=== PATIENT | female | born 1940 | race Caucasian/White ===

== ENCOUNTER 2021-05-06 20:08 | Inpatient (IN) ==
[2021-05-06] MEDS ORDERED: SODIUM CHLORIDE 0.9% 1000ML 2,000 ML IV ONE (20:29)
[2021-05-06 20:46] LABS: Basophils # (auto) 0.03 K/uL (0-0.2); Basophils % (auto) 0.3 %; Eosinophils # (auto) 0.24 K/uL (0-0.5); Eosinophils % (auto) 2.1 %; Hematocrit (blood only) 47.4 % (37-47); Hemoglobin 15.8 g/dL (12.0-16.0); Immature Granulocytes # (auto) 0.02 K/uL (0.00-0.02); Immature Granulocytes % (auto) 0.2 %; Lymphocytes # (auto) 2.29 K/uL (1.2-3.4); Lymphocytes % (auto) 19.6 %; Mean Corpuscular Hemoglobin 29.8 pg (25-34); Mean Corpuscular Hgb Conc 33.3 g/dL (32-36); Mean Corpuscular Volume 89.4 fL (80-100); Mean Platelet Volume 9.9 fL (7.4-10.4); Monocytes # (auto) 0.96 K/uL (0.11-0.59); Monocytes % (auto) 8.2 %; Neutrophils # (auto) 8.12 K/uL (1.4-6.5); Neutrophils % (auto) 69.6 %; Platelet Count 406 K/uL (130-400); RDW Coefficient of Variation 14.6 % (11.5-14.5); RDW Standard Deviation 47.4 fL (36.4-46.3); White Blood Count 11.66 K/uL (4.8-10.8)
--- NOTE | 2021-05-06 20:59 | XRay Report ---
XR chest 1V portable HISTORY: SEPSIS COMPARISON: None. FINDINGS: Slightly rotated study. The right lung is clear. A few linear scarlike density noted within the left lower lobe. The cardiac silhouette is borderline enlarged. No focal lung consolidations to suggest pneumonia. No evidence for pulmonary edema. No pleural fusions. No pneumothorax. Lobular dens ity overlying the left hilum may represent a tortuous thoracic aorta given the rotated study. IMPRESSION: Lobular density overlying the left hilum may represent a tortuous thoracic aorta given the rotated st udy. This will be better appreciated on the same day chest CT. ACT 112: Negative or not required by law. Electronically signed by: Arsenio Sheehan M.D. 05/06/2021 8:58 PM
[2021-05-06 21:04] LABS: Partial Thromboplastin Ratio 0.9; Partial Thromboplastin Time 24.3 Seconds (21.0-31.0); Prothrombin Time 9.8 Seconds (9.0-12.0)
[2021-05-06 21:38] LABS: Influenza A virus by PCR Negative (Negative); Influenza B virus by PCR Negative (Negative)
[2021-05-06] MEDS ORDERED: ONDANSETRON INJ 2 MG/ML 2 ML VIAL IV STA (21:47)
--- NOTE | 2021-05-06 21:47 | Emergency Department Note ---
History of Present Illness General Chief complaint: Hypotension Stated complaint: WEAKNESS, LOW BLOOD PRESSURE, HIGH BLOOD SUGAR Time Seen by Provider: 05/06/21 20:29 History of Present Illness Provider complaint: Dizziness weakness Onset (ago): day(s) 3 Maximum Pain Intensity: 6 80-year-old female presents emergency department with dizziness and weakness. She reports diarrhea, vomiting, nausea, and flank pain bilaterally since Thursday. She states she took her blood pressure today and noticed was low so she came to the emergency department. Patient does have a history of renal cell carcinoma and has had her right kidney removed. No fever headache cough or chest pain. Home Medications Medication Instructions Recorded Confirmed Type ascorbate calcium (vitamin C) 500 500 mg PO DAILY 11/15/20 05/06/21 History mg tablet atorvastatin 20 mg tablet 20 mg PO DAILY 11/15/20 05/06/21 History cholecalciferol (vitamin D3) 50 50 mcg PO DAILY 11/15/20 05/06/21 History mcg (2,000 unit) capsule cyanocobalamin (vitamin B-12) 3,000 mcg PO DAILY 11/15/20 05/06/21 History 3,000 mcg capsule gabapentin 300 mg capsule 300 mg PO HS 11/15/20 05/06/21 History omeprazole 20 mg capsule,delayed 20 mg PO DAILY 11/15/20 05/06/21 History release insulin glargine U-300 conc 300 60 unit SUBCUT DAILY #6 ml 12/05/20 05/06/21 Rx unit/mL (3 mL) subcutaneous pen (Toujeo Max U-300 SoloStar) allopurinol 100 mg tablet 100 mg PO BID #180 tab 02/15/21 05/06/21 Rx furosemide 20 mg tablet 40 mg PO DAILY tab 02/15/21 05/06/21 History ketoconazole 2 % topical cream 1 applic TOPICAL BID #60 g 02/15/21 05/06/21 Rx venlafaxine 75 mg tablet 75 mg PO DAILY #90 tab 02/15/21 05/06/21 Rx valsartan 160 mg tablet 160 mg PO DAILY #90 tab 02/28/21 05/06/21 Rx potassium chloride 20 mEq 20 meq PO DAILY #30 tab 04/10/21 05/06/21 Rx tablet,extended release aspirin 81 mg tablet 81 mg PO DAILY 05/06/21 05/06/21 History tramadol 50 mg tablet 50 mg PO BID PRN 05/06/21 05/06/21 History Allergies Allergy/AdvReac Type Severity Reaction Status Date / Time NSAIDS (Non-Steroidal AdvReac Mild Unknown Verified 05/06/21 22:05 Anti-Inflamma Past Med/Surg History Medical History Acid reflux Chronic kidney disease, stage IV (severe) Degenerative cervical disc Depression Diabetes 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 Fatty liver History of renal cell cancer Hyperlipemia Hypertension Iron deficiency anemia Mild cognitive impairment Obstructive sleep apnea on CPAP Osteoarthritis Peripheral vascular disease Restless leg syndrome Secondary hyperparathyroidism of renal origin Urinary incontinence Vitamin D deficiency Surgical History H/O tubal ligation 1976 History of right nephrectomy (09/30/10) Family History Brother AA (alcohol abuse) Diabetes Hypertension Mother Diabetes Hypertension Stroke Dementia Father Heart disease Hypertension Kidney disease Myocardial infarction Sister Alzheimer disease Son Diabetes Sister Hypertension Stroke Sister Dementia Denies family history of Ovarian cancer Prostate cancer Breast cancer Colorectal cancer Social History Smoking Status: Never smoker Second Hand Exposure: No; Hx Alcohol Use: No Hx Substance Use: No Preferred Language: Afghan Visual Impairment: Limited Hearing Ability: Hard of Hearing Disability Counselor Required: No Beliefs That Will Affect Care: None marital status: / Current Living Situation: Family Current Living Situation Comment: Son lives w/ her, grandson and grandson's current occupational status: employed 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 How many Children do You have: 3 How many Children do You have Comment: 3 sons; 1 lives [place], 1 lives [place], [place], 1 [facility] Feels Safe at Home: Yes Childhood Exposure to Second-Hand Smoke: No caffeine: Yes during the past year weight has: remained stable Dental Care, Regularly: Yes Physical Activity Frequency: Does not Exercise Seatbelt Use: always Sunscreen Use: No (does not really go in sun) Assistive Devices: CPAP Review of Systems A total of 10 systems reviewed and were otherwise negative Physical Exam Vital Signs Vital Signs - 24 hr 05/06/21 20:17 05/06/21 20:36 05/06/21 20:47 Temperature 36.1 C L Temperature Source Temporal Artery Scan Pulse Rate 111 H 95 H Pulse Rate from SpO2 Sensor 95 H Respiratory Rate 20 14 18 Respiratory Effort / Characteristics Non-Labored Spontaneous Blood Pressure 65/46 L 101/60 Blood Pressure Mean 52 73 Pulse Oximetry 96 94 98 Oxygen Delivery Method Room Air Room Air Sepsis New/Unexplained Change in Mental Status N/A Sepsis Action Taken by Nursing No Action Required 05/06/21 20:57 05/06/21 21:30 Temperature Temperature Source Pulse Rate 90 82 Pulse Rate from SpO2 Sensor 90 82 Respiratory Rate 22 19 Respiratory Effort / Characteristics Blood Pressure 110/54 L 104/55 L Blood Pressure Mean 72 71 Pulse Oximetry 97 97 Oxygen Delivery Method Sepsis New/Unexplained Change in Mental Status Sepsis Action Taken by Nursing Physical Exam HENT: Exam performed. -Head: Normocephalic and atraumatic. -Right Ear: External ear normal. No mastoid tenderness. -Left Ear: External ear normal. No mastoid tenderness. -Mouth/Throat: The oropharynx is clear and moist. No trismus in the jaw. No dental abscesses or uvula swelling. No oropharyngeal exudate or tonsillar abscesses. EYES: Conjunctivae and EOM are normal. Pupils are equal, round, and reactive to light. Right eye exhibits no discharge. Left eye exhibits no discharge. No scleral icterus. NECK: Normal range of motion. Neck supple. No JVD present. No spinous process tenderness present. No carotid bruit present. No rigidity. No tracheal deviation and normal range of motion present. No Brudzinski's sign and no Kernig's sign noted. CV: Normal rate, regular rhythm, normal heart sounds and intact distal pulses. There is no peripheral edema. Palpable radial pulses bue. PULM/CHEST: Effort normal and breath sounds normal. No respiratory distress. No stridor. She has no wheezes. She has no rales. -Chest Wall: She exhibits no tenderness. ABD: The abdomen is soft and obese.. MUSC/SKEL: Normal range of motion. There is no peripheral edema, tenderness or deformity. LYMPH: No cervical adenopathy. NEURO: She is alert and oriented to person, place, and time. She has normal strength. No cranial nerve deficit or sensory deficit. Procedures FAST Exam FAST Exam 1: Fluid in Morison's pouch: No Fluid in Splenorenal Junction: No Fluid around bladder, Transverse view: No Fluid around bladder, Sagittal view: No Fluid in Pericardial Sac: No Gross Wall Motion Abnormality: No Images saved for further review: Yes Additional Comments: [place] protocol rhuoj-ia-feic ultrasound was initiated. No free fluid in the abdomen, no right kidney. No pericardial effusion. IVC does appear collapse. No AAA. Course Course 2028: The patient was evaluated in room B7. A complete history and physical exam was performed Cardiac monitoring: An order was placed for continuous cardiac monitoring. The monitor shows a rate of 110 with sinus tachycardia rhythm Patient was found to be tachycardic and hypotensive. Sepsis protocols initiated. [place] protocol [id number] ultrasound was initiated. No free fluid in the abdomen, no right kidney. No pericardial effusion. IVC does appear co llapse. No AAA. 2 L IV fluids ordered for the patient wide open. 2039: Blood pressure improved. Patient taken to CAT scan. 2257: Blood pressure 91/55. 500 cc bolus of fluid repeat ordered for the patient. Labs show a lactic acid of 2.9. Creatinine of 5.72. Up from 1.86 3 weeks ago. Imaging shows a possible cystitis. No kidney stone. UA pending, zosyn ordered empiroically for sepsis coverae for possible urinary infection. Patient admitted to [facility] [place]. Evans Administered Medications Sodium Chloride (Nss 1000ml) 1,000 mls @ 125 mls/hr IV .Q8H ARTUR Stop: 06/05/21 22:14 Last Admin: 05/06/21 22:33 Dose: 125 mls/hr Documented by: [id number] Discontinued Medications Sodium Chloride (Nss 1000ml) 2,000 mls @ 999 mls/hr IV .Q2H1M ONE Stop: 05/06/21 22:29 Last Infusion: 05/06/21 22:17 Dose: 0 mls/hr Documented by: [id number] Admin: 05/06/21 20:30 Dose: 999 mls/hr Documented by: [id number] Piperacillin Sod/Tazobactam Sod (Zosyn) 4.5 gm in 120 mls @ 240 mls/hr IV NOW ONE Stop: 05/06/21 22:44 Last Admin: 05/06/21 22:32 Dose: 240 mls/hr Documented by: [id number] Ondansetron HCl (Ondansetron Inj 2 Mg/Ml 2 Ml Vial) 4 mg IV NOW STA Stop: 05/06/21 21:48 Last Admin: 05/06/21 22:04 Dose: 4 mg Documented by: [id number] Critical Care Time Critical Care Time: Yes Total Critical Care Time: 79 I have personally spent greater than 79 minutes of critical care time in the direct management of this patient. This includes bedside care, interpretation of diagnostic studies, and testing, discussion with consultants, patient, and family members, and other required patient management activities. This 79 minutes is in excess of all separately billable procedures. Medical Decision Making Laboratory Data Result diagrams: 05/06/21 20:35 05/06/21 20:35 Lab Results 05/06/21 05/06/21 05/06/21 Range/Units 20:35 20:35 20:35 WBC 11.66 H (4.8-10.8) K/uL RBC 5.30 (4.2-5.4) M/uL Hgb 15.8 (12.0-16.0) g/dL Hct 47.4 H (37-47) % MCV 89.4 (80-100) fL MCH 29.8 (25-34) pg MCHC 33.3 (32-36) g/dL RDW Std Deviation 47.4 H (36.4-46.3) fL RDW Coeff of Chyna 14.6 H (11.5-14.5) % Plt Count 406 H (130-400) K/uL MPV 9.9 (7.4-10.4) fL Immature Gran % (Auto) 0.2 % Neut % (Auto) 69.6 % Lymph % (Auto) 19.6 % Ada % (Auto) 8.2 % Eos % (Auto) 2.1 % Baso % (Auto) 0.3 % Neut # (Auto) 8.12 H (1.4-6.5) K/uL Lymph # (Auto) 2.29 (1.2-3.4) K/uL Ada # (Auto) 0.96 H (0.11-0.59) K/uL Eos # (Auto) 0.24 (0-0.5) K/uL Baso # (Auto) 0.03 (0-0.2) K/uL Immature Gran # (Auto) 0.02 (0.00-0.02) K/uL PT 9.8 (9.0-12.0) Seconds INR 1.0 (0.9-1.1) APTT 24.3 (21.0-31.0) Seconds PTT Ratio 0.9 Sodium 131 L (136-145) mmol/L Potassium 3.4 L (3.5-5.1) mmol/L Chloride 94 L (98-107) mmol/L Carbon Dioxide 23 (21-32) mmol/L Anion Gap 15.0 H (3-11) BUN 88 H (7-18) mg/dl Creatinine 5.72 H* (0.6-1.2) mg/dl Est Cr Clr Drug Dosing 8.7 ml/min Est GFR ( Amer) 7.6 ml/min Est GFR (Non-Af Amer) 6.5 ml/min BUN/Creatinine Ratio 15.3 (10-20) Glucose 155 H (70-99) mg/dl Lactate (0.4-2.0) mmol/L Calcium 10.7 H (8.5-10.1) mg/dl Magnesium 2.1 (1.8-2.4) mg/dl Total Bilirubin 0.6 (0.2-1) mg/dl AST 11 L (15-37) U/L ALT 20 (12-78) U/L Alkaline Phosphatase 142 H (45-117) U/L Troponin I < 0.015 (0-0.045) ng/ml Total Protein 8.7 H (6.4-8.2) gm/dl Albumin 3.8 (3.4-5.0) gm/dl Globulin 4.9 H (2.5-4.0) gm/dl Albumin/Globulin Ratio 0.8 L (0.9-2) Procalcitonin (0-0.5) ng/ml COVID-19 Eval Order SARS-CoV-2 (PCR) (Negative) Influ A Molecular Assay (Negative) Influ B Molecular Assay (Negative) 05/06/21 05/06/21 05/06/21 Range/Units 20:35 20:42 20:42 WBC (4.8-10.8) K/uL RBC (4.2-5.4) M/uL Hgb (12.0-16.0) g/dL Hct (37-47) % MCV (80-100) fL MCH (25-34) pg MCHC (32-36) g/dL RDW Std Deviation (36.4-46.3) fL RDW Coeff of Chyna (11.5-14.5) % Plt Count (130-400) K/uL MPV (7.4-10.4) fL Immature Gran % (Auto) % Neut % (Auto) % Lymph % (Auto) % Ada % (Auto) % Eos % (Auto) % Baso % (Auto) % Neut # (Auto) (1.4-6.5) K/uL Lymph # (Auto) (1.2-3.4) K/uL Ada # (Auto) (0.11-0.59) K/uL Eos # (Auto) (0-0.5) K/uL Baso # (Auto) (0-0.2) K/uL Immature Gran # (Auto) (0.00-0.02) K/uL PT (9.0-12.0) Seconds INR (0.9-1.1) APTT (21.0-31.0) Seconds PTT Ratio Sodium (136-145) mmol/L Potassium (3.5-5.1) mmol/L Chloride (98-107) mmol/L Carbon Dioxide (21-32) mmol/L Anion Gap (3-11) BUN (7-18) mg/dl Creatinine (0.6-1.2) mg/dl Est Cr Clr Drug Dosing ml/min Est GFR ( Amer) ml/min Est GFR (Non-Af Amer) ml/min BUN/Creatinine Ratio (10-20) Glucose (70-99) mg/dl Lactate (0.4-2.0) mmol/L Calcium (8.5-10.1) mg/dl Magnesium (1.8-2.4) mg/dl Total Bilirubin (0.2-1) mg/dl AST (15-37) U/L ALT (12-78) U/L Alkaline Phosphatase (45-117) U/L Troponin I (0-0.045) ng/ml Total Protein (6.4-8.2) gm/dl Albumin (3.4-5.0) gm/dl Globulin (2.5-4.0) gm/dl Albumin/Globulin Ratio (0.9-2) Procalcitonin 0.20 (0-0.5) ng/ml COVID-19 Eval Order Covid19 at [facility] SARS-CoV-2 (PCR) (Negative) Influ A Molecular Assay Negative (Negative) Influ B Molecular Assay Negative (Negative) 05/06/21 05/06/21 Range/Units 20:42 21:35 WBC (4.8-10.8) K/uL RBC (4.2-5.4) M/uL Hgb (12.0-16.0) g/dL Hct (37-47) % MCV (80-100) fL MCH (25-34) pg MCHC (32-36) g/dL RDW Std Deviation (36.4-46.3) fL RDW Coeff of Chyna (11.5-14.5) % Plt Count (130-400) K/uL MPV (7.4-10.4) fL Immature Gran % (Auto) % Neut % (Auto) % Lymph % (Auto) % Ada % (Auto) % Eos % (Auto) % Baso % (Auto) % Neut # (Auto) (1.4-6.5) K/uL Lymph # (Auto) (1.2-3.4) K/uL Ada # (Auto) (0.11-0.59) K/uL Eos # (Auto) (0-0.5) K/uL Baso # (Auto) (0-0.2) K/uL Immature Gran # (Auto) (0.00-0.02) K/uL PT (9.0-12.0) Seconds INR (0.9-1.1) APTT (21.0-31.0) Seconds PTT Ratio Sodium (136-145) mmol/L Potassium (3.5-5.1) mmol/L Chloride (98-107) mmol/L Carbon Dioxide (21-32) mmol/L Anion Gap (3-11) BUN (7-18) mg/dl Creatinine (0.6-1.2) mg/dl Est Cr Clr Drug Dosing ml/min Est GFR ( Amer) ml/min Est GFR (Non-Af Amer) ml/min BUN/Creatinine Ratio (10-20) Glucose (70-99) mg/dl Lactate 2.9 H* (0.4-2.0) mmol/L Calcium (8.5-10.1) mg/dl Magnesium (1.8-2.4) mg/dl Total Bilirubin (0.2-1) mg/dl AST (15-37) U/L ALT (12-78) U/L Alkaline Phosphatase (45-117) U/L Troponin I (0-0.045) ng/ml Total Protein (6.4-8.2) gm/dl Albumin (3.4-5.0) gm/dl Globulin (2.5-4.0) gm/dl Albumin/Globulin Ratio (0.9-2) Procalcitonin (0-0.5) ng/ml COVID-19 Eval Order SARS-CoV-2 (PCR) NEGATIVE (Negative) Influ A Molecular Assay (Negative) Influ B Molecular Assay (Negative) Imaging Data Radiologist's Impression: Chest X-Ray 05/06/21 20:29 XR chest 1V portable HISTORY: SEPSIS COMPARISON: None. FINDINGS: Slightly rotated study. The right lung is clear. A few linear scarlike density noted within the left lower lobe. The cardiac silhouette is borderline enlarged. No focal lung consolidations to suggest pneumonia. No evidence for pulmonary edema. No pleural fusions. No pneumothorax. Lobular density overlying the left hilum may represent a tortuous thoracic aorta given the rotated study. IMPRESSION: Lobular density overlying the left hilum may represent a tortuous thoracic aorta given the rotated study. This will be better appreciated on the same day chest CT. ACT 112: Negative or not required by law. Electronically signed by: Arsenio Sheehan M.D. 05/06/2021 8:58 PM Preliminary Findings Only See Final Report For Complete Findings CT ABDOMEN & PELVIS Without Contrast: Collapsed urinary bladder, cystitis can be missed, correlate clinically. Normal solitary left kidney, no stones or obstruction. Status post right nephrectomy, no suspicious mass or adenopathy. Subtle hepatic hypodensity measures 8 mm, too small to accurately characterize, statistically would reflect cyst or hemangioma. Metastatic focus not excluded. Diverticulosis without diverticulitis. No SBO, free air or free fluid. Radiologist: Paloma Stevenson M.D. Study ready at 21:16 and initial results transmitted at 21:24 Preliminary Findings Only See Final Report For Complete Findings CT CHEST Without Contrast: Mild linear atelectasis or scarring. No consolidation or infiltrate. Mild esophageal prominence, may be physiologic, cannot rule out mild esophagi tis. Small hiatal hernia. Severe thyromegaly with substernal extension and/or exophytic nodules extending from the inferior pole. Severe aortic ectasia. Radiologist: Paloma Stevenson M.D. Study ready at 21:14 and initial results transmitted at 21:20 ECG Data Indication: + abdominal pain Rate (beats per minute): 104 Rhythm: + sinus tachycardia ECG Intervals/blocks: + Normal QRS, + Normal RI and + Normal QT-c ECG ST segments: + Normal ST segments MDM Narrative 2028: The patient was evaluated in room B7. A complete history and physical exam was performed Cardiac monitoring: An order was placed for continuous cardiac monitoring. The monitor shows a rate of 110 with sinus tachycardia rhythm Patient was found to be tachycardic and hypotensive. Sepsis protocols initiated. [place] protocol ojvpv-[id number]-puja ultrasound was initiated. No free fluid in the abdomen, no right kidney. No pericardial effusion. IVC does appear collapse. No AAA. 2 L IV fluids ordered for the patient wide open. 2039: Blood pressure improved. Patient taken to CAT scan. 2257: Blood pressure 91/55. 500 cc bolus of fluid repeat ordered for the patient. Labs show a lactic acid of 2.9. Creatinine of 5.72. Up from 1.86 3 weeks ago. Imaging shows a possible cystitis. No kidney stone. UA pending, zosyn ordered empiroically for sepsis coverae for possible urinary infection. Patient admitted to [facility] [place]. Evans Impression & Plan KALA (acute kidney injury), Sepsis Discharge Plan Visit Data Chief Complaint: Hypotension Stated Complaint: WEAKNESS, LOW BLOOD PRESSURE, HIGH BLOOD SUGAR Discharge Problem: KALA (acute kidney injury), Sepsis Patient Disposition: Admitted As Inpatient Forms Stand Alone Forms: [facility] Lindsey Shell Prescriptions Prescriptions: No Action Toujeo Max U-300 SoloStar 300 unit/mL (3 mL) insulin pen 60 unit subcut DAILY Qty: 6 RF: 6 potassium chloride 20 mEq tablet extended release 20 meq PO DAILY Qty: 30 RF: 5 venlafaxine 75 mg tablet 75 mg PO DAILY Qty: 90 RF: 0 furosemide 20 mg tablet 40 mg PO DAILY RF: 0 allopurinol 100 mg tablet 100 mg PO BID Qty: 180 RF: 1 ketoconazole 2 % cream 1 applic topical BID Qty: 60 RF: 0 valsartan 160 mg tablet 160 mg PO DAILY Qty: 90 RF: 3 atorvastatin 20 mg tablet 20 mg PO DAILY RF: 0 omeprazole 20 mg capsule,delayed release(DR/EC) 20 mg PO DAILY RF: 0 gabapentin 300 mg capsule 300 mg PO HS RF: 0 cyanocobalamin (vitamin B-12) 3,000 mcg capsule 3,000 mcg PO DAILY RF: 0 cholecalciferol (vitamin D3) 50 mcg (2,000 unit) capsule 50 mcg PO DAILY RF: 0 ascorbate calcium (vitamin C) 500 mg tablet 500 mg PO DAILY RF: 0 tramadol 50 mg Tablet 50 mg PO BID PRN (Reason: Pain) RF: 0 Low-Dose Aspirin 81 mg Tablet 81 mg PO DAILY RF: 0 Referrals Referrals: Michelle Magana DO [Primary Care Provider] -
[2021-05-06 22:07] LABS: Alanine Aminotransferase 20 U/L (12-78); Albumin Globulin Ratio 0.8 (0.9-2); Albumin Level 3.8 gm/dl (3.4-5.0); Alkaline Phosphatase 142 U/L (45-117); Aspartate Aminotransferase 11 U/L (15-37); BUN Creatinine Ratio 15.3 (10-20); Bilirubin,Total 0.6 mg/dl (0.2-1); Blood Urea Nitrogen 88 mg/dl (7-18); Calcium 10.7 mg/dl (8.5-10.1); Carbon Dioxide 23 mmol/L (21-32); Chloride 94 mmol/L (98-107); Creatinine Clr Calc Pharmacy 8.7 ml/min; Est GFR (African American) 7.6 ml/min; Est GFR (Non-African American) 6.5 ml/min; Globulin 4.9 gm/dl (2.5-4.0); Glucose 155 mg/dl (70-99); Magnesium 2.1 mg/dl (1.8-2.4); Potassium 3.4 mmol/L (3.5-5.1); Sodium 131 mmol/L (136-145); Total Protein 8.7 gm/dl (6.4-8.2); Troponin I < 0.015 ng/ml (0-0.045)
[2021-05-06] MEDS ORDERED: PIPERACILLIN/TAZOBACTAM 4.5 GM/120 ML BAG IV ONE (22:15)
[2021-05-06] MEDS: SODIUM CHLORIDE 0.9% 1000ML 1,000 ML IV SCH (22:33)
[2021-05-06 23:02] LABS: Appearance Urine Cloudy (Clear); Bilirubin Urine Negative (Negative); Blood Urine Negative (Negative); Color Urine Yellow; Epithelial Cell Urine Auto >30 /lpf (0-5); Glucose Urine UA Negative (Negative); Ketones Urine Trace (Negative); Leukocyte Esterase Urine 2+ (Negative); Nitrite Urine Negative (Negative); Protein Urine 1+ (Negative); Specific Gravity Urine 1.013 (1.000-1.030); Urobilinogen Urine Negative (Negative); WBC Urine Automated >30 /hpf (0-5)
[2021-05-06 23:19] LABS: Cast Urine Automated >30 /lpf (0-5)
[2021-05-06] MEDS ORDERED: SODIUM CHLORIDE 0.9% 1000ML 500 ML IV ONE (23:19)
[2021-05-06 23:20] LABS: Bacteria Urine Automated 1+ (Negative); Calcium Oxalate Crystals Urine Present (None Prsent); RBC Urine Automated 0-4 /hpf (0-4)
--- NOTE | 2021-05-06 23:43 | History & Physical Report ---
Date of Service May 06, 2021 Assessment & Plan (1) Acute renal failure: Plan: Bertha Cano is a 80-year-old female with past medical history renal cell cancer status post stent right knee, chronic kidney disease, hypertension, type 2 diabetes, and obstructive sleep apnea; who presented for concerns of low blood pressure earlier today. Acute renal failure superimposed on CKD stage IV -Complicated by her history of renal cell cancer status post right nephrectomy -Creatinine on admission of 5.72 (baseline creatinine approximately 1.9) -Hold nephrotoxic agents at this time -Likely secondary to dehydration given significant collapse of IVC on ED fast scan -Nephrology consulted -Continue to monitor renal function daily -Patient would consider dialysis if deemed a candidate Hypotension: -Peripheral-attention on presentation to ED -ED FAST scan demonstrating significant collapse of IVC consistent with dehydration -BP improved with fluid boluses -Initial lactate of 2.9 with subsequent downtrend to 1.8; likely secondary to poor forward flow -Continue IV rehydration -Received total of 2L NS in ED followed by 1L following admission, with additional NS @ 125mL/hr overnight Type 2 diabetes with polyneuropathy: -Previously well controlled with last A1c in November 2020 of 7.1 -BSG's ACHS -Sliding scale insulin -A1c in a.m. Hypertension: -Hold home hypertensive regimen in the setting of hypotension and acute renal failure Gout: -Home regimen of allopurinol 100 mg twice daily Diet: Carb consistent CODE STATUS: Full code DVT prophylaxis: Heparin (2) History of renal cell cancer: (3) Chronic kidney disease, stage IV (severe): (4) Diabetes mellitus with polyneuropathy: (5) Hypertension: (6) Hyperlipemia: (7) Acid reflux: (8) History of right nephrectomy: (9) Gout: History of Present Illness Primary Care Provider: Michelle Magana DO Bertha Cano is a 80-year-old female with past medical history renal cell cancer status post stent right knee, chronic kidney disease, hypertension, type 2 diabetes, and obstructive sleep apnea; who presented for concerns of low blood pressure earlier today. Over the last week patient has had continued difficulty with keeping down liquids and foods, with associated diarrhea. As a result of this has had minimal food consumption over the last 3 days, additionally had vents holding off on using her Lasix out of concern about amount of fluid she was having diarrhea. This had somewhat slowed down earlier today, but she was still tentative towards eating or drinking anything. Ultimately took her blood pressure earlier today given feeling very tired, and after seeing the low blood pressure number decided she needs to be seen in the ER. Following receiving multiple IV infusions she did feel like her energy had come up somewhat, but was still profoundly fatigued. Sensitive discussions regarding changes to kidney function demonstrated on lab work demonstrated that she would be agreeable to dialysis if she was deemed a candidate, as she desires to continue to try everything. Does have family that have previously been through dialysis as well as needed to receive kidney transplants. Recognizes that with her history this is very complicated given that she only has 1 kidney at this moment in time and that one has suffered some damage at this point. Allergies Allergy/AdvReac Type Severity Reaction Status Date / Time NSAIDS (Non-Steroidal AdvReac Mild Unknown Verified 05/06/21 22:05 Anti-Inflamma Home Medications Medication Instructions Recorded Confirmed Type ascorbate calcium (vitamin C) 500 500 mg PO DAILY 11/15/20 05/06/21 History mg tablet atorvastatin 20 mg tablet 20 mg PO DAILY 11/15/20 05/06/21 History cholecalciferol (vitamin D3) 50 50 mcg PO DAILY 11/15/20 05/06/21 History mcg (2,000 unit) capsule cyanocobalamin (vitamin B-12) 3,000 mcg PO DAILY 11/15/20 05/06/21 History 3,000 mcg capsule gabapentin 300 mg capsule 300 mg PO HS 11/15/20 05/06/21 History omeprazole 20 mg capsule,delayed 20 mg PO DAILY 11/15/20 05/06/21 History release insulin glargine U-300 conc 300 60 unit SUBCUT DAILY #6 ml 12/05/20 05/06/21 Rx unit/mL (3 mL) subcutaneous pen (Toujeo Max U-300 SoloStar) allopurinol 100 mg tablet 100 mg PO BID #180 tab 02/15/21 05/06/21 Rx furosemide 20 mg tablet 40 mg PO DAILY tab 02/15/21 05/06/21 History ketoconazole 2 % topical cream 1 applic TOPICAL BID #60 g 02/15/21 05/06/21 Rx venlafaxine 75 mg tablet 75 mg PO DAILY #90 tab 02/15/21 05/06/21 Rx valsartan 160 mg tablet 160 mg PO DAILY #90 tab 02/28/21 05/06/21 Rx potassium chloride 20 mEq 20 meq PO DAILY #30 tab 04/10/21 05/06/21 Rx tablet,extended release aspirin 81 mg tablet 81 mg PO DAILY 05/06/21 05/06/21 History tramadol 50 mg tablet 50 mg PO BID PRN 05/06/21 05/06/21 History Past Med/Surg History Medical History Acid reflux Chronic kidney disease, stage IV (severe) Degenerative cervical disc Depression Diabetes 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 Fatty liver History of renal cell cancer Hyperlipemia Hypertension Iron deficiency anemia Mild cognitive impairment Obstructive sleep apnea on CPAP Osteoarthritis Peripheral vascular disease Restless leg syndrome Secondary hyperparathyroidism of renal origin Urinary incontinence Vitamin D deficiency Surgical History H/O tubal ligation 1976 History of right nephrectomy (09/30/10) Family History Brother AA (alcohol abuse) Diabetes Hypertension Mother Diabetes Hypertension Stroke Dementia Father Heart disease Hypertension Kidney disease Myocardial infarction Sister Alzheimer disease Son Diabetes Sister Hypertension Stroke Sister Dementia Denies family history of Ovarian cancer Prostate cancer Breast cancer Colorectal cancer Social History Smoking Status: Never smoker Second Hand Exposure: No; Hx Alcohol Use: No Hx Substance Use: No Preferred Language: Northern Irish Communication Ability: Effective Visual Impairment: Limited Hearing Ability: Hard of Hearing Winterizer Required: No Beliefs That Will Affect Care: None marital status: / Current Living Situation: Family Current Living Situation Comment: Son lives w/ her, grandson and grandson's current occupational status: employed 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 How many Children do You have: 3 How many Children do You have Comment: 3 sons; 1 lives [place], 1 [place], [facility] Feels Safe at Home: Yes Safety Concerns: Feels Safe At This Time Childhood Exposure to Second-Hand Smoke: No caffeine: Yes during the past year weight has: remained stable Dental Care, Regularly: Yes Physical Activity Frequency: Does not Exercise Seatbelt Use: always Sunscreen Use: No (does not really go in sun) Assistive Devices: CPAP Review of Systems Review of Systems: All systems reviewed & are unremarkable except as noted in HPI & below Physical Exam Constitutional: WD/WN, vitals as above Eyes: PERRL, conjunctivae normal, anicteric sclerae Respiratory: normal respiratory effort, lungs clear to auscultation Auscultation: no crackles, no rales, no rhonchi and no wheezes Cardiovascular: Rate/Rhythm: regular rate and regular rhythm Heart Sounds: + murmur (systolic ejection over FRANK border); no gallop and no cardiac rub Vessels: normal peripheral pulses; no JVD Extremities: no edema Gastrointestinal (Abdomen): Inspection/Auscultation: normal bowel sounds; abdomen not distended Percussion/Palpation: abdomen soft; abdomen nontender and no guarding Musculoskeletal: no cyanosis or clubbing, extremities motor strength 5/5 Skin: no rashes, warm and dry Neurologic: PERRL, EOMI, accommodation nl, no face palsy, no dysarthria CN's II-XI intact bilaterally and moves all extremities Psychiatric: Orientation: alert and oriented x 3 Results & Data Results & Data ([facility]) Vital Signs (Past 12 Hours) Vital Signs Temp Pulse Resp BP Pulse Ox 05/06/21 23:15 71 21 96/48 L 95 05/06/21 23:00 75 19 91/55 L 95 05/06/21 22:45 69 14 85/49 L 93 05/06/21 22:30 80 21 90/61 L 95 05/06/21 22:15 81 103/57 L 98 05/06/21 22:00 82 20 97/55 L 96 05/06/21 21:30 82 19 104/55 L 97 05/06/21 20:57 90 22 110/54 L 97 05/06/21 20:47 18 98 05/06/21 20:36 95 H 14 101/60 94 05/06/21 20:17 36.1 C L 111 H 20 65/46 L 96 Laboratory Results 05/07/21 05/06/21 05/06/21 Range/Units 00:05 22:10 22:00 WBC (4.8-10.8) K/uL RBC (4.2-5.4) M/uL Hgb (12.0-16.0) g/dL Hct (37-47) % MCV (80-100) fL MCH (25-34) pg MCHC (32-36) g/dL RDW Std Deviation (36.4-46.3) fL RDW Coeff of Chyna (11.5-14.5) % Plt Count (130-400) K/uL MPV (7.4-10.4) fL Immature Gran % (Auto) % Neut % (Auto) % Lymph % (Auto) % [place] % (Auto) % Eos % (Auto) % Baso % (Auto) % Neut # (Auto) (1.4-6.5) K/uL Lymph # (Auto) (1.2-3.4) K/uL [place] # (Auto) (0.11-0.59) K/uL Eos # (Auto) (0-0.5) K/uL Baso # (Auto) (0-0.2) K/uL Immature Gran # (Auto) (0.00-0.02) K/uL PT (9.0-12.0) Seconds INR (0.9-1.1) APTT (21.0-31.0) Seconds PTT Ratio Sodium (136-145) mmol/L Potassium (3.5-5.1) mmol/L Chloride (98-107) mmol/L Carbon Dioxide (21-32) mmol/L Anion Gap (3-11) BUN (7-18) mg/dl Creatinine (0.6-1.2) mg/dl Est Cr Clr Drug Dosing ml/min Est GFR ( Amer) ml/min Est GFR (Non-Af Amer) ml/min BUN/Creatinine Ratio (10-20) Glucose (70-99) mg/dl Lactate 1.8 (0.4-2.0) mmol/L Calcium (8.5-10.1) mg/dl Magnesium (1.8-2.4) mg/dl Total Bilirubin (0.2-1) mg/dl AST (15-37) U/L ALT (12-78) U/L Alkaline Phosphatase (45-117) U/L Troponin I (0-0.045) ng/ml Total Protein (6.4-8.2) gm/dl Albumin (3.4-5.0) gm/dl Globulin (2.5-4.0) gm/dl Albumin/Globulin Ratio (0.9-2) Procalcitonin (0-0.5) ng/ml Urine Color Yellow Cancelled Urine Appearance Cloudy A Cancelled Urine pH 5.0 Cancelled Ur Specific [place] 1.013 Cancelled Urine Protein 1+ H Cancelled Urine Glucose (UA) Negative Cancelled Urine Ketones Trace H Cancelled Urine Blood Negative Cancelled Urine Nitrite Negative Cancelled Urine Bilirubin Negative Cancelled Urine Urobilinogen Negative Cancelled Ur Leukocyte Esterase 2+ H Cancelled Urine WBC (Auto) >30 H Cancelled Urine RBC (Auto) 0-4 Cancelled U Hyaline Cast (Auto) >30 H Cancelled U Epithel Cells (Auto) >30 H Cancelled Urine Bacteria (Auto) 1+ H Cancelled Ur Renal Epithelial Cell Not Reportable Cancelled Urine Crystals Cancelled Calcium Oxalate Crystal Present A Cancelled Uric Acid Crystals Cancelled Triple Phos Crystals Cancelled Other Crystals Cancelled Amorphous Sediment Cancelled Granular Casts 1-5 H Cancelled Waxy Casts Cancelled RBC Casts Cancelled WBC Casts Cancelled Other Casts Cancelled Urine Mucus Cancelled Urine Other Cancelled Urine Trichomonas Cancelled Urine Yeast Cancelled Urine Sperm Cancelled Ur Oval Fat Bodies Cancelled COVID-19 Eval Order SARS-CoV-2 (PCR) (Negative) Influ A Molecular Assay (Negative) Influ B Molecular Assay (Negative) 05/06/21 05/06/21 05/06/21 Range/Units 21:35 20:42 20:42 WBC (4.8-10.8) K/uL RBC (4.2-5.4) M/uL Hgb (12.0-16.0) g/dL Hct (37-47) % MCV (80-100) fL MCH (25-34) pg MCHC (32-36) g/dL RDW Std Deviation (36.4-46.3) fL RDW Coeff of Chyna (11.5-14.5) % Plt Count (130-400) K/uL MPV (7.4-10.4) fL Immature Gran % (Auto) % Neut % (Auto) % Lymph % (Auto) % [place] % (Auto) % Eos % (Auto) % Baso % (Auto) % Neut # (Auto) (1.4-6.5) K/uL Lymph # (Auto) (1.2-3.4) K/uL [place] # (Auto) (0.11-0.59) K/uL Eos # (Auto) (0-0.5) K/uL Baso # (Auto) (0-0.2) K/uL Immature Gran # (Auto) (0.00-0.02) K/uL PT (9.0-12.0) Seconds INR (0.9-1.1) APTT (21.0-31.0) Seconds PTT Ratio Sodium (136-145) mmol/L Potassium (3.5-5.1) mmol/L Chloride (98-107) mmol/L Carbon Dioxide (21-32) mmol/L Anion Gap (3-11) BUN (7-18) mg/dl Creatinine (0.6-1.2) mg/dl Est Cr Clr Drug Dosing ml/min Est GFR ( Amer) ml/min Est GFR (Non-Af Amer) ml/min BUN/Creatinine Ratio (10-20) Glucose (70-99) mg/dl Lactate 2.9 H* (0.4-2.0) mmol/L Calcium (8.5-10.1) mg/dl Magnesium (1.8-2.4) mg/dl Total Bilirubin (0.2-1) mg/dl AST (15-37) U/L ALT (12-78) U/L Alkaline Phosphatase (45-117) U/L Troponin I (0-0.045) ng/ml Total Protein (6.4-8.2) gm/dl Albumin (3.4-5.0) gm/dl Globulin (2.5-4.0) gm/dl Albumin/Globulin Ratio (0.9-2) Procalcitonin (0-0.5) ng/ml Urine Color Urine Appearance Urine pH Ur Specific [place] Urine Protein Urine Glucose (UA) Urine Ketones Urine Blood Urine Nitrite Urine Bilirubin Urine Urobilinogen Ur Leukocyte Esterase Urine WBC (Auto) Urine RBC (Auto) U Hyaline Cast (Auto) U Epithel Cells (Auto) Urine Bacteria (Auto) Ur Renal Epithelial Cell Urine Crystals Calcium Oxalate Crystal Uric Acid Crystals Triple Phos Crystals Other Crystals Amorphous Sediment Granular Casts Waxy Casts RBC Casts WBC Casts Other Casts Urine Mucus Urine Other Urine Trichomonas Urine Yeast Urine Sperm Ur Oval Fat Bodies COVID-19 Eval Order Covid19 at [facility] SARS-CoV-2 (PCR) NEGATIVE (Negative) Influ A Molecular Assay (Negative) Influ B Molecular Assay (Negative) 05/06/21 05/06/21 05/06/21 Range/Units 20:42 20:35 20:35 WBC (4.8-10.8) K/uL RBC (4.2-5.4) M/uL Hgb (12.0-16.0) g/dL Hct (37-47) % MCV (80-100) fL MCH (25-34) pg MCHC (32-36) g/dL RDW Std Deviation (36.4-46.3) fL RDW Coeff of Chyna (11.5-14.5) % Plt Count (130-400) K/uL MPV (7.4-10.4) fL Immature Gran % (Auto) % Neut % (Auto) % Lymph % (Auto) % [place] % (Auto) % Eos % (Auto) % Baso % (Auto) % Neut # (Auto) (1.4-6.5) K/uL Lymph # (Auto) (1.2-3.4) K/uL [place] # (Auto) (0.11-0.59) K/uL Eos # (Auto) (0-0.5) K/uL Baso # (Auto) (0-0.2) K/uL Immature Gran # (Auto) (0.00-0.02) K/uL PT (9.0-12.0) Seconds INR (0.9-1.1) APTT (21.0-31.0) Seconds PTT Ratio Sodium 131 L (136-145) mmol/L Potassium 3.4 L (3.5-5.1) mmol/L Chloride 94 L (98-107) mmol/L Carbon Dioxide 23 (21-32) mmol/L Anion Gap 15.0 H (3-11) BUN 88 H (7-18) mg/dl Creatinine 5.72 H* (0.6-1.2) mg/dl Est Cr Clr Drug Dosing 8.7 ml/min Est GFR ( Amer) 7.6 ml/min Est GFR (Non-Af Amer) 6.5 ml/min BUN/Creatinine Ratio 15.3 (10-20) Glucose 155 H (70-99) mg/dl Lactate (0.4-2.0) mmol/L Calcium 10.7 H (8.5-10.1) mg/dl Magnesium 2.1 (1.8-2.4) mg/dl Total Bilirubin 0.6 (0.2-1) mg/dl AST 11 L (15-37) U/L ALT 20 (12-78) U/L Alkaline Phosphatase 142 H (45-117) U/L Troponin I < 0.015 (0-0.045) ng/ml Total Protein 8.7 H (6.4-8.2) gm/dl Albumin 3.8 (3.4-5.0) gm/dl Globulin 4.9 H (2.5-4.0) gm/dl Albumin/Globulin Ratio 0.8 L (0.9-2) Procalcitonin 0.20 (0-0.5) ng/ml Urine Color Urine Appearance Urine pH Ur Specific [place] Urine Protein Urine Glucose (UA) Urine Ketones Urine Blood Urine Nitrite Urine Bilirubin Urine Urobilinogen Ur Leukocyte Esterase Urine WBC (Auto) Urine RBC (Auto) U Hyaline Cast (Auto) U Epithel Cells (Auto) Urine Bacteria (Auto) Ur Renal Epithelial Cell Urine Crystals Calcium Oxalate Crystal Uric Acid Crystals Triple Phos Crystals Other Crystals Amorphous Sediment Granular Casts Waxy Casts RBC Casts WBC Casts Other Casts Urine Mucus Urine Other Urine Trichomonas Urine Yeast Urine Sperm Ur Oval Fat Bodies COVID-19 Eval Order SARS-CoV-2 (PCR) (Negative) Influ A Molecular Assay Negative (Negative) Influ B Molecular Assay Negative (Negative) 05/06/21 05/06/21 Range/Units 20:35 20:35 WBC 11.66 H (4.8-10.8) K/uL RBC 5.30 (4.2-5.4) M/uL Hgb 15.8 (12.0-16.0) g/dL Hct 47.4 H (37-47) % MCV 89.4 (80-100) fL MCH 29.8 (25-34) pg MCHC 33.3 (32-36) g/dL RDW Std Deviation 47.4 H (36.4-46.3) fL RDW Coeff of Chyna 14.6 H (11.5-14.5) % Plt Count 406 H (130-400) K/uL MPV 9.9 (7.4-10.4) fL Immature Gran % (Auto) 0.2 % Neut % (Auto) 69.6 % Lymph % (Auto) 19.6 % [place] % (Auto) 8.2 % Eos % (Auto) 2.1 % Baso % (Auto) 0.3 % Neut # (Auto) 8.12 H (1.4-6.5) K/uL Lymph # (Auto) 2.29 (1.2-3.4) K/uL [place] # (Auto) 0.96 H (0.11-0.59) K/uL Eos # (Auto) 0.24 (0-0.5) K/uL Baso # (Auto) 0.03 (0-0.2) K/uL Immature Gran # (Auto) 0.02 (0.00-0.02) K/uL PT 9.8 (9.0-12.0) Seconds INR 1.0 (0.9-1.1) APTT 24.3 (21.0-31.0) Seconds PTT Ratio 0.9 Sodium (136-145) mmol/L Potassium (3.5-5.1) mmol/L Chloride (98-107) mmol/L Carbon Dioxide (21-32) mmol/L Anion Gap (3-11) BUN (7-18) mg/dl Creatinine (0.6-1.2) mg/dl Est Cr Clr Drug Dosing ml/min Est GFR ( Amer) ml/min Est GFR (Non-Af Amer) ml/min BUN/Creatinine Ratio (10-20) Glucose (70-99) mg/dl Lactate (0.4-2.0) mmol/L Calcium (8.5-10.1) mg/dl Magnesium (1.8-2.4) mg/dl Total Bilirubin (0.2-1) mg/dl AST (15-37) U/L ALT (12-78) U/L Alkaline Phosphatase (45-117) U/L Troponin I (0-0.045) ng/ml Total Protein (6.4-8.2) gm/dl Albumin (3.4-5.0) gm/dl Globulin (2.5-4.0) gm/dl Albumin/Globulin Ratio (0.9-2) Procalcitonin (0-0.5) ng/ml Urine Color Urine Appearance Urine pH Ur Specific [place] Urine Protein Urine Glucose (UA) Urine Ketones Urine Blood Urine Nitrite Urine Bilirubin Urine Urobilinogen Ur Leukocyte Esterase Urine WBC (Auto) Urine RBC (Auto) U Hyaline Cast (Auto) U Epithel Cells (Auto) Urine Bacteria (Auto) Ur Renal Epithelial Cell Urine Crystals Calcium Oxalate Crystal Uric Acid Crystals Triple Phos Crystals Other Crystals Amorphous Sediment Granular Casts Waxy Casts RBC Casts WBC Casts Other Casts Urine Mucus Urine Other Urine Trichomonas Urine Yeast Urine Sperm Ur Oval Fat Bodies COVID-19 Eval Order SARS-CoV-2 (PCR) (Negative) Influ A Molecular Assay (Negative) Influ B Molecular Assay (Negative) Diagnostic Findings CT ABDOMEN & PELVIS Without Contrast: Collapsed urinary bladder, cystitis can be missed, correlate clinically. Normal solitary left kidney, no stones or obstruction. Status post right nephrectomy, no suspicious mass or adenopathy. Subtle hepatic hypodensity measures 8 mm, too small to accurately characterize, statistically would reflect cyst or hemangioma. Metastatic focus not excluded. Diverticulosis without diverticulitis. No SBO, free air or free fluid. Radiologist: Paloma Stevenson M.D. ------ CT CHEST Without Contrast: Mild linear atelectasis or scarring. No consolidation or infiltrate. Mild esophageal prominence, may be physiologic, cannot rule out mild esophagitis. Small hiatal hernia. Severe thyromegaly with substernal extension and/or exophytic nodules extending from the inferior pole. Severe aortic ectasia. Radiologist: Paloma Stevenson M.D. Medications Administered Home Medication List Medication Instructions Recorded ascorbate calcium (vitamin C) 500 500 mg PO DAILY 11/15/20 mg tablet atorvastatin 20 mg tablet 20 mg PO DAILY 11/15/20 cholecalciferol (vitamin D3) 50 50 mcg PO DAILY 11/15/20 mcg (2,000 unit) capsule cyanocobalamin (vitamin B-12) 3,000 mcg PO DAILY 11/15/20 3,000 mcg capsule gabapentin 300 mg capsule 300 mg PO HS 11/15/20 omeprazole 20 mg capsule,delayed 20 mg PO DAILY 11/15/20 release insulin glargine U-300 conc 300 60 unit SUBCUT DAILY #6 ml 12/05/20 unit/mL (3 mL) subcutaneous pen (Toujeo Max U-300 SoloStar) allopurinol 100 mg tablet 100 mg PO BID #180 tab 02/15/21 furosemide 20 mg tablet 40 mg PO DAILY tab 02/15/21 ketoconazole 2 % topical cream 1 applic TOPICAL BID #60 g 02/15/21 venlafaxine 75 mg tablet 75 mg PO DAILY #90 tab 02/15/21 valsartan 160 mg tablet 160 mg PO DAILY #90 tab 02/28/21 potassium chloride 20 mEq 20 meq PO DAILY #30 tab 04/10/21 tablet,extended release aspirin 81 mg tablet 81 mg PO DAILY 05/06/21 tramadol 50 mg tablet 50 mg PO BID PRN 05/06/21 Supervising Physician Co-Signing Physician Notes Attending addendum: I have physically seen this patient, have supervised the medical residents activities, and agree with the H&P unless as otherwise noted. Assessment and Plan: Acute kidney failure on chronic kidney disease stage IV/history right nephrectomy- Follow urine culture and sensitivity IV fluid rehydration Daily CBC with differential, chemistry profile and magnesium levels Consult nephrology Diabetes mellitus/polyneuropathy- Placed on Accu-Cheks before meals and at bedtime with NovoLog coverage per scale Check hemoglobin A1c Hypotension/history of hypertension- Blood pressure responded well to IV fluid rehydration Continue NSS at 125 mils per hour Hold furosemide, Klor-Con, and valsartan Remaining orders and notations as noted Resident Activity Tracking Resident Involvement: Resident Care Provided Care Provided: Adult Hospital Medicine
[2021-05-07] MEDS ORDERED: ONDANSETRON INJ 2 MG/ML 2 ML VIAL IV PRN (02:39)
[2021-05-07] MEDS ORDERED: traMADol HCL 50 MG TABLET PO PRN (02:39)
[2021-05-07] MEDS ORDERED: DEXTROSE 50% 50 ML SYRINGE IV PRN (02:39)
[2021-05-07] MEDS ORDERED: CARBOHYDRATES FOR HYPOGLYCEMIA PO PRN (02:39)
[2021-05-07] MEDS ORDERED: GLUCAGON FOR INJ 1 MG VIAL SQ PRN (02:39)
[2021-05-07] MEDS ORDERED: ACETAMINOPHEN 325 MG TAB PO PRN (02:39)
[2021-05-07] MEDS ORDERED: ALUMINUM/MAGNESIUM SUSP 30 ML UDC PO PRN (02:39)
[2021-05-07] MEDS ORDERED: GLUCOSE 40% GEL 15 GM TUBE PO PRN (02:39)
[2021-05-07] MEDS ORDERED: MAGNESIUM HYDROXIDE SUSP 30 ML UDC PO PRN (02:39)
[2021-05-07] MEDS ORDERED: GLUCOSE 10 TABS/TUBE PO PRN (02:39)
[2021-05-07] MEDS ORDERED: POLYETHYLENE (MIRALAX) 17 GM PACK PO PRN (02:39)
[2021-05-07] MEDS ORDERED: SODIUM CHLORIDE 0.9% 1000ML 1,000 ML IV ONE (03:30)
[2021-05-07] MEDS ORDERED: Influenza Vaccine-High Dose (Fluzone-HD) PF 65+ 0.7 ML SYR IM ONE (03:45)
[2021-05-07 05:46] LABS: Basophils # (auto) 0.02 K/uL (0-0.2); Basophils % (auto) 0.2 %; Eosinophils # (auto) 0.44 K/uL (0-0.5); Eosinophils % (auto) 4.4 %; Hematocrit (blood only) 37.4 % (37-47); Hemoglobin 12.3 g/dL (12.0-16.0); Immature Granulocytes # (auto) 0.01 K/uL (0.00-0.02); Immature Granulocytes % (auto) 0.1 %; Lymphocytes # (auto) 1.98 K/uL (1.2-3.4); Lymphocytes % (auto) 19.7 %; Mean Corpuscular Hemoglobin 29.1 pg (25-34); Mean Corpuscular Hgb Conc 32.9 g/dL (32-36); Mean Corpuscular Volume 88.6 fL (80-100); Mean Platelet Volume 9.6 fL (7.4-10.4); Monocytes # (auto) 0.98 K/uL (0.11-0.59); Monocytes % (auto) 9.8 %; Neutrophils # (auto) 6.62 K/uL (1.4-6.5); Neutrophils % (auto) 65.8 %; Platelet Count 263 K/uL (130-400); RDW Coefficient of Variation 14.6 % (11.5-14.5); RDW Standard Deviation 47.1 fL (36.4-46.3); Red Blood Count 4.22 M/uL (4.2-5.4); White Blood Count 10.05 K/uL (4.8-10.8)
[2021-05-07 06:20] LABS: BUN Creatinine Ratio 16.5 (10-20); Calcium 8.6 mg/dl (8.5-10.1); Creatinine Clr Calc Pharmacy 10.1 ml/min; Est GFR (African American) 9.1 ml/min; Est GFR (Non-African American) 7.8 ml/min; Magnesium 1.8 mg/dl (1.8-2.4); Phosphorus 4.6 mg/dl (2.5-4.9); Potassium 3.6 mmol/L (3.5-5.1)
--- NOTE | 2021-05-07 07:12 | CT Scan Report ---
CT chest diagnostic wo con INDICATION: [place] ^B7 CTR ^hypotensive sepsis possible infiltrate on cxr. TECHNIQUE: Multidetector row helical CT of the chest was performed. Coronal and sagittal reformations were obtained. Automated dose lowering techniques and/or adjustment according to patient size were u tilized for this exam. Comparison: Comparison is made to chest one view 05/06/2021 FINDINGS: Lungs and pleura: Atelectasis versus scarring is seen in the dependent portions of the lungs. Heart and pericardium: Heart size is normal. No pericardial effusion. Vessels: The pulmonary trunk is enlarged measuring 40 mm. The aorta is tortuous. Mediastinum and franchesca: Unremarkable. Chest wall and lower neck: There is marked thyromegaly with extension of the inferior lobes into the upper mediastinum. Abdomen: For findings below the diaphragm, please refer to CT of the abdomen dated the same. Bones: Degenerative changes in the thoracic spine. IMPRESSION: 1. No evidence of acute pulmonary disease. Scattered atelectasis is seen. 2. Pulmonary hypertension. 3. Thyromegaly with heterogeneous appearing lobes extending into the upper mediastinum. If not previ ously evaluated, nonemergent thyroid ultrasound can be performed to assess for suspicious nodules. ACT 112: Negative or not required by law. Electronically signed by: Kev Bailey M.D. 05/07/2021 7:11 AM
[2021-05-07 07:31] LABS: Estimated Average Glucose 163 mg/dl; Hemoglobin A1C 7.3 % (4.5-5.6)
[2021-05-07] MEDS: SODIUM CHLORIDE 0.9% 1000ML 1,000 ML IV SCH ×2 (07:43→12:53)
[2021-05-07] MEDS: INSULIN ASPART 100 UNITS/ML 3 ML PEN SC SCH ×4 (07:45→20:21)
[2021-05-07] MEDS: ATORVASTATIN 20 MG TAB PO SCH (07:46)
[2021-05-07] MEDS: VENLAFAXINE HCL 37.5 MG TAB PO SCH (07:46)
[2021-05-07] MEDS: INSULIN GLARGINE SOLOSTAR 100 UNITS/ML 3 ML PEN SC SCH (07:46)
--- NOTE | 2021-05-07 08:23 | CT Scan Report ---
CT SCAN OF THE ABDOMEN AND PELVIS WITHOUT IV CONTRAST CLINICAL HISTORY: Dysuria. Hypotension. COMPARISON STUDY: No priors. TECHNIQUE: CT scan of the abdomen and pelvis is performed from the lung bases to the proximal femora. Images are reviewed in the axial, sagittal, and coronal planes. IV contrast was not administered for this examination. Note that the examination is suboptimal without oral and IV contrast. A dose lower ing technique was utilized adhering to the principles of ALARA. FINDINGS: Lung bases: The heart is top normal in size and without pericardial effusion. The lung bases are melissa r noting bibasilar scarring/atelectasis. There is a tiny hiatal hernia. Liver: The unenhanced liver is normal in size, contour, and attenuation. There is no intrahepatic tete iary ductal dilatation. A subcentimeter hypodensity in the right lobe likely represents a cyst but is too small for definitive characterization. Gallbladder: Unremarkable. Spleen: Normal in size and attenuation. Pancreas: The unenhanced pancreas is atrophic and grossly unremarkable. Adrenal glands: Unremarkable. Kidneys: The right kidney is surgically absent. The unenhanced left kidney demonstrates mild cortical atrophy and is without hydronephrosis. There is a punctate nonobstructing calculus in the lower pole of the left kidney. There is no evidence of contour deforming renal mass lesion. Abdominal vasculature: The abdominal aorta is normal in course and caliber noting mild atheroscleroti c calcification. Bowel: There is no bowel obstruction. There are scattered colonic diverticula without CT evidence of acute diverticulitis. The The appendix is not visualized. Peritoneum: There is no intraperitoneal free air or abdominal ascites. Lymphadenopathy: None. Pelvic viscera: The bladder is decompressed and not well assessed. The uterus and adnexa are normal a s visualized. Skeletal structures: The skeletal structures are osteopenic. There is moderate lumbosacral spondylosi s. Sclerotic change is seen in the sacroiliac joints. No lytic or blastic lesions are seen. IMPRESSION: 1. There are no acute infectious or inflammatory findings in the abdomen or pelvis. 2. Status post right nephrectomy. 3. There is a punctate nonobstructing left renal calculus. ACT 112: Negative or not required by law. Electronically signed by: John Newton M.D. 05/07/2021 8:22 AM
[2021-05-07] MEDS ORDERED: allopurinoL 100 MG TAB PO SCH (09:00)
--- NOTE | 2021-05-07 12:29 | Nephrology Consultation ---
Date of Consultation May 07, 2021 Assessment & Plan (1) KALA (acute kidney injury): (2) Sepsis: (3) Chronic kidney disease, stage IV (severe): (4) History of right nephrectomy: 80-year-old female with stage IV CKD with history of right nephrectomy for renal cell carcinoma in 2010, baseline creatinine around 2, admitted with sepsis secondary to UTI, diarrhea and acute kidney injury. On admission creatinine was 5.7, renal imaging was negative for postrenal obstruction, creatinine improved to 4.9 this morning. Getting treated with ceftriaxone for UTI. Diarrhea is improving. acute kidney injury most likely secondary to prerenal etiology with diarrhea and sepsis. -- Agree with holding all antihypertensive medications for now. Since blood pressure improved and overall she is feeling better, if p.o. intake okay, suggest stopping IV fluid. -- monitor intake and output, electrolyte. Dose medications for GFR less than 30 -- expect renal function to continue to improve as hemodynamically improved will follow Thank you for allowing me to participate in your patient's care. It was a pleasure to see Bertha. History of Present Illness Reason for Consultation: Acute kidney injury. Attending Physician: Toby Parada MD History of Present Illness Bertha Linares is a 80-year-old female with past medical history significant for stage IV CKD, hypertension, diabetes, dyslipidemia, admitted to the hospital with sepsis secondary to UTI, diarrhea and acute kidney injury. Nephrology consult requested to manage KALA with history of advanced CKD. EMR records are reviewed in detail during patient visit. Bertha has been having diarrhea for last 3-4 days. She also has been experiencing dysuria and overall feeling poorly. On arrival to ER she was found to be hypotensive with systolic blood pressure as low as 64. she was also found to have UTI and volume depletion. She received 4 L of IV fluid bolus with improvement in blood pressure. Initial creatinine was 5.7 which improved to 4.9 this morning. She receives ceftriaxone IV. Urine culture and blood culture pending. Renal imaging showed nonobstructing calculi in left kidney but no hydronephrosis. no recent NSAID use. Has been on valsartan at home which is currently on hold. Stage 4 CKD, with solitary left kidney after right nephrectomy in 2010 for renal cell carcinoma, b/l cr 2 0 some variability in creatinine. Has low grade proteinuria With history of diabetes, has been on Valsartan 120 mg daily. Never smoker. Son has history of end-stage renal disease secondary to DM nephropathy, previously was on hemodialysis, had renal transplant 4 years ago with excellent allograft function. no history of autoimmune disease. Family history significant for dad with history of coronary artery disease, mom had history of stroke, 2 brothers had cancer and son has ESRD. Hypertension, well controlled on Valsartan 80 mg daily. Has diabetes for 14 years with no retinopathy, low grade proteinuria, seems very well controlled, A1c around 7. has chronic urinary incontinence follows with Urology. No history of coronary artery disease, CHF. Has history of gout, last uric acid was 6.7, no recent gout attack. Currently she is feeling slightly better, diarrhea seemed to have improved somewhat, did not have any bowel movement overnight. No fever or chills, dysuria, hematuria. No flank pain. No shortness of breath, chest pain, significant lower extremity edema. Allergies Allergy/AdvReac Type Severity Reaction Status Date / Time NSAIDS (Non-Steroidal AdvReac Mild Unknown Verified 05/06/21 22:05 Anti-Inflamma Home Medications Medication Instructions Recorded Confirmed Type ascorbate calcium (vitamin C) 500 500 mg PO DAILY 11/15/20 05/06/21 History mg tablet atorvastatin 20 mg tablet 20 mg PO DAILY 11/15/20 05/06/21 History cholecalciferol (vitamin D3) 50 50 mcg PO DAILY 11/15/20 05/06/21 History mcg (2,000 unit) capsule cyanocobalamin (vitamin B-12) 3,000 mcg PO DAILY 11/15/20 05/06/21 History 3,000 mcg capsule gabapentin 300 mg capsule 300 mg PO HS 11/15/20 05/06/21 History omeprazole 20 mg capsule,delayed 20 mg PO DAILY 11/15/20 05/06/21 History release insulin glargine U-300 conc 300 60 unit SUBCUT DAILY #6 ml 12/05/20 05/06/21 Rx unit/mL (3 mL) subcutaneous pen (Toujeo Max U-300 SoloStar) allopurinol 100 mg tablet 100 mg PO BID #180 tab 02/15/21 05/06/21 Rx furosemide 20 mg tablet 40 mg PO DAILY tab 02/15/21 05/06/21 History ketoconazole 2 % topical cream 1 applic TOPICAL BID #60 g 02/15/21 05/06/21 Rx venlafaxine 75 mg tablet 75 mg PO DAILY #90 tab 02/15/21 05/06/21 Rx valsartan 160 mg tablet 160 mg PO DAILY #90 tab 02/28/21 05/06/21 Rx potassium chloride 20 mEq 20 meq PO DAILY #30 tab 04/10/21 05/06/21 Rx tablet,extended release aspirin 81 mg tablet 81 mg PO DAILY 05/06/21 05/06/21 History tramadol 50 mg tablet 50 mg PO BID PRN 05/06/21 05/06/21 History Patient History Medical History Acid reflux Chronic kidney disease, stage IV (severe) Degenerative cervical disc Depression Diabetes 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 Fatty liver History of renal cell cancer Hyperlipemia Hypertension Iron deficiency anemia Mild cognitive impairment Obstructive sleep apnea on CPAP Osteoarthritis Peripheral vascular disease Restless leg syndrome Secondary hyperparathyroidism of renal origin Urinary incontinence Vitamin D deficiency Surgical History H/O tubal ligation 1976 History of right nephrectomy (09/30/10) Family History Brother AA (alcohol abuse) Diabetes Hypertension Mother Diabetes Hypertension Stroke Dementia Father Heart disease Hypertension Kidney disease Myocardial infarction Sister Alzheimer disease Son Diabetes Sister Hypertension Stroke Sister Dementia Denies family history of Ovarian cancer Prostate cancer Breast cancer Colorectal cancer Social History Smoking Status: Never smoker Second Hand Exposure: No; Hx Alcohol Use: No Hx Substance Use: No Preferred Language: Amharic Communication Ability: Effective Visual Impairment: Limited Hearing Ability: Hard of Hearing Access Clerk Required: No Beliefs That Will Affect Care: None marital status: / Current Living Situation: Family Current Living Situation Comment: Son lives w/ her, grandson and grandson's current occupational status: employed 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 Physical Exam Constitutional: WD/WN, vitals as above + ill appearing; no acute distress Eyes: PERRL, conjunctivae normal, anicteric sclerae ENMT: external ear and nose normal, oropharynx normal Ears: no hearing impairment Neck: trachea midline Respiratory: normal respiratory effort, lungs clear to auscultation no cough Auscultation: no crackles, no rales and no wheezes Cardiovascular: RRR, no murmur, no edema Gastrointestinal (Abdomen): Inspection/Auscultation: abdomen normal to inspection and normal bowel sounds; abdomen not distended Percussion/Palpation: abdomen nontender, no guarding and abdomen not rigid Musculoskeletal: Extremities: extremities normal to inspection Skin: no rashes, warm and dry Neurologic: moves all extremities and awake Psychiatric: A+Ox3, euthymic affect Results & Data ([facility]) Vital Signs (Past 12 Hours) Vital Signs Temp Pulse Pulse Resp BP BP Pulse Ox 05/07/21 11:42 36.5 C 97 H 20 137/63 97 05/07/21 08:00 36.3 C L 52 L 51 L 16 90/42 L 99 05/07/21 06:26 54 L 101/50 L 05/07/21 05:01 36.5 C 50 L 18 91/30 L 05/07/21 05:00 83/46 L 05/07/21 04:00 36.8 C 70 18 94/48 L 94 05/07/21 02:39 18 91/30 L 05/07/21 02:24 36.3 C L 18 90/46 L 92 05/07/21 01:45 50 L 17 91/30 L 95 05/07/21 01:30 55 L 18 92/50 L 95 05/07/21 01:15 53 L 17 102/46 L 95 05/07/21 01:00 54 L 16 92/48 L 97 05/07/21 00:45 56 L 17 101/50 L 95 05/07/21 00:30 55 L 16 99/47 L 96 PG Care Time/CCT Total # of Minutes Spent Total Time Spent with Patient: Total time spent is greater than 50% in coordination of care (as documented) at patient's floor/unit and/or counseling patient: Coding Level of Care Code 55340 Initial Inpt Care Lvl 3 Diagnoses KALA (acute kidney injury) N17.9 Sepsis A41.9; R65.20; N17.9 Acute renal failure type: unspecified Sepsis acute organ dysfunction status: with acute organ dysfunction Sepsis type: sepsis due to unspecified organism Severe sepsis acute organ dysfunction type: acute renal failure Severe sepsis shock status: unspecified Chronic kidney disease, stage IV (severe) N18.4 History of right nephrectomy Z90.5 (1) Sepsis Acute renal failure type: unspecified Sepsis acute organ dysfunction status: with acute organ dysfunction Sepsis type: sepsis due to unspecified organism Severe sepsis acute organ dysfunction type: acute renal failure Severe sepsis shock status: unspecified Qualified Code(s): A41.9 - Sepsis, unspecified organism; R65.20 - Severe sepsis without septic shock; N17.9 - Acute kidney failure, unspecified
--- NOTE | 2021-05-07 13:23 | Hospitalist Progress Note ---
Date of Service May 07, 2021 Assessment & Plan (1) KALA (acute kidney injury): Plan: Follows with Dr. Freed, likely baseline Cr ~2.0, CKD Stage IV. - Cr up to 5.7 on admission; now down to 4.9. - Likely pre-renal from diarrhea, dehydration. Possible mild ATN from hypotension (BP was as low as 65/45 on admission, but improved quickly with fluids.) - Nephrology following (2) Diabetes mellitus with polyneuropathy: Plan: A1c was 7.3% this admission. - Continue long-acting glargine 30 units daily (half normal long-acting dose) - Continue sliding scale insulin -> Blood sugar has been 115 - 170. (3) Hypertension: Plan: BP is 140/60. - Holding home furosemide & valsartan to due initial low BP & KALA (4) Hyperlipemia: Plan: - Continue statin (5) Depression: Plan: - Continue venlafaxine (6) Gout: Plan: - Hold allopurinol with KALA (7) Thyroid nodule: Plan: Noted on chest CT on 05/06. - Thyroid u/s ordered (8) DVT prophylaxis: Plan: Heparin 5,000 units SQ Q12h Admission and Anticipated Discharge Date Admission Date: May 06, 2021 Subjective Doing well today. More energy. Reports no fevers/chills, chest pain, shortness of breath, abdominal pain, nausea, or vomiting. Physical Exam Constitutional: WD/WN, vitals as above Eyes: EOM intact bilaterally; no conjunctival abnormality ENMT: external ear and nose normal, oropharynx normal Neck: trachea midline, no thyromegaly normal visual inspection Respiratory: normal respiratory effort, lungs clear to auscultation no respiratory distress Cardiovascular: RRR, no murmur, no edema Gastrointestinal (Abdomen): Inspection/Auscultation: abdomen normal to inspection; abdomen not distended Musculoskeletal: no cyanosis or clubbing, extremities motor strength 5/5 Skin: no rashes, warm and dry Neurologic: moves all extremities and awake Psychiatric: Orientation: alert, oriented to person and cooperative Results & Data Results & Data ([facility]) Vital Signs (Past 12 Hours) Vital Signs Temp Pulse Pulse Resp BP BP Pulse Ox 05/07/21 11:42 36.5 C 97 H 20 137/63 97 05/07/21 08:00 36.3 C L 52 L 51 L 16 90/42 L 99 05/07/21 06:26 54 L 101/50 L 05/07/21 05:01 36.5 C 50 L 18 91/30 L 05/07/21 05:00 83/46 L 05/07/21 04:00 36.8 C 70 18 94/48 L 94 05/07/21 02:39 18 91/30 L 05/07/21 02:24 36.3 C L 18 90/46 L 92 05/07/21 01:45 50 L 17 91/30 L 95 05/07/21 01:30 55 L 18 92/50 L 95 05/07/21 01:15 53 L 17 102/46 L 95 PG Care Time/CCT Total # of Minutes Spent Total Time Spent with Patient: Total time spent is greater than 50% in coordination of care (as documented) at patient's floor/unit and/or counseling patient: Coding Level of Care Code 90083 Subseq Hosp Care Lvl 3 Diagnoses KALA (acute kidney injury) N17.9 Diabetes mellitus with polyneuropathy E11.42 Hypertension I10 Hyperlipemia E78.5 Depression F32.9 DVT prophylaxis Z29.9 Gout M10.9 Thyroid nodule E04.1
--- NOTE | 2021-05-07 15:07 | Ultrasound Report ---
US thyroid CLINICAL HISTORY: 80 years-old Female presenting with Nodules. TECHNIQUE: Real-time grayscale ultrasound imaging of the thyroid gland was performed for a focused ev aluation at the site of clinical concern. COMPARISON: None. FINDINGS: Right lobe of thyroid gland is enlarged, measuring 8.3 x 3.5 x 3.2 cm and shows heterogeneous echotex ture. There is 3.2 x 3.5 x 3.3 cm heterogeneous isoechoic circumscribed round nodule within lower niya e of the right thyroid lobe. Left thyroid lobe is enlarged measuring 8.0 x 2.8 x 2.4 cm in size and shows heterogeneous echogenici ty. -4.2 x 4.1 x 3.5 isoechoic round circumscribed nodule is seen within left thyroid lobe. -3.8 x 2.3 x 2.3 cm heterogeneous hyperechoic-isoechoic oval nodule is seen within left thyroid lobe and shows peripheral blood flow. Thyroid isthmus is measuring 1.2 cm in size. No internal echogenic foci are seen within the right nodules. Evaluation is suboptimal due to extensi on of thyroid lobe to the thoracic inlet. IMPRESSION: 1. Thyromegaly. 2. Large isoechoic nodules within the right and left thyroid lobes likely representing TI-RADS 3 les ions, will require FNA due to size above the 2.5 cm. ACT 112: Negative or not required by law. Electronically signed by: Renata Joiner DO 05/07/2021 3:05 PM
[2021-05-07] MEDS: HEPARIN SOD 5,000 UNIT/0.5 ML VIAL SQ SCH (20:21)
[2021-05-08 05:33] LABS: Basophils # (auto) 0.04 K/uL (0-0.2); Basophils % (auto) 0.6 %; Eosinophils # (auto) 0.41 K/uL (0-0.5); Eosinophils % (auto) 5.7 %; Hematocrit (blood only) 35.3 % (37-47); Hemoglobin 11.2 g/dL (12.0-16.0); Immature Granulocytes # (auto) 0.01 K/uL (0.00-0.02); Immature Granulocytes % (auto) 0.1 %; Lymphocytes # (auto) 2.19 K/uL (1.2-3.4); Lymphocytes % (auto) 30.2 %; Mean Corpuscular Hemoglobin 28.7 pg (25-34); Mean Corpuscular Hgb Conc 31.7 g/dL (32-36); Mean Corpuscular Volume 90.5 fL (80-100); Mean Platelet Volume 9.4 fL (7.4-10.4); Monocytes # (auto) 0.65 K/uL (0.11-0.59); Neutrophils # (auto) 3.94 K/uL (1.4-6.5); Neutrophils % (auto) 54.4 %; Platelet Count 241 K/uL (130-400); RDW Coefficient of Variation 14.3 % (11.5-14.5); RDW Standard Deviation 46.8 fL (36.4-46.3); White Blood Count 7.24 K/uL (4.8-10.8)
[2021-05-08 05:50] LABS: BUN Creatinine Ratio 17.5 (10-20); Calcium 8.5 mg/dl (8.5-10.1); Est GFR (African American) 11.3 ml/min; Est GFR (Non-African American) 9.8 ml/min; Magnesium 1.6 mg/dl (1.8-2.4); Potassium 3.7 mmol/L (3.5-5.1)
[2021-05-08 05:51] LABS: Phosphorus 4.3 mg/dl (2.5-4.9)
--- NOTE | 2021-05-08 05:51 | Billing Data ---
Date of Service May 08, 2021 Coding Level of Care Code 40014 Initial Inpt Care Lvl 3
--- NOTE | 2021-05-08 06:22 | Electrocardiogram Report ---
Test Reason : Blood Pressure : / mmHG Vent. Rate : 104 BPM Atrial Rate : 104 BPM P-R Int : 166 ms QRS Dur : 098 ms QT Int : 336 ms P-R-T Axes : 006 -64 079 degrees QTc Int : 441 ms Sinus tachycardia Possible Left atrial enlargement Incomplete right bundle branch block Left anterior fascicular block Left ventricular hypertrophy with repolarization abnormality Abnormal ECG When compared with ECG of 31-MAY-2012 21:14, No significant change was found Confirmed by Marvin Jacobs ([id number]) on 05/08/2021 6:22:12 AM Referred By: REFERRED SELF Confirmed By:Marvin Jacobs
[2021-05-08] MEDS: MAGNESIUM SULFATE / D5W 1 GM/100 ML BAG IV SCH ×2 (06:29→08:43)
[2021-05-08] MEDS: ATORVASTATIN 20 MG TAB PO SCH (08:41)
[2021-05-08] MEDS: VENLAFAXINE HCL 37.5 MG TAB PO SCH (08:41)
[2021-05-08] MEDS: INSULIN ASPART 100 UNITS/ML 3 ML PEN SC SCH ×4 (08:41→20:43)
[2021-05-08] MEDS: INSULIN GLARGINE SOLOSTAR 100 UNITS/ML 3 ML PEN SC SCH (08:42)
[2021-05-08] MEDS: HEPARIN SOD 5,000 UNIT/0.5 ML VIAL SQ SCH ×2 (08:43→20:41)
--- NOTE | 2021-05-08 10:19 | Nephrology Progress Note ---
Date of Service May 08, 2021 Assessment & Plan (1) KALA (acute kidney injury): (2) Sepsis: (3) Chronic kidney disease, stage IV (severe): (4) History of right nephrectomy: Plan: 80-year-old female with stage IV CKD with history of right nephrectomy for renal cell carcinoma in 2010, baseline creatinine around 2, admitted with sepsis secondary to UTI, diarrhea and acute kidney injury. On admission creatinine was 5.7, renal imaging was negative for postrenal obstruction, creatinine improved to 4.9 this morning. Getting treated with ceftriaxone for UTI. Diarrhea is improving. Acute kidney injury most likely secondary to prerenal etiology with diarrhea and sepsis. Renal function continues to improve, electrolyte acceptable. Blood pressure stable with no further hypotensive episode. Decent urine output. -- monitor intake and output, electrolyte. Dose medications for GFR less than 30 -- expect renal function to continue to improve -- hold discharge until further improvement in renal function will follow. Admission and Anticipated Discharge Date Admission Date: May 06, 2021 Subjective Bertha has been doing much better she feels she is close to her baseline. No overnight events. Afebrile, no shortness of breath or chest pain. Blood pressure has been well controlled. normal urine output. Renal function continues to improve, creatinine down to 4.1, electrolyte acceptable. Review of Systems Review of Systems: Detailed review of system was negative except mentioned in HPI. Physical Exam Constitutional: well developed and well nourished; no acute distress Respiratory: normal respiratory effort, lungs clear to auscultation Cardiovascular: RRR, no murmur, no edema Neurologic: moves all extremities; no focal motor deficits and not confused Psychiatric: A+Ox3, euthymic affect Results & Data ([facility] [place]) Vital Signs (Past 12 Hours) Vital Signs Temp Pulse Pulse Pulse Resp BP Pulse Ox 05/08/21 08:34 36.9 C 61 16 139/66 94 05/08/21 05:04 36.5 C 56 L 18 127/65 96 05/08/21 00:15 36.8 C 76 16 147/65 H 94 05/07/21 23:20 75 PG Care Time/CCT Total # of Minutes Spent Total Time Spent with Patient: Total time spent is greater than 50% in coordination of care (as documented) at patient's floor/unit and/or counseling patient: Coding Level of Care Code 81004 Subseq Hosp Care [facility] 2 Diagnoses KALA (acute kidney injury) N17.9 Sepsis A41.9; R65.20; N17.9 Acute renal failure type: unspecified Sepsis acute organ dysfunction status: with acute organ dysfunction Sepsis type: sepsis due to unspecified organism Severe sepsis acute organ dysfunction type: acute renal failure Severe sepsis shock status: unspecified Chronic kidney disease, stage IV (severe) N18.4 History of right nephrectomy Z90.5 (1) Sepsis Acute renal failure type: unspecified Sepsis acute organ dysfunction status: with acute organ dysfunction Sepsis type: sepsis due to unspecified organism Severe sepsis acute organ dysfunction type: acute renal failure Severe sepsis shock status: unspecified Qualified Code(s): A41.9 - Sepsis, unspecified organism; R65.20 - Severe sepsis without septic shock; N17.9 - Acute kidney christy lure, unspecified
--- NOTE | 2021-05-08 14:45 | Hospitalist Progress Note ---
Date of Service May 08, 2021 Assessment & Plan (1) KALA (acute kidney injury): Plan: Follows with Dr. Freed, likely baseline Cr ~2.0, CKD Stage IV. - Cr up to 5.7 on admission; now down to 4.1. - Likely pre-renal from diarrhea, dehydration. Possible mild ATN from hypotension (BP was as low as 65/45 on admission, but improved quickly with fluids.) - Nephrology following -> Hopeful discharge tomorrow if Cr continues to improve. (2) Diabetes mellitus with polyneuropathy: Plan: A1c was 7.3% this admission. - Continue long-acting glargine 30 units daily (half normal long-acting dose) - Continue sliding scale insulin -> Blood sugar has been 80 - 130. (3) Hypertension: Plan: BP is 140/65. - Holding home furosemide & valsartan to due initial low BP & KAAL (4) Hyperlipemia: Plan: - Continue statin (5) Depression: Plan: - Continue venlafaxine (6) Gout: Plan: - Hold allopurinol with KALA (7) Thyroid nodule: Plan: Noted on chest CT on 05/06. - Thyroid u/s ordered -> Will need FNA arranged as outpatient for several large nodules. (8) DVT prophylaxis: Plan: Heparin 5,000 units SQ Q12h Admission and Anticipated Discharge Date Admission Date: May 06, 2021 Subjective Doing well today. More energy. Feels well. Reports no fevers/chills, chest pain, shortness of breath, abdominal pain, nausea, or vomiting. Physical Exam Constitutional: WD/WN, vitals as above Eyes: EOM intact bilaterally; no conjunctival abnormality ENMT: external ear and nose normal, oropharynx normal Neck: trachea midline, no thyromegaly normal visual inspection Respiratory: normal respiratory effort, lungs clear to auscultation no respiratory distress Cardiovascular: RRR, no murmur, no edema Gastrointestinal (Abdomen): Inspection/Auscultation: abdomen normal to inspection; abdomen not distended Musculoskeletal: no cyanosis or clubbing, extremities motor strength 5/5 Skin: no rashes, warm and dry Neurologic: moves all extremities and awake Psychiatric: Orientation: alert, oriented to person and cooperative Results & Data Results & Data ([facility]) Vital Signs (Past 12 Hours) Vital Signs Temp Pulse Pulse Resp BP Pulse Ox 05/08/21 08:34 36.9 C 61 16 139/66 94 05/08/21 05:04 36.5 C 56 L 18 127/65 96 PG Care Time/CCT Total # of Minutes Spent Total Time Spent with Patient: Total time spent is greater than 50% in coordination of care (as documented) at patient's floor/unit and/or counseling patient: Coding Level of Care Code 30982 Subseq Hosp Care Lvl 2 Diagnoses KALA (acute kidney injury) N17.9 Diabetes mellitus with polyneuropathy E11.42 Hypertension I10 Hyperlipemia E78.5 Depression F32.9 Gout M10.9 Thyroid nodule E04.1 DVT prophylaxis Z29.9
[2021-05-09 07:58] LABS: Basophils # (auto) 0.03 K/uL (0-0.2); Basophils % (auto) 0.5 %; Eosinophils # (auto) 0.31 K/uL (0-0.5); Eosinophils % (auto) 4.9 %; Hematocrit (blood only) 33.6 % (37-47); Hemoglobin 11.2 g/dL (12.0-16.0); Immature Granulocytes # (auto) 0.01 K/uL (0.00-0.02); Immature Granulocytes % (auto) 0.2 %; Lymphocytes # (auto) 1.36 K/uL (1.2-3.4); Lymphocytes % (auto) 21.6 %; Mean Corpuscular Hemoglobin 28.9 pg (25-34); Mean Corpuscular Hgb Conc 33.3 g/dL (32-36); Mean Corpuscular Volume 86.6 fL (80-100); Mean Platelet Volume 9.4 fL (7.4-10.4); Monocytes # (auto) 0.54 K/uL (0.11-0.59); Monocytes % (auto) 8.6 %; Neutrophils # (auto) 4.05 K/uL (1.4-6.5); Neutrophils % (auto) 64.2 %; Platelet Count 246 K/uL (130-400); RDW Coefficient of Variation 14.4 % (11.5-14.5); RDW Standard Deviation 44.9 fL (36.4-46.3); Red Blood Count 3.88 M/uL (4.2-5.4)
[2021-05-09 08:33] LABS: BUN Creatinine Ratio 17.5 (10-20); Calcium 9.1 mg/dl (8.5-10.1); Creatinine Clr Calc Pharmacy 13.1 ml/min; Est GFR (African American) 12.5 ml/min; Est GFR (Non-African American) 10.8 ml/min; Magnesium 2.3 mg/dl (1.8-2.4); Potassium 4.2 mmol/L (3.5-5.1)
[2021-05-09 08:36] LABS: Phosphorus 3.6 mg/dl (2.5-4.9)
[2021-05-09] MEDS: INSULIN ASPART 100 UNITS/ML 3 ML PEN SC SCH ×4 (09:26→20:12)
[2021-05-09] MEDS: ASPIRIN 81 MG ECTAB PO SCH (09:29)
[2021-05-09] MEDS: ASCORBIC ACID 500 MG TAB PO SCH (09:29)
[2021-05-09] MEDS: INSULIN GLARGINE SOLOSTAR 100 UNITS/ML 3 ML PEN SC SCH (09:29)
[2021-05-09] MEDS: HEPARIN SOD 5,000 UNIT/0.5 ML VIAL SQ SCH ×2 (09:29→20:12)
[2021-05-09] MEDS: VENLAFAXINE HCL 37.5 MG TAB PO SCH (09:30)
[2021-05-09] MEDS: ATORVASTATIN 20 MG TAB PO SCH (09:30)
--- NOTE | 2021-05-09 10:20 | Nephrology Progress Note ---
Date of Service May 09, 2021 Assessment & Plan (1) KALA (acute kidney injury): (2) Sepsis: (3) Chronic kidney disease, stage IV (severe): (4) History of right nephrectomy: Plan: 80-year-old female with stage IV CKD with history of right nephrectomy for renal cell carcinoma in 2010, baseline creatinine around 2, admitted with sepsis secondary to UTI, diarrhea and acute kidney injury. On admission creatinine was 5.7, renal imaging was negative for postrenal obstruction, creatinine improved to 4.9 this morning. Getting treated with ceftriaxone for UTI. Diarrhea is improving. Acute kidney injury most likely secondary to prerenal etiology with diarrhea and sepsis. Renal function continues to improve but slowed down over last 24 hour with net negative more than 2 L, creatinine down to 3.8, has metabolic acidosis and hyponatremia. Potassium has been normal. Blood pressure stable with no further hypotensive episode. Decent urine output. -- Advised to increase fluid intake to try to keep net even with post ATN diuresis, monitor intake and output, electrolyte. Dose medications for GFR less than 30 -- will hold discharge until further improvement in kidney function, if renal function improve further and electrolyte improve, will tentatively plan for discharge tomorrow. She will need outpatient labs on next Thursday. will follow. Admission and Anticipated Discharge Date Admission Date: May 06, 2021 Reginaldo Stone was seen this morning, overall she has been feeling well, eating drinking well, otherwise asymptomatic. Diarrhea improved but not totally resolved. Kidney function continues to improve however improvement in creatinine somewhat slower over last 24 hour, could be because of post ATN diuresis with net negative more than 2 L. has metabolic acidosis and hyponatremia as well. Blood pressure stable. Review of Systems Review of Systems: Detailed review of system was negative except mentioned in HPI. Physical Exam Constitutional: well developed and well nourished; no acute distress Respiratory: normal respiratory effort, lungs clear to auscultation Cardiovascular: RRR, no murmur, no edema Neurologic: moves all extremities; no focal motor deficits and not confused Psychiatric: A+Ox3, euthymic affect Results & Data ([facility]) Vital Signs (Past 12 Hours) Vital Signs Temp Pulse Resp BP BP Pulse Ox 05/09/21 07:09 36.6 C 64 18 135/74 96 05/08/21 22:41 36.6 C 61 16 146/77 H 99 PG Care Time/CCT Total # of Minutes Spent Total Time Spent with Patient: Total time spent is greater than 50% in coordination of care (as documented) at patient's floor/unit and/or counseling patient: Coding Level of Care Code 80003 Subseq Hosp Care Lvl 3 Diagnoses KALA (acute kidney injury) N17.9 Sepsis A41.9; R65.20; N17.9 Acute renal failure type: unspecified Sepsis acute organ dysfunction status: with acute organ dysfunction Sepsis type: sepsis due to unspecified organism Severe sepsis acute organ dysfunction type: acute renal failure Severe sepsis shock status: unspecified Chronic kidney disease, stage IV (severe) N18.4 History of right nephrectomy Z90.5 (1) Sepsis Acute renal failure type: unspecified Sepsis acute organ dysfunction status: with acute organ dysfunction Sepsis type: sepsis due to unspecified organism Severe sepsis acute organ dysfunction type: acute renal failure Severe sepsis shock status: unspecified Qualified Code(s): A41.9 - Sepsis, unspecified organism; R65.20 - Severe sepsis without septic shock; N17.9 - Acute kidney failure, unspecified
--- NOTE | 2021-05-09 14:57 | Hospitalist Progress Note ---
Date of Service May 09, 2021 Assessment & Plan (1) KALA (acute kidney injury): Plan: Follows with Dr. Freed, likely baseline Cr ~2.0, CKD Stage IV. - Cr up to 5.7 on admission; now down to 3.8. - Likely pre-renal from diarrhea, dehydration. Possible mild ATN from hypotension (BP was as low as 65/45 on admission, but improved quickly with fluids.) - Nephrology following -> Hopeful discharge tomorrow if Cr continues to improve. (2) Diarrhea: Plan: Long-standing issue for her. Reports it waxes and wanes, and often improves with fiber. Also takes Imodium PRN. - Presently she reports her diarrhea is at baseline -> Will add Imodium PRN (3) Diabetes mellitus with polyneuropathy: Plan: A1c was 7.3% this admission. - Continue long-acting glargine 30 units daily (half normal long-acting dose) - Continue sliding scale insulin -> Blood sugar has been 90 - 140. (4) Hypertension: Plan: BP is 135/75. - Holding home furosemide & valsartan to due initial low BP & KALA (5) Hyperlipemia: Plan: - Continue statin (6) Depression: Plan: - Continue venlafaxine (7) Gout: Plan: - Hold allopurinol with KALA (8) Thyroid nodule: Plan: Noted on chest CT on 05/06. - Thyroid u/s ordered -> Will need FNA arranged as outpatient for several large nodules. (9) DVT prophylaxis: Plan: Heparin 5,000 units SQ Q12h Admission and Anticipated Discharge Date Admission Date: May 06, 2021 Subjective Doing well. Feeling well overall. No pain. Reports no fevers/chills, chest pain, shortness of breath, abdominal pain, nausea, or vomiting. Physical Exam Constitutional: WD/WN, vitals as above Eyes: EOM intact bilaterally; no conjunctival abnormality ENMT: external ear and nose normal, oropharynx normal Neck: trachea midline, no thyromegaly normal visual inspection Respiratory: normal respiratory effort, lungs clear to auscultation no respiratory distress Cardiovascular: RRR, no murmur, no edema Gastrointestinal (Abdomen): Inspection/Auscultation: abdomen normal to inspection; abdomen not distended Musculoskeletal: no cyanosis or clubbing, extremities motor strength 5/5 Skin: no rashes, warm and dry Neurologic: moves all extremities and awake Psychiatric: Orientation: alert, oriented to person and cooperative Results & Data Results & Data ([facility]) Vital Signs (Past 12 Hours) Vital Signs Temp Pulse Resp BP Pulse Ox 05/09/21 07:09 36.6 C 64 18 135/74 96 PG Care Time/CCT Total # of Minutes Spent Total Time Spent with Patient: Total time spent is greater than 50% in coordination of care (as documented) at patient's floor/unit and/or counseling patient: Coding Level of Care Code 36854 Subseq Hosp Care Lvl 3 Diagnoses KALA (acute kidney injury) N17.9 Diabetes mellitus with polyneuropathy E11.42 Hypertension I10 Hyperlipemia E78.5 Depression F32.9 Gout M10.9 Thyroid nodule E04.1 DVT prophylaxis Z29.9 Diarrhea R19.7
[2021-05-10 07:41] LABS: Hematocrit (blood only) 33.5 % (37-47); Hemoglobin 11.1 g/dL (12.0-16.0); Mean Corpuscular Hemoglobin 28.8 pg (25-34); Mean Corpuscular Hgb Conc 33.1 g/dL (32-36); Mean Platelet Volume 9.2 fL (7.4-10.4); Platelet Count 250 K/uL (130-400); RDW Coefficient of Variation 14.5 % (11.5-14.5); RDW Standard Deviation 45.1 fL (36.4-46.3); Red Blood Count 3.85 M/uL (4.2-5.4); White Blood Count 6.68 K/uL (4.8-10.8)
[2021-05-10] MEDS: ASCORBIC ACID 500 MG TAB PO SCH (07:45)
[2021-05-10] MEDS: ATORVASTATIN 20 MG TAB PO SCH (07:45)
[2021-05-10] MEDS: ASPIRIN 81 MG ECTAB PO SCH (07:45)
[2021-05-10] MEDS: VENLAFAXINE HCL 37.5 MG TAB PO SCH (07:46)
[2021-05-10] MEDS: HEPARIN SOD 5,000 UNIT/0.5 ML VIAL SQ SCH (07:47)
[2021-05-10 08:11] LABS: Albumin Level 2.6 gm/dl (3.4-5.0); BUN Creatinine Ratio 17.6 (10-20); Calcium 9.7 mg/dl (8.5-10.1); Creatinine Clr Calc Pharmacy 13.1 ml/min; Est GFR (African American) 12.5 ml/min; Est GFR (Non-African American) 10.8 ml/min; Potassium 4.7 mmol/L (3.5-5.1)
[2021-05-10 08:12] LABS: Phosphorus 3.5 mg/dl (2.5-4.9)
[2021-05-10] MEDS: INSULIN ASPART 100 UNITS/ML 3 ML PEN SC SCH (09:46)
[2021-05-10] MEDS: INSULIN GLARGINE SOLOSTAR 100 UNITS/ML 3 ML PEN SC SCH (09:47)
--- NOTE | 2021-05-10 10:54 | Nephrology Progress Note ---
Date of Service May 10, 2021 Assessment & Plan (1) KALA (acute kidney injury): (2) Sepsis: (3) Chronic kidney disease, stage IV (severe): (4) History of right nephrectomy: Plan: 80-year-old female with stage IV CKD with history of right nephrectomy for renal cell carcinoma in 2010, baseline creatinine around 2, admitted with sepsis secondary to UTI, diarrhea and acute kidney injury. On admission creatinine was 5.7, renal imaging was negative for postrenal obstruction, creatinine improved to 4.9 this morning. Getting treated with ceftriaxone for UTI. Diarrhea is improving. Acute kidney injury most likely secondary to prerenal etiology with diarrhea and sepsis. Renal function staying relatively stable over last 48 hours, creatinine 3.8, electrolyte relatively acceptable. No further improvement in renal function however volume status, blood pressure acceptable, voiding normally, p.o. intake has been decent. -- We discussed different options, including discharged to go home and continue to keep herself hydrated, avoid nephrotoxic medications and have lab done early next week to follow-up. In between if there is any worsening or follow-up lab next week showed worsening of renal function she may have to be readmitted however as she has been voiding normally, eating well, blood pressure and volume status acceptable and electrolyte acceptable, high likelihood that renal function will slowly start to improved and overall she will continue to feel well. After detail discussion she opted to go home and monitor her symptoms and if needed she will come back to ER -- Advised to increase fluid intake to try to keep net positive, monitor intake and output. -- continue to hold diuretics. She will need outpatient labs on next Thursday. will follow. Admission and Anticipated Discharge Date Admission Date: May 06, 2021 Reginaldo Stone was seen this morning, overall she has been feeling well, eating drinking well, otherwise asymptomatic. Diarrhea improved but not totally resolved. Kidney function has been relatively stable over last 48 hours without further improvement however, electrolyte has been acceptable, volume status acceptable and she has been voiding normally. P.o. intake has been decent. Blood pressure well controlled. Review of Systems Review of Systems: Detailed review of system was negative except mentioned in HPI. Physical Exam Constitutional: well developed and well nourished; no acute distress Respiratory: normal respiratory effort, lungs clear to auscultation Cardiovascular: RRR, no murmur, no edema Neurologic: moves all extremities; no focal motor deficits and not confused Psychiatric: A+Ox3, euthymic affect Results & Data ([facility]) Vital Signs (Past 12 Hours) Vital Signs Temp Pulse Pulse Resp BP BP Pulse Ox 05/10/21 07:30 36.6 C 64 20 138/75 97 05/09/21 23:45 36.8 C 65 18 153/78 H 96 PG Care Time/CCT Total # of Minutes Spent Total Time Spent with Patient: Total time spent is greater than 50% in coordination of care (as documented) at patient's floor/unit and/or counseling patient: Coding Level of Care Code 05457 Subseq Hosp Care Lvl 3 Diagnoses KALA (acute kidney injury) N17.9 Sepsis A41.9; R65.20; N17.9 Acute renal failure type: unspecified Sepsis acute organ dysfunction status: with acute organ dysfunction Sepsis type: sepsis due to unspecified organism Severe sepsis acute organ dysfunction type: acute renal failure Severe sepsis shock status: unspecified Chronic kidney disease, stage IV (severe) N18.4 History of right nephrectomy Z90.5 (1) Sepsis Acute renal failure type: unspecified Sepsis acute organ dysfunction status: with acute organ dysfunction Sepsis type: sepsis due to unspecified organism Severe sepsis acute organ dysfunction type: acute renal failure Severe sepsis shock status: unspecified Qualified Code(s): A41.9 - Sepsis, unspecified organism; R65.20 - Severe sepsis without septic shock; N17.9 - Acute kidney failure, unspecified
--- NOTE | 2021-05-10 18:07 | Discharge Summary ---
Date of Service May 10, 2021 Admission HPI Per Admitting Provider Bertha Cano is a 80-year-old female with past medical history renal cell cancer status post stent right knee, chronic kidney disease, hypertension, type 2 diabetes, and obstructive sleep apnea; who presented for concerns of low blood pressure earlier today. Over the last week patient has had continued difficulty with keeping down liquids and foods, with associated diarrhea. As a result of this has had minimal food consumption over the last 3 days, additionally had vents holding off on using her Lasix out of concern about amount of fluid she was having diarrhea. This had somewhat slowed down earlier today, but she was still tentative towards eating or drinking anything. Ultimately took her blood pressure earlier today given feeling very tired, and after seeing the low blood pressure number decided she needs to be seen in the ER. Following receiving multiple IV infusions she did feel like her energy had come up somewhat, but was still profoundly fatigued. Sensitive discussions regarding changes to kidney function demonstrated on lab work demonstrated that she would be agreeable to dialysis if she was deemed a candidate, as she desires to continue to try everything. Does have family that have previously been through dialysis as well as needed to receive kidney transplants. Recognizes that with her history this is very complicated given that she only has 1 kidney at this moment in time and that one has suffered some damage at this point. Principal Diagnosis Acute kidney injury Discharge Exam Constitutional WD/WN, vitals as above Eyes EOM intact bilaterally; no conjunctival abnormality ENMT external ear and nose normal, oropharynx normal Neck trachea midline, no thyromegaly normal visual inspection Respiratory normal respiratory effort, lungs clear to auscultation no respiratory distress Cardiovascular RRR, no murmur, no edema Gastrointestinal (Abdomen) Inspection/Auscultation: abdomen normal to inspection; abdomen not distended Musculoskeletal no cyanosis or clubbing, extremities motor strength 5/5 Skin no rashes, warm and dry Neurologic moves all extremities and awake Psychiatric Orientation: alert, oriented to person and cooperative Discharge Data Allergies Allergy/AdvReac Type Severity Reaction Status Date / Time NSAIDS (Non-Steroidal AdvReac Mild Unknown Verified 05/06/21 22:05 Anti-Inflamma Consultations 05/06/21 22:58 ED Decision to Admit Stat 05/07/21 02:39 Consult Nephrology Routine Ordered Studies 05/06/21 20:29 US point of care ultrasound Stat 05/06/21 20:39 CT abd pelvis wo con Urgent 05/06/21 20:51 CT chest diagnostic wo con Urgent 05/07/21 14:30 US thyroid Routine Hospital Course (1) KALA (acute kidney injury): Follows with Dr. Freed, likely baseline Cr ~2.0, CKD Stage IV. - Cr up to 5.7 on admission; now down to 3.8. - Likely pre-renal from diarrhea, dehydration. Possible mild ATN from hypotension (BP was as low as 65/45 on admission, but improved quickly with fluids.) - Nephrology following -> Discharge today per nephrology. Labs on Thursday. Cr stabilized at 3.8, so this might be close to her new baseline. No indication for HD at this time; volume stable, electrolytes stable. Follow up with nephrology in 2 weeks. (2) Diarrhea: Long-standing issue for her. Reports it waxes and wanes, and often improves with fiber. Also takes Imodium PRN. - Presently she reports her diarrhea is at baseline -> Will add Imodium PRN (3) Diabetes mellitus with polyneuropathy: A1c was 7.3% this admission. - Continue long-acting glargine 30 units daily (half normal long-acting dose) - Continue sliding scale insulin -> Blood sugar has been 90 - 140 in the hospital. Return to home dosing. (4) Hypertension: BP is 135/75. - Held home furosemide & valsartan to due initial low BP & KALA -> Returned to home valsartan on discharge, and discussed that her furosemide should be PRN from now on. (5) Hyperlipemia: - Continue statin (6) Depression: - Continue venlafaxine (7) Gout: - Lowered allopurinol to suit new kidney function. (8) Thyroid nodule: Noted on chest CT on 05/06. - Thyroid u/s ordered -> Will need FNA arranged as outpatient for several large nodules. (9) DVT prophylaxis: Heparin 5,000 units SQ Q12h Total Time Total Time Spent Total Time Spent (In Minutes): 35 Discharge Plan Discharge Items Patient Disposition: Home - Self-Care Reason For Visit: ACUTE RENAL FAILURE, HYPOTENSION Discharge Diagnosis: Kidney issues, diarrhea, low blood pressure Activity: Resume your previous activity Non-emergency contact: Primary Care Provider and Internet Marketer Call non-emergency contact if: your symptoms worsen Follow-up/Referrals: Michelle Magana DO [Primary Care Provider] - 05/15/21 10:20 am Komal Freed MD [Physician] - 05/14/21 9:00 am (Please see Dr. Freed in [place] office) Diet: Carb Consistent or DM2, Dialysis Renal and Heart Healthy Ambulatory Orders: Basic Metabolic Panel (Routine) Timeframe: 3 Days Location: Determined by Patient Ordered By: Toby Parada Addtl Attending Provider Instructions: You were admitted with dehydration due to furosemide (Lasix) and diarrhea. The dehydration caused your kidney function to get worse. Luckily, with IV fluids and temporarily stopping your furosemide, your kidneys are slowly returning to their baseline. Please hold off on taking your Lasix for at least another few days. Watch your weight at home and look for any swelling in your legs. If this occurs, take your Lasix for a day and call Dr. Freed. We also did lower your allopurinol to reflect your new kidney function. For your diarrhea, continue your usual fiber supplement and Imodium as needed. As we discussed, as long as it is not affecting your quality of life, you can pursue this with a GI doctor at your convenience. Finally, you did have some nodules on your thyroid. Speak with your PCP about this in the next few weeks to arrange biopsy to make sure this is benign. Please get labs drawn on Thursday and please see Dr. Freed in 1-2 weeks. Pending Studies at Discharge: No Stand-Alone Forms: My [facility] [employer], Opioid Pain Management, Work/School Release, Smoking Cessation Medications and DC Order Prescriptions: Continued Toujeo Max U-300 SoloStar 300 unit/mL (3 mL) insulin pen 60 unit subcut DAILY Qty: 6 RF: 6 venlafaxine 75 mg tablet 75 mg PO DAILY Qty: 90 RF: 0 ketoconazole 2 % cream 1 applic topical BID Qty: 60 RF: 0 valsartan 160 mg tablet 160 mg PO DAILY Qty: 90 RF: 3 atorvastatin 20 mg tablet 20 mg PO DAILY RF: 0 omeprazole 20 mg capsule,delayed release(DR/EC) 20 mg PO DAILY RF: 0 gabapentin 300 mg capsule 300 mg PO HS RF: 0 cyanocobalamin (vitamin B-12) 3,000 mcg capsule 3,000 mcg PO DAILY RF: 0 cholecalciferol (vitamin D3) 50 mcg (2,000 unit) capsule 50 mcg PO DAILY RF: 0 ascorbate calcium (vitamin C) 500 mg tablet 500 mg PO DAILY RF: 0 tramadol 50 mg Tablet 50 mg PO BID PRN (Reason: Pain) RF: 0 aspirin 81 mg Tablet 81 mg PO DAILY RF: 0 Changed allopurinol 100 mg tablet 50 mg PO DAILY Qty: 180 RF: 1 furosemide 20 mg tablet 40 mg PO DAILY PRN (Reason: Weight gain or leg swelling) Qty: 0 RF: 0 potassium chloride 20 mEq tablet extended release 20 meq PO DAILY PRN (Reason: Only take if taking Lasix that day) Qty: 30 RF: 5 Discharge Orders: Discharge Order (Routine); Ordered 05/10/21 Ordered By: Toby Parada/Other Patient Handouts: A1C, Managing Type 2 Diabetes Admission Data Admit Date/Time: 05/06/21 23:42 Attending Provider: Toby Parada Admit Provider: Baron Perez Primary Care Provider: Michelle Magana Other Providers: Toby Parada ; Zbigniew Frye ; Komal Freed Other Interventions: Discharge Summary Assessment (RN) Last Done: 05/10/21 11:32 Coding Level of Care Code D/C DAY MANAGEMENT >30 MINS Diagnoses KALA (acute kidney injury) N17.9 Diarrhea R19.7 Diabetes mellitus with polyneuropathy E11.42 Hypertension I10 Hyperlipemia E78.5 Depression F32.9 Gout M10.9 Thyroid nodule E04.1 DVT prophylaxis Z29.9
--- NOTE | 2021-05-20 15:16 | Coding Query ---
SEPSIS The ER documents Sepsis and documents, "UA pending, zosyn ordered empiroically for sepsis coverae for possible urinary infection", and the Nephrology Consultation documents Sepsis and , "80-year-old female with stage IV CKD with history of right nephrectomy for renal cell carcinoma in 2010, baseline creatinine around 2, admitted with sepsis secondary to UTI, diarrhea and acute kidney injury. On admission creatinine was 5.7, renal imaging was negative for postrenal obstruction, creatinine improved to 4.9 this morning. Getting treated with ceftriaxone for UTI. Diarrhea is improving. acute kidney injury most likely secondary to prerenal etiology with diarrhea and sepsis" and all of the Nephrology Progress Notes as on 05/10 document, "admitted with sepsis secondary to UTI, diarrhea and acute kidney injury. On admission creatinine was 5.7, renal imaging was negative for postrenal obstruction, creatinine improved to 4.9 this morning. Getting treated with ceftriaxone for UTI. Diarrhea is improving. Acute kidney injury most likely secondary to prerenal etiology with diarrhea and sepsis", however, Sepsis is not documented on H&P, Hospitalist's Progress Notes or on the Discharge Summary. Please Specify below, in your clinical opinion, regarding Sepsis. To promote full compliance with coding requirements relating to patient care, physician participation is requested in all cases of nailing machine feeder uncertainty. Please assist us with the question(s) below: In responding to this query, please exercise your independent professional judgement. The fact that a question is asked does not imply that any particular answer is desired or expected. We appreciate your clarification on this issue. Throughout the medical record, you have clearly documented a localized infection and your patient has clinical evidence of a generalized sepsis or severe sepsis. The term urosepsis is a nonspecific entity and is coded as an UTI. If the patient has sepsis, severe sepsis, from an urinary source or some other source, please clarify in your response below. The medical record reflects the following clinical findings: (With dates as appropriate) (Body temperature of >38.3 C(101 F) or <36 C(96.8F), pulse >90/minute, respirations >20/minute, WBC count >12,000 or <4,000, altered mental status, significant edema or positive fluid balance, hyperglycemia without diabetes, hypotension, metabolic acidosis (elev. lactate level, anion gap or reduced blood pH), shock, positive blood culture (enter organism) ____ ()Bacteremia (Nonspecific laboratory finding of bacteria in the blood) Specify Organism () Present on Admission () Not present on admission () Unable to clinically determine () Septicemia (Systemic disease associated with the presence of pathogenic microorganisms in the blood): Specify Organism () Present on Admission () Not present on admission () Unable to clinically determine () Sepsis Specify Organism Specify Associated Condition/Diagnosis () Present on Admission () Not present on admission () Unable to clinically determine () Severe Sepsis (Sepsis associated with acute organ dysfunction) Specify Organism Specify Associated Condition/Diagnosis () Present on Admission () Not present on admission () Unable to clinically determine () Septic Shock (Severe sepsis with acute circulatory failure, unexplained by other causes) () Present on Admission () Not present on admission () Unable to clinically determine () Other, patient has: (x) Sepsis was Ruled-Out MTDD
--- NOTE | 2021-05-20 15:19 | Coding Query ---
To promote full compliance with coding requirements relating to patient care, provider participation is requested in all cases of quilting supervisor uncertainty. Please assist us with the question(s) below: Coding Question(s): The diagnosis(es) below was documented in the (quilting supervisor fill out source document ie H&P, progress notes, etc.) then subsequently fell off all further documentation. Please indicate if it is still a possible diagnosis or ruled out. Physician's Response(s): UTI - (ER documents possible urinary infection and the Nephrology Consultation and Nephrology Progress Notes document UTI, however, no mention on Hospitalist's Progress Notes or on Discharge Summary) ( ) Diagnosed and POA ( ) Diagnosed and not POA ( x ) Ruled out ( ) Other (please specify) MTDD
== END 2021-05-10 12:34 | disposition home or self-care (01) | DRG 640 ==
LOC: ED 20:08 → SUATTDRO 23:42 → 1E 23:42 → 3N 05-08 09:14

== ENCOUNTER 2024-08-01 14:04 | Inpatient (IN) ==
[2024-08-01 14:48] LABS: Base Excess VBG 3.9 mEq/L; HCO3 VBG 30 mmol/L; Oxygen Saturation VBG < 60.0 %; PCO2 VBG 52 mmHg (38-50); PO2 VBG 34 mmHg; pH VBG 7.37 (7.36-7.41)
[2024-08-01 14:53] LABS: Basophils # (auto) 0.08 K/uL (0.00-0.20); Basophils % (auto) 0.6 %; Eosinophils % (auto) 2.3 %; Hematocrit (blood only) 34.2 % (37.0-47.0); Hemoglobin 10.6 g/dl (12.0-16.0); Immature Granulocytes # (auto) 0.05 K/uL (0.01-0.20); Immature Granulocytes % (auto) 0.4 %; Lymphocytes # (auto) 0.76 K/uL (1.20-3.40); Lymphocytes % (auto) 5.8 %; Mean Corpuscular Hemoglobin 26.9 pg (25.0-34.0); Mean Corpuscular Volume 86.8 fL (80.0-100.0); Mean Platelet Volume 9.4 fL (9.4-12.4); Monocytes # (auto) 0.77 K/uL (0.11-0.59); Monocytes % (auto) 5.9 %; Neutrophils # (auto) 11.15 K/uL (1.40-6.50); Platelet Count 293 K/uL (130-400); RDW Coefficient of Variation 14.8 % (11.5-14.5); RDW Standard Deviation 46.8 fL (36.4-46.3); Red Blood Count 3.94 M/uL (4.20-5.40); White Blood Count 13.11 K/ul (4.8-10.8)
[2024-08-01 15:08] LABS: Alanine Aminotransferase 15 U/L (7-52); Albumin Globulin Ratio 1.5 (0.9-2); Albumin Level 4.1 gm/dl (3.4-5.0); Alkaline Phosphatase 104 U/L (34-104); Anion Gap 9 (3-11); Aspartate Aminotransferase 22 U/L (13-39); BUN Creatinine Ratio 12.3 (10-20); Bilirubin,Total 0.6 mg/dl (0.2-1.0); Blood Urea Nitrogen 35 mg/dl (6-23); Calcium 9.7 mg/dl (8.6-10.3); Carbon Dioxide 28 mmol/L (21-32); Chloride 101 mmol/L (98-107); Globulin 2.8 gm/dl (2.5-4.0); Glucose 182 mg/dl (70-99(Fasting)); Potassium 3.7 mmol/L (3.5-5.1); Sodium 138 mmol/L (136-145); Total Protein 6.9 gm/dl (6.0-8.3)
--- NOTE | 2024-08-01 15:18 | XRay Report ---
XR chest 2V PA/lateral CLINICAL HISTORY: Dyspnea TECHNIQUE: 2 views of the chest were obtained. Comparison: Comparison is made to chest radiograph 06/13/2021 FINDINGS: No lines and tubes are seen. The aorta is tortuous. The remainder of the cardiomediastinal silhouette is unremarkable. Peribronchial thickening is seen. No evidence of pleural effusion or pneumothorax. IMPRESSION: Peribronchial thickening is seen compatible with infectious/inflammatory airways disease or viral pne umonia. No ozzie consolidation is seen. ACT 112: Negative or not required by law. Electronically signed by: Kev Bailey M.D. 08/01/2024 3:17 PM
[2024-08-01 16:38] LABS: Adenovirus PCR Not Detected (NotDetected); Bordetella parapertussis PCR Not Detected (NotDetected); Bordetella pertussis PCR Not Detected (NotDetected); Chlamydia pneumoniae PCR Not Detected (NotDetected); Coronavirus 229E PCR Not Detected (NotDetected); Coronavirus CoV-2 (COVID19)PCR Not Detected (NotDetected); Coronavirus HKU1 PCR Not Detected (NotDetected); Coronavirus NL63 PCR Not Detected (NotDetected); Coronavirus OC43PCR Not Detected (NotDetected); Human Metapneumovirus PCR Not Detected (NotDetected); Influenza A PCR Not Detected (NotDetected); Influenza B PCR Not Detected (NotDetected); Mycoplasma pneumoniae PCR Not Detected (NotDetected); Parainfluenza Virus 1 PCR Not Detected (NotDetected); Parainfluenza Virus 2 PCR Not Detected (NotDetected); Parainfluenza Virus 3 PCR Not Detected (NotDetected); Parainfluenza Virus 4 PCR Not Detected (NotDetected); Respiratory Syncytial VirusPCR Not Detected (NotDetected); Rhinovirus/Enterovirus PCR DETECTED (NotDetected)
--- NOTE | 2024-08-01 16:55 | Electrocardiogram Report ---
Test Reason : Blood Pressure : */* mmHG Vent. Rate : 68 BPM Atrial Rate : 68 BPM P-R Int : 182 ms QRS Dur : 102 ms QT Int : 412 ms P-R-T Axes : -13 -54 46 degrees QTcB Int : 438 ms Normal sinus rhythm Left anterior fascicular block Moderate voltage criteria for LVH, may be normal variant Possible Anterolateral infarct (cited on or before 13-Jun-2021) Abnormal ECG When compared with ECG of 13-Jun-2021 15:48, Incomplete right bundle branch block is no longer Present Confirmed by Puma Montesinos ([id number]) on 08/01/2024 4:55:29 PM Referred By: REFERRED SELF Confirmed By: Puma Montesinos
--- NOTE | 2024-08-01 17:20 | History & Physical Report ---
Date of Service August 01, 2024 Assessment & Plan (1) Acute respiratory failure with hypoxia: Plan: Assessment summary: Bertha is an 83-year-old female with a history of CKD with eventual anticipated dialysis needs, hyperlipidemia, hypertension, DM2, SHARA who presents with acute hypoxic respiratory failure due to entero-/rhinovirus. While she is anticipated to eventually need dialysis she is not yet on dialysis, does not show overt volume overload on chest x-ray and has a normal potassium. She does not show evidence of superimposed lobar pneumonia on her chest x-ray although her white count is elevated without a left shift. Hypoxic respiratory failure, suspect viral pneumonia with entero-/rhinovirus. Entero-/rhinovirus positive XR: Peribronchial thickening systemic viral pneumonia. No evidence of superimposed lobar pneumonia or pulmonary edema. No evidence of pulmonary edema or lobar pneumonia. 2 days of symptoms. Suspect viral pneumonia. Does have a mild white count although no left shift. Pro-Jacobo ordered. If white count uptrending, patient worsens, or procalcitonin is elevated then will cover for potential superimposed pneumonia with atypical coverage at that time. Otherwise we will defer antibiotics DM2 Toujeo 32units am/pm converted to basal bolus while inpatient Goal BSG [id number] DM2 diet CKD 4 Baseline creatinine approximately 2.02.5, gradually rising recently Is anticipated eventually need dialysis however has not yet needed this and does not have a fistula placed. At time of admission creatinine is upper range of her recent normal, potassium is stable, and she is not with evidence of volume overload. No indication of dialysis at time of admission Creatinine 2.84, above typical baseline but lower than her last 06/20/2024 which was 3.12 Potassium 3.7 Troponin mildly elevated 43, BNP 508 Troponin elevation EKG nonischemic. No chest pain Troponin 43, repeat is stable. Suspect demand. Hypertension: Labetalol, amlodipine, Lasix continued. Upper limit of normal creatinine, valsartan temporarily held. Resume if renal function stable/improves. Chronic stable issues: CARO: Continue CPAP GERD: Continue PPI Anxiety/depression: Continue venlafaxine (2) Obstructive sleep apnea: (3) Diabetes mellitus with chronic kidney disease: (4) Chronic kidney disease, stage IV (severe): History of Present Illness Primary Care Provider: Michelle Magana DO Bertha is an 83yo F with past medical history of CARO, SHARA, DM 2, hypertension, hyperlipidemia, depression, RCC, right nephrectomy no history of tobacco use, COPD who presents with dyspnea and hypoxia. Suspected to have viral URI. mild trop oand BNP elevated. Rhino/enterovirus positive. No pleuritic pain. No leg swelling. No tachycardia to suggest PE. Seen at the bedside. Began witha cough on Thursday (2 days ago) and progressive dyspnea sinc alfredo. +cough productive for green sputum since thursday. +chills. No night sweats. No chest pain or chest pressure at any point. No nausea, vomiting, or constipation. +diarrhea intermittently for years without recent change. No blood or melena. 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 Has solitary L kidney. Cr has been rising, but has not yet needed dialysis although expects thi in the future. No fistula as of yet. No change in voiding. No dysuria, oliguria. Medical History: Reviewed Medications: Reviewed Surgical History: Reviewed Family history: Reviewed Allergies: Reviewed Social History: No tobacco or ETOH Code Status: Full Code. If no ROSC within 10 minutes/3 rounds of epi would not want prolonged rescuscitation efforts and stop at that time. Allergies Allergy/AdvReac Type Severity Reaction Status Date / Time NSAIDS (Non-Steroidal AdvReac Mild Unknown Verified 08/01/24 11:52 Anti-Inflamma Home Medications Medication Instructions Recorded Confirmed Type ascorbate calcium (vitamin C) 500 500 mg PO DAILY 11/15/20 08/01/24 History mg tablet cholecalciferol (vitamin D3) 50 50 mcg PO DAILY 11/15/20 08/01/24 History mcg (2,000 unit) capsule cyanocobalamin (vitamin B-12) 3,000 mcg PO DAILY 11/15/20 08/01/24 History 3,000 mcg capsule potassium chloride 20 mEq 20 meq PO DAILY PRN Only take if 05/10/21 08/01/24 Rx tablet,extended release taking Lasix that day #30 tabs aspirin 81 mg tablet,delayed 81 mg PO DAILY 06/13/21 08/01/24 History release (Juan José Low Dose Aspirin) tramadol 50 mg tablet 50 mg PO BID PRN Pain #60 tabs 05/18/23 08/01/24 Rx calcitriol 0.25 mcg capsule 0.25 mcg PO UD #45 caps 07/28/23 08/01/24 Rx magnesium oxide 400 mg PO DAILY #30 tabs 09/03/23 08/01/24 Rx venlafaxine 150 mg 150 mg PO DAILY #90 caps 03/02/24 08/01/24 Rx capsule,extended release 24 hr labetalol 200 mg tablet 200 mg PO BID #180 tabs 05/03/24 08/01/24 Rx valsartan 160 mg tablet 160 mg PO DAILY #90 tabs 05/03/24 08/01/24 Rx gabapentin 300 mg capsule 300 mg PO HS #90 caps 05/10/24 08/01/24 Rx flash glucose scanning reader #1 ea 05/16/24 08/01/24 Rx (FreeStyle Santi 14 Day [place]) furosemide 20 mg tablet 20 mg PO DAILY PRN Weight gain or 06/08/24 08/01/24 Rx leg swelling #90 tabs allopurinol 100 mg tablet 100 mg PO Q2D #45 tabs 06/09/24 08/01/24 Rx atorvastatin 40 mg tablet 40 mg PO DAILY #90 tabs 06/09/24 08/01/24 Rx omeprazole 20 mg capsule,delayed 20 mg PO DAILY #90 caps 06/09/24 08/01/24 Rx release amlodipine 5 mg tablet 5 mg PO HS #90 tabs 07/21/24 08/01/24 Rx azithromycin 250 mg tablet See Rx Instructions PO .COMPLEX #6 08/01/24 08/01/24 Rx tabs flash glucose sensor (HeliumStyle #3 ea 08/01/24 08/01/24 Rx Santi 14 Day Sensor kit) insulin glargine U-300 conc 300 32 unit subcut .twice a day 08/01/24 08/01/24 History unit/mL (3 mL) subcutaneous pen (Toujeo Max U-300 SoloStar) prednisone 10 mg tablet See Rx Instructions PO DAILY #30 08/01/24 08/01/24 Rx tabs Past Med/Surg History Problem List (Updated 08/01/24 @ 17:42 by Ori Hdez MD) Acute respiratory failure with hypoxia Dysphagia Proteinuria Bilateral leg edema Thyroid nodule Secondary hyperparathyroidism of renal origin Vitamin D deficiency Mild cognitive impairment Urinary incontinence Obstructive sleep apnea on CPAP Peripheral vascular disease Iron deficiency anemia Diabetes mellitus with polyneuropathy Restless leg syndrome Osteoarthritis Hypertension Hyperlipemia Fatty liver Diabetes Depression Acid reflux History of renal cell cancer Diabetes mellitus with chronic kidney disease Degenerative cervical disc Chronic kidney disease, stage IV (severe) History of right nephrectomy (09/30/10) Gout Medical History (Updated 08/01/24 @ 17:42 by Ori Hdez MD) No pertinent past medical history Surgical History H/O tubal ligation 1976 Family History Brother AA (alcohol abuse) Diabetes Hypertension Mother Diabetes Hypertension Stroke Dementia Father Heart disease Hypertension Kidney disease Myocardial infarction Sister Alzheimer disease Son Diabetes Sister Hypertension Stroke Sister Dementia Denies family history of Ovarian cancer Prostate cancer Breast cancer Colorectal cancer Social History Smoking Status: Never smoker Second Hand Exposure: No; Do You Dip or Chew Tobacco: No; Hx Alcohol Use: No Hx Substance Use: No Preferred Language: Congolese Communication Ability: Effective Visual Impairment: Partially Limited Hearing Ability: Hard of Hearing Extension Division Director Required: No Beliefs That Will Affect Care: None marital status: / Current Living Situation: Family Current Living Situation Comment: Son lives w/ her, grandson current occupational status: retired current occupation: RETIRED How many Children do You have: 3 How many Children do You have Comment: 3 sons; 1 lives [place], 1 lives [place], [place], [address] [facility] Feels Safe at Home: Yes Childhood Exposure to Second-Hand Smoke: No Diet: regular caffeine: Yes during the past year weight has: remained stable Dental Care, Regularly: Yes Physical Activity Frequency: Does not Exercise Seatbelt Use: always Sunscreen Use: No (does not really go in sun) Assistive Devices: Walker Physical Exam Physical Exam: General: A&Ox3. NAD. Cooperative. HEENT: Atraumatic, normocephalic. Pulm: Coarse, diffuse rhonchi and wheezing improving on reassessment. . Symmetrical chest rise. No increased work of breathing. No respiratory distress. Cardiac: RRR, -mrg. Radial pulses intact and symmetrical. Abdominal: Nontender, nondistended, soft. BS present. Results & Data Results & Data Vital Signs (Past 12 Hours) Vital Signs Temp Pulse Resp BP Pulse Ox O2 Del Method O2 Flow Rate 08/01/24 14:51 70 08/01/24 14:41 94 Nasal Cannula 3 08/01/24 14:33 68 26 H 111/59 L 98 Nasal Cannula 3 08/01/24 14:09 36.9 C 71 24 124/67 88 L Room Air PG Care Time/CCT Total # of Minutes Spent Total Time Spent with Patient: Total time spent is greater than 50% in coordination of care (as documented) at patient's floor/unit and/or counseling patient: Coding Level of Care Code 67108 INT INP/OBS CARE 375MIN Diagnoses Acute respiratory failure with hypoxia J96.01 Obstructive sleep apnea G47.33 Diabetes mellitus with chronic kidney disease E11.22 Chronic kidney disease, stage IV (severe) N18.4
[2024-08-01] MEDS ORDERED: GLUCAGON FOR INJ 1 MG VIAL SQ PRN (17:51)
[2024-08-01] MEDS ORDERED: DEXTROSE 50% 50 ML SYRINGE IV PRN (17:51)
[2024-08-01] MEDS ORDERED: GLUCOSE 40% GEL 15 GM TUBE PO PRN (17:51)
[2024-08-01] MEDS ORDERED: DEXAMETHASONE SOD INJ 4 MG/ML VIAL IV STA (17:51)
[2024-08-01] MEDS ORDERED: PHARMACY GLYCEMIC MGMT CONSULT PRN (17:51)
[2024-08-01] MEDS ORDERED: GLUCOSE 10 TAB/TUBE PO PRN (17:51)
[2024-08-01] MEDS ORDERED: CARBOHYDRATES FOR HYPOGLYCEMIA PO PRN (17:51)
[2024-08-01] MEDS ORDERED: dexAMETHasone 6 MG in SYRINGE 0 ML IV STA (17:58)
[2024-08-01] MEDS ORDERED: Patient's WEIGHT Needed SCH (18:15)
--- NOTE | 2024-08-01 18:50 | Emergency Department Note ---
Impression & Plan Acute hypoxemic respiratory failure, URI (upper respiratory infection) ED Provider Note NAME: MONICA MCKOY AGE: 83 SEX: F : 1940 ARRIVES VIA: Walk-In INFORMANT: Patient, ED PROVIDER(S): Luac Javier MD CHIEF COMPLAINT: Shortness of breath HPI: This is a 83-year-old male presenting for shortness of breath. Patient has not had 3 days worth of cough with productive green sputum. She notes yellow nasal drainage. She denies any chest pain. She notes she is getting difficulty with breathing specifically with walking or even talking. She notes she has history of CKD only 1 kidney. Otherwise she reports no chest pain, pressure, pleurisy, leg swelling or leg pain. ROS: See above HPI for pertinent positives & negatives. A total of 10 systems reviewed and were otherwise negative. PAST MEDICAL HISTORY: See Below PAST SURGICAL HISTORY: See Below FAMILY HISTORY: See Below SOCIAL HISTORY: See Below HOME MEDICATIONS: See Below ALLERGIES: See Below VITALS: See Below PHYSICAL EXAMINATION: General: resting comfortably in no acute distress Head: Normocephalic and atraumatic Eyes: Normal inspection, extraocular muscles intact Ear, nose, throat: Normal external exam Neck: Normal range of motion Respiratory: Rhonchi at lung onofre Cardiovascular: Regular rate/rhythm, no murmur GI: soft, nontender, no guarding or rebound Extremities: nontender, moves all extremities Neuro: The patient awake and alert, appropriately conversive, no focal deficits, symmetric faces Skin: Warm, dry, and intact MEDICAL DECISION MAKING: This is a 89-year-old male presenting for shortness of breath. Patient is hypoxic to 88% on room air, drops lower when she walks/talks. She is conversationally dyspneic. Will do a chest x-ray, upper respiratory panel, basic blood work. -Leukocytosis noted 13, slight anemia 10. VBG shows no acidosis, 7.37/52. S within normal limits. Creatinine 2.84, around her previous baseline. Troponin and BNP are elevated at this time. Patient does have positive rhinovirus. -Chest Xray independently interpreted by me showing no pneumothorax, focal opacity, or pleural effusions. -Chest x-ray read by radiology showing. Bronchial thickening concerning for infectious/viral pneumonia etiology. -With patient's shortness of breath, hypoxia, will require admission -Care discussed Dr. Hdez for admission Differential diagnosis: Pneumonia, URI, PE, ACS Independent History obtained from: Son Diagnostics interpreted by me: ECG: ECG independently interpreted by me with normal sinus rhythm, rate of 68, normal axis, normal PA, normal QRS, normal QTc, no ST segment elevations consistent with STEMI criteria Cardiac Monitoring: An order was placed for continuous cardiac monitoring. The monitor shows a rate of 70 with sinus rhythm. Past Med/Surg History Problem List (Updated 08/01/24 @ 22:07 by Luca Javier MD) URI (upper respiratory infection) (Acute) Acute hypoxemic respiratory failure (Acute) Acute respiratory failure with hypoxia Dysphagia Proteinuria Bilateral leg edema Thyroid nodule Secondary hyperparathyroidism of renal origin Vitamin D deficiency Mild cognitive impairment Urinary incontinence Obstructive sleep apnea on CPAP Peripheral vascular disease Iron deficiency anemia Diabetes mellitus with polyneuropathy Restless leg syndrome Osteoarthritis Hypertension Hyperlipemia Fatty liver Diabetes Depression Acid reflux History of renal cell cancer Diabetes mellitus with chronic kidney disease Degenerative cervical disc Chronic kidney disease, stage IV (severe) History of right nephrectomy (09/30/10) Gout Medical History (Updated 08/01/24 @ 22:07 by Luca Javier MD) No pertinent past medical history Surgical History H/O tubal ligation 1976 Family History Brother AA (alcohol abuse) Diabetes Hypertension Mother Diabetes Hypertension Stroke Dementia Father Heart disease Hypertension Kidney disease Myocardial infarction Sister Alzheimer disease Son Diabetes Sister Hypertension Stroke Sister Dementia Denies family history of Ovarian cancer Prostate cancer Breast cancer Colorectal cancer Social History Smoking Status: Former smoker Second Hand Exposure: No; Do You Dip or Chew Tobacco: No; Hx Alcohol Use: No Hx Substance Use: No Preferred Language: Ethiopian Communication Ability: Effective Visual Impairment: Partially Limited Hearing Ability: Hard of Hearing Membership Counselor Required: No Beliefs That Will Affect Care: None marital status: / Current Living Situation: Family Current Living Situation Comment: Lives with son current occupational status: retired current occupation: RETIRED How many Children do You have: 3 How many Children do You have Comment: 3 sons; 1 lives [place], 1 lives [place], [place], 1 local Other Information That Helps Us Care for You: No Feels Safe at Home: Yes Safety Concerns: Feels Safe At This Time Childhood Exposure to Second-Hand Smoke: No Diet: regular caffeine: Yes during the past year weight has: remained stable Dental Care, Regularly: Yes Physical Activity Frequency: Does not Exercise Seatbelt Use: always Sunscreen Use: No (does not really go in sun) Assistive Devices: Cane, CPAP, Denture - Upper, Glasses and Hearing Aid - Bilateral Allergies Allergies Allergy/AdvReac Type Severity Reaction Status Date / Time NSAIDS (Non-Steroidal AdvReac Mild Unknown Verified 08/01/24 11:52 Anti-Inflamma Home Meds Home Medications Medication Instructions Recorded Confirmed ascorbate calcium (vitamin C) 500 500 mg PO DAILY 11/15/20 08/01/24 mg tablet cholecalciferol (vitamin D3) 50 50 mcg PO DAILY 11/15/20 08/01/24 mcg (2,000 unit) capsule cyanocobalamin (vitamin B-12) 3,000 mcg PO DAILY 11/15/20 08/01/24 3,000 mcg capsule aspirin 81 mg tablet,delayed 81 mg PO DAILY 06/13/21 08/01/24 release (Juan José Low Dose Aspirin) insulin glargine U-300 conc 300 32 unit subcut .twice a day 08/01/24 08/01/24 unit/mL (3 mL) subcutaneous pen (Toujeo Max U-300 SoloStar) Previous Rx's Medication Instructions Recorded potassium chloride 20 mEq 20 meq PO DAILY PRN Only take if 05/10/21 tablet,extended release taking Lasix that day #30 tabs tramadol 50 mg tablet 50 mg PO BID PRN Pain #60 tabs 05/18/23 calcitriol 0.25 mcg capsule 0.25 mcg PO UD #45 caps 07/28/23 magnesium oxide 400 mg PO DAILY #30 tabs 09/03/23 venlafaxine 150 mg 150 mg PO DAILY #90 caps 03/02/24 capsule,extended release 24 hr labetalol 200 mg tablet 200 mg PO BID #180 tabs 05/03/24 valsartan 160 mg tablet 160 mg PO DAILY #90 tabs 05/03/24 gabapentin 300 mg capsule 300 mg PO HS #90 caps 10/01/24 flash glucose scanning reader #1 ea 05/16/24 (FreeStyle Santi 14 Day [place]) furosemide 20 mg tablet 20 mg PO DAILY PRN Weight gain or 06/08/24 leg swelling #90 tabs allopurinol 100 mg tablet 100 mg PO Q2D #45 tabs 06/09/24 atorvastatin 40 mg tablet 40 mg PO DAILY #90 tabs 06/09/24 omeprazole 20 mg capsule,delayed 20 mg PO DAILY #90 caps 06/09/24 release amlodipine 5 mg tablet 5 mg PO HS #90 tabs 07/21/24 azithromycin 250 mg tablet See Rx Instructions PO .COMPLEX #6 08/01/24 tabs flash glucose sensor (FreeStyle #3 ea 08/01/24 Santi 14 Day Sensor kit) prednisone 10 mg tablet See Rx Instructions PO DAILY #30 08/01/24 tabs Results & Data (ED) Vital Signs Vital Signs - 24 hr 08/01/24 14:09 08/01/24 14:33 08/01/24 14:41 Temperature 36.9 C Temperature Source Temporal Artery Scan Pulse Rate 71 68 Pulse Rate from SpO2 Sensor 68 Respiratory Rate 24 26 H Respiratory Effort / Characteristics Non-Labored Spontaneous Respiratory Depth Normal Blood Pressure 124/67 111/59 L Blood Pressure Mean 86 76 Blood Pressure Position Sitting Pulse Oximetry 88 L 98 94 Oxygen Delivery Method Room Air Nasal Cannula Nasal Cannula Oxygen Flow Rate 3 3 Sepsis Recent Fever Within 48 Hours No Sepsis New/Unexplained Change in Mental Status N/A Sepsis Action Taken by Nursing No Action Required 08/01/24 14:51 08/01/24 16:27 08/01/24 17:09 Temperature Temperature Source Pulse Rate 70 63 62 Pulse Rate from SpO2 Sensor 63 62 Respiratory Rate 24 22 Respiratory Effort / Characteristics Respiratory Depth Blood Pressure 130/65 136/80 Blood Pressure Mean 86 98 Blood Pressure Position Pulse Oximetry 91 90 Oxygen Delivery Method Nasal Cannula Nasal Cannula Oxygen Flow Rate 3 3 Sepsis Recent Fever Within 48 Hours Sepsis New/Unexplained Change in Mental Status Sepsis Action Taken by Nursing 08/01/24 17:30 Temperature Temperature Source Pulse Rate 61 Pulse Rate from SpO2 Sensor 62 Respiratory Rate 28 H Respiratory Effort / Characteristics Respiratory Depth Blood Pressure 150/74 H Blood Pressure Mean 99 Blood Pressure Position Pulse Oximetry 93 Oxygen Delivery Method Nasal Cannula Oxygen Flow Rate 3 Sepsis Recent Fever Within 48 Hours Sepsis New/Unexplained Change in Mental Status Sepsis Action Taken by Nursing Laboratory Data 08/01/24 14:31 08/01/24 14:31 Lab Results 08/01/24 08/01/24 Range/Units 14:31 16:24 WBC 13.11 H (4.8-10.8) K/ul RBC 3.94 L (4.20-5.40) M/uL Hgb 10.6 L (12.0-16.0) g/dl Hct 34.2 L (37.0-47.0) % MCV 86.8 (80.0-100.0) fL MCH 26.9 (25.0-34.0) pg MCHC 31.0 L (32.0-36.0) g/dL RDW Std Deviation 46.8 H (36.4-46.3) fL RDW Coeff of Chyna 14.8 H (11.5-14.5) % Plt Count 293 (130-400) K/uL MPV 9.4 (9.4-12.4) fL Immature Gran % (Auto) 0.4 % Neut % (Auto) 85.0 % Lymph % (Auto) 5.8 % Talbot % (Auto) 5.9 % Eos % (Auto) 2.3 % Baso % (Auto) 0.6 % Neut # (Auto) 11.15 H (1.40-6.50) K/uL Lymph # (Auto) 0.76 L (1.20-3.40) K/uL [place]bot # (Auto) 0.77 H (0.11-0.59) K/uL Eos # (Auto) 0.30 (0.00-0.50) K/uL Baso # (Auto) 0.08 (0.00-0.20) K/uL Immature Gran # (Auto) 0.05 (0.01-0.20) K/uL VBG pH 7.37 (7.36-7.41) VBG pCO2 52 H (38-50) mmHg VBG pO2 34 mmHg VBG HCO3 30 mmol/L VBG O2 Saturation < 60.0 % VBG Base Excess 3.9 mEq/L Sodium 138 (136-145) mmol/L Potassium 3.7 (3.5-5.1) mmol/L Chloride 101 (98-107) mmol/L Carbon Dioxide 28 (21-32) mmol/L Anion Gap 9 (3-11) BUN 35 H (6-23) mg/dl Creatinine 2.84 H (0.6-1.2) mg/dl Est Cr Clr Drug Dosing Not Reportable eGFR 16.17 BUN/Creatinine Ratio 12.3 (10-20) Glucose 182 H (70-99(Fasting)) mg/dl Calcium 9.7 (8.6-10.3) mg/dl Total Bilirubin 0.6 (0.2-1.0) mg/dl AST 22 (13-39) U/L ALT 15 (7-52) U/L Alkaline Phosphatase 104 (34-104) U/L Troponin I High Sens 43.0 H 43.7 H (0-14) pg/ml B-Natriuretic Peptide 508 H (0-100) pg/ml Total Protein 6.9 (6.0-8.3) gm/dl Albumin 4.1 (3.4-5.0) gm/dl Globulin 2.8 (2.5-4.0) gm/dl Albumin/Globulin Ratio 1.5 (0.9-2) Procalcitonin 0.13 (0-0.5) ng/ml Adenovirus (PCR) Not Detected (NotDetected) B. pertussis DNA (PCR) Not Detected (NotDetected) B.parapertussis DNA PCR Not Detected (NotDetected) C. pneumoniae DNA (PCR) Not Detected (NotDetected) Coronavirus OC43 (PCR) Not Detected (NotDetected) Coronavirus HKU1 (PCR) Not Detected (NotDetected) Coronavirus 229E (PCR) Not Detected (NotDetected) SARS-CoV-2 (PCR) Not Detected (NotDetected) Coronavirus NL63 (PCR) Not Detected (NotDetected) Human Metapneumovir PCR Not Detected (NotDetected) Influenza Type A (PCR) Not Detected (NotDetected) Influenza Type B (PCR) Not Detected (NotDetected) M. pneumoniae (PCR) Not Detected (NotDetected) Parainfluenza 1 (PCR) Not Detected (NotDetected) Parainfluenza 2 (PCR) Not Detected (NotDetected) Parainfluenza 3 (PCR) Not Detected (NotDetected) Parainfluenza 4 (PCR) Not Detected (NotDetected) RSV (PCR) Not Detected (NotDetected) Entero/Rhino (PCR) DETECTED A (NotDetected) Administered Medications Albuterol (Albut/Ipratrop 3mg/0.5mg Neb 3 Ml Vial) 3 ml NEB Q2H PRN PRN Reason: Shortness of Breath/Wheezing Stop: 08/31/24 17:51 Last Admin: 08/01/24 22:05 Dose: 3 ml Documented By: Admin: 08/01/24 19:31 Dose: 3 ml Documented By: STEPHANIE Amlodipine Besylate (Amlodipine Besylate 5 Mg Tab) 5 mg PO HS ARTUR Stop: 08/31/24 21:14 Last Admin: 08/01/24 21:44 Dose: 5 mg Documented By: JEFF Gabapentin (Gabapentin 300 Mg Cap) 300 mg PO HS ARTUR Stop: 08/31/24 21:01 Last Admin: 08/01/24 21:44 Dose: 300 mg Documented By: JEFF Heparin Sodium (Porcine) (Heparin Sod 5,000 Unit/0.5 Ml Vial) 5,000 units SQ Q8 ARTUR Stop: 08/31/24 21:59 Last Admin: 08/01/24 21:43 Dose: 5,000 units Documented By: JEFF Insulin Aspart (Insulin Aspart Per Unit Charge) 0 units SC ACHS ARTUR Stop: 08/31/24 17:59 Last Admin: 08/01/24 19:14 Dose: 1 units Documented By: ARMANI Co-signed By: Insulin Glargine (Lantus Per Unit Charge) 15 units SQ BID ARTUR Stop: 08/31/24 20:59 Last Admin: 08/01/24 21:43 Dose: 15 units Documented By: JEFF Co-signed By: YOANA Labetalol HCl (Labetalol Hcl 200 Mg Tab) 200 mg PO BID ARTUR Stop: 08/31/24 21:01 Last Admin: 08/01/24 21:44 Dose: 200 mg Documented By: JEFF Discontinued Medications Dexamethasone (Dexamethasone Sod Inj 4 Mg/Ml Vial) 6 mg IV NOW STA Stop: 08/01/24 18:00 Last Admin: 08/01/24 18:54 Dose: 6 mg Documented By: STEPHANIE Imaging Data Radiologist's Impression: Chest X-Ray 08/01/24 14:16 XR chest 2V PA/lateral CLINICAL HISTORY: Dyspnea TECHNIQUE: 2 views of the chest were obtained. Comparison: Comparison is made to chest radiograph 06/13/2021 FINDINGS: No lines and tubes are seen. The aorta is tortuous. The remainder of the cardiomediastinal silhouette is unremarkable. Peribronchial thickening is seen. No evidence of pleural effusion or pneumothorax. IMPRESSION: Peribronchial thickening is seen compatible with infectious/inflammatory airways disease or viral pneumonia. No ozzie consolidation is seen. ACT 112: Negative or not required by law. Electronically signed by: Kev Bailey M.D. 08/01/2024 3:17 PM Discharge Plan Visit Data Chief Complaint: Cough Stated Complaint: COUGH, LOW OXYGEN ED Provider: Luca Javier Discharge Problem: Acute hypoxemic respiratory failure, URI (upper respiratory infection) Patient Disposition: Admitted As Inpatient Discharge Instructions Interventions: ED Discharge Assessment Last Done: 08/01/24 20:27
[2024-08-01] MEDS: DEXAMETHASONE SOD INJ 4 MG/ML VIAL IV STA (18:54)
[2024-08-01] MEDS: INSULIN ASPART PER UNIT CHARGE SC SCH (19:14)
[2024-08-01] MEDS: ALBUT/IPRATROP 3MG/0.5MG NEB 3 ML VIAL NEB PRN (19:31)
[2024-08-01] MEDS ORDERED: FUROSEMIDE 20 MG TAB PO PRN (21:02)
[2024-08-01] MEDS ORDERED: POTASSIUM CHLORIDE CRTAB 20 MEQ TABCR PO PRN (21:02)
[2024-08-01] MEDS: HEPARIN SOD 5,000 UNIT/0.5 ML VIAL SQ SCH (21:43)
[2024-08-01] MEDS: LANTUS PER UNIT CHARGE SQ SCH (21:43)
[2024-08-01] MEDS: LABETALOL HCL 200 MG TAB PO SCH (21:44)
[2024-08-01] MEDS: GABAPENTIN 300 MG CAP PO SCH (21:44)
[2024-08-01] MEDS: amLODIPine BESYLATE 5 MG TAB PO SCH (21:44)
[2024-08-02 06:15] LABS: Hematocrit (blood only) 30.1 % (37.0-47.0); Hemoglobin 9.7 g/dl (12.0-16.0); Mean Corpuscular Hemoglobin 27.7 pg (25.0-34.0); Mean Corpuscular Hgb Conc 32.2 g/dL (32.0-36.0); Mean Platelet Volume 9.5 fL (9.4-12.4); Platelet Count 265 K/uL (130-400); RDW Coefficient of Variation 14.6 % (11.5-14.5); RDW Standard Deviation 45.5 fL (36.4-46.3); White Blood Count 7.73 K/ul (4.8-10.8)
[2024-08-02 06:26] LABS: BUN Creatinine Ratio 14.1 (10-20); Calcium 9.5 mg/dl (8.6-10.3); Creatinine Clr Calc Pharmacy 15.9 ml/min; Potassium 4.2 mmol/L (3.5-5.1)
[2024-08-02 06:46] LABS: Basophils # (auto) 0.03 K/uL (0.00-0.20); Basophils % (auto) 0.4 %; Immature Granulocytes # (auto) 0.05 K/uL (0.01-0.20); Immature Granulocytes % (auto) 0.6 %; Lymphocytes # (auto) 0.31 K/uL (1.20-3.40); Monocytes # (auto) 0.07 K/uL (0.11-0.59); Monocytes % (auto) 0.9 %; Neutrophils # (auto) 7.27 K/uL (1.40-6.50); Neutrophils % (auto) 94.1 %
[2024-08-02] MEDS: PANTOprazole 40 MG TAB PO SCH (08:21)
[2024-08-02] MEDS: CHOLECALCIFEROL 25 MCG (1000 UNITS) TAB PO SCH (08:24)
[2024-08-02] MEDS: ATORVASTATIN 40 MG TAB PO SCH (08:24)
[2024-08-02] MEDS: MAGNESIUM OXIDE 400 MG TAB PO SCH (08:24)
[2024-08-02] MEDS: allopurinoL 100 MG TAB PO SCH (08:24)
[2024-08-02] MEDS: ASPIRIN 81 MG ECTAB PO SCH (08:25)
[2024-08-02] MEDS: ASCORBIC ACID 500 MG TAB PO SCH (08:25)
[2024-08-02] MEDS: VENLAFAXINE HCL XR 150 MG CAPXR PO SCH (08:25)
[2024-08-02] MEDS: LANTUS PER UNIT CHARGE SQ SCH ×2 (09:13→21:16)
[2024-08-02 09:24] LABS: Appearance Urine Turbid (Clear); Bacteria Urine Automated 4+ (None Seen); Bilirubin Urine Negative (Negative); Blood Urine Trace (Negative); Color Urine Yellow; Glucose Urine UA Negative (Negative); Ketones Urine Negative (Negative); Leukocyte Esterase Urine 3+ (Negative); Nitrite Urine Negative (Negative); Protein Urine 3+ (Negative); RBC Urine Automated 0-2 /hpf (0-2); Specific Gravity Urine 1.016 (1.000-1.030); Urobilinogen Urine Negative (Negative); WBC Urine Automated >50 /hpf (0-5)
--- NOTE | 2024-08-02 10:38 | Pharmacy Report ---
Pharmacy Glycemic Short Note 2 - Date of Service August 02, 2024 - Glycemic Short BSG Results (Last 24 hours): 08/01/24 08/01/24 08/01/24 14:31 18:49 21:22 Glucose 182 H POC Glucose 113 H 176 H 08/02/24 08/02/24 05:45 08:04 Glucose 233 H POC Glucose 217 H OUTPATIENT ANTIDIABETIC REGIMEN: * Toujeo Max U300 32 units SQ BID * HbA1c 8.1% (06/08/24) ASSESSMENT: * Bertha is an 83 YOF admitted with respiratory failure secondary to entero/rhinovirus. She has a history of type 2 diabetes mellitus. Pharmacy has been consulted to assist with glycemic management while inpatient. * Fasting BSG this AM elevated, likely due to IV dexamethasone 6mg given yesterday. Will give a weight based stress of 2.5 basal insulin this AM to help cover and add a scale at bedtime to cover any other basal needs. No additional steroids ordered at this time. * NovoLog tightened based off of outpatient basal usage. She has pre-existing CKD, with creatinine slightly above baseline right now PLAN FOR INPATIENT GLYCEMIC CONTROL: * Hold outpatient oral diabetes medications * Basal insulin * Lantus 30 units SQ QAM * Lantus 0-10 units SQ HS based on BSG * Bolus insulin * NovoLog per scale ACHS or Q6hrs while NPO * Goal Range: Low 110 mg/dL - High 180 mg/dL * Correction Factor: 25 mg/dL/unit * Nutritional / Prandial insulin per carb ratio of 1 unit per 8 grams CHO consumed
[2024-08-02] MEDS ORDERED: methylPREDNISolone 10 mg/mL (For Ped Dose < 7mg) IV SCH (13:45)
--- NOTE | 2024-08-02 13:47 | Hospitalist Progress Note ---
Date of Service August 02, 2024 Assessment & Plan (1) Asthmatic bronchitis: Plan: Presented with progressive dyspnea and productive cough that began on 07/30. Suspect respiratory symptoms are due to asthmatic bronchitis - CXR showed peribronchial thickening, no ozzie consolidation or pleural effusion - Entero/rhinovirus positive - BNP elevated at 508 on admission, procal WNL - Requiring supplemental O2 to maintain SpO2 >90% - Start Solu-Medrol 40 mg Q8H - Start Cefepime 1 g Q12H given CrCl - DuoNeb QID - Sputum culture & sensitivity ordered - Continue incentive spirometer and flutter valve - Continue supplemental O2 to maintain SpO2 >90% (2) Hypertension: Plan: Chronic, stable - Continue labetalol, amlodipine, Lasix - Valsartan temporarily held as creatinine elevated from baseline -- resume if renal function stable/improves (3) Chronic kidney disease, stage IV (severe): Plan: Baseline creatinine approximately 2.02.5, gradually rising recently - Is anticipated eventually need dialysis however has not yet needed this and does not have a fistula placed - Potassium is stable, no evidence of volume overload - Renally dose medications, avoid nephrotoxic meds (4) Diabetes mellitus with chronic kidney disease: Plan: Toujeo 32units am/pm at home - Converted to basal bolus while inpatient - SSI --Goal BSG Range: Low 110 mg/dL, High 160 mg/dL --Correction Factor: 20 mg/dL/unit --Carbohydrate ratio = 6 g/unit --BSGs ACHS if eating, q6h if npo - Monitor glucose while on steroids (5) UTI (urinary tract infection): Plan: UA appears infected. Urine culture pending, continue to monitor - History of Klebsiella pneumoniae and E. coli UTIs - Continue Cefepime as above Plan Started cefepime, Solu-Medrol Scheduled DuoNebs Ordered sputum C&S Ordered PT/OT evals Chronic stable issues: CARO: Continue CPAP GERD: Continue PPI Anxiety/depression: Continue venlafaxine VTE PPx: Heparin CODE STATUS: Full code Admission and Anticipated Discharge Date Admission Date: August 01, 2024 Supervising Physician Co-Signing Physician Notes The patient was not seen by me. The chart was reviewed. Case discussed with RICHIE Acuña. Agree with assessment and plan Subjective Patient seen and evaluated in bedside chair. She reports she went to sleep Thursday (07/29) night feeling fine, then woke up Thursday morning feeling "crummy." This continued to progress throughout the week. She denies any aspiration or choking events, denies recent vomiting. She endorses intermittent green sputum production. She reports feeling more short of breath than her baseline. She does not wear supplemental O2 during the day at baseline, though she is acutely requiring it at this time. We discussed her updated treatment plan. No additional complaints or concerns at this time. Physical Exam Physical Exam: General: No acute distress, nondiaphoretic, well-developed, well-nourished. Cardiac: Regular rate and rhythm without murmurs gallops or rubs. Pulm: Diffuse rhonchi throughout all lung onofre. Expiratory wheezing noted. No respiratory distress. 96% on 3 L via NC. Abdominal: Soft, nontender, nondistended. Bowel sounds present. Neuro: A&O x3. No focal neurological deficits. Results & Data Results & Data Vital Signs (Past 12 Hours) Vital Signs Temp Pulse Pulse Resp BP Pulse Ox O2 Del Method 08/02/24 11:53 97.7 F 55 L 20 131/66 96 Nasal Cannula 08/02/24 08:00 Nasal Cannula 08/02/24 07:59 98.4 F 58 L 22 133/53 L 96 Nasal Cannula 08/02/24 07:02 56 L 08/02/24 06:26 60 18 93 Nasal Cannula 08/02/24 03:41 97.9 F 58 L 18 129/62 93 Nasal Cannula O2 Flow Rate 08/02/24 11:53 3 08/02/24 08:00 3 08/02/24 07:59 2 08/02/24 07:02 08/02/24 06:26 3 08/02/24 03:41 Laboratory Results Reviewed CBC Reviewed BMP Reviewed UA PG Care Time/CCT Total # of Minutes Spent Total Time Spent with Patient: Total time spent is greater than 50% in coordination of care (as documented) at patient's floor/unit and/or counseling patient: Coding Level of Care Code 18643 SUB INP/OBS CARE 3/50MIN Diagnoses Asthmatic bronchitis J45.909 Hypertension I10 Chronic kidney disease, stage IV (severe) N18.4 Diabetes mellitus with chronic kidney disease E11.22 UTI (urinary tract infection) N39.0
[2024-08-02] MEDS: ALBUT/IPRATROP 3MG/0.5MG NEB 3 ML VIAL NEB SCH (14:59)
[2024-08-02] MEDS: CEFEPIME 1000MG 1,000 MG/10 ML SYR IV SCH (15:13)
[2024-08-02] MEDS: methylPREDNISolone 40 MG in SYRINGE 0 ML IV SCH (15:13)
[2024-08-03 06:49] LABS: Hematocrit (blood only) 29.1 % (37.0-47.0); Hemoglobin 9.4 g/dl (12.0-16.0); Mean Corpuscular Hemoglobin 27.4 pg (25.0-34.0); Mean Corpuscular Hgb Conc 32.3 g/dL (32.0-36.0); Mean Corpuscular Volume 84.8 fL (80.0-100.0); Platelet Count 290 K/uL (130-400); RDW Coefficient of Variation 14.3 % (11.5-14.5); RDW Standard Deviation 43.7 fL (36.4-46.3); Red Blood Count 3.43 M/uL (4.20-5.40); White Blood Count 9.66 K/ul (4.8-10.8)
[2024-08-03 07:12] LABS: BUN Creatinine Ratio 18.1 (10-20); Calcium 9.5 mg/dl (8.6-10.3); Creatinine Clr Calc Pharmacy 14.7 ml/min; Potassium 4.8 mmol/L (3.5-5.1)
[2024-08-03 07:25] LABS: Basophils # (auto) 0.01 K/uL (0.00-0.20); Basophils % (auto) 0.1 %; Immature Granulocytes # (auto) 0.05 K/uL (0.01-0.20); Immature Granulocytes % (auto) 0.5 %; Lymphocytes # (auto) 0.47 K/uL (1.20-3.40); Lymphocytes % (auto) 4.9 %; Monocytes # (auto) 0.15 K/uL (0.11-0.59); Monocytes % (auto) 1.6 %; Neutrophils # (auto) 8.98 K/uL (1.40-6.50); Neutrophils % (auto) 92.9 %; Polychromasia 1+
--- NOTE | 2024-08-03 08:16 | Hospitalist Progress Note ---
Date of Service August 03, 2024 Assessment & Plan (1) Asthmatic bronchitis: Plan: Presented with progressive dyspnea and productive cough that began on 07/30. Suspect respiratory symptoms are due to asthmatic bronchitis - CXR showed peribronchial thickening, no ozzie consolidation or pleural effusion - Entero/rhinovirus positive - BNP elevated at 508 on admission, procal WNL - Wean off supplemental O2 as able. Maintain SpO2 >90% - Solu-Medrol 40 mg Q8H - Cefepime 1 g Q12H given CrCl - DuoNeb QID - Incentive spirometer and flutter valve - Supplemental O2 to maintain SpO2 >90% - Sputum culture & sensitivity pending (2) Hypertension: Plan: Chronic, stable - Continue labetalol, amlodipine, Lasix - Valsartan temporarily held as creatinine elevated from baseline -- resume if renal function stable/improves (3) Chronic kidney disease, stage IV (severe): Plan: Baseline creatinine approximately 2.02.5, gradually rising recently - Is anticipated eventually need dialysis however has not yet needed this and does not have a fistula placed - Potassium is stable, no evidence of volume overload - Renally dose medications, avoid nephrotoxic meds (4) UTI (urinary tract infection): Plan: UA appears infected. Urine culture preliminarily growing E. coli, continue to monitor - History of Klebsiella pneumoniae and E. coli UTIs - Continue Cefepime as above (5) Diabetes mellitus with chronic kidney disease: Plan: Toujeo 32units am/pm at home - Converted to basal bolus while inpatient - Pharmacy managing - Monitor glucose while on steroids Plan Chronic stable issues: CARO: Continue CPAP GERD: Continue PPI Anxiety/depression: Continue venlafaxine Dispo: PT/OT evals pending VTE PPx: Heparin CODE STATUS: Full code Admission and Anticipated Discharge Date Admission Date: August 01, 2024 Supervising Physician Co-Signing Physician Notes The patient was not seen by me. The chart was reviewed. Case discussed with RICHIE Acuña. Agree with assessment and plan Subjective Patient seen and evaluated in bedside chair. She reports feeling better today. She notes that her sputum production has decreased and also her coughing frequency has decreased. She continues to be dyspneic on exertion, but states she is less dyspneic walking to the bathroom than she was yesterday. We discuss ed her updated treatment plan. No additional complaints or concerns at this time. Physical Exam Physical Exam: General: No acute distress, nondiaphoretic, well-developed, well-nourished. Cardiac: Regular rate and rhythm without murmurs gallops or rubs. Pulm: Diffuse rhonchi throughout all lung onofre, improving in apices. Expiratory wheezing improved but persists. No respiratory distress. 99% on 2 L via NC. Abdominal: Soft, nontender, nondistended. Bowel sounds present. Neuro: A&O x3. No focal neurological deficits. Results & Data Results & Data Vital Signs (Past 12 Hours) Vital Signs Temp Pulse Pulse Resp BP Pulse Ox O2 Del Method 08/03/24 07:06 73 15 93 Nasal Cannula 08/03/24 07:00 56 L 08/03/24 04:12 98.1 F 70 20 143/73 H 93 Room Air 08/03/24 00:07 98.2 F 60 20 135/63 96 CPAP 08/02/24 23:38 Nasal Cannula, CPAP 08/02/24 22:04 97 H 22 99 08/02/24 21:48 60 O2 Flow Rate 08/03/24 07:06 2.5 08/03/24 07:00 08/03/24 04:12 08/03/24 00:07 2 08/02/24 23:38 3 08/02/24 22:04 2 08/02/24 21:48 Laboratory Results Reviewed CBC Reviewed BMP Reviewed urine culture Reviewed sputum culture PG Care Time/CCT Total # of Minutes Spent Total Time Spent with Patient: Total time spent is greater than 50% in coordination of care (as documented) at patient's floor/unit and/or counseling patient: Coding Level of Care Code 23942 SUB INP/OBS CARE 2/35MIN Diagnoses Asthmatic bronchitis J45.909 Hypertension I10 Chronic kidney disease, stage IV (severe) N18.4 UTI (urinary tract infection) N39.0 Diabetes mellitus with chronic kidney disease E11.22
[2024-08-03] MEDS: CALCITRIOL 0.25 MCG CAPSULE PO SCH (08:59)
[2024-08-03] MEDS: LANTUS PER UNIT CHARGE SQ SCH (09:00)
[2024-08-04 06:51] LABS: Hematocrit (blood only) 29.2 % (37.0-47.0); Hemoglobin 9.5 g/dl (12.0-16.0); Mean Corpuscular Hemoglobin 27.2 pg (25.0-34.0); Mean Corpuscular Hgb Conc 32.5 g/dL (32.0-36.0); Mean Corpuscular Volume 83.7 fL (80.0-100.0); Platelet Count 300 K/uL (130-400); RDW Coefficient of Variation 14.4 % (11.5-14.5); RDW Standard Deviation 43.8 fL (36.4-46.3); Red Blood Count 3.49 M/uL (4.20-5.40); White Blood Count 14.34 K/ul (4.8-10.8)
[2024-08-04 07:12] LABS: Anion Gap 11 (3-11); BUN Creatinine Ratio 18.5 (10-20); Blood Urea Nitrogen 69 mg/dl (6-23); Calcium 9.7 mg/dl (8.6-10.3); Carbon Dioxide 24 mmol/L (21-32); Chloride 98 mmol/L (98-107); Creatinine Clr Calc Pharmacy 12.5 ml/min; Glucose 243 mg/dl (70-99(Fasting)); Sodium 133 mmol/L (136-145)
[2024-08-04 07:23] LABS: Basophils # (auto) 0.01 K/uL (0.00-0.20); Basophils % (auto) 0.1 %; Immature Granulocytes # (auto) 0.08 K/uL (0.01-0.20); Immature Granulocytes % (auto) 0.6 %; Lymphocytes # (auto) 0.55 K/uL (1.20-3.40); Lymphocytes % (auto) 3.8 %; Monocytes # (auto) 0.27 K/uL (0.11-0.59); Monocytes % (auto) 1.9 %; Neutrophils # (auto) 13.43 K/uL (1.40-6.50); Neutrophils % (auto) 93.6 %
--- NOTE | 2024-08-04 07:58 | Hospitalist Progress Note ---
Date of Service August 04, 2024 Assessment & Plan (1) Asthmatic bronchitis: Plan: Presented with progressive dyspnea and productive cough that began on 07/30. Suspect respiratory symptoms are due to asthmatic bronchitis . BNP is elevated to 508 on admission, procal wnl CXR showed peribronchial thickening, no ozzie consolidation or pleural effusion Positive biofire testing: Entero/rhinovirus positive IMPROVING Solu-medrol IV 40mg q8h continued and plan for prednisone taper at dc Sputum cx heavy NORMAL janeth Mag 1gm IV ordered given asthma, continue nebulizers as ordered Continue flutter valve, added mucinex BID/incentive spirometer Supplemental O2 to maintain sats --> currently 93% on RA Lidocaine patch for costochondritis discomfort. Cefepime 1gm q12 for renal function--> will convert to Augmentin PO to complete course for urinary coverage to prevent renal toxicity, can complete course for pansensitive ecoli Monitor labs/exam in AM, PT/OT evals pending to ensure ok for dc in next 24-48 hours suspected (2) Hypertension: Plan: Chronic/stable Remains on labetalol, amlodipine Home valsartan held given elevation in renal function to Cr 2.7, lasix on HOLD (takes 20mg PO prn) Does have some increased LE edema, ?from amlodipine vs steroids. Weight appears stable but likely inaccurate Given such w/ elevated BNP on admission, repeat CXR/BNP and will consider dose LASIX IV Monitor (3) Chronic kidney disease, stage IV (severe): Plan: Baseline Cr ~2-2.5 w/ gradual rise recently/anticipated eventual need for HD in the future K stable but 5.1 BUN/Cr 69/3.72, reports good PO intake. Valsartan on HOLD given elevated Cr, lasix not ordered but can be considered as could have slight elevation from volume overload -will check BNP for comparison as well as CXR to consider small dose lasix Changing Cefepime to Augmentin as above Iron studies checked -- Iron 27, TIBC 346, transferrin 247. Transferrin % sat 8%, ferritin 38.6 --Venofer 300mg IV x 1 Renal dose meds/avoid toxins as able BMP in Am (4) UTI (urinary tract infection): Plan: UA appears infected. Urine culture Ecoli, pansensitive Cefepime--> Augmentin as above to complete course Monitor UOP (5) Diabetes mellitus with chronic kidney disease: Plan: Toujeo 32units am/pm at home - Converted to basal bolus while inpatient - Pharmacy managing - Monitor glucose while on steroids , likely increased need/coverage w/ prednisone taper at dc above (6) Iron deficiency anemia: Plan: as above, suspected 2nd to CKD. Venofer IV ordered, consider repeat dose in AM Plan Chronic stable issues: HS CARO: Continue CPAP GERD: Continue PPI Anxiety/depression: Continue venlafaxine Dispo: PT/OT evals pending, converted abx to PO. Checking repeat CXR/BNP to see about one time dose lasix as needed. Venofer IV for SHARA likely 2nd to CKD/no bleeding reported and remains on Heparin SQ for DVT prophylaxis while inpatient \ Admission and Anticipated Discharge Date Admission Date: August 01, 2024 Supervising Physician Co-Signing Physician Notes The patient was not seen by me. The chart was reviewed. Case discussed with RICHIE Oseguera. Agree with assessment and plan Subjective EValuated this morning, sitting up in the chair. Reports breathing improved. Now on room air. Still with ongoing cough, will see about some mucinex to help w/ mucus clearance. Less wheezing on steroids. Discussed renal function elevation - she reports has been eating/drinking, no significant increased edema. Losartan remains on HOLD for now. Repeat CXR in for today for comparison but anticipate possible dc on PO abx switch in AM and prednisone taper in next 24-48 hours. Moving her bowels this morning. Physical Exam 2 Physical Exam: General: 83yo female sitting up in recliner chair, NAD, on room air HEENT: head atraumatic, normocephalic, mmm, trachea midline Resp: improvement in air entry bilaterally but diminished in the bases, faint expiratory wheezing persists but reported improvement, occasional cough, no tachypnea, on room air 93% CV: SR/sinus basilio, 1st degree on telemetry, rates 50-70s, faint systolic murmur, trace pedal edema but pulses present GI: +BS , soft/NT MSK/Neuro: nonfocal, answering questions appropriately Psych: AOx3, cooperative with exam Results & Data Results & Data Vital Signs (Past 12 Hours) Vital Signs Temp Pulse Pulse Resp BP Pulse Ox O2 Del Method 08/04/24 07:34 36.9 C 68 18 138/65 93 Nasal Cannula 08/04/24 07:07 61 18 92 Nasal Cannula 08/04/24 07:00 60 08/04/24 04:42 36.9 C 58 L 20 129/67 95 CPAP 08/04/24 03:02 53 L 18 94 08/03/24 23:22 36.4 C L 54 L 20 135/71 96 CPAP 08/03/24 22:37 Nasal Cannula, CPAP 08/03/24 22:30 56 L 18 96 08/03/24 22:06 59 L 08/03/24 20:11 36.6 C 64 20 135/67 95 Room Air O2 Flow Rate 08/04/24 07:34 1 08/04/24 07:07 2 08/04/24 07:00 08/04/24 04:42 2 08/04/24 03:02 2 08/03/24 23:22 2 08/03/24 22:37 1 08/03/24 22:30 2 08/03/24 22:06 08/03/24 20:11 Laboratory Results 08/04/24 05:31 08/04/24 07:49 Na 133 K 5.1 BUN/Cr 69/3.72 Mag 2.1 Iron 27, TIBC 346, transferrin 247. Transferrin % sat 8%, ferritin 38.6 PG Care Time/CCT Total # of Minutes Spent Total Time Spent with Patient: Total time spent is greater than 50% in coordination of care (as documented) at patient's floor/unit and/or counseling patient: Coding Level of Care Code 13679 SUB INP/OBS CARE 3/50MIN Diagnoses Asthmatic bronchitis J45.909 Hypertension I10 Chronic kidney disease, stage IV (severe) N18.4 UTI (urinary tract infection) N39.0 Diabetes mellitus with chronic kidney disease E11.22 Iron deficiency anemia D50.9
[2024-08-04] MEDS: MAGNESIUM SULFATE / D5W 1 GM/100 ML BAG IV ONE (08:53)
[2024-08-04 09:03] LABS: Magnesium 2.1 mg/dl (1.7-2.4); Potassium 5.1 mmol/L (3.5-5.1)
[2024-08-04 09:23] LABS: Ferritin 38.6 ng/ml (8-388)
--- NOTE | 2024-08-04 09:51 | Pharmacy Report ---
Pharmacy Glycemic Short Note 2 - Date of Service August 04, 2024 - Glycemic Short BSG Results (Last 24 hours): 08/03/24 08/03/24 08/03/24 12:13 17:14 20:36 Glucose POC Glucose 272 H 213 H 214 H 08/04/24 08/04/24 05:31 07:53 Glucose 243 H POC Glucose 268 H OUTPATIENT ANTIDIABETIC REGIMEN: * Toujeo Max U300 32 units SQ BID * HbA1c 8.1% (06/08/24) ASSESSMENT: 08/04 * Patient received total of 121 units of insulin yesterday, of which 65 units were basal insulin. * Continues on solumedrol 40 mg iv q 8 hours * Fasting BSG 243 mg/dL - basal insulin increased yesterday, will likely provide slightly higher dose of basal at HS in case BSGs remain elevated * Will tighten novolog this AM. Will try and be conservative with changes for now as Scr continuing to trend up quickly. 07/23 * Bertha is an 83 YOF admitted with respiratory failure secondary to entero/rhinovirus. She has a history of type 2 diabetes mellitus. Pharmacy has been consulted to assist with glycemic management while inpatient. * Fasting BSG this AM elevated, likely due to IV dexamethasone 6mg given yesterday. Will give a weight based stress of 2.5 basal insulin this AM to help cover and add a scale at bedtime to cover any other basal needs. No additional steroids ordered at this time. * NovoLog tightened based off of outpatient basal usage. She has pre-existing CKD, with creatinine slightly above baseline right now PLAN FOR INPATIENT GLYCEMIC CONTROL: * Hold outpatient oral diabetes medications * Basal insulin * Lantus 30 units SQ QAM * Lantus 30 -35 units SQ HS based on BSG * Bolus insulin * NovoLog per scale ACHS or Q6hrs while NPO * Goal Range: Low 110 mg/dL - High 180 mg/dL * Correction Factor: 12 mg/dL/unit * Nutritional / Prandial insulin per carb ratio of 1 unit per 4 grams CHO consumed
--- NOTE | 2024-08-04 10:13 | XRay Report ---
XR chest 1V portable HISTORY: 83 years-old Female f/u, eval pulm congestion COMPARISON: 08/01/2024 TECHNIQUE: AP view the chest FINDINGS: Cardiac silhouette is enlarged. Pulmonary vascular congestion has slightly progressed. No pneumothora x, large pleural effusion or overt pulmonary edema. Chronic appearing nondisplaced fracture of the po sterolateral left fourth rib. Bones appear grossly intact with degenerative changes of the shoulders and spine. IMPRESSION: Cardiomegaly with pulmonary vascular congestion. ACT 112: Negative or not required by law. The above report was generated using voice recognition software. It may contain grammatical, syntax o r spelling errors. Electronically signed by: Weston Chowdary M.D. 08/04/2024 10:11 AM
[2024-08-04] MEDS: LIDOCAINE 5% 1 PATCH TD STA (10:21)
[2024-08-04] MEDS: AMOXICILLIN/CLAVULANATE 500 MG TAB PO ONE (10:22)
[2024-08-04] MEDS: LIDOCAINE 5% 1 PATCH TD SCH (10:22)
[2024-08-04] MEDS: IRON SUCROSE 300 MG in SODIUM CHLORIDE 0.9% 250 ML IV ONE (10:53)
[2024-08-04] MEDS: FUROSEMIDE INJ 20 MG/2 ML VIAL IV ONE (13:00)
--- NOTE | 2024-08-04 16:40 | XCELERA ---
[id number]
[2024-08-04] MEDS: AMOXICILLIN/CLAVULANATE 500 MG TAB PO SCH (17:33)
[2024-08-04] MEDS: guaiFENesin 600 MG TABCR PO SCH (21:13)
[2024-08-04] MEDS: traMADol HCL 50 MG TABLET PO PRN (21:17)
--- NOTE | 2024-08-05 07:37 | Hospitalist Progress Note ---
Date of Service August 05, 2024 Assessment & Plan (1) Acute respiratory failure with hypoxia: Plan: Presented with progressive dyspnea and productive cough that began on 07/30. Saw PCP and was desat on RA to 75-89% while talking, resting 89-91% Suspected respiratory symptoms are due to asthmatic bronchitis , however was given Cefepime on admission to also cover for possible urinary tract infectin CXR showed peribronchial thickening, no ozzie consolidation or pleural effusion Positive biofire testing: Entero/rhinovirus positive (isolation precautions) BNP to 508, procal wnl Solu-medrol IV --> convert to prednisone 40mg PO daily and plan to continue at dc Sputum cx negative Pulmonary toilet, lidocaine patches as needed for ribs Augmentin to cover for urine Lasix 20mg IV provided 08/04 given BNP elevation and CXR w/ pulmonary congestion. ?2nd to steroids. Lasix is prn on home med list but has been taking daily per nephrology recs. Cr elevated and weight obtained which is higher but breathing/lung exam improved. ECHO obtained to eval underlying valvular disease/EF --> normal LV systolic function, EF 60-65%. Mild AR/MR, elevated RVSP 40-50%, noting inferior vena cava mildly dilated Renal function w/ Cr to 3.86 however reported good urine output and making urine. Will hold off on additional dosing for today however would plan for double dose lasix 40mg daily at dc. 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 PT/OT consults [facility] 08/06 on Augmentin and prednisone taper. (2) Asthmatic bronchitis: Plan: Presented with progressive dyspnea and productive cough that began on 07/30 CXR showed peribronchial thickening, no ozzie consolidation or pleural effusion Positive biofire testing: Entero/rhinovirus positive Cefepime--> Augmentin to cover for urine as outlined below Suspected asthmatic bronchitis prior, improvement with steroids and have been continued/converted to prednisone given almost resolution in wheezing and will plan for continued prednisone at discharge. Continue pulmonary toilet, nebs (3) Hypertension: Plan: Chronic/stable Continued on labetalol, amlodipine. Valsartan/lasix on hold VALSARTAN recently cut in half by nephrology w/ progressive renal decline below w/ solitary kidney. Reports has been taking her lasix 20mg daily at home for LE edema. Also had labetalol increased at that visit Lasix 20mg IV as above, plan for increased lasix at dc and holding her valsartan. Will place amlodipine on hold for this evening to prevent LE edema. Compression stockings ordered Monitor (4) Chronic kidney disease, stage IV (severe): Plan: Baseline Cr ~2-2.5 w/ gradual rise recently/anticipated eventual need for HD in the future. K stable but was borderline 5.1. Did have valsartan recently reduced for worsened renal function by Dr Freed. Had been told about lasix daily which she had been doing Cr 3.7, valsartan on hold BNP elevation/CXR w/ congestion and Lasix provided x 1 w/ improvement in wheezing and lung exambut Rn Relief Charge 3.8 and holding off further lasix for now. Did discuss w/ supervising provider and likely dc on lasix 40mg PO daily (possible dc amlodipine) and would hold off valsartan Abx changed to Augmentin for urinary tract infection (RENAL DOSE) Iron studies w/ [facility] -Iron 27, TIBC 346, transferrin 247. Transferrin % sat 8%, ferritin 38.6 Venofer 300mg IV on 08/04, repeat 200mg IV for today and will order 3rd dose for AM pending repeat labs. Renal dose meds/avoid toxins BMP in AM (5) UTI (urinary tract infection): Plan: UA appeared infected, urine cx w/ ecoli. 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 Basal/bolus with SSI while inpatient with pharmacy consult for glycemic and will monitor for increased needs at dc on steroids to prevent hyperglycemia (7) Iron deficiency anemia: Plan: as above, suspected 2nd to CKD. Venofer IV ordered, repeat dose for today/tomorrow planned. Hgb stable/improved Plan Chronic issues CARO- continues CPAP HS GERD: continue PPI once daily, added pepcid once daily on steroids but could consider increasing PPI if needed DVT proph: Heparin SQ Dispo: continued inpatient stay. converted IV steroids to prednisone and holding off further diuretics for now but planned for increased lasix at dc with close follow up with nephrology but rec to hold off ARB pending BP/renal function given solitary kidney. PT/OT evals pending. [facility] 08/06 Admission and Anticipated Discharge Date Admission Date: August 01, 2024 Supervising Physician Co-Signing Physician Notes The patient was not seen by me. The chart was reviewed. Case discussed with RICHIE Oseguera. Agree with assessment and plan Subjective Evaluated this morning, sitting up in the chair. Appears and reports feeling improved. Less shortness of breath but still has tightness/discomfort with coughing. Reports lidocaine patch helpful for discomfort and will continue. Able to expectorate some with Mucinex. UOP low but discussed her output after Lasix yesterday evening and she reports she did have increased output and had to change brief. RN to obtain standing scale weight this morning, labs not yet back. ECHO reviewed and discussed Lasix, which she reports she had been taking pretty regularly/daily. Switching to prednisone given improvement in wheezing, consideration for another dose Lasix pending renal function and discussed discharge tomorrow. No fever/chills/chest pain. Reports good appetite, moving her bowels. Questions/concerns addressed at this time. Physical Exam 2 Physical Exam: General: 83yo female sitting up in recliner chair, NAD, on room air, appears MUCH improved today HEENT: head atraumatic, normocephalic, mmm, trachea midline Resp: improvement in air entry bilaterally, improvement to bilateral bases but diminished in the bases, faint expiratory wheezing persists but reported improvement, occasional cough, no tachypnea, on room air 93% CV: SR/sinus basilio, 1st degree on telemetry, rates 50-70s, faint systolic murmur, trace pedal edema but pulses present GI: +BS , soft/NT MSK/Neuro: nonfocal, answering questions appropriately Psych: AOx3, cooperative with exam Results & Data Results & Data Vital Signs (Past 12 Hours) Vital Signs Temp Pulse Pulse Pulse Resp BP Pulse Ox 08/05/24 07:12 62 20 94 08/05/24 03:30 68 20 96 08/05/24 03:26 36.5 C 68 18 96 08/04/24 23:08 37.0 C 50 L 18 114/65 98 08/04/24 22:40 51 L 22 95 08/04/24 21:43 53 L 08/04/24 20:13 08/04/24 19:49 36.3 C L 56 L 20 128/64 98 08/04/24 19:49 57 L 20 95 O2 Del Method O2 Flow Rate 08/05/24 07:12 CPAP 08/05/24 03:30 2 08/05/24 03:26 Room Air 08/04/24 23:08 CPAP 08/04/24 22:40 2 08/04/24 21:43 08/04/24 20:13 Room Air 08/04/24 19:49 Room Air 08/04/24 19:49 Room Air Laboratory Results 08/05/24 09:06 08/05/24 09:06 Diagnostic Findings ECHOCARDIOGRAM LV systolic function is normal LA is mildly dilated Mild aortic regurgitation Mild mitral regurgitation RVSP elevated 40-50mmHg. IVC mildly dilated PG Care Time/CCT Total # of Minutes Spent Total Time Spent with Patient: Total time spent is greater than 50% in coordination of care (as documented) at patient's floor/unit and/or counseling patient: Coding Level of Care Code 56542 SUB INP/OBS CARE 3/50MIN Diagnoses Acute respiratory failure with hypoxia J96.01 Asthmatic bronchitis J45.909 Hypertension I10 Chronic kidney disease, stage IV (severe) N18.4 UTI (urinary tract infection) N39.0 Diabetes mellitus with chronic kidney disease E11.22 Iron deficiency anemia D50.9
[2024-08-05] MEDS: FAMOTIDINE 20 MG TAB PO SCH (09:12)
[2024-08-05] MEDS: predniSONE 20 MG TAB PO SCH (09:12)
[2024-08-05 09:34] LABS: Hematocrit (blood only) 31.6 % (37.0-47.0); Hemoglobin 10.2 g/dl (12.0-16.0); Mean Corpuscular Hemoglobin 27.1 pg (25.0-34.0); Mean Corpuscular Hgb Conc 32.3 g/dL (32.0-36.0); Mean Corpuscular Volume 83.8 fL (80.0-100.0); Mean Platelet Volume 9.8 fL (9.4-12.4); Platelet Count 310 K/uL (130-400); RDW Coefficient of Variation 14.2 % (11.5-14.5); RDW Standard Deviation 43.4 fL (36.4-46.3); Red Blood Count 3.77 M/uL (4.20-5.40); White Blood Count 14.32 K/ul (4.8-10.8)
[2024-08-05 09:43] LABS: Calcium 9.8 mg/dl (8.6-10.3); Creatinine Clr Calc Pharmacy 12.6 ml/min; Magnesium 2.3 mg/dl (1.7-2.4); Potassium 5.1 mmol/L (3.5-5.1)
--- NOTE | 2024-08-05 14:32 | Pharmacy Report ---
Pharmacy Glycemic Short Note 2 - Date of Service August 05, 2024 - Glycemic Short BSG Results (Last 24 hours): 08/04/24 08/04/24 08/05/24 17:07 20:45 07:58 Glucose POC Glucose 189 H 220 H 220 H 08/05/24 08/05/24 09:06 11:54 Glucose 215 H POC Glucose 208 H OUTPATIENT ANTIDIABETIC REGIMEN: * Toujeo Max U300 32 units SQ BID * HbA1c 8.1% (06/08/24) ASSESSMENT: 08/05 * Patient received total of 136 units of insulin yesterday, of which 70 units were basal insulin * Fasting BSG 215 mg/dL - slightly improved, Scr continues to trend upward, no plan for dialysis yet * Steroids changing this AM to prednisone, anticipate insulin needs to be less. Will d/c HS Lantus and continue with only once daily Lantus with PO prednisone. Potentially could consider changing to NPH with prednisone 08/04 * Patient received total of 121 units of insulin yesterday, of which 65 units were basal insulin. * Continues on solumedrol 40 mg iv q 8 hours * Fasting BSG 243 mg/dL - basal insulin increased yesterday, will likely provide slightly higher dose of basal at HS in case BSGs remain elevated * Will tighten novolog this AM. Will try and be conservative with changes for now as Scr continuing to trend up quickly. 07/23 * Bertha is an 83 YOF admitted with respiratory failure secondary to entero/rhinovirus. She has a history of type 2 diabetes mellitus. Pharmacy has been consulted to assist with glycemic management while inpatient. * Fasting BSG this AM elevated, likely due to IV dexamethasone 6mg given yesterday. Will give a weight based stress of 2.5 basal insulin this AM to help cover and add a scale at bedtime to cover any other basal needs. No additional steroids ordered at this time. * NovoLog tightened based off of outpatient basal usage. She has pre-existing CKD, with creatinine slightly above baseline right now PLAN FOR INPATIENT GLYCEMIC CONTROL: * Hold outpatient oral diabetes medications * Basal insulin * Lantus 35 units daily * Bolus insulin * NovoLog per scale ACHS or Q6hrs while NPO * Goal Range: Low 110 mg/dL - High 180 mg/dL * Correction Factor: 15 mg/dL/unit * Nutritional / Prandial insulin per carb ratio of 1 unit per 5 grams CHO consumed
[2024-08-05] MEDS: IRON SUCROSE 200 MG in SODIUM CHLORIDE 0.9% 100 ML IV ONE (15:00)
[2024-08-05] MEDS: BENZONATATE 100 MG CAPSULE PO PRN (21:52)
--- NOTE | 2024-08-06 07:35 | Hospitalist Progress Note ---
Date of Service August 06, 2024 Assessment & Plan (1) Acute respiratory failure with hypoxia: Plan: Presented with progressive dyspnea and productive cough that began on 07/30. Saw PCP and was desat on RA to 75-89% while talking, resting 89-91% Suspected respiratory symptoms are due to asthmatic bronchitis , however was given Cefepime on admission to also cover for possible urinary tract infectin CXR showed peribronchial thickening, no ozzie consolidation or pleural effusion Positive biofire testing: Entero/rhinovirus positive (isolation precautions) BNP to 508, procal wnl Solu-medrol IV --> convert to prednisone 40mg PO daily and plan to continue at fl Sputum cx negative Pulmonary toilet, lidocaine patches as needed for ribs Augmentin to cover for urine Lasix 20mg IV provided 08/04 given BNP elevation and CXR w/ pulmonary congestion. ?2nd to steroids. Lasix is prn on home med list but has been taking daily per nephrology recs. Cr elevated and weight obtained which is higher but breathing/lung exam improved. ECHO obtained to eval underlying valvular disease/EF --> normal LV systolic function, EF 60-65%. Mild AR/MR, elevated RVSP 40-50%, noting inferior vena cava mildly dilated Renal function w/ Cr to 3.86 however reported good urine output and making urine. Will hold off on additional dosing for today however would plan for double dose lasix 40mg daily at fl. 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 PT/OT consults [facility] 08/06 on Augmentin and prednisone taper. 08/06 -- increased leg edema today despite holding amlodipine. BUN/Cr elevation and BNP slightly worse with increased weight. Given increased edema/elevated BNP and worsened renal function with reports of causticiser/clear urine, Asking supervsing provider to see, but possible repeat lasix 20mg IV x 1 (plans for 40mg PO daily at fl). Highly rec to hold off resuming her valsartan at fl. Will consider reaching back out to nephrology if needed pending repeat eval/labs/exam. Will check urine osm/serum osm for further eval given Na 128 (~129 w/ Glu). ?urea (2) Asthmatic bronchitis: Plan: Presented with progressive dyspnea and productive cough that began on 07/30 CXR showed peribronchial thickening, no ozzie consolidation or pleural effusion Positive biofire testing: Entero/rhinovirus positive Cefepime--> Augmentin to cover for urine as outlined below Suspected asthmatic bronchitis prior, improvement with steroids and have been continued/converted to prednisone given almost resolution in wheezing and will plan for continued prednisone at discharge. Continue pulmonary toilet, nebs (3) Hypertension: Plan: Chronic/stable Continued on labetalol, amlodipine. Valsartan/lasix on hold VALSARTAN recently cut in half by nephrology w/ progressive renal decline below w/ solitary kidney. Reports has been taking her lasix 20mg daily at home for LE edema. Also had labetalol increased at that visit Lasix 20mg IV as above, plan for increased lasix at dc and holding her valsartan. Will place amlodipine on hold for this evening to prevent LE edema. Compression stockings ordered Monitor (4) Chronic kidney disease, stage IV (severe): Plan: Baseline Cr ~2-2.5 w/ gradual rise recently/anticipated eventual need for HD in the future. K stable but was borderline 5.1. Did have valsartan recently reduced for worsened renal function by Dr Freed. Had been told about lasix daily which she had been doing Cr 3.7, valsartan on hold BNP elevation/CXR w/ congestion and Lasix provided x 1 w/ improvement in wheezing and lung exambut [employer] 3.8 and holding off further lasix for now. Did discuss w/ supervising provider and likely dc on lasix 40mg PO daily (possible dc amlodipine) and would hold off valsartan Abx changed to Augmentin for urinary tract infection (RENAL DOSE) Iron studies w/ [facility] -Iron 27, TIBC 346, transferrin 247. Transferrin % sat 8%, ferritin 38.6 Venofer 300mg IV on 08/04, repeat 200mg IV for today and will order 3rd dose for AM pending repeat labs. Renal dose meds/avoid toxins BMP in AM (5) UTI (urinary tract infection): Plan: UA appeared infected, urine cx w/ ecoli. 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 Basal/bolus with SSI while inpatient with pharmacy consult for glycemic and will monitor for increased needs at dc on steroids to prevent hyperglycemia (7) Iron deficiency anemia: Plan: as above, suspected 2nd to CKD. Venofer IV ordered, repeat dose for today/tomorrow planned. Hgb stable/improved Plan Chronic issues CARO- continues CPAP HS GERD: continue PPI once daily, added pepcid once daily on steroids but could consider increasing PPI if needed DVT proph: Heparin SQ Dispo: continued inpatient stay. converted IV steroids to prednisone and holding off further diuretics for now but planned for increased lasix at dc with close follow up with nephrology but rec to hold off ARB pending BP/renal function given solitary kidney. PT/OT evals pending. [facility] 08/06 Admission and Anticipated Discharge Date Admission Date: August 01, 2024 Subjective Eval this morning, sitting up in the chair, eating breakfast. Good appetite. Reports breathing improved and getting some sputum up but swallowing it. On room air and did hold her amlodipine last evening however leg edema appears much increased from day prior and discussed concerns for renal function but she reports having causticiser/clearer urine recently and discussed providing a dose of lasix to assist with volume management likely from the steroids. She does have a little bit of a tremor today, does not appear to be interfering with ability to eat. Does not appear confused. She denies having shakes in past w/ steroids but also notes she has not been on prednisone before. Discussed if renal function worsened/concerns, can reach out to Dr Freed for discussion in AM but will remain inpatient overnight and consider dc home in AM. Results & Data Results & Data Vital Signs (Past 12 Hours) Vital Signs Temp Pulse Pulse Resp BP Pulse Ox O2 Del Method 08/06/24 07:19 54 L 14 95 CPAP 08/06/24 07:19 54 L 14 95 08/06/24 07:14 59 L 08/06/24 04:12 36.4 C L 53 L 18 127/64 95 Room Air, CPAP 08/06/24 03:25 58 L 25 H 94 08/05/24 23:43 Room Air, CPAP 08/05/24 22:55 57 L 18 95 08/05/24 22:41 36.3 C L 58 L 18 147/67 H 93 Room Air, CPAP 08/05/24 22:15 55 L 08/05/24 19:46 36.3 C L 57 L 18 147/76 H 97 Room Air PG Care Time/CCT Total # of Minutes Spent Total Time Spent with Patient: Total time spent is greater than 50% in coordination of care (as documented) at patient's floor/unit and/or counseling patient: Coding Diagnoses Acute respiratory failure with hypoxia J96.01 Asthmatic bronchitis J45.909 Hypertension I10 Chronic kidney disease, stage IV (severe) N18.4 UTI (urinary tract infection) N39.0 Diabetes mellitus with chronic kidney disease E11.22 Iron deficiency anemia D50.9
[2024-08-06 07:53] LABS: Hemoglobin 9.8 g/dl (12.0-16.0); Mean Corpuscular Hemoglobin 27.8 pg (25.0-34.0); Mean Corpuscular Hgb Conc 33.8 g/dL (32.0-36.0); Mean Corpuscular Volume 82.2 fL (80.0-100.0); Mean Platelet Volume 10.2 fL (9.4-12.4); Platelet Count 279 K/uL (130-400); RDW Coefficient of Variation 14.3 % (11.5-14.5); RDW Standard Deviation 42.5 fL (36.4-46.3); Red Blood Count 3.53 M/uL (4.20-5.40)
[2024-08-06 08:03] LABS: BUN Creatinine Ratio 23.5 (10-20); Calcium 9.5 mg/dl (8.6-10.3); Creatinine Clr Calc Pharmacy 11.8 ml/min; Potassium 5.1 mmol/L (3.5-5.1)
[2024-08-06 08:23] VITALS: RESP 18; TEMP 97.9
[2024-08-06] MEDS ORDERED: FUROSEMIDE INJ 20 MG/2 ML VIAL IV ONE (09:15)
[2024-08-06 11:24] VITALS: BP 152/63; PULSE 57; O2SAT 96
--- NOTE | 2024-08-06 12:12 | Discharge Summary ---
Discharge Summary Date of Service August 06, 2024 Principal Dx & Hospital Course #1 = Principal Diagnosis (1) Acute respiratory failure with hypoxia: Presented with progressive dyspnea and productive cough that began on 07/30. Saw PCP and was desat on RA to 75-89% while talking, resting 89-91% CXR showed peribronchial thickening, no ozzie consolidation or pleural effusion Positive biofire testing: Entero/rhinovirus positive (isolation precautions). Sputum cx negative BNP to 508, procal not elevated Placed on Augmentin to cover for urine (initially given Cefepime) and completing course with such (renal dosed) Was provided IV steroids and converted to prednisone w/ taper at dc to complete the course ECHO obtained given elevated BNP which noted normal LV systolic function, EF 60- 65%, IVC mildly dilated Did have increased leg edema, CXR obtained following which noted pulm congestion and provided IV lasix 20mg x 1 however increased renal function and valsartan prior placed on hold with recs to HOLD OFF this medication at discharge as discussed with supervising provider recs to continue increased lasix 40mg daily as 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 Notable weight did increase on standing scale weight and did have LE edema on exam but is on amlodipine at discharge which can be discussed in follow up but given stopping valsartan will defer to PCP/neprhology in follow up but would recommend compression stockings as well. To return to ER with any increased shortness of breath/wheezing but remained on room air past 48 hours and lung exam improved and patient seen by supervising provider and wishing to go home. (2) Asthmatic bronchitis: Presented with progressive dyspnea and productive cough that began on 07/30 CXR showed peribronchial thickening, no ozzie consolidation or pleural effusion Positive biofire testing: Entero/rhinovirus positive Cefepime--> Augmentin to cover for urine as outlined below Suspected asthmatic bronchitis prior, improvement with steroids and have been continued/converted to prednisone given almost resolution in wheezing and will plan for continued prednisone at discharge. Continue pulmonary toilet, nebs. Did send for albuterol HFA at [facility] as well to use as needed (3) Hypertension: Chronic/stable. On labatelol (recent increase), valsartan (recent decrease), amlodipine and lasix at baseline Lasix IV x 1 as above but increased Cr and held off but w/ weight and BNP recs for increased lasix at dc and holding off her valsartan with f/u with PCP and nepho (4) Chronic kidney disease, stage IV (severe): Baseline Cr ~2-2.5 w/ gradual rise recently/anticipated eventual need for HD in the future. K stable but was borderline 5.1. Did have valsartan recently reduced for worsened renal function by Dr Freed. Had been told about lasix daily which she had been doing Cr elevation and had been increasing this past year Urine was initially dark, tx for UTI as below. Iron studies obtained and low/Venofer IV ordered and repeated x 2 doses and can f/u for ongoing replacement as needed Augmentin changed to renal dosing Cr bump to 4.1 prior to discharge but patient reporting clearing up of her urine. above, plan to DISCONTINUE valsartan at discharge (K was 5.1) and to have her increase her lasix dosing at discharge and repeat labs w/ outpatient provider this week. (5) UTI (urinary tract infection): UA appeared infected, urine cx w/ ecoli. 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 Basal/bolus with SSI while inpatient with pharmacy consult for glycemic and resumed home meds at [facility] given low dose taper prednisone should be sufficient (7) Iron deficiency anemia: as above, suspected 2nd to CKD. Venofer IV ordered x 2 doses, can f/u nephrology for ongoing management. Denied bleeding. Plan Chronic issues CARO- continued CPAP HS GERD: continue PPI once daily, added pepcid once daily on steroids while inpatient DVT proph: Heparin SQ while inpatient provided Dc on AUgmentin, prednisone taper, increased lasix. Holding off valsartan and to have repeat labs and f/u Nephrology at [facility] Notes For Next Care Provider Ensure follow up on repeat BMP to ensure renal function stable/improved on increased lasix dosing as well as potassium Consider Venofer IV/PO outpatient for SHARA likely 2nd to CKD IV Consideration to hold amlodipine to prevent worsened LE edema, compression stockings recomended Medication Changes From Visit Augmenitn PO BID for UTI/pulm coverage (renal dosed) Prednisone taper Albuterol HFA Lasix increased to 40mg PO daily Valsartan HELD Admission HPI Per Admitting Provider Bertha is an 83yo F with past medical history of CARO, SHARA, DM 2, hypertension, hyperlipidemia, depression, RCC, right nephrectomy no history of tobacco use, COPD who presents with dyspnea and hypoxia. Suspected to have viral URI. mild trop oand BNP elevated. Rhino/enterovirus positive. No pleuritic pain. No leg swelling. No tachycardia to suggest PE. Seen at the bedside. Began witha cough on Thursday (2 days ago) and progressive dyspnea sinc alfredo. +cough productive for green sputum since thursday. +chills. No night sweats. No chest pain or chest pressure at any point. No nausea, vomiting, or constipation. +diarrhea intermittently for years without recent change. No blood or melena. 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 Has solitary L kidney. Cr has been rising, but has not yet needed dialysis although expects thi in the future. No fistula as of yet. No change in voiding. No dysuria, oliguria. Medical History: Reviewed Medications: Reviewed Surgical History: Reviewed Family history: Reviewed Allergies: Reviewed Social History: No tobacco or ETOH Code Status: Full Code. If no ROSC within 10 minutes/3 rounds of epi would not want prolonged rescuscitation efforts and stop at that time. Admission Exam Per Admitting Provider General: A&Ox3. NAD. Cooperative. HEENT: Atraumatic, normocephalic. Pulm: Coarse, diffuse rhonchi and wheezing improving on reassessment. . Symmetrical chest rise. No increased work of breathing. No respiratory distress. Cardiac: RRR, -mrg. Radial pulses intact and symmetrical. Abdominal: Nontender, nondistended, soft. BS present. Discharge Exam General: 83yo female sitting up in recliner chair, NAD, on room air, appears MUCH improved today HEENT: head atraumatic, normocephalic, mmm, trachea midline Resp: improvement in air entry bilaterally, improvement to bilateral bases but diminished in the bases, faint expiratory wheezing persists but reported improvement, occasional cough, no tachypnea, on room air 93% CV: SR/sinus basilio, 1st degree on telemetry, rates 50-70s, faint systolic murmur, trace pedal edema but pulses present GI: +BS , soft/NT MSK/Neuro: nonfocal, answering questions appropriately Psych: AOx3, cooperative with exam Discharge Plan Discharge Items Patient Disposition: Home - Self-Care Reason For Visit: AHRF, VIRAL PNA Discharge Diagnosis: Viral Pneumonia, UTI Goals: You have been hospitalized for an acute medical problem. During your stay at [facility], we have made an effort to correct the problem that brought you to the hospital while keeping you as comfortable as possible. Medications were used to bring your condition under control and your discharge instructions will include directions for any medications you should take after leaving the hospital. Please make sure you see your Primary Care Provider as part of your follow up plan. Activity: As commented below Non-emergency contact: Primary Care Provider and [facility] Call non-emergency contact if: you have any medication questions, your symptoms worsen, your pain is not controlled, your pain is concerning for you and you have a fever Follow-up/Referrals: Michelle Magana DO [Primary Care Provider] - 09/16/24 8:20 am Komal Freed MD [Physician] - Diet: Carb Consistent or DM2 and Heart Healthy Ambulatory Orders: Basic Metabolic Panel (Routine) Timeframe: [id number] Location: Determined by Patient Ordered By: Mariya Jacobsen Attending Provider Instructions: You have been hospitalized for shortness of breath and found to have viral pneumonia along with a possible urinary tract infection. We treated you with IV steroids and antibiotics and at discharge you are to continue Augmentin twice daily for another 3 days to complete the course. You should continue prednisone 10mg three times daily for 2 days then decrease to 10mg twice daily for two days then once daily for 2 days to complete the taper. We did give you some lasix to help with edema/weight gain from steroids and are recommending you continue LASIX 40mg DAILY at discharge (double your usual dose) and HOLD OFF taking your valsartan for now. Please monitor your weights daily and strict to a low salt diet. Your renal function has been increased but you have been making urine but we have repeat labs for this upcoming week and recommend you follow up with primary care and Nephrology (Dr Freed). Please return to the ER if you have any increased shortness of breath, wheezing, fever, or for any other symptoms concerning for you. It has been a pleasure being a part of the medical team providing for you while you have been in the hospital. Take care! Pending Studies at Discharge: No Stand-Alone Forms: My [facility], Smoking Cessation Medications and DC Order Prescriptions: New amoxicillin-pot clavulanate 500-125 mg Tablet 1 tab PO BIDM Qty: 6 0RF prednisone 10 mg tablet 10 mg PO DIRECTED Qty: 12 0RF Rx Instructions: see taper instructions- 10mg by mouth three times daily x 2 days, then 10mg twice daily x 2 days, then once daily x 2 days albuterol sulfate 90 mcg/actuation HFA aerosol inhaler 1 inh inhalation Q6H Qty: 6.7 0RF Continued tramadol 50 mg tablet 50 mg PO BID PRN (Reason: Pain) Qty: 60 1RF calcitriol 0.25 mcg capsule 0.25 mcg PO UD Qty: 45 3RF Rx Instructions: 3 times weekly magnesium oxide 400 mg magnesium tablet 400 mg PO DAILY Qty: 30 0RF venlafaxine 150 mg capsule,extended release 24hr 150 mg PO DAILY Qty: 90 2RF gabapentin 300 mg capsule 300 mg PO HS Qty: 90 3RF (DME) FreeStyle Santi 14 Day [place] Misc See Rx Instructions .Route Qty: 1 0RF Rx Instructions: As directed testing BS bid allopurinol 100 mg tablet 100 mg PO Q2D Qty: 45 3RF omeprazole 20 mg capsule,delayed release(DR/EC) 20 mg PO DAILY Qty: 90 3RF atorvastatin 40 mg tablet 40 mg PO DAILY Qty: 90 3RF amlodipine 5 mg tablet 5 mg PO HS Qty: 90 3RF cyanocobalamin (vitamin B-12) 3,000 mcg capsule 3,000 mcg PO DAILY cholecalciferol (vitamin D3) 50 mcg (2,000 unit) capsule 50 mcg PO DAILY ascorbate calcium (vitamin C) 500 mg tablet 500 mg PO DAILY labetalol 200 mg tablet 200 mg PO BID Qty: 180 3RF insulin glargine U-300 conc [Toujeo Max U-300 SoloStar] 300 unit/mL (3 mL) insulin pen 32 unit subcut .twice a day (DME) FreeStyle Santi 14 Day Sensor Kit See Rx Instructions .Route Qty: 3 4RF Rx Instructions: As directed. Testing BS bid potassium chloride 20 mEq tablet extended release 20 meq PO DAILY PRN (Reason: Only take if taking Lasix that day) Qty: 30 5RF aspirin [Juan José Low Dose Aspirin] 81 mg Tablet,Delayed Release (Dr/Ec) 81 mg PO DAILY Discontinued furosemide 20 mg tablet 20 mg PO DAILY PRN (Reason: Weight gain or leg swelling) Qty: 90 2RF valsartan 160 mg tablet 160 mg PO DAILY Qty: 90 3RF azithromycin 250 mg tablet See Rx Instructions PO .COMPLEX Qty: 6 0RF Rx Instructions: For 250 mg dose pack: take 500 mg today (day 1), then 250 mg for 4 days (days 2-5) PO prednisone 10 mg tablet See Rx Instructions PO DAILY Qty: 30 0RF Rx Instructions: Take 4 tabs daily for 3 days, then 3 tabs daily for 3 days, then 2 tabs daily for 3 days, then 1 tab daily for 3 days. Discharge Orders: Discharge Order (Routine); Ordered 08/06/24 Ordered By: Mariya Dillon Admission Data Admit Date/Time: 08/01/24 17:50 Attending Provider: Jose Armando Ruiz Admit Provider: Ori Hdez Primary Care Provider: Michelle Magana Other Providers: Ori Hdez Hospital Stay Data Consultations 08/01/24 17:49 ED Decision to Admit Stat Pending Results Patient Have Any Pending Studies at Discharge: No Discharge Instructions Given to Patient (Per Discharging Provider) You have been hospitalized for shortness of breath and found to have viral pneumonia along with a possible urinary tract infection. We treated you with IV steroids and antibiotics and at discharge you are to continue Augmentin twice daily for another 3 days to complete the course. You should continue prednisone 10mg three times daily for 2 days then decrease to 10mg twice daily for two days then once daily for 2 days to complete the taper. We did give you some lasix to help with edema/weight gain from steroids and are recommending you continue LASIX 40mg DAILY at discharge (double your usual dose) and HOLD OFF taking your valsartan for now. Please monitor your weights daily and strict to a low salt diet. Your renal function has been increased but you have been making urine but we have repeat labs for this upcoming week and recommend you follow up with primary care and Nephrology (Dr Freed). Please return to the ER if you have any increased shortness of breath, wheezing, fever, or for any other symptoms concerning for you. It has been a pleasure being a part of the medical team providing for you while you have been in the hospital. Take care! Total Time Total Time Spent Total Time Spent (In Minutes): 45 Coding Level of Care Code 94572 INP/OBS DISCH >30 MIN Diagnoses Acute respiratory failure with hypoxia J96.01 Asthmatic bronchitis J45.909 Hypertension I10 Chronic kidney disease, stage IV (severe) N18.4 UTI (urinary tract infection) N39.0 Diabetes mellitus with chronic kidney disease E11.22 Iron deficiency anemia D50.9
--- NOTE | 2024-08-06 12:22 | Communication Note ---
Date of Service: August 06, 2024 The patient was seen by me. The chart was reviewed. Case discussed with RICHIE Oseguera. Agree with assessment and plan. Peripheral edema in the legs is chronic and could be partially caused by the amlodipine. She has stage IV kidney disease and creatinine lab measurements can fluctuate considerably from day-to-day. She will be discharged home today, August 06, on Augmentin and a tapering dose of oral prednisone.
--- NOTE | 2024-08-06 14:57 | XRay Report ---
XR chest 1V portable CLINICAL HISTORY: follow up TECHNIQUE: Single frontal radiograph of the chest was obtained. Comparison: Comparison is made to chest radiograph 08/04/2024 FINDINGS: No lines and tubes are seen. Tortuous aorta is seen. Prominence and cephalization of the vasculature is seen. No evidence of pleural effusion or pneumothorax. IMPRESSION: Cardiomegaly and mild pulmonary edema. This is essentially unchanged from prior. ACT 112: Negative or not required by law. Electronically signed by: Kev Bailey M.D. 08/06/2024 2:55 PM
== END 2024-08-06 14:37 | disposition home or self-care (01) | DRG 189 ==
LOC: ED 14:04 → 2N 17:50 → SUATTDRO 17:50 → 2N 20:27
DX: K21.9 Gastro-esophageal reflux disease without esophagitis; J12.89 Other viral pneumonia; Z88.6 Allergy status to analgesic agent; D50.9 Iron deficiency anemia, unspecified; Z85.528 Personal history of other malignant neoplasm of kidney; E11.22 Type 2 diabetes mellitus with diabetic chronic kidney disease; J44.0 Chronic obstructive pulmonary disease with (acute) lower respiratory infection; N39.0 Urinary tract infection, site not specified; G47.33 Obstructive sleep apnea (adult) (pediatric); I12.9 Hypertensive chronic kidney disease with stage 1 through stage 4 chronic kidney disease, or unspecified chronic kidney disease; Z79.82 Long term (current) use of aspirin; Z79.4 Long term (current) use of insulin; Z87.891 Personal history of nicotine dependence; B34.8 Other viral infections of unspecified site; N18.4 Chronic kidney disease, stage 4 (severe); F32.A Depression, unspecified; B96.20 Unspecified Escherichia coli [E. coli] as the cause of diseases classified elsewhere; J96.01 Acute respiratory failure with hypoxia; E78.5 Hyperlipidemia, unspecified

== ENCOUNTER 2025-01-24 11:15 | Observation (INO) ==
--- NOTE | 2025-01-24 12:09 | Emergency Department Note ---
ED DC CONDITION Conditon at Discharge Condition at Discharge: Good Impression & Plan Acute exacerbation of CHF (congestive heart failure), Chronic kidney disease, stage IV (severe), Hypertensive urgency ED Provider Note NAME: MONICA MCKOY AGE: 84 SEX: F : 1940 ARRIVES VIA: Walk-In INFORMANT: Patient, son ED PROVIDER(S): Cam Sandoval MD CHIEF COMPLAINT: Shortness of breath, palpitations MEDICAL DECISION MAKING: Patient presents with the above. Reportedly was recently seen and did have low potassium. IV was established and blood work was obtained. Patient was ordered x-ray. Blood work shows a normal white count hemoglobin of 10.5 which is improved compared to before. Patient's platelet count is normal. Kidney function with a creatinine 2.77. No prior history of CKD and this is relatively unchanged. The patient potassium slightly low at 3.4 but improved compared to prior when it was 3.1. Patient's troponin is elevated but the patient does have prior history of elevated troponin. Repeat troponin ordered. The patient's chest x-ray shows CHF with possible effusions. Patient chest x-ray does appear worse compared to recent 1 done this past . Patient likely suffering from an element of volume overload and is hypertensive today. The patient was ordered sublingual nitro as well as IV Lasix 40 mg. I did speak with the patient informed of the recommendations and she is comfortable plan of care. I did speak the on-call hospitalist Dr. Stanley and the patient was admitted to the medicine service. Discussion w/ other healthcare providers: Dr. Stanley inpatient medicine service Prior /Outside records reviewed: None Differential diagnosis: Reactive airway disease, pneumonia, pneumothorax, COPD, CHF, ACS, pulmonary embolism, musculoskeletal, GERD as well as other pathologies were considered. Diagnostics, as interpreted by me: ECG: Normal sinus rhythm, rate of 71, normal intervals, left axis deviation no obvious STEMI. Cardiac monitoring: An order was placed for continuous cardiac monitoring. The monitor shows a rate of 72 with sinus rhythm. Patient was placed on pulse oximetry Medical decision rules: None Imaging studies: I informally interpreted the patient's chest x-ray with worsening pulmonary edema with formal report to follow. HPI:Patient presents due to concern for shortness of breath and palpitations. The patient reports that she has increased work of breathing with activity and feels as though her heart rate increases. Patient reportedly was seen here this past diagnosed with low potassium as well as some anemia. She has had some dark stools but does take iron but does not think that her stools have been bloody. No bright red blood per rectum. Patient denies any falls or trauma. Patient denies any chest pains. No cough or fever. Patient does have chronic lower extremity edema which may be slightly worse compared to before. PAST MEDICAL HISTORY: See Below PAST SURGICAL HISTORY: See Below SOCIAL HISTORY: See Below HOME MEDICATIONS: See Below ALLERGIES: See Below VITALS: See Below PHYSICAL EXAMINATION: GENERAL: NAD, non-toxic. EYE EXAM: Normal conjunctiva. PERRL, no anisocoria and EOM's grossly intact w/o pain. OROPHARYNX: Moist mucus membranes, grossly normal dentition. NECK: Trachea midline, no stridor. LUNGS: Bibasilar crackles. Normal chest wall mechanics. HEART: NSR, no MRG. ABDOMEN: Abdomen soft, non-tender, no masses, no rebound or guarding. BACK: No CVA TTP. SKIN: No rashes and no bruising. UPPER EXTREMITIES: Upper extremities are grossly normal. LOWER EXTREMITIES: Grossly normal, 1+ pretibial edema without calf pain or erythema no obvious asymmetry. NEURO EXAM: Awake and alert, follows commands, no obvious facial asymmetry, normal speech, moves all 4 extremities. Past Med/Surg History Problem List (Updated 01/24/25 @ 18:52 by Cam Sandoval MD) Hypertensive urgency (Acute) Acute exacerbation of CHF (congestive heart failure) (Acute) Hypertensive urgency (HFpEF) heart failure with preserved ejection fraction CKD (chronic kidney disease) (Acute) Sinus bradycardia (Acute) Hypokalemia (Acute) Chronic iron deficiency anemia (Acute) Tortuous aorta Anemia Hypercalcemia Proteinuria Thyroid nodule Secondary hyperparathyroidism of renal origin Vitamin D deficiency Mild cognitive impairment Urinary incontinence Obstructive sleep apnea on CPAP Peripheral vascular disease Iron deficiency anemia Diabetes mellitus with polyneuropathy Restless leg syndrome Osteoarthritis Hypertension Hyperlipemia Fatty liver Diabetes Depression Acid reflux History of renal cell cancer Diabetes mellitus with chronic kidney disease Degenerative cervical disc Chronic kidney disease, stage IV (severe) (Acute) History of right nephrectomy (09/30/10) Gout Medical History Thyroiditis Thyromegaly Asthmatic bronchitis URI (upper respiratory infection) Acute hypoxemic respiratory failure Acute respiratory failure with hypoxia Dysphagia Bilateral leg edema Fistula November 2024 left arm- placed by [facility] Surgical History S/P thyroid biopsy (11/2024) H/O tubal ligation 1976 Family History Brother AA (alcohol abuse) Diabetes Hypertension Mother Diabetes Hypertension Stroke Dementia Father Heart disease Hypertension Kidney disease Myocardial infarction Sister Alzheimer disease Son Diabetes Sister Hypertension Stroke Sister Dementia Denies family history of Ovarian cancer Prostate cancer Breast cancer Colorectal cancer Social History Smoking Status: Never smoker Second Hand Exposure: No; Do You Dip or Chew Tobacco: No; Hx Alcohol Use: No Hx Substance Use: No Preferred Language: Kiswahili Communication Ability: Effective Visual Impairment: Partially Limited Hearing Ability: Hard of Hearing 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: No Beliefs That Will Affect Care: None marital status: / Current Living Situation: Family Current Living Situation Comment: Lives with son current occupational status: retired current occupation: RETIRED How many Children do You have: 3 How many Children do You have Comment: 3 sons; 1 lives [place], 1 lives [place], 1 local Other Information That Helps Us Care for You: No Feels Safe at Home: Yes Safety Concerns: Feels Safe At This Time Childhood Exposure to Second-Hand Smoke: No Diet: regular caffeine: Yes during the past year weight has: remained stable Dental Care, Regularly: Yes Physical Activity Frequency: Does not Exercise Seatbelt Use: always Sunscreen Use: No (does not really go in sun) Assistive Devices: Cane, Denture - Upper, Denture - Lower, Glasses, Hearing Aid - Bilateral and Walker Allergies Allergies Allergy/AdvReac Type Severity Reaction Status Date / Time NSAIDS (Non-Steroidal AdvReac Mild Unknown Verified 01/18/25 15:00 Anti-Inflamma Home Meds Home Medications Medication Instructions Recorded Confirmed cholecalciferol (vitamin D3) 50 50 mcg PO DAILY 11/15/20 01/24/25 mcg (2,000 unit) capsule cyanocobalamin (vitamin B-12) 3,000 mcg PO DAILY 11/15/20 01/24/25 3,000 mcg capsule aspirin 81 mg tablet,delayed 81 mg PO DAILY 06/13/21 01/24/25 release (Juan José Low Dose Aspirin) albuterol sulfate 90 mcg/actuation 1 inh inhalation Q6H PRN Shortness 12/09/24 01/24/25 aerosol inhaler Of Breath Or Wheezing labetalol 200 mg tablet 200 mg PO BID 12/09/24 01/24/25 allopurinol 100 mg tablet 100 mg PO Q OTHER DAY 01/24/25 01/24/25 atorvastatin 40 mg tablet 40 mg PO DAILY 01/24/25 01/24/25 insulin glargine U-300 conc 300 28 unit subcut BID 01/24/25 01/24/25 unit/mL (3 mL) subcutaneous pen (TouDevonWayo Max U-300 SoloStar) Previous Rx's Medication Instructions Recorded magnesium oxide 400 mg PO DAILY #30 tabs 09/03/23 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,automatic beam warper tender,cont #1 ea 10/21/24 (FreeStyle Santi 3 [place]) omeprazole 20 mg capsule,delayed 20 mg PO DAILY #90 caps 11/08/24 release valsartan 80 mg tablet 80 mg PO DAILY #30 tabs 11/10/24 tramadol 50 mg tablet 50 mg PO BID PRN Pain #60 tabs 12/09/24 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 sensor ([employer] Metalsyle #3 ea 01/16/25 Santi 3 Sensor device) venlafaxine 150 mg 150 mg PO DAILY #90 caps 01/16/25 capsule,extended release 24 hr ferrous sulfate 325 mg (65 mg 325 mg PO Q OTHER DAY #14 tabs 01/19/25 iron) tablet furosemide 40 mg tablet 40 mg PO DAILY #90 tabs 01/19/25 potassium chloride 20 mEq 20 meq PO BID #6 tabs 01/19/25 tablet,extended release(part/cryst) (Klor-Con M) Results & Data (ED) Vital Signs Vital Signs - 24 hr 01/24/25 11:18 01/24/25 11:57 01/24/25 11:57 Temperature 36.4 C L Temperature Source Temporal Artery Scan Pulse Rate 66 Pulse Rate [Right Finger] 60 Pulse Strength Normal Respiratory Rate 20 20 Respiratory Effort / Characteristics Non-Labored Spontaneous Non-Labored Spontaneous Non-Labored Spontaneous Respiratory Depth Normal Normal Respiratory Pattern Regular Regular Regular Blood Pressure 150/104 H Blood Pressure [Right Arm] 184/105 H Blood Pressure Mean 119 Blood Pressure Mean [Right Arm] 131 Blood Pressure Position Sitting Blood Pressure Position [Right Arm] Pulse Oximetry 96 95 Oxygen Delivery Method Room Air Room Air Room Air Sepsis Recent Fever Within 48 Hours No Sepsis New/Unexplained Change in Mental Status No Sepsis Action Taken by Nursing No Action Required 01/24/25 12:14 01/24/25 12:32 01/24/25 13:34 Temperature Temperature Source Pulse Rate 62 67 Pulse Rate [Right Finger] 66 Pulse Strength Respiratory Rate 24 Respiratory Effort / Characteristics Spontaneous Respiratory Depth Respiratory Pattern Blood Pressure Blood Pressure [Right Arm] 180/86 H Blood Pressure Mean Blood Pressure Mean [Right Arm] 117 Blood Pressure Position Blood Pressure Position [Right Arm] Pulse Oximetry 95 96 Oxygen Delivery Method Room Air Room Air Sepsis Recent Fever Within 48 Hours Sepsis New/Unexplained Change in Mental Status Sepsis Action Taken by Nursing 01/24/25 14:07 01/24/25 14:29 Temperature Temperature Source Pulse Rate Pulse Rate [Right Finger] 65 62 Pulse Strength Respiratory Rate 28 H 14 Respiratory Effort / Characteristics Spontaneous Non-Labored Respiratory Depth Respiratory Pattern Blood Pressure Blood Pressure [Right Arm] 160/93 H 189/91 H Blood Pressure Mean Blood Pressure Mean [Right Arm] 115 123 Blood Pressure Position Blood Pressure Position [Right Arm] Sitting Pulse Oximetry 92 94 Oxygen Delivery Method Room Air Room Air Sepsis Recent Fever Within 48 Hours Sepsis New/Unexplained Change in Mental Status Sepsis Action Taken by [facility] Medications Current Medication List: was personally reviewed by me Laboratory Data Attestation: I reviewed the patient's lab results. 01/24/25 11:35 01/24/25 11:35 Lab Results 01/24/25 01/24/25 Range/Units 11:35 14:37 WBC 8.90 (4.8-10.8) K/ul RBC 3.56 L (4.20-5.40) M/uL Hgb 10.5 L (12.0-16.0) g/dl Hct 32.1 L (37.0-47.0) % MCV 90.2 (80.0-100.0) fL MCH 29.5 (25.0-34.0) pg MCHC 32.7 (32.0-36.0) g/dL RDW Std Deviation 49.7 H (36.4-46.3) fL RDW Coeff of Chyna 14.9 H (11.5-14.5) % Plt Count 275 (130-400) K/uL MPV 9.7 (9.4-12.4) fL Immature Gran % (Auto) 0.3 % Neut % (Auto) 71.4 % Lymph % (Auto) 17.0 % [place]ston % (Auto) 6.2 % Eos % (Auto) 3.9 % Baso % (Auto) 1.2 % Neut # (Auto) 6.35 (1.40-6.50) K/uL Lymph # (Auto) 1.51 (1.20-3.40) K/uL Thurston # (Auto) 0.55 (0.11-0.59) K/uL Eos # (Auto) 0.35 (0.00-0.50) K/uL Baso # (Auto) 0.11 (0.00-0.20) K/uL Immature Gran # (Auto) 0.03 (0.01-0.20) K/uL PT 10.5 (9.0-12.0) Seconds INR 1.0 (0.9-1.1) APTT 24 (21-31) Seconds PTT Ratio 0.9 Sodium 144 (136-145) mmol/L Potassium 3.4 L (3.5-5.1) mmol/L Chloride 112 H (98-107) mmol/L Carbon Dioxide 24 (21-32) mmol/L Anion Gap 8 (3-11) BUN 31 H (6-23) mg/dl Creatinine 2.77 H (0.6-1.2) mg/dl Est Cr Clr Drug Dosing 16.6 ml/min eGFR 16.56 BUN/Creatinine Ratio 11.2 (10-20) Glucose 127 H (70-99(Fasting)) mg/dl Calcium 10.3 (8.6-10.3) mg/dl Magnesium 1.9 (1.7-2.4) mg/dl Total Bilirubin 0.6 (0.2-1.0) mg/dl AST 9 L (13-39) U/L ALT 3 L (7-52) U/L Alkaline Phosphatase 122 H (34-104) U/L Troponin I High Sens 30.1 H 28.8 H (0-14) pg/ml Total Protein 6.6 (6.0-8.3) gm/dl Albumin 3.5 (3.4-5.0) gm/dl Globulin 3.1 (2.5-4.0) gm/dl Albumin/Globulin Ratio 1.1 (0.9-2) Administered Medications Insulin Aspart (Insulin Aspart Per Unit Charge) 0 units SC ACHS ARTUR Stop: 02/23/25 16:29 Last Admin: 01/24/25 17:02 Dose: Not Given Documented By: KERossy Discontinued Medications Amlodipine Besylate (Amlodipine Besylate 5 Mg Tab) 5 mg PO NOW ONE Stop: 01/24/25 15:23 Last Admin: 01/24/25 15:30 Dose: 5 mg Documented By: GEM Furosemide (Furosemide 40 Mg/4 Ml Vial) 40 mg IV ONE ONE Stop: 01/24/25 13:38 Last Admin: 01/24/25 13:50 Dose: 40 mg Documented By: NRB Nitroglycerin (Nitroglycerin Sl 0.4 Mg/Tab Tab) 0.4 mg SL NOW STA Stop: 01/24/25 13:38 Last Admin: 01/24/25 13:48 Dose: 0.4 mg Documented By: NRB Imaging Data Radiologist's Impression: Chest X-Ray 01/24/25 12:35 XR chest 1V portable CLINICAL HISTORY: Dyspnea COMPARISON STUDY: 01/19/2025 FINDINGS: There is stable prominent cardiomegaly with increased pulmonary vascular congestion. There is increased pulmonary interstitial prominence. There is increased hazy opacity in the lung bases with partial obscuration of the diaphragm. No pneumothorax. IMPRESSION: 1. CHF with possible small pleural effusions. 2. Pulmonary interstitial prominence likely represents pulmonary edema if there is low clinical concern for pneumonia. ACT 112: Negative or not required by law. Electronically signed by: Son Howell M.D. 01/24/2025 1:00 PM Discharge Plan Visit Data Chief Complaint: Tachycardia Stated Complaint: LABORED BREATHING,ELEVATED HEARTRATE ED Provider: Cam Sandoval Discharge Problem: Acute exacerbation of CHF (congestive heart failure), Chronic kidney disease, stage IV (severe), Hypertensive urgency Patient Disposition: Admitted As Inpatient Condition: Good Discharge Instructions Interventions: ED Discharge Assessment Last Done: 01/24/25 15:44 Discharge Problem: Acute exacerbation of CHF (congestive heart failure) Qualifiers: Heart failure type: unspecified Qualified Code(s): I50.9 - Heart failure, unspecified
[2025-01-24 12:50] LABS: Basophils # (auto) 0.11 K/uL (0.00-0.20); Basophils % (auto) 1.2 %; Eosinophils # (auto) 0.35 K/uL (0.00-0.50); Eosinophils % (auto) 3.9 %; Hematocrit (blood only) 32.1 % (37.0-47.0); Hemoglobin 10.5 g/dl (12.0-16.0); Immature Granulocytes # (auto) 0.03 K/uL (0.01-0.20); Immature Granulocytes % (auto) 0.3 %; Lymphocytes # (auto) 1.51 K/uL (1.20-3.40); Mean Corpuscular Hemoglobin 29.5 pg (25.0-34.0); Mean Corpuscular Hgb Conc 32.7 g/dL (32.0-36.0); Mean Corpuscular Volume 90.2 fL (80.0-100.0); Mean Platelet Volume 9.7 fL (9.4-12.4); Monocytes # (auto) 0.55 K/uL (0.11-0.59); Monocytes % (auto) 6.2 %; Neutrophils # (auto) 6.35 K/uL (1.40-6.50); Neutrophils % (auto) 71.4 %; Platelet Count 275 K/uL (130-400); RDW Coefficient of Variation 14.9 % (11.5-14.5); RDW Standard Deviation 49.7 fL (36.4-46.3); Red Blood Count 3.56 M/uL (4.20-5.40)
--- NOTE | 2025-01-24 13:01 | XRay Report ---
XR chest 1V portable CLINICAL HISTORY: Dyspnea COMPARISON STUDY: 01/19/2025 FINDINGS: There is stable prominent cardiomegaly with increased pulmonary vascular congestion. There is increased pulmonary interstitial prominence. There is increased hazy opacity in the lung bases wit h partial obscuration of the diaphragm. No pneumothorax. IMPRESSION: 1. CHF with possible small pleural effusions. 2. Pulmonary interstitial prominence likely represents pulmonary edema if there is low clinical jimmie rn for pneumonia. ACT 112: Negative or not required by law. Electronically signed by: Son Howell M.D. 01/24/2025 1:00 PM
[2025-01-24 13:04] LABS: Albumin Globulin Ratio 1.1 (0.9-2); Albumin Level 3.5 gm/dl (3.4-5.0); BUN Creatinine Ratio 11.2 (10-20); Bilirubin,Total 0.6 mg/dl (0.2-1.0); Calcium 10.3 mg/dl (8.6-10.3); Creatinine Clr Calc Pharmacy 16.6 ml/min; Globulin 3.1 gm/dl (2.5-4.0); Magnesium 1.9 mg/dl (1.7-2.4); Potassium 3.4 mmol/L (3.5-5.1); Total Protein 6.6 gm/dl (6.0-8.3)
[2025-01-24 13:10] LABS: Troponin I High Sensitivity 30.1 pg/ml (0-14)
[2025-01-24 13:21] LABS: Partial Thromboplastin Ratio 0.9; Partial Thromboplastin Time 24 Seconds (21-31); Prothrombin Time 10.5 Seconds (9.0-12.0)
[2025-01-24] MEDS: NITROGLYCERIN SL 0.4 MG/TAB TAB SL STA (13:48)
[2025-01-24] MEDS: FUROSEMIDE 40 MG/4 ML VIAL IV ONE (13:50)
--- NOTE | 2025-01-24 13:53 | History & Physical Report ---
Date of Service January 24, 2025 Assessment & Plan (1) (HFpEF) heart failure with preserved ejection fraction: (2) Hypertensive urgency: (3) Chronic kidney disease, stage IV (severe): Plan This patient is an 84-year-old female with a history of CKD stage IV, right nephrectomy, HFpEF, HTN, HLD, DM2 with neuropathy, secondary hyperparathyroidism, anemia of chronic disease, CARO on CPAP, RLS, fatty liver, depression, gout, GERD who presents to the ED with increasing SOB even at rest and elevated blood pressures. She was seen in the ED on 01/19 after having outpatient labs which showed a drop in Hgb and a rise in creatinine. She was stable however and discharged to home and advised to start on iron supplementation. Today she was contacted by a nurse from her PCP office and noted to be tachypneic with speaking in complete sentences on the phone and referred to the ED. In the ED, she was found to have significant pulmonary edema and evidence of CHF on her chest x-ray. Her blood pressures were quite elevated, but she was not requiring any supplemental O2. She was given IV Lasix and nitroglycerin with some improvement. She will be admitted with acute on chronic HFpEF. #Acute on chronic HFpEF/HTN with hypertensive urgency/elevated troponin-acute CHF likely secondary to uncontrolled blood pressures which are also present here. She received 1 dose of furosemide 40 mg IV in the ED and is already feeling improved. Troponin mildly elevated at 30 on admission and repeat check 2 hours later down to 28.8. ECG without ischemic changes-myocardial demand ischemia from hypertensive urgency -Admit to PCU for telemetry monitoring - Continue Lasix 40 mg p.o. daily but add further IV if still needed in the a.m. - Needs improved blood pressure control-add amlodipine 5 mg daily - Continue home labetalol and valsartan - Follow strict I's and O's, daily weights, low-sodium diet, fluid restriction 1500 mL/day - Check echocardiogram #CKD stage IV/solitary kidney/secondary hyperparathyroidism/hypokalemia- creatinine improved from a few days ago down to 2.77, with mild hypokalemia. Follows with nephrology and has proteinuria. Has recently revised AV fistula in the left forearm - Continue valsartan, diuresis as noted above - Follow BMP - Avoid nephrotoxins and renally dose medications as needed - Continue potassium and magnesium replacement - Consult nephrology for further management #Anemia of chronic disease-Hgb 10, normocytic. Recent B12 and folate levels normal. Recent transferrin saturation normal. No bleeding from anywhere - Follow CBC #DM2 with neuropathy-uses Toujeo 28 units twice daily at home and HgbA1c well- controlled 7.1% in 11/2024 - Continue Lantus 28 units twice daily and supplemental NovoLog as needed - BSG's AC and at bedtime, diabetic diet #CARO on CPAP-no acute issues - Continue CPAP at bedtime #Depression-no acute issues - Continue home venlafaxine #Gout-no acute issues - Continue renally dosed allopurinol #GERD-no acute issues - Continue PPI DVT prophylaxis-heparin SQ, SCDs Disposition-admit to PCU History of Present Illness Chief Complaint: Shortness of breath, heart palpitations Primary Care Provider: Michelle Magana DO This patient is an 84-year-old female with a history of CKD stage IV, right nephrectomy, HFpEF, HTN, HLD, DM2 with neuropathy, secondary hyperparathyroidism, anemia of chronic disease, CARO on CPAP, RLS, fatty liver, depression, gout, GERD who presents to the ED with increasing SOB even at rest and elevated blood pressures. She was seen in the ED on 01/19 after having outpatient labs which showed a drop in Hgb and a rise in creatinine. She was stable however and discharged to home and advised to start on iron supplementation. Today she was contacted by a nurse from her PCP office and noted to be tachypneic with speaking in complete sentences on the phone and referred to the ED. In the ED, she was found to have significant pulmonary edema and evidence of CHF on her chest x-ray. Her blood pressures were quite elevated, but she was not requiring any supplemental O2. She was given IV Lasix and nitroglycerin with some improvement. She will be admitted with acute on chronic HFpEF. Allergies Allergy/AdvReac Type Severity Reaction Status Date / Time NSAIDS (Non-Steroidal AdvReac Mild Unknown Verified 01/18/25 15:00 Anti-Inflamma Home Medications Medication Instructions Recorded Confirmed Type cholecalciferol (vitamin D3) 50 50 mcg PO DAILY 11/15/20 01/24/25 History mcg (2,000 unit) capsule cyanocobalamin (vitamin B-12) 3,000 mcg PO DAILY 11/15/20 01/24/25 History 3,000 mcg capsule aspirin 81 mg tablet,delayed 81 mg PO DAILY 06/13/21 01/24/25 History release (Juan José Low Dose Aspirin) magnesium oxide 400 mg PO DAILY #30 tabs 09/03/23 01/24/25 Rx 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,aligner barrel and receiver,cont #1 ea 10/21/24 01/18/25 Rx (FreeStyle Santi 3 [place]) omeprazole 20 mg capsule,delayed 20 mg PO DAILY #90 caps 11/08/24 01/24/25 Rx release valsartan 80 mg tablet 80 mg PO DAILY #30 tabs 11/10/24 01/24/25 Rx albuterol sulfate 90 mcg/actuation 1 inh inhalation Q6H PRN Shortness 12/09/24 01/24/25 History aerosol inhaler Of Breath Or Wheezing labetalol 200 mg tablet 200 mg PO BID 12/09/24 01/24/25 History tramadol 50 mg tablet 50 mg PO BID PRN Pain #60 tabs 12/09/24 01/24/25 Rx 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 sensor (FreeStyle #3 ea 01/16/25 01/18/25 Rx Santi 3 Sensor device) venlafaxine 150 mg 150 mg PO DAILY #90 caps 01/16/25 01/24/25 Rx capsule,extended release 24 hr ferrous sulfate 325 mg (65 mg 325 mg PO Q OTHER DAY #14 tabs 01/19/25 01/24/25 Rx iron) tablet furosemide 40 mg tablet 40 mg PO DAILY #90 tabs 01/19/25 01/24/25 Rx potassium chloride 20 mEq 20 meq PO BID #6 tabs 01/19/25 01/24/25 Rx tablet,extended release(part/cryst) (Klor-Con M) allopurinol 100 mg tablet 100 mg PO Q OTHER DAY 01/24/25 01/24/25 History atorvastatin 40 mg tablet 40 mg PO DAILY 01/24/25 01/24/25 History insulin glargine U-300 conc 300 28 unit subcut BID 01/24/25 01/24/25 History unit/mL (3 mL) subcutaneous pen (Toujeo Max U-300 SoloStar) Past Med/Surg History Problem List (Updated 01/24/25 @ 18:52 by Cam Sandoval MD) Hypertensive urgency (Acute) Acute exacerbation of CHF (congestive heart failure) (Acute) Hypertensive urgency (HFpEF) heart failure with preserved ejection fraction CKD (chronic kidney disease) (Acute) Sinus bradycardia (Acute) Hypokalemia (Acute) Chronic iron deficiency anemia (Acute) Tortuous aorta Anemia Hypercalcemia Proteinuria Thyroid nodule Secondary hyperparathyroidism of renal origin Vitamin D deficiency Mild cognitive impairment Urinary incontinence Obstructive sleep apnea on CPAP Peripheral vascular disease Iron deficiency anemia Diabetes mellitus with polyneuropathy Restless leg syndrome Osteoarthritis Hypertension Hyperlipemia Fatty liver Diabetes Depression Acid reflux History of renal cell cancer Diabetes mellitus with chronic kidney disease Degenerative cervical disc Chronic kidney disease, stage IV (severe) (Acute) History of right nephrectomy (09/30/10) Gout Medical History Thyroiditis Thyromegaly Asthmatic bronchitis URI (upper respiratory infection) Acute hypoxemic respiratory failure Acute respiratory failure with hypoxia Dysphagia Bilateral leg edema Fistula November 2024 left arm- placed by [facility] Surgical History S/P thyroid biopsy (11/2024) H/O tubal ligation 1976 Family History Brother AA (alcohol abuse) Diabetes Hypertension Mother Diabetes Hypertension Stroke Dementia Father Heart disease Hypertension Kidney disease Myocardial infarction Sister Alzheimer disease Son Diabetes Sister Hypertension Stroke Sister Dementia Denies family history of Ovarian cancer Prostate cancer Breast cancer Colorectal cancer Social History Smoking Status: Never smoker Second Hand Exposure: No; Do You Dip or Chew Tobacco: No; Hx Alcohol Use: No Hx Substance Use: No Preferred Language: Guatemalan Communication Ability: Effective Visual Impairment: Partially Limited Hearing Ability: Hard of Hearing Gun Examiner Required: No Beliefs That Will Affect Care: None marital status: / Current Living Situation: Family Current Living Situation Comment: Lives with son current occupational status: retired current occupation: RETIRED How many Children do You have: 3 How many Children do You have Comment: 3 sons; 1 lives [place], 1 lives [place], 1 local Other Information That Helps Us Care for You: No Feels Safe at Home: Yes Safety Concerns: Feels Safe At This Time Childhood Exposure to Second-Hand Smoke: No Diet: regular caffeine: Yes during the past year weight has: remained stable Dental Care, Regularly: Yes Physical Activity Frequency: Does not Exercise Seatbelt Use: always Sunscreen Use: No (does not really go in sun) Assistive Devices: Cane, Denture - Upper, Denture - Lower, Glasses, Hearing Aid - Bilateral and Walker Review of Systems Review of Systems: All systems reviewed & are unremarkable except as noted in HPI & below Physical Exam Constitutional: WD/WN, vitals as above Eyes: PERRL, conjunctivae normal, anicteric sclerae ENMT: external ear and nose normal, oropharynx normal Neck: trachea midline, no thyromegaly Respiratory: normal respiratory effort; no labored breathing, no cough and not tachypneic Auscultation: + diminished lung sounds (Bibasilar); no crackles, no rhonchi and no wheezes Cardiovascular: Rate/Rhythm: regular rate and regular rhythm Heart Sounds: + gallop (S4 auscultated); no murmur Left forearm AV fistula in place with sutures and healing incisional wound Chest (Breasts): Chest: normal inspection of chest Gastrointestinal (Abdomen): normal bowel sounds, soft, nontender, no hepatosplenomegaly Musculoskeletal: Extremities: extremities normal to inspection; no cyanosis and no clubbing Skin: no rashes, warm and dry Neurologic: moves all extremities and awake; no focal motor deficits Results & Data Results & Data Vital Signs (Past 12 Hours) Vital Signs Temp Pulse Pulse Resp BP BP Pulse Ox 01/24/25 13:34 66 24 180/86 H 96 01/24/25 12:32 67 01/24/25 12:14 62 95 01/24/25 11:57 60 20 184/105 H 95 01/24/25 11:57 01/24/25 11:18 36.4 C L 66 20 150/104 H 96 O2 Del Method 01/24/25 13:34 Room Air 01/24/25 12:32 01/24/25 12:14 Room Air 01/24/25 11:57 Room Air 01/24/25 11:57 Room Air 01/24/25 11:18 Room Air Laboratory Results CBC, PT/PTT/INR, BMP, magnesium, LFTs, troponin, reviewed Diagnostic Findings Chest x-ray images personally reviewed by me and agree with the following report: Chest X-Ray 01/24/25 12:35 XR chest 1V portable CLINICAL HISTORY: Dyspnea COMPARISON STUDY: 01/19/2025 FINDINGS: There is stable prominent cardiomegaly with increased pulmonary vascular congestion. There is increased pulmonary interstitial prominence. There is increased hazy opacity in the lung bases with partial obscuration of the diaphragm. No pneumothorax. IMPRESSION: 1. CHF with possible small pleural effusions. 2. Pulmonary interstitial prominence likely represents pulmonary edema if there is low clinical concern for pneumonia. ECG Additional Comments: ECG on 01/24/2025 at 11:31 AM with normal sinus rhythm rate 71, no ischemic changes Code Status & VTE Plan Code Status DNR/DNI as per discussion with patient VTE Prophylaxis Plan VTE Prophylaxis will be ordered: Yes PG Care Time/CCT Total # of Minutes Spent Total Time Spent with Patient: Total time spent is greater than 50% in coordination of care (as documented) at patient's floor/unit and/or counseling patient: Coding Level of Care Code 98536 INT INP/OBS CARE 3/75MIN Diagnoses (HFpEF) heart failure with preserved ejection fraction I50.30 Hypertensive urgency I16.0 Chronic kidney disease, stage IV (severe) N18.4
[2025-01-24] MEDS: amLODIPine BESYLATE 5 MG TAB PO ONE (15:30)
[2025-01-24] MEDS ORDERED: CARBOHYDRATES FOR HYPOGLYCEMIA PO PRN (16:12)
[2025-01-24] MEDS ORDERED: ACETAMINOPHEN 325 MG TAB PO PRN (16:12)
[2025-01-24] MEDS ORDERED: traMADol HCL 50 MG TABLET PO PRN (16:12)
[2025-01-24] MEDS ORDERED: ALBUTEROL HFA 8 GM INHALER INH PRN (16:12)
[2025-01-24] MEDS ORDERED: GLUCOSE 40% GEL 15 GM TUBE PO PRN (16:12)
[2025-01-24] MEDS ORDERED: GLUCAGON FOR INJ 1 MG VIAL SQ PRN (16:12)
[2025-01-24] MEDS ORDERED: POLYETHYLENE (MIRALAX) 17 GM PACK PO PRN (16:12)
[2025-01-24] MEDS ORDERED: GLUCOSE 10 TAB/TUBE PO PRN (16:12)
[2025-01-24] MEDS ORDERED: ONDANSETRON INJ 2 MG/ML 2 ML VIAL IV PRN (16:12)
[2025-01-24] MEDS ORDERED: DEXTROSE 50% 50 ML SYRINGE IV PRN (16:12)
[2025-01-24] MEDS: INSULIN ASPART PER UNIT CHARGE SC SCH (17:02)
[2025-01-24] MEDS: HEPARIN SOD 5,000 UNIT/0.5 ML VIAL SQ SCH (20:20)
[2025-01-24] MEDS: POTASSIUM CHLORIDE CRTAB 20 MEQ TABCR PO SCH (20:20)
[2025-01-24] MEDS: LABETALOL HCL 200 MG TAB PO SCH (20:20)
[2025-01-24] MEDS ORDERED: hydrALAZINE HCL 20 MG/ML VIAL IV PRN (20:31)
[2025-01-24] MEDS: LANTUS PER UNIT CHARGE SC SCH (21:05)
[2025-01-25 06:05] LABS: Basophils # (auto) 0.09 K/uL (0.00-0.20); Basophils % (auto) 1.2 %; Eosinophils % (auto) 5.3 %; Hematocrit (blood only) 31.2 % (37.0-47.0); Hemoglobin 10.1 g/dl (12.0-16.0); Immature Granulocytes # (auto) 0.02 K/uL (0.01-0.20); Immature Granulocytes % (auto) 0.3 %; Lymphocytes # (auto) 2.04 K/uL (1.20-3.40); Lymphocytes % (auto) 26.8 %; Mean Corpuscular Hgb Conc 32.4 g/dL (32.0-36.0); Mean Corpuscular Volume 89.7 fL (80.0-100.0); Mean Platelet Volume 9.6 fL (9.4-12.4); Monocytes # (auto) 0.59 K/uL (0.11-0.59); Monocytes % (auto) 7.8 %; Neutrophils # (auto) 4.47 K/uL (1.40-6.50); Neutrophils % (auto) 58.6 %; Platelet Count 236 K/uL (130-400); RDW Coefficient of Variation 15.1 % (11.5-14.5); RDW Standard Deviation 49.1 fL (36.4-46.3); Red Blood Count 3.48 M/uL (4.20-5.40); White Blood Count 7.61 K/ul (4.8-10.8)
--- NOTE | 2025-01-25 06:13 | Electrocardiogram Report ---
Test Reason : Blood Pressure : */* mmHG Vent. Rate : 71 BPM Atrial Rate : 71 BPM P-R Int : 170 ms QRS Dur : 110 ms QT Int : 418 ms P-R-T Axes : -8 -58 63 degrees QTcB Int : 454 ms Normal sinus rhythm Left anterior fascicular block Moderate voltage criteria for LVH, may be normal variant ( R in aVL , [place] product ) Possible Anterior infarct When compared with ECG of 19-Jan-2025 18:18, No significant change Confirmed by Marvin Jacobs ([id number]) on 01/25/2025 6:13:23 AM Referred By: REFERRED SELF Confirmed By: Marvin Jacobs
[2025-01-25 06:28] LABS: BUN Creatinine Ratio 10.6 (10-20); Calcium 9.6 mg/dl (8.6-10.3); Creatinine Clr Calc Pharmacy 15.8 ml/min; Magnesium 1.8 mg/dl (1.7-2.4); Potassium 3.5 mmol/L (3.5-5.1)
[2025-01-25] MEDS: FERROUS SULFATE 325 MG TAB PO SCH (08:17)
[2025-01-25] MEDS: PANTOprazole 40 MG TAB PO SCH (08:17)
[2025-01-25] MEDS: ATORVASTATIN 40 MG TAB PO SCH (08:17)
[2025-01-25] MEDS: ASPIRIN 81 MG ECTAB PO SCH (08:17)
[2025-01-25] MEDS: amLODIPine BESYLATE 5 MG TAB PO SCH (08:18)
[2025-01-25] MEDS: VENLAFAXINE HCL XR 150 MG CAPXR PO SCH (08:18)
[2025-01-25] MEDS: allopurinoL 100 MG TAB PO SCH (08:18)
[2025-01-25] MEDS: MAGNESIUM OXIDE 400 MG TAB PO SCH (08:18)
[2025-01-25] MEDS: VALSARTAN 80 MG TAB PO SCH (08:18)
[2025-01-25] MEDS: FUROSEMIDE 40 MG TAB PO SCH (08:18)
--- NOTE | 2025-01-25 09:51 | Nephrology Consultation ---
Date of Consultation January 25, 2025 Assessment & Plan (1) Hypertensive urgency: * Presented w/ SBP > 200 * Furosemide 40 mg IV x1 administered in EMD * Continue labetalol, valsartan, amlodipine * If BP fails to improve w/ diuresis, may consider titration of valsartan * Monitor BP (2) Congestive heart failure: * CXR film reviewed: pulmonary congestion w/ small bilateral effusions * Will schedule furosemide 40 mg IV BID * Monitor wt, UO, BMP * Will order follow up CXR for am (3) AV fistula thrombosis: * AVF has no thrill or bruit * Will order AVF duplex. If AVF is thrombosed, will ask vascular surgery to evaluate (4) History of renal cell cancer: (5) History of right nephrectomy: History of Present Illness Reason for Consultation: HTN, CKD Attending Physician: Roman Jaquez MD History of Present Illness Ms. Linares is an 84 year old white female who is seen at the request of [facility] hospitalist service for evaluation of HTN, CKD. Information for the HPI is obtained from direct patient interview and review of the EMR. HPI is summarized as follows: Ms. Linares has CKD stage G4/A3 (advanced impairment). Baseline Cr has been 2.8-2.9 w/ EGFR 16 cc/min. She had RCCA requiring R nephrectomy 2010. Her primary aquarist is Dr. Freed. Ms. Linares underwent L BC AVF creation by Dr. Farooq in [place] 11/21/24. AVF has been slow to mature and may require revision. Her medical history is also significant for HFpEF, HTN, HLD, AODM w/ neuropathy, secondary HPT, anemia of chronic disease, CARO on CPAP, RLS, fatty liver, depression, gout, and GERD. Ms. Linares presented to [facility] 01/24/25 for evaluation of dyspnea. EMD evaluation revealed hypertensive urgency w/ SBP > 20 0 and CHF. She was managed w/ furosemide 40 mg IV x1 and SL NTG. Patient reports that she is breathing comfortably on RA at rest but still has significant JUAREZ. She denies angina or uremic symptoms Allergies Allergy/AdvReac Type Severity Reaction Status Date / Time NSAIDS (Non-Steroidal AdvReac Mild Unknown Verified 01/18/25 15:00 Anti-Inflamma Home Medications Medication Instructions Recorded Confirmed Type cholecalciferol (vitamin D3) 50 50 mcg PO DAILY 11/15/20 01/24/25 History mcg (2,000 unit) capsule cyanocobalamin (vitamin B-12) 3,000 mcg PO DAILY 11/15/20 01/24/25 History 3,000 mcg capsule aspirin 81 mg tablet,delayed 81 mg PO DAILY 06/13/21 01/24/25 History release (Juan José Low Dose Aspirin) magnesium oxide 400 mg PO DAILY #30 tabs 09/03/23 01/24/25 Rx 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,rough rice tender,cont #1 ea 10/21/24 01/18/25 Rx (FreeStyle Santi 3 [place]) omeprazole 20 mg capsule,delayed 20 mg PO DAILY #90 caps 11/08/24 01/24/25 Rx release valsartan 80 mg tablet 80 mg PO DAILY #30 tabs 11/10/24 01/24/25 Rx albuterol sulfate 90 mcg/actuation 1 inh inhalation Q6H PRN Shortness 12/09/24 01/24/25 History aerosol inhaler Of Breath Or Wheezing labetalol 200 mg tablet 200 mg PO BID 12/09/24 01/24/25 History tramadol 50 mg tablet 50 mg PO BID PRN Pain #60 tabs 12/09/24 01/24/25 Rx 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 sensor (FreeStyle #3 ea 01/16/25 01/18/25 Rx Santi 3 Sensor device) venlafaxine 150 mg 150 mg PO DAILY #90 caps 01/16/25 01/24/25 Rx capsule,extended release 24 hr ferrous sulfate 325 mg (65 mg 325 mg PO Q OTHER DAY #14 tabs 01/19/25 01/24/25 Rx iron) tablet furosemide 40 mg tablet 40 mg PO DAILY #90 tabs 01/19/25 01/24/25 Rx potassium chloride 20 mEq 20 meq PO BID #6 tabs 01/19/25 01/24/25 Rx tablet,extended release(part/cryst) (Klor-Con M) allopurinol 100 mg tablet 100 mg PO Q OTHER DAY 01/24/25 01/24/25 History atorvastatin 40 mg tablet 40 mg PO DAILY 01/24/25 01/24/25 History insulin glargine U-300 conc 300 28 unit subcut BID 01/24/25 01/24/25 History unit/mL (3 mL) subcutaneous pen (Toujeo Max U-300 SoloStar) Patient History Medical History Thyroiditis Thyromegaly Asthmatic bronchitis URI (upper respiratory infection) Acute hypoxemic respiratory failure Acute respiratory failure with hypoxia Dysphagia Bilateral leg edema Fistula November 2024 left arm- placed by [facility] Surgical History S/P thyroid biopsy (11/2024) H/O tubal ligation 1976 Family History Brother AA (alcohol abuse) Diabetes Hypertension Mother Diabetes Hypertension Stroke Dementia Father Heart disease Hypertension Kidney disease Myocardial infarction Sister Alzheimer disease Son Diabetes Sister Hypertension Stroke Sister Dementia Denies family history of Ovarian cancer Prostate cancer Breast cancer Colorectal cancer Social History Smoking Status: Never smoker Second Hand Exposure: No; Do You Dip or Chew Tobacco: No; Hx Alcohol Use: No Hx Substance Use: No Preferred Language: Portuguese Communication Ability: Effective Visual Impairment: Partially Limited Hearing Ability: Hard of Hearing Ladle Operator Required: No Beliefs That Will Affect Care: None marital status: / Current Living Situation: Family Current Living Situation Comment: Lives with son current occupational status: retired current occupation: RETIRED How many Children do You have: 3 How many Children do You have Comment: 3 sons; 1 lives [place], 1 lives [place], [place], 1 local Other Information That Helps Us Care for You: No Feels Safe at Home: Yes Safety Concerns: Feels Safe At This Time Childhood Exposure to Second-Hand Smoke: No Diet: regular caffeine: Yes during the past year weight has: remained stable Dental Care, Regularly: Yes Physical Activity Frequency: Does not Exercise Seatbelt Use: always Sunscreen Use: No (does not really go in sun) Assistive Devices: Cane, Denture - Upper, Denture - Lower, Glasses, Hearing Aid - Bilateral and Walker Review of Systems Constitutional: no fever Eyes: no problem reported Ear, Nose, Mouth, Throat: no problem reported Respiratory: + dyspnea on exertion; no cough Cardiovascular: no chest pain Gastrointestinal: no abdominal pain, no nausea, no vomiting and no diarrhea/loose stools Integumentary: no rash Neurologic: no problem reported Physical Exam Constitutional: not in distress Eyes: PERRL, conjunctivae normal, anicteric sclerae ENMT: external ear and nose normal, oropharynx normal Neck: trachea midline, no thyromegaly Respiratory: normal respiratory effort, lungs clear to auscultation Cardiovascular: RRR, no murmur, no edema L BC AVF - silent Gastrointestinal (Abdomen): normal bowel sounds, soft, nontender, no hepatosplenomegaly Musculoskeletal: Extremities: no cyanosis and no clubbing Skin: no rashes, warm and dry Neurologic: no focal motor deficits Results & Data Vital Signs (Past 12 Hours) Vital Signs Temp Pulse Pulse Resp BP Pulse Ox O2 Del Method 01/25/25 07:39 36.7 C 58 L 22 172/52 H 94 Room Air 01/25/25 03:56 36.8 C 62 20 168/77 H 95 CPAP 01/25/25 02:51 19 01/25/25 02:14 Room Air, CPAP 01/24/25 23:04 54 L 28 H 95 01/24/25 23:00 36.7 C 60 19 159/71 H 93 CPAP 01/24/25 22:25 64 FiO2 01/25/25 07:39 01/25/25 03:56 01/25/25 02:51 21 01/25/25 02:14 01/24/25 23:04 21 01/24/25 23:00 01/24/25 22:25 Laboratory Results Laboratory Results WBC 7.61 K/ul (4.8-10.8) 01/25/25 05:40 RBC 3.48 M/uL (4.20-5.40) L 01/25/25 05:40 Hgb 10.1 g/dl (12.0-16.0) L 01/25/25 05:40 Hct 31.2 % (37.0-47.0) L 01/25/25 05:40 MCV 89.7 fL (80.0-100.0) 01/25/25 05:40 MCH 29.0 pg (25.0-34.0) 01/25/25 05:40 MCHC 32.4 g/dL (32.0-36.0) 01/25/25 05:40 RDW Std Deviation 49.1 fL (36.4-46.3) H 01/25/25 05:40 RDW Coeff of Chyna 15.1 % (11.5-14.5) H 01/25/25 05:40 Plt Count 236 K/uL (130-400) 01/25/25 05:40 MPV 9.6 fL (9.4-12.4) 01/25/25 05:40 Immature Gran % (Auto) 0.3 % 01/25/25 05:40 Neut % (Auto) 58.6 % 01/25/25 05:40 Lymph % (Auto) 26.8 % 01/25/25 05:40 [place] % (Auto) 7.8 % 01/25/25 05:40 Eos % (Auto) 5.3 % 01/25/25 05:40 Baso % (Auto) 1.2 % 01/25/25 05:40 Neut # (Auto) 4.47 K/uL (1.40-6.50) 01/25/25 05:40 Lymph # (Auto) 2.04 K/uL (1.20-3.40) 01/25/25 05:40 [place] # (Auto) 0.59 K/uL (0.11-0.59) 01/25/25 05:40 Eos # (Auto) 0.40 K/uL (0.00-0.50) 01/25/25 05:40 Baso # (Auto) 0.09 K/uL (0.00-0.20) 01/25/25 05:40 Immature Gran # (Auto) 0.02 K/uL (0.01-0.20) 01/25/25 05:40 PT 10.5 Seconds (9.0-12.0) 01/24/25 11:35 INR 1.0 (0.9-1.1) 01/24/25 11:35 APTT 24 Seconds (21-31) 01/24/25 11:35 PTT Ratio 0.9 01/24/25 11:35 Sodium 144 mmol/L (136-145) 01/25/25 05:40 Potassium 3.5 mmol/L (3.5-5.1) 01/25/25 05:40 Chloride 112 mmol/L (98-107) H 01/25/25 05:40 Carbon Dioxide 24 mmol/L (21-32) 01/25/25 05:40 Anion Gap 8 (3-11) 01/25/25 05:40 BUN 30 mg/dl (6-23) H 01/25/25 05:40 Creatinine 2.82 mg/dl (0.6-1.2) H 01/25/25 05:40 Est Cr Clr Drug Dosing 15.8 ml/min 01/25/25 05:40 eGFR 16.21 01/25/25 05:40 BUN/Creatinine Ratio 10.6 (10-20) 01/25/25 05:40 Glucose 86 mg/dl (70-99(Fasting)) 01/25/25 05:40 POC Glucose 97 mg/dl (70-99) 01/25/25 07:26 Calcium 9.6 mg/dl (8.6-10.3) 01/25/25 05:40 Magnesium 1.8 mg/dl (1.7-2.4) 01/25/25 05:40 Total Bilirubin 0.6 mg/dl (0.2-1.0) 01/24/25 11:35 AST 9 U/L (13-39) L 01/24/25 11:35 ALT 3 U/L (7-52) L 01/24/25 11:35 Alkaline Phosphatase 122 U/L (34-104) H 01/24/25 11:35 Troponin I High Sens 28.8 pg/ml (0-14) H 01/24/25 14:37 Total Protein 6.6 gm/dl (6.0-8.3) 01/24/25 11:35 Albumin 3.5 gm/dl (3.4-5.0) 01/24/25 11:35 Globulin 3.1 gm/dl (2.5-4.0) 01/24/25 11:35 Albumin/Globulin Ratio 1.1 (0.9-2) 01/24/25 11:35 Impressions Chest X-Ray 01/24/25 12:35 XR chest 1V portable CLINICAL HISTORY: Dyspnea COMPARISON STUDY: 01/19/2025 FINDINGS: There is stable prominent cardiomegaly with increased pulmonary vascular congestion. There is increased pulmonary interstitial prominence. There is increased hazy opacity in the lung bases with partial obscuration of the diaphragm. No pneumothorax. IMPRESSION: 1. CHF with possible small pleural effusions. 2. Pulmonary interstitial prominence likely represents pulmonary edema if there is low clinical concern for pneumonia. ACT 112: Negative or not required by law. Electronically signed by: Son Howell M.D. 01/24/2025 1:00 PM PG Care Time/CCT Total # of Minutes Spent Total Time Spent with Patient: Total time spent is greater than 50% in coordination of care (as documented) at patient's floor/unit and/or counseling patient: Coding Level of Care Code 89535 IN/OBS CONSULT LVL 5,80M Diagnoses Hypertensive urgency I16.0 Congestive heart failure I50.9 AV fistula thrombosis T82.868A History of renal cell cancer Z85.528 History of right nephrectomy Z90.5
--- NOTE | 2025-01-25 11:43 | Ultrasound Report ---
US hemodialysis fistula CLINICAL HISTORY: Left upper arm AVF silent. Assess for flow/clot. COMPARISON STUDY: No previous studies for comparison. TECHNIQUE: Grayscale, color and duplex Doppler sonography of the left brachiocephalic AV fistula was performed. FINDINGS: The left brachiocephalic AV fistula is patent. However, velocities are lower than expected. Peak systolic velocities ranging from 42 cm/s to 133 cm/s. No thrombus within the AV fistula is iden tified. The left cephalic vein is somewhat diminutive. A small 2.7 x 1 x 1.8 cm complex fluid collect ion within the medial aspect of the left antecubital fossa favors a small hematoma. No additional flu id collections are identified. IMPRESSION: 1. Patent left brachiocephalic AV fistula. No thrombus within the fistula. However, velocities within the AV fistula are lower than expected and the left cephalic vein is somewhat diminutive. 2. Fluid collection within the medial left antecubital fossa, measuring 2.7 x 1 x 1.8 cm. This favors a small hematoma. ACT 112: Negative or not required by law. Electronically signed by: Jona Wong M.D. 01/25/2025 11:42 AM
--- NOTE | 2025-01-25 12:57 | XCELERA ---
[id number] \\[id number]
--- NOTE | 2025-01-25 14:42 | Hospitalist Progress Note ---
Date of Service January 25, 2025 Assessment & Plan (1) (HFpEF) heart failure with preserved ejection fraction: (2) Hypertensive urgency: (3) Chronic kidney disease, stage IV (severe): Plan This patient is an 84-year-old female with a history of CKD stage IV, right nephrectomy, HFpEF, HTN, HLD, DM2 w. In the ED, she was found to have significant pulmonary edema and evidence of CHF on her chest x-ray. She will be admitted with acute on chronic HFpEF. #Acute on chronic HFpEF/HTN with hypertensive urgency/elevated troponin -acute CHF likely secondary to uncontrolled blood pressures which are also present here. -Chest x ray shows evidence of pulmonary congestion and pleural effusion ( x ray on 01/19 was normal) She received 1 dose of furosemide 40 mg IV in the ED and is already feeling improved. - Continue Lasix 40 mg IV BID -Monitor I/O daily weights -- Check echocardiogram HTN - Needs improved blood pressure control-add amlodipine 5 mg daily - Continue home labetalol and valsartan Demand ischemia Troponin mildly elevated at 30 on admission and repeat check 2 hours later down to 28.8. ECG without ischemic changes-myocardial demand ischemia from hypertensive urgency #CKD stage IV/solitary kidney/secondary hyperparathyroidism/hypokalemia- creatinine improved from a few days ago down to 2.77, with mild hypokalemia. Follows with nephrology and has proteinuria. Has recently revised AV fistula in the left forearm - Continue valsartan, diuresis as noted above - Follow BMP - Avoid nephrotoxins and renally dose medications as needed - Continue potassium and magnesium replacement - Consult nephrology for further management #Anemia of chronic disease -Hgb 10, normocytic. Recent B12 and folate levels normal. Recent transferrin saturation normal. No bleeding from anywhere - Follow CBC #DM2 with neuropathy -uses Toujeo 28 units twice daily at home and HgbA1c well-controlled 7.1% in 11/2024 - Continue Lantus 28 units twice daily and supplemental NovoLog as needed - BSG's AC and at bedtime, diabetic diet #CARO on CPAP -no acute issues - Continue CPAP at bedtime #Depression-no acute issues - Continue home venlafaxine #Gout-no acute issues - Continue renally dosed allopurinol #GERD-no acute issues - Continue PPI DVT prophylaxis-heparin SQ, SCDs Disposition-admit to PCU Admission and Anticipated Discharge Date Admission Date: January 24, 2025 Subjective And examined, came back from hemodialysis Review of Systems Review of Systems: All systems reviewed are negative, apart from the ones contained in the history. Physical Exam Physical Exam: The patient is awake, alert and oriented 3, well developed and well nourished, normocephalic and atraumatic, lying in bed and in no acute distress. HEENT--PERRL, EOMI, mucous membranes and oropharynx mildly dry Neck--supple. No JVD. No bruits. Thyroid normal, trachea midline, no adenopathy. Heart--normal S1 and S2. No murmurs, rubs or gallops. Lungs--clear bilaterally, no respiratory distress, no accessory muscle use. Abdomen--normal bowel sounds and soft. Extremities--no cyanosis or clubbing. No edema. Dermatologic--normal skin turgor, normal color, no abnormal lymph nodes, no rash. Neurologic--cranial nerves II through XII grossly intact. Rheumatologic--normal range of motion. Psychiatric--normal affect. Results & Data Results & Data Vital Signs (Past 12 Hours) Vital Signs Temp Pulse Pulse Resp BP Pulse Ox O2 Del Method 01/25/25 14:00 58 L 01/25/25 11:52 97.9 F 58 L 20 166/62 H 93 Room Air 01/25/25 09:47 Room Air 01/25/25 07:39 98.1 F 58 L 22 172/52 H 94 Room Air 01/25/25 03:56 98.2 F 62 20 168/77 H 95 CPAP 01/25/25 02:51 19 FiO2 01/25/25 14:00 01/25/25 11:52 01/25/25 09:47 01/25/25 07:39 01/25/25 03:56 01/25/25 02:51 21 PG Care Time/CCT Total # of Minutes Spent Total Time Spent with Patient: Total time spent is greater than 50% in coordination of care (as documented) at patient's floor/unit and/or counseling patient: Coding Level of Care Code 61013 SUB INP/OBS CARE 2/35MIN Diagnoses (HFpEF) heart failure with preserved ejection fraction I50.30 Hypertensive urgency I16.0 Chronic kidney disease, stage IV (severe) N18.4 Time Spent (min) 35
[2025-01-25] MEDS: FUROSEMIDE 40 MG/4 ML VIAL IV SCH (21:12)
[2025-01-26 06:27] LABS: Hemoglobin 9.7 g/dl (12.0-16.0); Mean Corpuscular Hemoglobin 29.1 pg (25.0-34.0); Mean Corpuscular Hgb Conc 32.3 g/dL (32.0-36.0); Mean Corpuscular Volume 90.1 fL (80.0-100.0); Mean Platelet Volume 9.7 fL (9.4-12.4); Platelet Count 238 K/uL (130-400); RDW Coefficient of Variation 14.7 % (11.5-14.5); RDW Standard Deviation 48.8 fL (36.4-46.3); Red Blood Count 3.33 M/uL (4.20-5.40); White Blood Count 8.44 K/ul (4.8-10.8)
[2025-01-26 06:45] LABS: BUN Creatinine Ratio 10.4 (10-20); Calcium 9.5 mg/dl (8.6-10.3); Creatinine Clr Calc Pharmacy 12.7 ml/min; Potassium 3.6 mmol/L (3.5-5.1)
--- NOTE | 2025-01-26 08:17 | XRay Report ---
EXAM: XR chest 1V portable CLINICAL HISTORY: Congestive Heart Failure. TECHNIQUE: An X-ray image of the chest is obtained in AP projection. COMPARISON: 01/24/2025. FINDINGS: Pulmonary Parenchyma: Obscurred the left lower lung zone and costophrenic angle, which could be due to cardiomegaly/ overlying breast shadow Right lung field and costophrenic recess appears normal. Heart and Mediastinum: The cardiac shadow is enlarged in size with bilateral hilar congestion and a dilated, infolded aorta. No mediastinal widening or masses. No hilar or mediastinal lymphadenopathy. Bony Thorax: Bony thorax appears intact without fractures or deformities. Soft Tissues: Soft tissues overlying the chest wall are unremarkable. IMPRESSION: 1. Obscurred left lower lung zone and costophrenic angle, could be due to cardiomegaly/ overlying breast shadow 2. Cardiac shadow is enlarged in size with bilateral hilar congestion and a dilated, infolded aorta. 3. No interval changes. Electronically signed by Thong Rolon 01-26-2025 08:17 AM
--- NOTE | 2025-01-26 08:44 | Nephrology Progress Note ---
Date of Service January 26, 2025 Assessment & Plan (1) Hypertensive urgency: Plan: * Presented w/ SBP > 200 * Furosemide 40 mg IV x1 administered in EMD * Continue labetalol, valsartan * Will change furosemide to bumetanide 1 mg po BID * Increase amlodipine to 5 mg qAM, 2.5 mg qPM * Monitor BP (2) Congestive heart failure: Plan: * 01/26 CXR film reviewed: pulmonary congestion improved * Will change from IV furosemide to bumetanide 1 mg PO BID * Monitor wt, UO, BMP (3) AV fistula thrombosis: Plan: * AVF without thrill or bruit * 01/26/25 AVF duplex shows patent access. Will need outpatient follow up w/ Dr. Farooq ([facility]) (4) Chronic kidney disease, stage IV (severe): Plan: * CKD stage G4/A3 (advanced impairment). Baseline Cr has been 2.8-2.9 w/ EGFR 16 cc/min. She had RCCA requiring R nephrectomy 2010 (5) History of renal cell cancer: (6) History of right nephrectomy: Admission and Anticipated Discharge Date Admission Date: January 24, 2025 Subjective Ms. Linares was evaluated in her hospital room this morning. She reports that her breathing is greatly improved and she no longer has JUAREZ. Review of Systems Constitutional: no fever Eyes: no problem reported Ear, Nose, Mouth, Throat: no problem reported Respiratory: no cough and no dyspnea on exertion Cardiovascular: no chest pain Gastrointestinal: no abdominal pain, no nausea, no vomiting and no diarrhea/loose stools Integumentary: no rash Neurologic: no problem reported Physical Exam Constitutional: not in distress Eyes: PERRL, conjunctivae normal, anicteric sclerae ENMT: external ear and nose normal, oropharynx normal Neck: trachea midline, no thyromegaly Respiratory: normal respiratory effort, lungs clear to auscultation Cardiovascular: RRR, no murmur, no edema Gastrointestinal (Abdomen): normal bowel sounds, soft, nontender, no hepatosplenomegaly Musculoskeletal: Extremities: no cyanosis and no clubbing Skin: no rashes, warm and dry Neurologic: no focal motor deficits Results & Data Vital Signs (Past 12 Hours) Vital Signs Temp Pulse Pulse Resp BP Pulse Ox O2 Del Method 01/26/25 07:56 36.3 C L 57 L 18 145/72 H 97 CPAP 01/26/25 03:24 36.8 C 63 22 159/83 H 96 CPAP 01/26/25 02:08 59 L 20 94 01/25/25 23:22 36.8 C 60 20 151/78 H 93 CPAP 01/25/25 22:19 59 L 24 93 01/25/25 21:55 59 L FiO2 01/26/25 07:56 01/26/25 03:24 01/26/25 02:08 21 01/25/25 23:22 01/25/25 22:19 21 01/25/25 21:55 Laboratory Results Laboratory Results - last 24 hr 01/25/25 01/25/25 01/25/25 11:27 16:14 20:49 WBC RBC Hgb Hct MCV MCH MCHC RDW Std Deviation RDW Coeff of Chyna Plt Count MPV Sodium Potassium Chloride Carbon Dioxide Anion Gap BUN Creatinine Est Cr Clr Drug Dosing eGFR BUN/Creatinine Ratio Glucose POC Glucose 119 H 87 119 H Calcium 01/26/25 01/26/25 05:45 07:22 WBC 8.44 RBC 3.33 L Hgb 9.7 L Hct 30.0 L MCV 90.1 MCH 29.1 MCHC 32.3 RDW Std Deviation 48.8 H RDW Coeff of Chyna 14.7 H Plt Count 238 MPV 9.7 Sodium 141 Potassium 3.6 Chloride 109 H Carbon Dioxide 23 Anion Gap 9 BUN 37 H Creatinine 3.55 H D Est Cr Clr Drug Dosing 12.7 eGFR 12.30 BUN/Creatinine Ratio 10.4 Glucose 100 H POC Glucose 104 H Calcium 9.5 Diagnostic Findings 01/25/25 L BC AVF duplex - Patent left brachiocephalic AV fistula. No thrombus within the fistula. However, velocities within the AV fistula are lower than expected and the left cephalic vein is somewhat diminutive. PG Care Time/CCT Total # of Minutes Spent Total Time Spent with Patient: Total time spent is greater than 50% in coordination of care (as documented) at patient's floor/unit and/or counseling patient: Coding Level of Care Code 63734 SUB INP/OBS CARE 3/50MIN Diagnoses Hypertensive urgency I16.0 Congestive heart failure I50.9 AV fistula thrombosis [id number] Chronic kidney disease, stage IV (severe) N18.4 History of renal cell cancer Z85.528 History of right nephrectomy Z90.5
[2025-01-26] MEDS: BUMETANIDE 1 MG TAB PO SCH (09:02)
--- NOTE | 2025-01-26 11:39 | Discharge Summary ---
Date of Service January 26, 2025 Admission HPI Per Admitting Provider This patient is an 84-year-old female with a history of CKD stage IV, right nephrectomy, HFpEF, HTN, HLD, DM2 with neuropathy, secondary hyperparathyroidism, anemia of chronic disease, CARO on CPAP, RLS, fatty liver, depression, gout, GERD who presents to the ED with increasing SOB even at rest and elevated blood pressures. She was seen in the ED on 01/19 after having outpatient labs which showed a drop in Hgb and a rise in creatinine. She was stable however and discharged to home and advised to start on iron supplementation. Today she was contacted by a nurse from her PCP office and noted to be tachypneic with speaking in complete sentences on the phone and referred to the ED. In the ED, she was found to have significant pulmonary edema and evidence of CHF on her chest x-ray. Her blood pressures were quite elevated, but she was not requiring any supplemental O2. She was given IV Lasix and nitroglycerin with some improvement. She will be admitted with acute on chronic HFpEF. Admission Exam (Per Admitting) Constitutional The patient is awake, alert and oriented 3, well developed and well nourished, normocephalic and atraumatic, lying in bed and in no acute distress. HEENT--PERRL, EOMI, mucous membranes and oropharynx mildly dry Neck--supple. No JVD. No bruits. Thyroid normal, trachea midline, no adenopathy. Heart--normal S1 and S2. No murmurs, rubs or gallops. Lungs--clear bilaterally, no respiratory distress, no accessory muscle use. Abdomen--normal bowel sounds and soft. Extremities--no cyanosis or clubbing. No edema. Dermatologic--normal skin turgor, normal color, no abnormal lymph nodes, no rash. Neurologic--cranial nerves II through XII grossly intact. Rheumatologic--normal range of motion. Psychiatric--normal affect. Discharge Data Consultations 01/24/25 13:46 ED Decision to Admit Stat 01/24/25 15:22 Consult Nephrology Routine Hospital Course (1) (HFpEF) heart failure with preserved ejection fraction: (2) Hypertensive urgency: (3) Chronic kidney disease, stage IV (severe): Plan This patient is an 84-year-old female with a history of CKD stage IV, right nephrectomy, HFpEF, HTN, HLD, DM2 w. In the ED, she was found to have significant pulmonary edema and evidence of CHF on her chest x-ray. She will be admitted with acute on chronic HFpEF. #Acute on chronic HFpEF/HTN with hypertensive urgency/elevated troponin -acute CHF likely secondary to uncontrolled blood pressures which are also present here. -Chest x ray shows evidence of pulmonary congestion and pleural effusion ( x ray on 01/19 was normal) She received 1 dose of furosemide 40 mg IV in the ED and is already feeling improved. - Was on Lasix 40 mg IV BID -Monitor I/O daily weights Transition to PO Bumex 1mg BID AV fistula Its patent per US, although the flow is sluggish Outpatient follow up with Dr. Farooq ([facility]) HTN - Needs improved blood pressure control-add amlodipine 5 mg daily - Continue home labetalol and valsartan Demand ischemia Troponin mildly elevated at 30 on admission and repeat check 2 hours later down to 28.8. ECG without ischemic changes-myocardial demand ischemia from hypertensive urgency #CKD stage IV/solitary kidney/secondary hyperparathyroidism/hypokalemia-. Follows with nephrology and has proteinuria. Has recently revised AV fistula in the left forearm - Continue valsartan, diuresis as noted above - Follow BMP - Avoid nephrotoxins and renally dose medications as needed - Continue potassium and magnesium replacement - Consult nephrology for further management #Anemia of chronic disease -Hgb 10, normocytic. Recent B12 and folate levels normal. Recent transferrin saturation normal. No bleeding from anywhere - Follow CBC #DM2 with neuropathy -uses Toujeo 28 units twice daily at home and HgbA1c well-controlled 7.1% in 11/2024 - Continue Lantus 28 units twice daily and supplemental NovoLog as needed - BSG's AC and at bedtime, diabetic diet #CARO on CPAP -no acute issues - Continue CPAP at bedtime #Depression-no acute issues - Continue home venlafaxine #Gout-no acute issues - Continue renally dosed allopurinol #GERD-no acute issues - Continue PPI DVT prophylaxis-heparin SQ, SCDs Disposition-admit to PCU Coding Level of Care Code 02417 INP/OBS DISCH >30 MIN Diagnoses (HFpEF) heart failure with preserved ejection fraction I50.30 Hypertensive urgency I16.0 Chronic kidney disease, stage IV (severe) N18.4 Time Spent (min) 35
[2025-01-26 11:54] VITALS: BP 138/72; PULSE 59; RESP 20; TEMP 98.1; O2SAT 96
[2025-01-26] MEDS ORDERED: amLODIPine BESYLATE 5 MG TAB PO SCH (21:00)
== END 2025-01-26 15:22 | disposition home or self-care (01) | DRG 291 ==
LOC: ED 11:15 → 2S 15:21 → SUATTDRO 15:21 → INTOOBSV 15:21 → 2S 15:44

== ENCOUNTER 2025-03-17 19:12 | Inpatient (IN) ==
[2025-03-17 20:02] LABS: Hematocrit (blood only) 37.5 % (37.0-47.0); Hemoglobin 11.7 g/dl (12.0-16.0); Immature Granulocytes # (auto) 0.04 K/uL (0.01-0.20); Immature Granulocytes % (auto) 0.3 %; Mean Corpuscular Hemoglobin 28.5 pg (25.0-34.0); Mean Corpuscular Volume 91.2 fL (80.0-100.0); Platelet Count 278 K/uL (130-400); RDW Standard Deviation 47.5 fL (36.4-46.3); Red Blood Count 4.11 M/uL (4.20-5.40); White Blood Count 11.53 K/ul (4.8-10.8)
[2025-03-17] MEDS: CALCIUM GLUCONATE 1,000 MG/60 ML BAG IV STA ×2 (20:14→23:28)
[2025-03-17] MEDS: ALBUTEROL 0.5% NEB SOLN 2.5 MG/0.5 ML VIAL NEB STA (20:16)
[2025-03-17] MEDS: INSULIN HUMAN REGULAR PER UNIT 10 UNITS in SYRINGE 9.9 ML IV STA (20:20)
[2025-03-17] MEDS: DEXTROSE 50% 50 ML SYRINGE IV STA ×2 (20:22→23:31)
[2025-03-17] MEDS: NovoLIN-R INSULIN PER UNIT CHARGE ONE (20:22)
[2025-03-17] MEDS: SODIUM ZIRCONIUM CYCLOSILICATE 10 GM PACKET PO SCH (20:28)
[2025-03-17] MEDS: SODIUM CHLORIDE 0.9% 1,000 ML IV SCH (20:30)
[2025-03-17 20:32] LABS: Alanine Aminotransferase 9.0 U/L (7-52); Alkaline Phosphatase 119.0 U/L (34-104); Anion Gap 7.0 (3-11); Bilirubin,Total 0.4 mg/dl (0.2-1.0); Blood Urea Nitrogen 54.0 mg/dl (6-23); Calcium 10.5 mg/dl (8.6-10.3); Carbon Dioxide 17.0 mmol/L (21-32); Chloride 109.0 mmol/L (98-107); Creatinine Clr Calc Pharmacy 8.9 ml/min; Glucose 190.0 mg/dl (70-99(Fasting)); Lipase 12.0 U/L (11-82); Potassium 7.3 mmol/L (3.5-5.1); Sodium 133.0 mmol/L (136-145); Total Protein 7.3 gm/dl (6.0-8.3)
[2025-03-17] MEDS: SODIUM BICARBONATE 8.4% 150 MEQ in DEXTROSE 5% 1,000 ML IV STA (20:53)
--- NOTE | 2025-03-17 21:42 | Emergency Department Note ---
Impression & Plan Acute hyperkalemia, KALA (acute kidney injury) ED Provider Note NAME: MONICA MCKOY AGE: 84 SEX: F : 1940 ARRIVES VIA: Walk-In INFORMANT: Patient, ED PROVIDER(S): Luca Javier MD CHIEF COMPLAINT: Hyperkalemia HPI: This is an 84-year-old female presenting for hyperkalemia. Patient states that she was told she had abnormal labs in the outpatient setting. Sent here for further evaluation. Upon record review per the patient was having hyperkalemia 6.9 as well as KALA at 4.5+. She notes no current symptoms. She states she was taking potassium at home for low potassium levels. She has had chronic diarrhea for over 1 month. She reports making urine, is generally incontinent at baseline. ROS: See above HPI for pertinent positives & negatives. A total of 10 systems reviewed and were otherwise negative. PAST MEDICAL HISTORY: See Below PAST SURGICAL HISTORY: See Below FAMILY HISTORY: See Below SOCIAL HISTORY: See Below HOME MEDICATIONS: See Below ALLERGIES: See Below VITALS: See Below PHYSICAL EXAMINATION: General: resting comfortably in no acute distress Head: Normocephalic and atraumatic Eyes: Normal inspection, extraocular muscles intact Ear, nose, throat: Normal external exam Neck: Normal range of motion Respiratory: lungs clear to auscultation bilaterally Cardiovascular: Regular rate/rhythm, no murmur GI: soft, nontender, no guarding or rebound Extremities: nontender, moves all extremities, left upper extremity fistula Neuro: The patient awake and alert, appropriately conversive, no focal deficits, symmetric faces Skin: Warm, dry, and intact MEDICAL DECISION MAKING: This is an 84-year-old female presents for hyperkalemia. Will do screening EKG, blood work, hyperkalemia protocol - EKG reviewed showing sinus bradycardia rate of 52, first-degree AV block at 222, possible peaked T waves noted without significant QRS prolongation. - Patient given albuterol, insulin, calcium, dextrose, sodium bicarb - Repeat EKG reveals improved T waves, stable QRS duration -Call made to on-call mutual fund sales agent about patient case. Dr. Byrd. States he cannot assess the patient for dialysis over the phone. States he cannot help with dialysis needs at this time. He states the hospital has capacity to do dialysis tomorrow but would need to be transferred if needed emergent dialysis. -Discussed with inpatient team, Dr. Beard about patient's presentation. She recommends a second BMP to assess for potassium level prior to admission. Otherwise recommends Perez catheter placement. Will place Perez catheter sinusectomy appeals time - Patient's second potassium level is downtrending at 6.2. Creatinine also downtrending 4.[address] Beard will admit at this time as patient does appear stable. Differential diagnosis: Hyperkalemia, KALA, anuria Independent History obtained from: Son Diagnostics interpreted by me: ECG: See above Cardiac Monitoring: An order was placed for continuous cardiac monitoring. The monitor shows a rate of 56 with sinus rhythm. Past Med/Surg History Problem List (Updated 03/17/25 @ 23:58 by Luca Javier MD) KALA (acute kidney injury) (Acute) Acute hyperkalemia (Acute) Anemia, chronic disease Ascending aorta dilatation Aortic valve insufficiency (HFpEF) heart failure with preserved ejection fraction Tortuous aorta Hypercalcemia Proteinuria Thyroid nodule Secondary hyperparathyroidism of renal origin Vitamin D deficiency Mild cognitive impairment Urinary incontinence Obstructive sleep apnea on CPAP Peripheral vascular disease Iron deficiency anemia Diabetes mellitus with polyneuropathy Restless leg syndrome Osteoarthritis Hypertension Hyperlipemia Fatty liver Diabetes Depression Acid reflux History of renal cell cancer Diabetes mellitus with chronic kidney disease Degenerative cervical disc Chronic kidney disease, stage IV (severe) (Acute) History of right nephrectomy (09/30/10) Gout Medical History Congestive heart failure Hypertensive urgency Acute exacerbation of CHF (congestive heart failure) Hypertensive urgency Thyroiditis Thyromegaly Asthmatic bronchitis Acute hypoxemic respiratory failure Acute respiratory failure with hypoxia Dysphagia Fistula Surgical History S/P left cataract extraction (02/02/25) S/P thyroid biopsy (11/2024) H/O tubal ligation Family History Brother AA (alcohol abuse) Diabetes Hypertension Mother Diabetes Hypertension Stroke Dementia Father Heart disease Hypertension Kidney disease Myocardial infarction Sister Alzheimer disease Son Diabetes Sister Hypertension Stroke Sister Dementia Denies family history of Ovarian cancer Prostate cancer Breast cancer Colorectal cancer Social History Smoking Status: Never smoker Second Hand Exposure: No; Do You Dip or Chew Tobacco: No; Hx Alcohol Use: No Hx Substance Use: No Preferred Language: Wallisian Communication Ability: Effective Visual Impairment: Partially Limited Hearing Ability: Hard of Hearing Acoustics Teacher Required: No Beliefs That Will Affect Care: None marital status: / Current Living Situation: Family Current Living Situation Comment: Lives with son current occupational status: retired current occupation: RETIRED How many Children do You have: 3 How many Children do You have Comment: 3 sons; 1 lives [place], 1 lives [place], [place], 1 [facility] Feels Safe at Home: Yes Childhood Exposure to Second-Hand Smoke: No Diet: regular caffeine: Yes during the past year weight has: remained stable Dental Care, Regularly: Yes Physical Activity Frequency: Does not Exercise Seatbelt Use: always Sunscreen Use: No (does not really go in sun) Assistive Devices: Cane, CPAP and Walker Allergies Allergies Allergy/AdvReac Type Severity Reaction Status Date / Time NSAIDS (Non-Steroidal AdvReac Intermediate Cough Verified 03/17/25 21:03 Anti-Inflamma Home Meds Home Medications Medication Instructions Recorded Confirmed cholecalciferol (vitamin D3) 50 50 mcg PO DAILY 11/15/20 03/17/25 mcg (2,000 unit) capsule cyanocobalamin (vitamin B-12) 3,000 mcg PO DAILY 11/15/20 03/17/25 3,000 mcg capsule aspirin 81 mg tablet,delayed 81 mg PO DAILY 06/13/21 03/17/25 release (Juan José Low Dose Aspirin) albuterol sulfate 90 mcg/actuation 1 inh inhalation Q6H PRN Shortness 12/09/24 03/17/25 aerosol inhaler Of Breath Or Wheezing labetalol 200 mg tablet 200 mg PO BID 12/09/24 03/17/25 allopurinol 100 mg tablet 100 mg PO Q OTHER DAY 01/24/25 03/17/25 atorvastatin 40 mg tablet 40 mg PO DAILY 01/24/25 03/17/25 insulin glargine U-300 conc 300 28 unit subcut BID 01/24/25 03/17/25 unit/mL (3 mL) subcutaneous pen (Toujeo Max U-300 SoloStar) Previous Rx's Medication Instructions Recorded magnesium oxide 400 mg PO DAILY #30 tabs 09/03/23 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,technical instructor course developer,cont #1 ea 10/21/24 (FreeStyle Santi 3 Evergreen) omeprazole 20 mg capsule,delayed 20 mg PO DAILY #90 caps 11/08/24 release valsartan 80 mg tablet 80 mg PO DAILY #30 tabs 11/10/24 tramadol 50 mg tablet 50 mg PO BID PRN Pain #60 tabs 12/09/24 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 sensor (FreeStyle #3 ea 01/16/25 Santi 3 Sensor device) venlafaxine 150 mg 150 mg PO DAILY #90 caps 01/16/25 capsule,extended release 24 hr ferrous sulfate 325 mg (65 mg 325 mg PO Q OTHER DAY #14 tabs 01/19/25 iron) tablet amlodipine 5 mg tablet (Norvasc) 5 mg PO QAM #90 tabs 02/16/25 bumetanide 1 mg tablet 1 mg PO BID #180 tabs 02/20/25 potassium chloride 20 mEq 40 meq (2 x 20 mEq) PO BID #120 02/28/25 tablet,extended tabs release(part/cryst) (ThaddeusCon M) Results & Data (ED) Vital Signs Vital Signs - 24 hr 03/17/25 19:21 03/17/25 19:40 03/17/25 20:31 Temperature 36.7 C Temperature Source Oral Pulse Rate 53 L 52 L Pulse Rate from SpO2 Sensor Respiratory Rate 20 Respiratory Effort / Characteristics Non-Labored Spontaneous Respiratory Depth Normal Respiratory Pattern Regular Blood Pressure 145/65 H 150/73 H Blood Pressure Mean 91 115 Blood Pressure Position Lying Pulse Oximetry 98 Oxygen Delivery Method Room Air Sepsis Recent Fever Within 48 Hours No Sepsis New/Unexplained Change in Mental Status N/A Sepsis Action Taken by Nursing No Action Required 03/17/25 20:33 03/17/25 20:58 03/17/25 21:24 Temperature Temperature Source Pulse Rate 50 L 53 L Pulse Rate from SpO2 Sensor 50 L 54 L Respiratory Rate 20 18 20 Respiratory Effort / Characteristics Non-Labored Spontaneous Respiratory Depth Normal Respiratory Pattern Regular Blood Pressure Blood Pressure Mean Blood Pressure Position Pulse Oximetry 100 99 Oxygen Delivery Method Room Air Room Air Sepsis Recent Fever Within 48 Hours Sepsis New/Unexplained Change in Mental Status Sepsis Action Taken by Nursing 03/17/25 21:31 03/17/25 22:00 03/17/25 22:00 Temperature Temperature Source Pulse Rate 60 Pulse Rate from SpO2 Sensor 54 L Respiratory Rate 20 Respiratory Effort / Characteristics Respiratory Depth Respiratory Pattern Blood Pressure 129/65 132/70 Blood Pressure Mean 96 80 Blood Pressure Position Pulse Oximetry 98 Oxygen Delivery Method Room Air Sepsis Recent Fever Within 48 Hours Sepsis New/Unexplained Change in Mental Status Sepsis Action Taken by Nursing 03/17/25 22:57 03/17/25 23:00 03/17/25 23:51 Temperature Temperature Source Pulse Rate 56 L Pulse Rate from SpO2 Sensor 56 L Respiratory Rate 21 Respiratory Effort / Characteristics Respiratory Depth Respiratory Pattern Blood Pressure 138/54 L Blood Pressure Mean 71 Blood Pressure Position Pulse Oximetry 97 Oxygen Delivery Method Room Air Room Air Sepsis Recent Fever Within 48 Hours Sepsis New/Unexplained Change in Mental Status Sepsis Action Taken by Nursing Laboratory Data 03/17/25 19:47 03/17/25 21:35 Lab Results 03/17/25 03/17/25 03/17/25 Range/Units 19:47 19:53 20:52 WBC 11.53 H (4.8-10.8) K/ul RBC 4.11 L (4.20-5.40) M/uL Hgb 11.7 L (12.0-16.0) g/dl POC Hgb 12.9 (12.0-16.0) g/dl Hct 37.5 (37.0-47.0) % POC Hct 38 (37-47) % MCV 91.2 (80.0-100.0) fL MCH 28.5 (25.0-34.0) pg MCHC 31.2 L (32.0-36.0) g/dL RDW Std Deviation 47.5 H (36.4-46.3) fL RDW Coeff of Chyna 14.3 (11.5-14.5) % Plt Count 278 (130-400) K/uL MPV 10.0 (9.4-12.4) fL Immature Gran % (Auto) 0.3 % Neut % (Auto) 78.5 % Lymph % (Auto) 10.5 % Corson % (Auto) 7.3 % Eos % (Auto) 2.6 % Baso % (Auto) 0.8 % Neut # (Auto) 9.05 H (1.40-6.50) K/uL Lymph # (Auto) 1.21 (1.20-3.40) K/uL Corson # (Auto) 0.84 H (0.11-0.59) K/uL Eos # (Auto) 0.30 (0.00-0.50) K/uL Baso # (Auto) 0.09 (0.00-0.20) K/uL Immature Gran # (Auto) 0.04 (0.01-0.20) K/uL POC Sodium 134 L (135-144) mmol/L Sodium 133 L (136-145) mmol/L POC Potassium 7.5 H* (3.3-5.0) mmol/L Potassium 7.3 H* (3.5-5.1) mmol/L POC Chloride 113 H (101-112) mmol/L Chloride 109 H (98-107) mmol/L Carbon Dioxide 17 L (21-32) mmol/L POC Total CO2 16 L (24-31) mmol/L Anion Gap 7 (3-11) POC Anion Gap 13.0 L (16-25) mmol/L POC BUN 52 H (7-18) mg/dl BUN 54 H (6-23) mg/dl Creatinine 4.49 H (0.6-1.2) mg/dl POC Creatinine 4.6 H* (0.6-1.3) mg/dl Est Cr Clr Drug Dosing 8.9 ml/min eGFR 9.28 BUN/Creatinine Ratio 12.0 (10-20) Glucose 190 H (70-99(Fasting)) mg/dl POC Glucose 245 H (70-99) mg/dl POC Glucose (other) 181 H (70-99) mg/dl Calcium 10.5 H (8.6-10.3) mg/dl POC Ioniz Calcium Antione 1.44 H (1.12-1.32) mmol/l Total Bilirubin 0.4 (0.2-1.0) mg/dl Direct Bilirubin 0.1 (0-0.2) mg/dl AST 12 L (13-39) U/L ALT 9 (7-52) U/L Alkaline Phosphatase 119 H (34-104) U/L Total Protein 7.3 (6.0-8.3) gm/dl Albumin 3.7 (3.4-5.0) gm/dl Lipase 12 (11-82) U/L 08/08/25 08/08/25 Range/Units 21:35 23:31 WBC (4.8-10.8) K/ul RBC (4.20-5.40) M/uL Hgb (12.0-16.0) g/dl POC Hgb (12.0-16.0) g/dl Hct (37.0-47.0) % POC Hct (37-47) % MCV (80.0-100.0) fL MCH (25.0-34.0) pg MCHC (32.0-36.0) g/dL RDW Std Deviation (36.4-46.3) fL RDW Coeff of Chyna (11.5-14.5) % Plt Count (130-400) K/uL MPV (9.4-12.4) fL Immature Gran % (Auto) % Neut % (Auto) % Lymph % (Auto) % Corson % (Auto) % Eos % (Auto) % Baso % (Auto) % Neut # (Auto) (1.40-6.50) K/uL Lymph # (Auto) (1.20-3.40) K/uL Corson # (Auto) (0.11-0.59) K/uL Eos # (Auto) (0.00-0.50) K/uL Baso # (Auto) (0.00-0.20) K/uL Immature Gran # (Auto) (0.01-0.20) K/uL POC Sodium (135-144) mmol/L Sodium 135 L (136-145) mmol/L POC Potassium (3.3-5.0) mmol/L Potassium 6.2 H* (3.5-5.1) mmol/L POC Chloride (101-112) mmol/L Chloride 113 H (98-107) mmol/L Carbon Dioxide 17 L (21-32) mmol/L POC Total CO2 (24-31) mmol/L Anion Gap 5 (3-11) POC Anion Gap (16-25) mmol/L POC BUN (7-18) mg/dl BUN 52 H (6-23) mg/dl Creatinine 4.25 H (0.6-1.2) mg/dl POC Creatinine (0.6-1.3) mg/dl Est Cr Clr Drug Dosing 9.4 ml/min eGFR 9.91 BUN/Creatinine Ratio 12.2 (10-20) Glucose 191 H (70-99(Fasting)) mg/dl POC Glucose 193 H (70-99) mg/dl POC Glucose (other) (70-99) mg/dl Calcium 9.7 (8.6-10.3) mg/dl POC Ioniz Calcium Antione (1.12-1.32) mmol/l Total Bilirubin (0.2-1.0) mg/dl Direct Bilirubin (0-0.2) mg/dl AST (13-39) U/L ALT (7-52) U/L Alkaline Phosphatase (34-104) U/L Total Protein (6.0-8.3) gm/dl Albumin (3.4-5.0) gm/dl Lipase (11-82) U/L Administered Medications Sodium Bicarbonate 150 meq/ (Dextrose) 1,150 mls @ 290 mls/hr IV .Q3H58M STA Stop: 03/17/25 23:58 Last Admin: 03/17/25 20:53 Dose: 290 mls/hr Documented By: Sodium Chloride (Nss) 1,000 mls @ 1,000 mls/hr IV .Q1H ARTUR Stop: 03/20/25 20:14 Last Admin: 03/17/25 21:59 Dose: 999 mls/hr Documented By: Infusion: 03/17/25 21:33 Dose: Infused Documented By: Admin: 03/17/25 20:30 Dose: 1,000 mls/hr Documented By: Discontinued Medications Albuterol (Albuterol 0.5% Neb Soln 2.5 Mg/0.5 Ml Vial) 10 mg NEB NOW STA Stop: 03/17/25 20:02 Last Admin: 03/17/25 20:16 Dose: 10 mg Documented By: Dextrose (Dextrose 50% 50 Ml Syringe) 50 ml IV NOW STA Stop: 03/17/25 20:02 Last Admin: 03/17/25 20:22 Dose: 50 ml Documented By: Dextrose (Dextrose 50% 50 Ml Syringe) 50 ml IV NOW STA Stop: 03/17/25 22:26 Last Admin: 03/17/25 23:31 Dose: 50 ml Documented By: Calcium Gluconate () 1,000 mg in 60 mls @ 240 mls/hr IV NOW STA Stop: 03/17/25 20:15 Last Infusion: 03/17/25 20:35 Dose: Infused Documented By: Admin: 03/17/25 20:14 Dose: 240 mls/hr Documented By: Insulin Human Regular 10 units (/ Syringe) 9.9 mls @ 3 mls/sec IV ONE STA Stop: 03/17/25 20:02 Last Admin: 03/17/25 20:20 Dose: 3 mls/sec Documented By: Co-signed By: RUBEN Calcium Gluconate () 1,000 mg in 60 mls @ 240 mls/hr IV NOW STA Stop: 03/17/25 22:39 Last Infusion: 03/17/25 23:43 Dose: Infused Documented By: Admin: 03/17/25 23:28 Dose: 240 mls/hr Documented By: Insulin Human Regular 10 units (/ Syringe) 10 mls @ 3 mls/sec IV ONE ONE Stop: 03/17/25 22:36 Last Admin: 03/17/25 23:32 Dose: 3 mls/sec Documented By: Co-signed By: YANNA Insulin Human Regular (Novolin-R Insulin Per Unit Charge) Confirm Administered Dose 10 units .ROUTE .STK-MED ONE Stop: 03/17/25 20:20 Last Admin: 03/17/25 20:22 Dose: Not Given Documented By: Sodium Zirconium Cyclosilicate (Sodium Zirconium Cyclosilicate 10 Gm Packet) 10 gm PO TID [facility] Stop: 03/19/25 14:01 Last Admin: 03/17/25 20:28 Dose: 10 gm Documented By: Discharge Plan Visit Data Chief Complaint: Abnormal Labs/Diagnostic Testing Stated Complaint: LOW K LEVELS, ABN LABS ED Provider: Luca Javier Discharge Problem: Acute hyperkalemia, KALA (acute kidney injury) Patient Disposition: Admitted As Inpatient Condition: Serious Discharge Instructions Interventions: ED Discharge Assessment Last Done: 03/17/25 23:51 Forms Stand Alone Forms: [employer] Prescriptions Prescriptions: No Action magnesium oxide 400 mg magnesium tablet 400 mg PO DAILY Qty: 30 0RF (DME) FreeStyle Santi 3 Evergreen Misc See Rx Instructions .Route Qty: 1 0RF Rx Instructions: As directed omeprazole 20 mg capsule,delayed release(DR/EC) 20 mg PO DAILY Qty: 90 3RF valsartan 80 mg tablet 80 mg PO DAILY Qty: 30 2RF venlafaxine 150 mg capsule,extended release 24hr 150 mg PO DAILY Qty: 90 2RF (DME) FreeStyle Santi 3 Sensor Device See Rx Instructions .Route Qty: 3 0RF Rx Instructions: As directed amlodipine [Norvasc] 5 mg tablet 5 mg PO QAM Qty: 90 1RF bumetanide 1 mg tablet 1 mg PO BID Qty: 180 0RF potassium chloride [Klor-Con M20] 20 mEq tablet,ER particles/crystals 40 meq PO BID Qty: 120 3RF cyanocobalamin (vitamin B-12) 3,000 mcg capsule 3,000 mcg PO DAILY cholecalciferol (vitamin D3) 50 mcg (2,000 unit) capsule 50 mcg PO DAILY albuterol sulfate 90 mcg/actuation HFA aerosol inhaler 1 inh inhalation Q6H PRN (Reason: Shortness Of Breath Or Wheezing) labetalol 200 mg tablet 200 mg PO BID tramadol 50 mg tablet 50 mg PO BID PRN (Reason: Pain) Qty: 60 1RF aspirin [Juan José Low Dose Aspirin] 81 mg Tablet,Delayed Release (Dr/Ec) 81 mg PO DAILY ferrous sulfate 325 mg (65 mg iron) tablet 325 mg PO Q OTHER DAY Qty: 14 0RF atorvastatin 40 mg tablet 40 mg PO DAILY allopurinol 100 mg tablet 100 mg PO Q OTHER DAY insulin glargine U-300 conc [Toujeo Max U-300 SoloStar] 300 unit/mL (3 mL) insulin pen 28 unit subcut BID Referrals Referrals: Michelle Magana DO [Primary Care Provider] -
[2025-03-17 22:14] LABS: Anion Gap 5.0 (3-11); Blood Urea Nitrogen 52.0 mg/dl (6-23); Calcium 9.7 mg/dl (8.6-10.3); Carbon Dioxide 17.0 mmol/L (21-32); Chloride 113.0 mmol/L (98-107); Creatinine Clr Calc Pharmacy 9.4 ml/min; Glucose 191.0 mg/dl (70-99(Fasting)); Potassium 6.2 mmol/L (3.5-5.1); Sodium 135.0 mmol/L (136-145)
--- NOTE | 2025-03-17 22:42 | History & Physical Report ---
Date of Service March 17, 2025 Assessment & Plan (1) Acute hyperkalemia: (2) KALA (acute kidney injury): (3) Hypercalcemia: (4) Diabetes: (5) Hypertension: (6) Hyperlipemia: (7) Obstructive sleep apnea: (8) Gout: (9) Diarrhea: Plan 84yo female with history of CKD IV/V presenting with hyperkalemia, KALA on CKD #KALA on CKD with Acute Hyperkalemia - patient with CKD stage IV/V and solitary left kidney with declining creatinine - baseline appx 2.7-3.5 over the last two months. Also with proteinuria on Valsartan. She had an AV fistula placed in LUE on 11/21/2024 and is waiting for maturity. Follows with Nephrology. Creatinine elevated today at 4.57. Patient with HCO3=17, acute hyperkalemia with initial K of 7.3. Initially with some EKG changes, now seem to have resolved. Patient is urinating without difficulty. She reports taking KCl 40mEq BID for the last three weeks. Also is on Valsartan. Potassium has improved 7.5 --> 6.2 following one round of medical therapy. -Admit to PCU -Awaiting UA -Check CK -Maintain Perez catheter with strict monitoring of intake and output -BMP q 4 hours - next today at 01:30 -Lokelma 10mg po TID -NSS at 100mL/hr x 1L -Continue Bumex 1mg po BID #Hypercalcemia -Check Ionized calcium in AM #Gout -Continue Allopurinol 100mg po QOD #Hypertension -Continue Amlodipine 5mg po qAM -Continue Labetalol 200mg po BID -Hold Valsartan #Hyperlipidemia -Continue Atorvastatin #Diabetes -Lantus 12u BID -ISS #Depression/Anxiety -Continue Venlafaxine 150mg po daily #CARO -CPAP History of Present Illness Chief Complaint: hyperkalemia Primary Care Provider: Michelle Magana DO Bertha Linares is an 84yo female with history of CKD IV-V, solitary kidney (s/p right nephrectomy performed for RCC), DM, HTN, HLP presenting with hyperkalemia. Patient is not on HD. She does have a LUE AV fistula which was placed on 11/21/2024 and has been slow to mature - follows with Dr. Farooq/Vascular Surgery at [facility]. She follows with Nephrology last seen on 02/27/25. Patient reports watery diarrhea ongoing for the last three weeks. She has 3-4 episodes of watery stool daily - non-bloody/non-mucoid. She did have low potassium on lab work from 02/27/25 - K=2.8 at that time. She was started on potassium supplementation and has been taking 40mEq BID for the last 3 weeks. She was seen in clinic today and had some stool studies performed as well as a chemistry panel. She was contacted and told to come to the ER due to hyperkalemia - K of 6.9. Patient reports that she has been feeling extremely fatigued progressive over the last several weeks. She denies fever but has occasional chills. Has occasional SOB and chest pain as well as abdominal pain and nausea. No recent travel or sick contacts. On [place] water. No undercooked or questionable food intake. She was on antibiotics recently for sinusitis (Presume Doxycycline - prescribed in February). She reports NORMAL URINE OUTPUT with no dysuria, foam/bubbles or blood. In the ER she is afebrile, HD stable - sinus bradycardia which is typical for her per review of prior vital signs Initial EKG with some peaked T-waves present, improved on repeat ER Course: Calcium gluconate x 1 gm Albuterol 10mg neb Insulin 10u IV + Dextrose 50mL LoKelma 10gm NSS x 1L Sodium Bicarbonate gtt Repeat K 7.3 --> 6.2 Given additional Calcium gluconate x 1gm Insulin 10u IV + Dextrose 50mL Allergies Allergy/AdvReac Type Severity Reaction Status Date / Time NSAIDS (Non-Steroidal AdvReac Intermediate Cough Verified 03/17/25 21:03 Anti-Inflamma Home Medications Medication Instructions Recorded Confirmed Type cholecalciferol (vitamin D3) 50 50 mcg PO DAILY 11/15/20 03/17/25 History mcg (2,000 unit) capsule cyanocobalamin (vitamin B-12) 3,000 mcg PO DAILY 11/15/20 03/17/25 History 3,000 mcg capsule aspirin 81 mg tablet,delayed 81 mg PO DAILY 06/13/21 03/17/25 History release (Juan José Low Dose Aspirin) magnesium oxide 400 mg PO DAILY #30 tabs 09/03/23 03/17/25 Rx 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,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,cont #1 ea 10/21/24 02/27/25 Rx (FreeStyle Santi 3 [place]) omeprazole 20 mg capsule,delayed 20 mg PO DAILY #90 caps 11/08/24 03/17/25 Rx release valsartan 80 mg tablet 80 mg PO DAILY #30 tabs 11/10/24 03/17/25 Rx albuterol sulfate 90 mcg/actuation 1 inh inhalation Q6H PRN Shortness 12/09/24 03/17/25 History aerosol inhaler Of Breath Or Wheezing labetalol 200 mg tablet 200 mg PO BID 12/09/24 03/17/25 History tramadol 50 mg tablet 50 mg PO BID PRN Pain #60 tabs 12/09/24 03/17/25 Rx 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 sensor (FreeStyle #3 ea 01/16/25 02/27/25 Rx Santi 3 Sensor device) venlafaxine 150 mg 150 mg PO DAILY #90 caps 01/16/25 03/17/25 Rx capsule,extended release 24 hr ferrous sulfate 325 mg (65 mg 325 mg PO Q OTHER DAY #14 tabs 01/19/25 03/17/25 Rx iron) tablet allopurinol 100 mg tablet 100 mg PO Q OTHER DAY 01/24/25 03/17/25 History atorvastatin 40 mg tablet 40 mg PO DAILY 01/24/25 03/17/25 History insulin glargine U-300 conc 300 28 unit subcut BID 01/24/25 03/17/25 History unit/mL (3 mL) subcutaneous pen (Toujeo Max U-300 SoloStar) amlodipine 5 mg tablet (Norvasc) 5 mg PO QAM #90 tabs 02/16/25 03/17/25 Rx bumetanide 1 mg tablet 1 mg PO BID #180 tabs 02/20/25 03/17/25 Rx potassium chloride 20 mEq 40 meq (2 x 20 mEq) PO BID #120 02/28/25 03/17/25 Rx tablet,extended tabs release(part/cryst) (Shandra Quinteros) Past Med/Surg History Problem List KALA (acute kidney injury) (Acute) Acute hyperkalemia (Acute) Anemia, chronic disease Ascending aorta dilatation Aortic valve insufficiency (HFpEF) heart failure with preserved ejection fraction Tortuous aorta Hypercalcemia Proteinuria Thyroid nodule Secondary hyperparathyroidism of renal origin Vitamin D deficiency Mild cognitive impairment Urinary incontinence Obstructive sleep apnea on CPAP Peripheral vascular disease Iron deficiency anemia Diabetes mellitus with polyneuropathy Restless leg syndrome Osteoarthritis Hypertension Hyperlipemia Fatty liver Diabetes Depression Acid reflux History of renal cell cancer Diabetes mellitus with chronic kidney disease Degenerative cervical disc Chronic kidney disease, stage IV (severe) (Acute) History of right nephrectomy (09/30/10) Gout Medical History Congestive heart failure Hypertensive urgency Acute exacerbation of CHF (congestive heart failure) Hypertensive urgency Thyroiditis Thyromegaly Asthmatic bronchitis Acute hypoxemic respiratory failure Acute respiratory failure with hypoxia Dysphagia Fistula November 2024 left arm- placed by [facility] Surgical History S/P left cataract extraction (02/02/25) S/P thyroid biopsy (11/2024) H/O tubal ligation 1976 Family History Brother AA (alcohol abuse) Diabetes Hypertension Mother Diabetes Hypertension Stroke Dementia Father Heart disease Hypertension Kidney disease Myocardial infarction Sister Alzheimer disease Son Diabetes Sister Hypertension Stroke Sister Dementia Denies family history of Ovarian cancer Prostate cancer Breast cancer Colorectal cancer Social History Smoking Status: Never smoker Second Hand Exposure: No; Do You Dip or Chew Tobacco: No; Hx Alcohol Use: No Hx Substance Use: No Preferred Language: Pakistani Communication Ability: Effective Visual Impairment: Partially Limited Hearing Ability: Hard of Hearing 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 Beliefs That Will Affect Care: None marital status: / Current Living Situation: Family Current Living Situation Comment: Lives with son current occupational status: retired current occupation: RETIRED How many Children do You have: 3 How many Children do You have Comment: 3 sons; 1 lives [place], 1 lives [place], 1 [facility] Feels Safe at Home: Yes Childhood Exposure to Second-Hand Smoke: No Diet: regular caffeine: Yes during the past year weight has: remained stable Dental Care, Regularly: Yes Physical Activity Frequency: Does not Exercise Seatbelt Use: always Sunscreen Use: No (does not really go in sun) Assistive Devices: Cane, CPAP and Walker Review of Systems Review of Systems: All systems reviewed & are unremarkable except as noted in HPI & below Physical Exam Physical Exam: General: patient resting comfortably, NAD, non-toxic in appearance, AA&O x 4 Skin: warm, dry, intact, no rashes or lesions HEENT: NC/AT, PERRL, EOMI, anicteric sclera, conjunctiva without injection, external ear normal to inspection and nontender, nares patent, moist mucus membranes, dentition intact, no oropharyngeal lesions, neck supple, trachea mid line, no LAD, no thyromegaly, no JVD Heart: +S1/S2, regular, no m/r/g Lungs: equal air entry bilaterally, no rales/rhonchi/wheezes Abd: +BS, soft, NT/ND, no masses/organomegaly/ascites Ext: warm, 2+ pulses in UE/LE bilaterally, no clubbing/cyanosis or edema, LUE AV fistula, no appreciable thrill or pulsations Neuro: nonfocal, patient AA&O x 4, speech intact, no facial droop, moving all extremities on command with equal strength 5/5 Results & Data Results & Data Vital Signs (Past 12 Hours) Vital Signs Temp Pulse Resp BP Pulse Ox O2 Del Method 03/17/25 20:58 18 Room Air 03/17/25 20:33 50 L 20 100 Room Air 03/17/25 20:31 150/73 H 03/17/25 19:40 36.7 C 52 L 20 145/65 H 98 Room Air 03/17/25 19:21 53 L Laboratory Results Laboratory Results WBC 11.53 K/ul (4.8-10.8) H 03/17/25 19:47 RBC 4.11 M/uL (4.20-5.40) L 03/17/25 19:47 Hgb 11.7 g/dl (12.0-16.0) L 03/17/25 19:47 POC Hgb 12.9 g/dl (12.0-16.0) 03/17/25 19:53 Hct 37.5 % (37.0-47.0) 03/17/25 19:47 POC Hct 38 % (37-47) 03/17/25 19:53 MCV 91.2 fL (80.0-100.0) 03/17/25 19:47 MCH 28.5 pg (25.0-34.0) 03/17/25 19:47 MCHC 31.2 g/dL (32.0-36.0) L 03/17/25 19:47 RDW Std Deviation 47.5 fL (36.4-46.3) H 03/17/25 19:47 RDW Coeff of Chyna 14.3 % (11.5-14.5) 03/17/25 19:47 Plt Count 278 K/uL (130-400) 03/17/25 19:47 MPV 10.0 fL (9.4-12.4) 03/17/25 19:47 Immature Gran % (Auto) 0.3 % 03/17/25 19:47 Neut % (Auto) 78.5 % 03/17/25 19:47 Lymph % (Auto) 10.5 % 03/17/25 19:47 [place] % (Auto) 7.3 % 03/17/25 19:47 Eos % (Auto) 2.6 % 03/17/25 19:47 Baso % (Auto) 0.8 % 03/17/25 19:47 Neut # (Auto) 9.05 K/uL (1.40-6.50) H 03/17/25 19:47 Lymph # (Auto) 1.21 K/uL (1.20-3.40) 03/17/25 19:47 [place] # (Auto) 0.84 K/uL (0.11-0.59) H 03/17/25 19:47 Eos # (Auto) 0.30 K/uL (0.00-0.50) 03/17/25 19:47 Baso # (Auto) 0.09 K/uL (0.00-0.20) 03/17/25 19:47 Immature Gran # (Auto) 0.04 K/uL (0.01-0.20) 03/17/25 19:47 POC Sodium 134 mmol/L (135-144) L 03/17/25 19:53 Sodium 135 mmol/L (136-145) L 03/17/25 21:35 POC Potassium 7.5 mmol/L (3.3-5.0) H* 03/17/25 19:53 Potassium 6.2 mmol/L (3.5-5.1) H* 03/17/25 21:35 POC Chloride 113 mmol/L (101-112) H 03/17/25 19:53 Chloride 113 mmol/L (98-107) H 03/17/25 21:35 Carbon Dioxide 17 mmol/L (21-32) L 03/17/25 21:35 POC Total CO2 16 mmol/L (24-31) L 03/17/25 19:53 Anion Gap 5 (3-11) 03/17/25 21:35 POC Anion Gap 13.0 mmol/L (16-25) L 03/17/25 19:53 POC BUN 52 mg/dl (7-18) H 03/17/25 19:53 BUN 52 mg/dl (6-23) H 03/17/25 21:35 Creatinine 4.25 mg/dl (0.6-1.2) H 03/17/25 21:35 POC Creatinine 4.6 mg/dl (0.6-1.3) H* 03/17/25 19:53 Est Cr Clr Drug Dosing 9.4 ml/min 03/17/25 21:35 eGFR 9.91 03/17/25 21:35 BUN/Creatinine Ratio 12.2 (10-20) 03/17/25 21:35 Glucose 191 mg/dl (70-99(Fasting)) H 03/17/25 21:35 POC Glucose 251 mg/dl (70-99) H 03/18/25 00:01 POC Glucose (other) 181 mg/dl (70-99) H 03/17/25 19:53 Calcium 9.7 mg/dl (8.6-10.3) 03/17/25 21:35 POC Ioniz Calcium Antione 1.44 mmol/l (1.12-1.32) H 03/17/25 19:53 Total Bilirubin 0.4 mg/dl (0.2-1.0) 03/17/25 19:47 Direct Bilirubin 0.1 mg/dl (0-0.2) 03/17/25 19:47 AST 12 U/L (13-39) L 03/17/25 19:47 ALT 9 U/L (7-52) 03/17/25 19:47 Alkaline Phosphatase 119 U/L (34-104) H 03/17/25 19:47 Total Protein 7.3 gm/dl (6.0-8.3) 03/17/25 19:47 Albumin 3.7 gm/dl (3.4-5.0) 03/17/25 19:47 Lipase 12 U/L (11-82) 03/17/25 19:47 Urine Comment 03/17/25 23:45 Code Status & VTE Plan VTE Prophylaxis Plan VTE Prophylaxis will be ordered: Yes PG Care Time/CCT Total # of Minutes Spent Total Time Spent with Patient: Total time spent is greater than 50% in coordination of care (as documented) at patient's floor/unit and/or counseling patient: Coding Level of Care Code 48420 INT INP/OBS CARE 3/75MIN Diagnoses Acute hyperkalemia E87.5 KALA (acute kidney injury) N17.9 Hypercalcemia E83.52 Diabetes E11.9 Hypertension I10 Hyperlipemia E78.5 Obstructive sleep apnea G47.33 Gout M10.9 Diarrhea R19.7
[2025-03-17] MEDS: INSULIN HUMAN REGULAR PER UNIT 10 UNITS in SYRINGE 9.9 ML IV ONE (23:32)
[2025-03-18] MEDS ORDERED: ACETAMINOPHEN 325 MG TAB PO PRN (00:35)
[2025-03-18] MEDS ORDERED: ONDANSETRON INJ 2 MG/ML 2 ML VIAL IV PRN (00:35)
[2025-03-18] MEDS ORDERED: ALBUTEROL HFA 8 GM INHALER INH PRN (00:35)
[2025-03-18] MEDS ORDERED: CARBOHYDRATES FOR HYPOGLYCEMIA PO PRN (00:35)
[2025-03-18] MEDS ORDERED: GLUCOSE 40% GEL 15 GM TUBE PO PRN (00:35)
[2025-03-18] MEDS ORDERED: DEXTROSE 50% 50 ML SYRINGE IV PRN (00:35)
[2025-03-18] MEDS ORDERED: GLUCAGON FOR INJ 1 MG VIAL SQ PRN (00:35)
[2025-03-18] MEDS ORDERED: GLUCOSE 10 TAB/TUBE PO PRN (00:35)
[2025-03-18 00:47] LABS: Appearance Urine Clear (Clear); Bacteria Urine Automated None Seen (None Seen); Cast Urine Automated >20 /lpf (0-2); Epithelial Cell Urine Auto 0-2 /hpf (0-2); Glucose Urine UA Trace (Negative); RBC Urine Automated 0-2 /hpf (0-2); WBC Urine Automated 0-5 /hpf (0-5)
[2025-03-18] MEDS: INSULIN ASPART PER UNIT CHARGE SC SCH (01:01)
[2025-03-18] MEDS: SODIUM CHLORIDE 0.9% 1,000 ML IV SCH (01:02)
[2025-03-18 01:27] LABS: Anion Gap 8.0 (3-11); Blood Urea Nitrogen 53.0 mg/dl (6-23); Calcium 9.8 mg/dl (8.6-10.3); Carbon Dioxide 16.0 mmol/L (21-32); Chloride 112.0 mmol/L (98-107); Creatinine Clr Calc Pharmacy 9.9 ml/min; Glucose 199.0 mg/dl (70-99(Fasting)); Potassium 5.6 mmol/L (3.5-5.1); Sodium 136.0 mmol/L (136-145)
[2025-03-18 06:11] LABS: Hematocrit (blood only) 30.4 % (37.0-47.0); Hemoglobin 9.5 g/dl (12.0-16.0); Mean Corpuscular Hemoglobin 28.4 pg (25.0-34.0); Mean Corpuscular Volume 90.7 fL (80.0-100.0); Platelet Count 215 K/uL (130-400); RDW Standard Deviation 46.3 fL (36.4-46.3); Red Blood Count 3.35 M/uL (4.20-5.40); White Blood Count 8.85 K/ul (4.8-10.8)
[2025-03-18 06:30] LABS: Anion Gap 7.0 (3-11); Blood Urea Nitrogen 48.0 mg/dl (6-23); Calcium 9.6 mg/dl (8.6-10.3); Carbon Dioxide 17.0 mmol/L (21-32); Chloride 113.0 mmol/L (98-107); Creatine Kinase 29.0 U/L (26-192); Creatinine Clr Calc Pharmacy 10.3 ml/min; Glucose 120.0 mg/dl (70-99(Fasting)); Potassium 5.1 mmol/L (3.5-5.1); Sodium 137.0 mmol/L (136-145)
[2025-03-18] MEDS: LANTUS PER UNIT CHARGE SQ SCH (08:56)
[2025-03-18] MEDS: VENLAFAXINE HCL XR 150 MG CAPXR PO SCH (08:56)
[2025-03-18] MEDS: ASPIRIN 81 MG ECTAB PO SCH (08:56)
[2025-03-18] MEDS: BUMETANIDE 1 MG TAB PO SCH (08:56)
[2025-03-18] MEDS: ATORVASTATIN 40 MG TAB PO SCH (08:56)
[2025-03-18] MEDS: SODIUM ZIRCONIUM CYCLOSILICATE 10 GM PACKET PO SCH (08:56)
[2025-03-18] MEDS: LABETALOL HCL 200 MG TAB PO SCH (08:56)
[2025-03-18] MEDS: HEPARIN SOD 5,000 UNIT/0.5 ML VIAL SQ SCH (08:59)
--- NOTE | 2025-03-18 09:50 | Nephrology Consultation ---
Date of Consultation March 18, 2025 Assessment & Plan (1) KALA (acute kidney injury): Non-oliguric. Perez draining clear yellow urine. Urine microscopy acellular - Hyaline casts appreciated. Clinical presentation consistent with hemodynamic/pre-renal physiology associated with intravascular volume depletion, RAASi, and diuretics. Creatinine is downtrending. There is no emergent indication for dialysis. Electrolytes acceptable. BP and volume status are acceptable. Medications are appropriately dosed for kidney function. Continue to hold valsartan. Document strict I/O's. Repeat serum metabolic profile tomorrow AM. Perez may be removed. (2) Acute hyperkalemia: Improving with medical therapy. Adequate urine output. Hold Bumex. IV saline can be held once current bag is complete. Hold valsartan and oral KCl. Low potassium diet. Recheck ordered for this afternoon. Lokelma x 3 doses ordered (1/3 given). Oral NaHCO3 replacement added today (1300 mgBID). (3) Chronic kidney disease, stage IV (severe): Baseline creatinine ~3.0-3.5 mg/dL (CKD IV-V A3). CKD attributed to solitary kidney, DKD, and arterionephrosclerosis. Follows with Dr. Freed as outpatient. LUE AVF placed by Dr. Farooq. L BC AVF placed in December failed to mature and was ligated. A brachiobasilic AVF was placed on January 16 but with weak thrill and bruit. this has been slow to mature with small vessel size and poor flow. Exam today is concerning findings of thrombosis. An update US has been requested to evaluate. The vessel is certainly not ready for use. (4) History of right nephrectomy: h/o R nephrectomy in 2010 for RCC. (5) Anemia, chronic disease: Chronic, stable. TYRESE therapy has not been required. Iron profile and repeat H/H tomorrow with AM labs. (6) Hypertension: BP acceptable. Hold valsartan. Continue amlodipine and labetalol per home Rx. (7) Hypercalcemia: Mild on admission attributed to intravascular volume depletion/dehydration. Hold vitamin D supplement. Improved. History of Present Illness Reason for Consultation: Hyperkalemia, CKD-IV/V Requesting Physician: Briseyda Soler MD Attending Physician: Briseyda Soler MD History of Present Illness Bertha Linares is an 84 year-old female with CKD IV-V, solitary kidney (s/p right nephrectomy performed for RCC 2010), DM, HTN, hyperlipidemia who presented to [facility] ER yesterday evening for evaluation of hyperkalemia. She was referred to the hospital for evaluation of abnormal blood work. Bertha reports some recent watery diarrhea and fatigue. She states that her weakness has improved with treatment overnight. She feels well today. Diarrhea has been somewhat chronic. She describes 3-4 watery bowel movements daily. These typically occur after meals and the symptoms have been worse recently. She denies melena or hematochezia. She denies abdominal pain. Bertha had been recently started on KCl supplements a few weeks ago for hypokalemia. She follows in [place] [facility] [place] with Dr. Freed. A LUE AV fistula was placed by Dr. Farooq at [facility] BC AVF placed in December failed to mature and was ligated. A brachiobasilic fistula was placed on January 16. In February, she completed a course of antibiotics for sinusitis. Bertha denies fluid retention or edema. She has good urine output. Perez is in place. Allergies Allergy/AdvReac Type Severity Reaction Status Date / Time NSAIDS (Non-Steroidal AdvReac Intermediate Cough Verified 03/17/25 21:03 Anti-Inflamma Home Medications Medication Instructions Recorded Confirmed Type cholecalciferol (vitamin D3) 50 50 mcg PO DAILY 11/15/20 03/17/25 History mcg (2,000 unit) capsule cyanocobalamin (vitamin B-12) 3,000 mcg PO DAILY 11/15/20 03/17/25 History 3,000 mcg capsule aspirin 81 mg tablet,delayed 81 mg PO DAILY 06/13/21 03/17/25 History release (Juan José Low Dose Aspirin) magnesium oxide 400 mg PO DAILY #30 tabs 09/03/23 03/17/25 Rx 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,supervisor shipping,cont #1 ea 10/21/24 02/27/25 Rx (FreeStyle Santi 3 [place]) omeprazole 20 mg capsule,delayed 20 mg PO DAILY #90 caps 11/08/24 03/17/25 Rx release valsartan 80 mg tablet 80 mg PO DAILY #30 tabs 11/10/24 03/17/25 Rx albuterol sulfate 90 mcg/actuation 1 inh inhalation Q6H PRN Shortness 12/09/24 03/17/25 History aerosol inhaler Of Breath Or Wheezing labetalol 200 mg tablet 200 mg PO BID 12/09/24 03/17/25 History tramadol 50 mg tablet 50 mg PO BID PRN Pain #60 tabs 12/09/24 03/17/25 Rx 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 sensor (FreeStyle #3 ea 01/16/25 02/27/25 Rx Santi 3 Sensor device) venlafaxine 150 mg 150 mg PO DAILY #90 caps 01/16/25 03/17/25 Rx capsule,extended release 24 hr ferrous sulfate 325 mg (65 mg 325 mg PO Q OTHER DAY #14 tabs 01/19/25 03/17/25 Rx iron) tablet allopurinol 100 mg tablet 100 mg PO Q OTHER DAY 01/24/25 03/17/25 History atorvastatin 40 mg tablet 40 mg PO DAILY 01/24/25 03/17/25 History insulin glargine U-300 conc 300 28 unit subcut BID 01/24/25 03/17/25 History unit/mL (3 mL) subcutaneous pen (Toujeo Max U-300 SoloStar) amlodipine 5 mg tablet (Norvasc) 5 mg PO QAM #90 tabs 02/16/25 03/17/25 Rx bumetanide 1 mg tablet 1 mg PO BID #180 tabs 02/20/25 03/17/25 Rx potassium chloride 20 mEq 40 meq (2 x 20 mEq) PO BID #120 02/28/25 03/17/25 Rx tablet,extended tabs release(part/cryst) (Shandra Quinteros) Patient History Medical History Congestive heart failure Hypertensive urgency Acute exacerbation of CHF (congestive heart failure) Hypertensive urgency Thyroiditis Thyromegaly Asthmatic bronchitis Acute hypoxemic respiratory failure Acute respiratory failure with hypoxia Dysphagia Fistula November 2024 left arm- placed by [facility] Surgical History S/P left cataract extraction (02/02/25) S/P thyroid biopsy (11/2024) H/O tubal ligation 1976 Family History Brother AA (alcohol abuse) Diabetes Hypertension Mother Diabetes Hypertension Stroke Dementia Father Heart disease Hypertension Kidney disease Myocardial infarction Sister Alzheimer disease Son Diabetes Sister Hypertension Stroke Sister Dementia Denies family history of Ovarian cancer Prostate cancer Breast cancer Colorectal cancer Social History Smoking Status: Never smoker Second Hand Exposure: No; Do You Dip or Chew Tobacco: No; Hx Alcohol Use: No Hx Substance Use: No Preferred Language: Croatian Communication Ability: Effective Visual Impairment: Partially Limited Hearing Ability: Hard of Hearing Track Inspector Required: No Beliefs That Will Affect Care: None marital status: / Current Living Situation: Family Current Living Situation Comment: Lives with son current occupational status: retired current occupation: RETIRED How many Children do You have: 3 How many Children do You have Comment: 3 sons; 1 lives [place], 1 lives [place], 1 [facility] Feels Safe at Home: Yes Childhood Exposure to Second-Hand Smoke: No Diet: regular caffeine: Yes during the past year weight has: remained stable Dental Care, Regularly: Yes Physical Activity Frequency: Does not Exercise Seatbelt Use: always Sunscreen Use: No (does not really go in sun) Assistive Devices: Cane, Denture - Upper, Denture - Lower, Glasses, Hearing Aid - Bilateral and Walker Review of Systems Review of Systems: All systems reviewed & are unremarkable except as noted in HPI & below Physical Exam Constitutional: well developed; no acute distress Eyes: + anicteric sclerae ENMT: Mouth: no oral mucosal abnormality and oral mucous membranes not dry Neck: normal visual inspection and trachea midline Respiratory: normal respiratory effort Auscultation: lungs clear to auscultation bilaterally Cardiovascular: Rate/Rhythm: regular rate Heart Sounds: normal S1 and normal S2 Vessels: no JVD Extremities: + AV fistula (thrill and bruit barely perceptible); no edema Musculoskeletal: Extremities: no cyanosis and no clubbing Skin: normal turgor; no lesions Neurologic: Motor/Sensory: no tremor and no asterixis Psychiatric: Orientation: alert and oriented x 3 Results & Data Vital Signs (Past 12 Hours) Vital Signs Temp Pulse Pulse Resp BP BP Pulse Ox 03/18/25 08:04 36.5 C 59 L 18 145/69 H 95 03/18/25 07:48 03/18/25 03:39 36.5 C 73 2 L 148/59 H 03/18/25 02:15 60 20 96 03/18/25 00:42 62 03/18/25 00:35 36.5 C 58 L 19 145/66 H 98 03/18/25 00:02 62 22 130/63 98 03/17/25 23:51 03/17/25 23:00 138/54 L 03/17/25 22:57 56 L 21 97 03/17/25 22:00 132/70 03/17/25 22:00 60 20 98 O2 Del Method FiO2 03/18/25 08:04 CPAP 03/18/25 07:48 Room Air 03/18/25 03:39 03/18/25 02:15 21 03/18/25 00:42 03/18/25 00:35 Room Air 03/18/25 00:02 Room Air 03/17/25 23:51 Room Air 03/17/25 23:00 03/17/25 22:57 Room Air 03/17/25 22:00 03/17/25 22:00 Room Air Laboratory Results Laboratory Results - last 24 hr 03/17/25 03/17/25 03/17/25 19:47 19:53 20:52 WBC 11.53 H RBC 4.11 L Hgb 11.7 L POC Hgb 12.9 Hct 37.5 POC Hct 38 MCV 91.2 MCH 28.5 MCHC 31.2 L RDW Std Deviation 47.5 H RDW Coeff of Chyna 14.3 Plt Count 278 MPV 10.0 Immature Gran % (Auto) 0.3 Neut % (Auto) 78.5 Lymph % (Auto) 10.5 [place] % (Auto) 7.3 Eos % (Auto) 2.6 Baso % (Auto) 0.8 Neut # (Auto) 9.05 H Lymph # (Auto) 1.21 [place] # (Auto) 0.84 H Eos # (Auto) 0.30 Baso # (Auto) 0.09 Immature Gran # (Auto) 0.04 POC Sodium 134 L Sodium 133 L POC Potassium 7.5 H* Potassium 7.3 H* POC Chloride 113 H Chloride 109 H Carbon Dioxide 17 L POC Total CO2 16 L Anion Gap 7 POC Anion Gap 13.0 L POC BUN 52 H BUN 54 H Creatinine 4.49 H POC Creatinine 4.6 H* Est Cr Clr Drug Dosing 8.9 eGFR 9.28 BUN/Creatinine Ratio 12.0 Glucose 190 H POC Glucose 245 H POC Glucose (other) 181 H Calcium 10.5 H POC Ioniz Calcium Antione 1.44 H Ionized Calcium Total Bilirubin 0.4 Direct Bilirubin 0.1 AST 12 L ALT 9 Alkaline Phosphatase 119 H Total Creatine Kinase Total Protein 7.3 Albumin 3.7 Lipase 12 Urine Color Urine Appearance Urine pH Ur Specific [place] Urine Protein Urine Glucose (UA) Urine Ketones Urine Blood Urine Nitrite Urine Bilirubin Urine Urobilinogen Ur Leukocyte Esterase Urine WBC (Auto) Urine RBC (Auto) U Hyaline Cast (Auto) U Epithel Cells (Auto) Urine Bacteria (Auto) Urine Comment 03/17/25 03/17/25 03/17/25 21:35 23:31 23:45 WBC RBC Hgb POC Hgb Hct POC Hct MCV MCH MCHC RDW Std Deviation RDW Coeff of Chyna Plt Count MPV Immature Gran % (Auto) Neut % (Auto) Lymph % (Auto) [place] % (Auto) Eos % (Auto) Baso % (Auto) Neut # (Auto) Lymph # (Auto) [place] # (Auto) Eos # (Auto) Baso # (Auto) Immature Gran # (Auto) POC Sodium Sodium 135 L POC Potassium Potassium 6.2 H* POC Chloride Chloride 113 H Carbon Dioxide 17 L POC Total CO2 Anion Gap 5 POC Anion Gap POC BUN BUN 52 H Creatinine 4.25 H POC Creatinine Est Cr Clr Drug Dosing 9.4 eGFR 9.91 BUN/Creatinine Ratio 12.2 Glucose 191 H POC Glucose 193 H POC Glucose (other) Calcium 9.7 POC Ioniz Calcium Antione Ionized Calcium Total Bilirubin Direct Bilirubin AST ALT Alkaline Phosphatase Total Creatine Kinase Total Protein Albumin Lipase Urine Color Yellow Urine Appearance Clear Urine pH 5.0 Ur Specific [place] 1.017 Urine Protein 3+ H Urine Glucose (UA) Trace H Urine Ketones Negative Urine Blood Negative Urine Nitrite Negative Urine Bilirubin Negative Urine Urobilinogen Negative Ur Leukocyte Esterase Negative Urine WBC (Auto) 0-5 Urine RBC (Auto) 0-2 U Hyaline Cast (Auto) >20 H U Epithel Cells (Auto) 0-2 Urine Bacteria (Auto) None Seen Urine Comment 03/18/25 03/18/25 03/18/25 00:01 00:40 00:48 WBC RBC Hgb POC Hgb Hct POC Hct MCV MCH MCHC RDW Std Deviation RDW Coeff of Chyna Plt Count MPV Immature Gran % (Auto) Neut % (Auto) Lymph % (Auto) [place] % (Auto) Eos % (Auto) Baso % (Auto) Neut # (Auto) Lymph # (Auto) [place] # (Auto) Eos # (Auto) Baso # (Auto) Immature Gran # (Auto) POC Sodium Sodium 136 POC Potassium Potassium 5.6 H POC Chloride Chloride 112 H Carbon Dioxide 16 L POC Total CO2 Anion Gap 8 POC Anion Gap POC BUN BUN 53 H Creatinine 4.03 H POC Creatinine Est Cr Clr Drug Dosing 9.9 eGFR 10.56 BUN/Creatinine Ratio 13.2 Glucose 199 H POC Glucose 251 H 192 H POC Glucose (other) Calcium 9.8 POC Ioniz Calcium Antione Ionized Calcium Total Bilirubin Direct Bilirubin AST ALT Alkaline Phosphatase Total Creatine Kinase Total Protein Albumin Lipase Urine Color Urine Appearance Urine pH Ur Specific [place] Urine Protein Urine Glucose (UA) Urine Ketones Urine Blood Urine Nitrite Urine Bilirubin Urine Urobilinogen Ur Leukocyte Esterase Urine WBC (Auto) Urine RBC (Auto) U Hyaline Cast (Auto) U Epithel Cells (Auto) Urine Bacteria (Auto) Urine Comment 03/18/25 03/18/25 05:32 08:03 WBC 8.85 RBC 3.35 L Hgb 9.5 L POC Hgb Hct 30.4 L POC Hct MCV 90.7 MCH 28.4 MCHC 31.3 L RDW Std Deviation 46.3 RDW Coeff of Chyna 14.0 Plt Count 215 MPV 10.0 Immature Gran % (Auto) Neut % (Auto) Lymph % (Auto) [place] % (Auto) Eos % (Auto) Baso % (Auto) Neut # (Auto) Lymph # (Auto) [place] # (Auto) Eos # (Auto) Baso # (Auto) Immature Gran # (Auto) POC Sodium Sodium 137 POC Potassium Potassium 5.1 POC Chloride Chloride 113 H Carbon Dioxide 17 L POC Total CO2 Anion Gap 7 POC Anion Gap POC BUN BUN 48 H Creatinine 3.92 H POC Creatinine Est Cr Clr Drug Dosing 10.3 eGFR 10.92 BUN/Creatinine Ratio 12.2 Glucose 120 H POC Glucose 107 H POC Glucose (other) Calcium 9.6 POC Ioniz Calcium Antione Ionized Calcium 1.43 H Total Bilirubin Direct Bilirubin AST ALT Alkaline Phosphatase Total Creatine Kinase 29 Total Protein Albumin Lipase Urine Color Urine Appearance Urine pH Ur Specific [place] Urine Protein Urine Glucose (UA) Urine Ketones Urine Blood Urine Nitrite Urine Bilirubin Urine Urobilinogen Ur Leukocyte Esterase Urine WBC (Auto) Urine RBC (Auto) U Hyaline Cast (Auto) U Epithel Cells (Auto) Urine Bacteria (Auto) Urine Comment PG Care Time/CCT Total # of Minutes Spent Total Time Spent with Patient: Total time spent is greater than 50% in coordination of care (as documented) at patient's floor/unit and/or counseling patient: Coding Level of Care Code 65581 IN/OBS CONSULT LVL 5,80M Diagnoses KALA (acute kidney injury) N17.9 Acute hyperkalemia E87.5 Chronic kidney disease, stage IV (severe) N18.4 History of right nephrectomy Z90.5 Anemia, chronic disease D63.8 Hypertension I10 Hypercalcemia E83.52
[2025-03-18] MEDS: SODIUM BICARBONATE 650 MG TAB PO SCH (10:28)
--- NOTE | 2025-03-18 12:39 | Ultrasound Report ---
US hemodialysis fistula HISTORY: 84 years-old Female failure of AVF COMPARISON: 01/25/2025 TECHNIQUE: Multiple real-time sonographic images of the left upper extremity AV fistula. FINDINGS: AV fistula of the left upper extremity and again demonstrates lower than expected velocities. Peak sy stolic velocities range from 21 cm/s to approximately 35 cm/s with blunted waveforms (previously 42-1 33 cm/s). No thrombus within the AV fistula identified. Visualized cephalic vein appears patent. Prev iously noted complex antecubital fluid collection is not seen. IMPRESSION: 1. No thrombus or fluid collection. 2. Diminished velocities within the AV fistula redemonstrated which have progressively worsened rafaela red to the 01/25/2025 study. ACT 112: Negative or not required by law. The above report was generated using voice recognition software. It may contain grammatical, syntax o r spelling errors. Electronically signed by: Weston Chowdary M.D. 03/18/2025 12:37 PM
--- NOTE | 2025-03-18 15:16 | Hospitalist Progress Note ---
Date of Service March 18, 2025 Assessment & Plan (1) Acute hyperkalemia: (2) KALA (acute kidney injury): (3) Abdominal pain: (4) Diarrhea: (5) Diabetes: Plan 84yo female with history of CKD IV/V presenting with hyperkalemia, KALA on CKD #KALA on CKD-4/5 with Acute Hyperkalemia - patient with CKD stage IV/V and solitary left kidney with declining creatinine - baseline appx 2.7-3.5 over the last two months. Also with proteinuria on Valsartan. She [place] [facility] [place] and is waiting for maturity. Follows with Nephrology Dr. Freed. Reviewed her last clinic note and bumex dose, potassium dose increased 02/27, also has been having diarrhea for a month. Reviewed recs in Dr. Byrd's note Prerenal KALA with hyperkalemia - potassium improved to 5.1 after IVF, lokelma. 3pm repeat check Cr and UOP improved overnight CK was normal, continue holding losartan, stop NS, hold bumex, Na bicarb added for metabolic acidosis, DC mendez AV fistula ultrasound with no clot, poor velocities which are worsening #Subacute diarrhea and lower abdominal pain and tenderness -reviewed home medlist - mag ox held and query when she started it -check stool biofire and C. diff -noncontrast CT abdomen/pelvis #Hypercalcemia -has secondary hyperparathyroidism, vitamin D stopped, dehydration contributed -iCa remains elevated #Gout -Continue Allopurinol 100mg po QOD #Hypertension -Continue Amlodipine 5mg po qAM -Continue Labetalol 200mg po BID -Hold Valsartan #Hyperlipidemia -Continue Atorvastatin #Diabetes -Lantus 12u BID -ISS #Depression/Anxiety -Continue Venlafaxine 150mg po daily #CARO -CPAP DVT ppx - sq heparin bid Admission and Anticipated Discharge Date Admission Date: March 17, 2025 Subjective feels better, no longer weak. has had diarrrhea for a month with at least 3-4 BM per day. Prior to that her tendency was to be a little loose but not diarrhea Has mid lower and LLQ abdominal pain also for weeks at least, comes and goes, relieved a little after BMs. No fevers. Recently had po ABX for respiratory infection by diarrhea preceded this. Doesn't think she had other ABX for past 6 months Physical Exam 2 Physical Exam: Last 24h vitals reviewed GEN: no acute distress, sitting in bed HEENT: pupils equal, sclerae anicteric, moist MM RESP: normal WOB, CTAB CV: reg no mrg ABD: soft, TTP LLQ and jumped when I pressed on specific area, some involuntary guarding, no rebound or rigidity. I can't palpate a hernia. Skin overlying is normal no old scars or rash. NABS : no mendez SKIN: warm and dry, no generalized rashes NEURO: AOx person, place, and situation. Face symmetric, speech normal, moves 4 ext spontaneously and equally Results & Data Results & Data Vital Signs (Past 12 Hours) Vital Signs Temp Pulse Resp BP Pulse Ox O2 Del Method 03/18/25 12:15 36.5 C 56 L 18 133/69 95 Room Air 03/18/25 08:04 36.5 C 59 L 18 145/69 H 95 CPAP 03/18/25 07:48 Room Air 03/18/25 03:39 36.5 C 73 2 L 148/59 H Laboratory Results 03/18/25 05:32 03/18/25 14:20 Cr 4.6 --> 3.9 K 7.5 -->5.1 PTH 215 iCa persists elevated 1.44 PG Care Time/CCT Total # of Minutes Spent Total Time Spent with Patient: Total time spent is greater than 50% in coordination of care (as documented) at patient's floor/unit and/or counseling patient: Coding Level of Care Code 88571 SUB INP/OBS CARE 3/50MIN Diagnoses Acute hyperkalemia E87.5 KALA (acute kidney injury) N17.9 Abdominal pain R10.9 Diarrhea R19.7 Diabetes E11.9
--- NOTE | 2025-03-18 16:14 | CT Scan Report ---
CT ABDOMEN and PELVIS without INTRAVENOUS CONTRAST HISTORY: Abdominal pain TECHNIQUE: CT abdomen and pelvis without contrast. IV CONTRAST: None ENTERIC CONTRAST: None. COMPARISON: FINDINGS: LOWER CHEST: Cardiomegaly. Coronary and valvular calcifications of the heart. Trace pleural fluids. LIVER: No focal lesion identified in this noncontrast study. Right hepatic lobe hypodensity measuring 1.4 cm is probably a cyst or hemangioma GALLBLADDER/BILIARY: Unremarkable gallbladder. No abnormal biliary dilatation. SPLEEN: Unremarkable. PANCREAS: Unremarkable. ADRENALS: Unremarkable. KIDNEYS: Right nephrectomy. No stones or hydronephrosis identified in the left kidney. PERITONEUM/RETROPERITONEUM. No lymphadenopathy by size criteria. No aortic aneurysm. GASTROINTESTINAL: No obstruction. There is a focal pericolonic inflammation abutting the sigmoid colon. Centrally within this area of inflammation is a small air-containing structure measuring 1.0 cm (series 2, image 68) that is not clearly contiguous with the sigmoid colon. There is a moderate concentration of colonic diverticula in this area. Small hiatal hernia. REPRODUCTIVE: No suspicious pelvic mass identified. URINARY BLADDER: Underdistended, limiting its evaluation BONES: No acute findings. IMPRESSION: Focal pericolonic inflammation abutting the sigmoid colon, centered about a small air-containing structure measuring 1.0 cm as above. This likely represents acute diverticulitis. However this air-containing structure is not clearly contiguous with the sigmoid colon and the possibility of perforated diverticulitis with small/early abscess formation is present. Short interval clinical and imaging follow-up would be advised. Electronically signed by Steven Wade 03-18-2025 4:14 PM
--- NOTE | 2025-03-18 17:22 | Communication Note ---
Date of Service: March 18, 2025 Acute diverticulitis on noncontrast abdominal CT. Small pocket 1.0 cm of air not clearly contiguous to colon wall, could have contained perforation and/or small/early abscess -start pip-tazo -short term imaging follow up with CT -monitor exam, temp, labs etc
[2025-03-18] MEDS: 4.5GM X1 IV STA (17:59)
[2025-03-18 23:04] LABS: Cdiff Toxin B Gene (2yr or >) Negative Cdiff Gene (Neg)
[2025-03-18 23:37] LABS: Adenovirus F 40/41 PCR Not Detected (NotDetected); Campylobacter PCR Not Detected (NotDetected); Enteroaggregative E.coli(EAEC) Not Detected (NotDetected); Shiga-like Toxin E.coli (STEC) Not Detected (NotDetected); Vibrio species PCR Not Detected (NotDetected)
[2025-03-19] MEDS: PIPERACILLIN/TAZOBACTAM 4.5 GM/100 ML BAG IV SCH (02:15)
[2025-03-19 06:41] LABS: Anion Gap 8.0 (3-11); Calcium 9.0 mg/dl (8.6-10.3); Carbon Dioxide 16.0 mmol/L (21-32); Chloride 111.0 mmol/L (98-107); Potassium 4.3 mmol/L (3.5-5.1); Sodium 135.0 mmol/L (136-145)
[2025-03-19 07:06] LABS: Blood Urea Nitrogen 42.0 mg/dl (6-23); Creatinine Clr Calc Pharmacy 12.9 ml/min; Ferritin 117.8 ng/ml (8-388); Glucose 101.0 mg/dl (70-99(Fasting)); Iron 26.0 mcg/dl (35-150); Total Iron Binding Cap Calc 221.0 mcg/dl (250-450); Transferrin 158.0 mg/dl (200-360); Transferrin (FE) Percent Satur 12.0 % (15-50)
[2025-03-19 07:30] LABS: Hematocrit (blood only) 30.9 % (37.0-47.0); Hemoglobin 9.8 g/dl (12.0-16.0); Mean Corpuscular Hemoglobin 28.2 pg (25.0-34.0); Mean Corpuscular Volume 89.0 fL (80.0-100.0); Platelet Count 219 K/uL (130-400); RDW Standard Deviation 45.1 fL (36.4-46.3); Red Blood Count 3.47 M/uL (4.20-5.40); White Blood Count 8.01 K/ul (4.8-10.8)
--- NOTE | 2025-03-19 12:38 | Nephrology Progress Note ---
Date of Service March 19, 2025 Assessment & Plan (1) KALA (acute kidney injury): Plan: Non-oliguric. Creatinine continues to improve. Clinical presentation consistent with hemodynamic/pre-renal physiology associated with intravascular volume depletion, RAASi, and diuretics. There is no emergent indication for dialysis. Electrolytes acceptable. BP and volume status are acceptable. Medications are appropriately dosed for kidney function. Continue to hold familia sartan. Continue NaHCO3 1300 mg twice daily. Document strict I/O's. Repeat serum metabolic profile tomorrow AM. (2) Acute hyperkalemia: Plan: Improved. Continue low potassium diet. (3) Chronic kidney disease, stage IV (severe): Plan: Baseline creatinine ~3.0-3.5 mg/dL (CKD IV-V A3). CKD attributed to solitary kidney, DKD, and arterionephrosclerosis. Follows with Dr. Freed as outpatient. LUE AVF placed by Dr. Farooq. L BC AVF placed in December failed to mature and was ligated. A brachiobasilic AVF was placed on January 16 but with weak thrill and bruit. Duplex demonstrates very poor flow (velocities decreased since February). Close outpatient follow up with vascular will be required. (4) History of right nephrectomy: Plan: h/o R nephrectomy in 2010 for RCC. (5) Anemia, chronic disease: Plan: Chronic, stable. TYRESE therapy has not been required. Tsat 12 and ferritin 118 --> Venofer 300 mg IV today. (6) Hypertension: Plan: BP acceptable. Hold valsartan. Continue amlodipine and labetalol per home Rx. Admission and Anticipated Discharge Date Admission Date: March 17, 2025 Subjective No acute events overnight. No fevers or chills. Abdominal discomfort and diarrhea persist. Appetite good but mild nausea with breakfast. No melena or hematochezia. Denies significant fluid retention or edema. CT demonstrating evidence of acute diverticulitis with concern for contained perforation or small early abscess. Review of Systems Review of Systems: All systems reviewed & are unremarkable except as noted in HPI & below Physical Exam Constitutional: well developed; no acute distress Eyes: + anicteric sclerae ENMT: Mouth: no oral mucosal abnormality and oral mucous membranes not dry Neck: normal visual inspection and trachea midline Respiratory: normal respiratory effort Auscultation: lungs clear to auscultation bilaterally Cardiovascular: Rate/Rhythm: regular rate Heart Sounds: normal S1 and norm al S2 Vessels: no JVD Extremities: + AV fistula (thrill and bruit barely perceptible); no edema Musculoskeletal: Extremities: no cyanosis and no clubbing Skin: normal turgor; no lesions Neurologic: Motor/Sensory: no tremor and no asterixis Psychiatric: Orientation: alert and oriented x 3 Results & Data Vital Signs (Past 12 Hours) Vital Signs Temp Pulse Pulse Resp BP Pulse Ox O2 Del Method 03/19/25 11:34 36.6 C 57 L 18 120/64 96 Room Air 03/19/25 07:51 36.4 C L 62 18 147/68 H 93 Room Air 03/19/25 03:13 37.2 C 57 L 18 122/65 96 CPAP 03/19/25 03:10 52 L 20 96 FiO2 03/19/25 11:34 03/19/25 07:51 03/19/25 03:13 03/19/25 03:10 21 Diagnostic Findings US hemodialysis fistula COMPARISON: 01/25/2025 TECHNIQUE: Multiple real-time sonographic images of the left upper extremity AV fistula. FINDINGS: AV fistula of the left upper extremity and again demonstrates lower than expected velocities. Peak systolic velocities range from 21 cm/s to approximately 35 cm/s with blunted waveforms (previously 42-133 cm/s). No thrombus within the AV fistula identified. Visualized cephalic vein appears patent. Previously noted complex antecubital fluid collection is not seen. IMPRESSION: 1. No thrombus or fluid collection. 2. Diminished velocities within the AV fistula redemonstrated which have progressively worsened compared to the 01/25/2025 study. PG Care Time/CCT Total # of Minutes Spent Total Time Spent with Patient: Total time spent is greater than 50% in coordination of care (as documented) at patient's floor/unit and/or counseling patient: Coding Level of Care Code 68080 SUB INP/OBS CARE 3/50MIN Diagnoses KALA (acute kidney injury) N17.9 Acute hyperkalemia E87.5 Chronic kidney disease, stage IV (severe) N18.4 History of right nephrectomy Z90.5 Anemia, chronic disease D63.8 Hypertension I10
[2025-03-19] MEDS: IRON SUCROSE 300 MG in SODIUM CHLORIDE 0.9% 250 ML IV ONE (13:17)
[2025-03-19] MEDS ORDERED: LOPERAMIDE HCL 2 MG CAP PO PRN (16:02)
--- NOTE | 2025-03-19 16:03 | Hospitalist Progress Note ---
Date of Service March 19, 2025 Assessment & Plan (1) Acute hyperkalemia: (2) KALA (acute kidney injury): (3) Diarrhea: (4) Diabetes: (5) Acute diverticulitis: Plan 84yo female with history of CKD IV/V presenting with hyperkalemia, KALA on CKD #KALA on CKD-4/5 with Acute Hyperkalemia - patient with CKD stage IV/V and solitary left kidney with declining creatinine - baseline appx 2.7-3.5 over the last two months. Also with proteinuria on Valsartan. She had an AV fistula placed [place] [facility] [place] and is waiting for maturity. Follows with Nephrology Dr. Freed. Reviewed her last clinic note and bumex dose, potassium dose increased 02/27, also has been having diarrhea for a month. Reviewed recs in Dr. Byrd's note 03/19 Prerenal KALA with hyperkalemia - potassium improved after IVF, lokelma. Cr and UOP improved Losartan and bumex held Na bicarb added for metabolic acidosis AV fistula ultrasound with no clot, poor velocities which are worsening Mendez was removed -reviewed BMP today potassium is normal 4.3, Cr improved to 3.4 -AM BMP #Acute sigmoid diverticulitis - 1 cm air pocket not clearly contiguous to colon on noncontrast CT, could be small contained perforation or abscess. Subacute diarrhea and lower abdominal pain and tenderness -reviewed home medlist - mag ox held and query when she started it -stool biofire and C. diff were negative -continue pip-tazo, home on oral antibiotics when pain/tenderness resolved -needs short term follow up CT #Hypercalcemia -has secondary hyperparathyroidism, vitamin D stopped, dehydration contributed -iCa remains elevated -Ca improved to 9.0 today #Gout -Continue Allopurinol 100mg po QOD #Hypertension #Chronic HFpEF - stable -Continue Amlodipine 5mg po qAM -Continue Labetalol 200mg po BID -Hold Valsartan, still holding bumex #Hyperlipidemia -Continue Atorvastatin #Diabetes -Lantus 12u BID -ISS -rev BG - at goal #Depression/Anxiety -Continue Venlafaxine 150mg po daily #CARO -CPAP DVT ppx - sq heparin bid Admission and Anticipated Discharge Date Admission Date: March 17, 2025 Subjective lower abdominal pain and diarrhea still present but pain has improved a bit and feels better in general Physical Exam 2 Physical Exam: Last 24h vitals reviewed GEN: no acute distress, sitting in bed HEENT: pupils equal, sclerae anicteric, moist MM RESP: normal WOB, CTAB CV: reg no mrg ABD: soft, still TTP same spot LLQ towards SP area but no guarding today, NABS : no mendez SKIN: warm and dry, no generalized rashes NEURO: AOx person, place, and situation. Face symmetric, speech normal, moves 4 ext spontaneously and equally Results & Data Results & Data Vital Signs (Past 12 Hours) Vital Signs Temp Pulse Pulse Resp BP Pulse Ox O2 Del Method 03/19/25 15:41 57 L 16 118/59 L 96 Room Air 03/19/25 15:32 55 L 20 110/56 L 96 Room Air 03/19/25 14:20 55 L 16 110/56 L 96 Room Air 03/19/25 13:49 56 L 20 111/69 95 Room Air 03/19/25 13:20 56 L 16 119/68 96 Room Air 03/19/25 11:34 36.6 C 57 L 18 120/64 96 Room Air 03/19/25 07:51 36.4 C L 62 18 147/68 H 93 Room Air Laboratory Results 03/19/25 07:10 03/19/25 05:31 PG Care Time/CCT Total # of Minutes Spent Total Time Spent with Patient: Total time spent is greater than 50% in coordination of care (as documented) at patient's floor/unit and/or counseling patient: Coding Level of Care Code 78658 SUB INP/OBS CARE 3/50MIN Diagnoses Acute hyperkalemia E87.5 KALA (acute kidney injury) N17.9 Diarrhea R19.7 Diabetes E11.9 Acute diverticulitis K57.92
--- NOTE | 2025-03-20 07:52 | Electrocardiogram Report ---
Test Reason : Blood Pressure : */* mmHG Vent. Rate : 52 BPM Atrial Rate : 52 BPM P-R Int : 222 ms QRS Dur : 100 ms QT Int : 410 ms P-R-T Axes : -6 -69 50 degrees QTcB Int : 381 ms Sinus bradycardia with 1st degree A-V block Left axis deviation Left ventricular hypertrophy ( R in aVL , Danie product , Romhilt-Moser ) Inferior infarct , age undetermined Anterolateral infarct When compared with ECG of 24-Jan-2025 11:31, Significant changes have occurred Confirmed by Gila Rivera (Joyce) on 03/20/2025 7:52:00 AM Referred By: Confirmed By: Gila Rivera
--- NOTE | 2025-03-20 07:53 | Electrocardiogram Report ---
Test Reason : Blood Pressure : */* mmHG Vent. Rate : 54 BPM Atrial Rate : 57 BPM P-R Int : * ms QRS Dur : 88 ms QT Int : 414 ms P-R-T Axes : -6 -60 3 degrees QTcB Int : 392 ms Sinus bradycardia Left axis deviation Moderate voltage criteria for LVH, may be normal variant ( R in aVL , Danie product ) Inferior infarct (cited on or before 19-Jan-2025) Anterolateral infarct (cited on or before 13-Jun-2021) Abnormal ECG When compared with ECG of 17-Mar-2025 19:25, (unconfirmed) T wave inversion no longer evident in Lateral leads Confirmed by Gila Rivera ([id number]) on 03/20/2025 7:53:46 AM Referred By: Irene Horn Confirmed By: Gila Rivera
--- NOTE | 2025-03-20 07:55 | Electrocardiogram Report ---
Test Reason : Blood Pressure : */* mmHG Vent. Rate : 59 BPM Atrial Rate : 59 BPM P-R Int : 194 ms QRS Dur : 104 ms QT Int : 422 ms P-R-T Axes : -12 -52 28 degrees QTcB Int : 417 ms Sinus bradycardia Left anterior fascicular block Moderate voltage criteria for LVH, may be normal variant ( R in aVL , Bond product ) Possible Anterolateral infarct (cited on or before 13-Jun-2021) Abnormal ECG When compared with ECG of 17-Mar-2025 20:56, (unconfirmed) Sinus rhythm has replaced Junctional rhythm Criteria for Inferior infarct are no longer Present Confirmed by Gila Rivera ([id number]) on 03/20/2025 7:55:27 AM Referred By: Irene Horn Confirmed By: Gila Rivera
[2025-03-20 09:00] LABS: Anion Gap 10.0 (3-11); Calcium 9.5 mg/dl (8.6-10.3); Carbon Dioxide 16.0 mmol/L (21-32); Chloride 111.0 mmol/L (98-107); Potassium 3.9 mmol/L (3.5-5.1); Sodium 137.0 mmol/L (136-145)
[2025-03-20 09:06] LABS: Blood Urea Nitrogen 38.0 mg/dl (6-23); Creatinine Clr Calc Pharmacy 12.2 ml/min; Glucose 123.0 mg/dl (70-99(Fasting))
--- NOTE | 2025-03-20 09:52 | Nephrology Progress Note ---
Date of Service March 20, 2025 Assessment & Plan (1) KALA (acute kidney injury): Plan: Improved. Creatinine stable. Clinical presentation consistent with hemodynamic/pre-renal physiology associated with intravascular volume depletion, RAASi, and diuretics. There is no emergent indication for dialysis. Electrolytes acceptable. BP and volume status are acceptable. Bumex was restarted this AM. Medications are appropriately dosed for kidney function. Continue to hold valsartan. Continue NaHCO3 1300 mg twice daily. Document strict I/O's. Repeat serum metabolic profile tomorrow AM. (2) Acute hyperkalemia: Plan: Improved. Continue low potassium diet. (3) Chronic kidney disease, stage IV (severe): Plan: Baseline creatinine ~3.0-3.5 mg/dL (CKD IV-V A3). CKD attributed to solitary kidney, DKD, and arterionephrosclerosis. Follows with Dr. Freed as outpatient. LUE AVF placed by Dr. Farooq. L BC AVF placed in December failed to mature and was ligated. A brachiobasilic AVF was placed on January 16 but with weak thrill and bruit. Duplex demonstrates very poor flow (velocities decreased since February). Close outpatient follow up with vascular will be required. (4) History of right nephrectomy: Plan: h/o R nephrectomy in 2010 for RCC. (5) Anemia, chronic disease: Plan: Chronic, stable. TYRESE therapy has not been required. Tsat 12 and ferritin 118 --> Venofer 300 mg IV yesterday and additional 300 mg IV this AM. (6) Hypertension: Plan: BP acceptable. Hold valsartan. Continue amlodipine and labetalol per home Rx. Admission and Anticipated Discharge Date Admission Date: March 17, 2025 Subjective No acute events overnight. Diarrhea improving. Bertha feels reasonably well this AM. She feels that she is retaining fluid in her abdomen and legs. She denies significant dyspnea but she reports feeling very weak. She was out of bed this AM. OT was at the bedside at the time of my assessment. Review of Systems Review of Systems: All systems reviewed & are unremarkable except as noted in HPI & below Physical Exam Constitutional: well developed; no acute distress Eyes: + anicteric sclerae ENMT: Mouth: no oral mucosal abnormality and oral mucous membranes not dry Neck: normal visual inspection and trachea midline Respiratory: normal respiratory effort Auscultation: lungs clear to auscultation bilaterally Cardiovascular: Rate/Rhythm: regular rate Heart Sounds: normal S1 and normal S2 Vessels: no JVD Extremities: + AV fistula (thrill and bruit barely perceptible); no edema Musculoskeletal: Extremities: no cyanosis and no clubbing Skin: normal turgor; no lesions Neurologic: Motor/Sensory: no tremor and no asterixis Psychiatric: Orientation: alert and oriented x 3 Results & Data Vital Signs (Past 12 Hours) Vital Signs Temp Pulse Pulse Resp BP BP Pulse Ox 03/20/25 07:28 36.7 C 63 13 151/61 H 93 03/19/25 23:44 36.9 C 62 18 130/65 94 03/19/25 22:44 61 23 94 O2 Del Method FiO2 03/20/25 07:28 Room Air 03/19/25 23:44 Room Air 03/19/25 22:44 21 Laboratory Results Laboratory Results - last 24 hr 03/19/25 03/19/25 03/19/25 11:58 16:10 20:24 Sodium Potassium Chloride Carbon Dioxide Anion Gap BUN Creatinine Est Cr Clr Drug Dosing eGFR BUN/Creatinine Ratio Glucose POC Glucose 127 H 161 H 122 H Calcium Ionized Calcium 03/20/25 03/20/25 07:38 08:14 Sodium 137 Potassium 3.9 Chloride 111 H Carbon Dioxide 16 L Anion Gap 10 BUN 38 H Creatinine 3.64 H Est Cr Clr Drug Dosing 12.2 eGFR 11.93 BUN/Creatinine Ratio 10.4 Glucose 123 H POC Glucose 92 Calcium 9.5 Ionized Calcium Pending PG Care Time/CCT Total # of Minutes Spent Total Time Spent with Patient: Total time spent is greater than 50% in coordination of care (as documented) at patient's floor/unit and/or counseling patient: Coding Level of Care Code 38684 SUB INP/OBS CARE 3/50MIN Diagnoses KALA (acute kidney injury) N17.9 Acute hyperkalemia E87.5 Chronic kidney disease, stage IV (severe) N18.4 History of right nephrectomy Z90.5 Anemia, chronic disease D63.8 Hypertension I10
[2025-03-20] MEDS ORDERED: BUMETANIDE 1 MG TAB PO SCH (10:00)
[2025-03-20] MEDS: IRON SUCROSE 300 MG in SODIUM CHLORIDE 0.9% 250 ML IV ONE (10:47)
--- NOTE | 2025-03-20 18:22 | Hospitalist Progress Note ---
Date of Service March 20, 2025 Assessment & Plan (1) Acute hyperkalemia: (2) KALA (acute kidney injury): (3) Diarrhea: (4) Diabetes: (5) Acute diverticulitis: Plan 84yo female with history of CKD IV/V presenting with hyperkalemia, KALA on CKD #KALA on CKD-4/5 with Acute Hyperkalemia - patient with CKD stage IV/V and solitary left kidney with declining creatinine - baseline appx 2.7-3.5 over the last two months. Also with proteinuria on Valsartan. She had an AV fistula placed in [facility] [place] on 11/21/2024 and is waiting for maturity. Follows with Nephrology Dr. Freed. Reviewed her last clinic note and bumex dose, potassium dose increased 02/27, also has been having diarrhea for a month. Reviewed recs in Dr. Byrd's note 03/19 Prerenal KALA with hyperkalemia - potassium improved after IVF, lokelma. Cr and UOP improved Losartan still held and bumex resumed, reviewed public services assistant recs Na bicarb added for metabolic acidosis AV fistula ultrasound with no clot, poor velocities which are worsening got IV iron per public services assistant for anemia of CKD -K 3.9 and Cr 3.64 slightly up from yesterday -AM BMP #Acute sigmoid diverticulitis - 1 cm air pocket not clearly contiguous to colon on noncontrast CT, could be small contained perforation or abscess. Subacute diarrhea and lower abdominal pain and tenderness -reviewed home medlist - mag ox held and query when she started it -stool biofire and C. diff were negative -continue pip-tazo, home on oral antibiotics when pain/tenderness resolved -needs short term follow up CT perhaps late this week -clinically improved #Hypercalcemia -has secondary hyperparathyroidism, vitamin D stopped, dehydration contributed -iCa remains elevated 1.36 #Gout -Continue Allopurinol 100mg po QOD #Hypertension #Chronic HFpEF - stable -Continue Amlodipine 5mg po qAM -Continue Labetalol 200mg po BID -Hold Valsartan, resumed bumex #Hyperlipidemia -Continue Atorvastatin #Diabetes A1c 7.1% -Lantus 12u BID -ISS -rev BG - at goal 03/20 #Depression/Anxiety -Continue Venlafaxine 150mg po daily #CARO -CPAP DVT ppx - sq heparin bid Admission and Anticipated Discharge Date Admission Date: March 17, 2025 Subjective abdominal pain is definitely improved, having three lose stools today but they are small Physical Exam 2 Physical Exam: Last 24h vitals reviewed GEN: no acute distress, sitting in bed HEENT: pupils equal, sclerae anicteric, moist MM RESP: normal WOB, CTAB CV: reg no mrg ABD: soft, breading machine tender but much less same spot LLQ towards SP area no rrg, NABS : no mendez SKIN: warm and dry, no generalized rashes NEURO: AOx person, place, and situation. Face symmetric, speech normal, moves 4 ext spontaneously and equally Results & Data Results & Data Vital Signs (Past 12 Hours) Vital Signs Temp Pulse Resp BP BP Pulse Ox O2 Del Method 03/20/25 15:11 36.7 C 65 16 129/59 L 96 Room Air 03/20/25 13:02 36.4 C L 62 13 146/53 H 98 Room Air 03/20/25 07:28 36.7 C 63 13 151/61 H 93 Room Air Laboratory Results 03/19/25 07:10 03/20/25 08:14 PG Care Time/CCT Total # of Minutes Spent Total Time Spent with Patient: Total time spent is greater than 50% in coordination of care (as documented) at patient's floor/unit and/or counseling patient: Coding Level of Care Code 92756 SUB INP/OBS CARE 2/35MIN Diagnoses Acute hyperkalemia E87.5 KALA (acute kidney injury) N17.9 Diarrhea R19.7 Diabetes E11.9 Acute diverticulitis K57.92
[2025-03-21 07:19] VITALS: RESP 16
[2025-03-21 09:24] LABS: Anion Gap 9.0 (3-11); Calcium 9.7 mg/dl (8.6-10.3); Carbon Dioxide 19.0 mmol/L (21-32); Chloride 112.0 mmol/L (98-107); Potassium 3.9 mmol/L (3.5-5.1); Sodium 140.0 mmol/L (136-145)
[2025-03-21 09:30] LABS: Blood Urea Nitrogen 36.0 mg/dl (6-23); Creatinine Clr Calc Pharmacy 11.6 ml/min; Glucose 106.0 mg/dl (70-99(Fasting))
[2025-03-21 14:51] VITALS: TEMP 97.9; O2SAT 97
--- NOTE | 2025-03-21 14:53 | Discharge Summary ---
Discharge Summary Date of Service March 21, 2025 Principal Dx & Hospital Course #1 = Principal Diagnosis (1) Acute hyperkalemia: (2) KALA (acute kidney injury): (3) Acute diverticulitis: (4) Diarrhea: (5) Diabetes: Plan 84yo female with history of CKD IV/V presenting with hyperkalemia, KALA on CKD. Hyperkalemia resolved and renal function improved with treatment. Day after admission we discussed diarrhea and abdominal pain - going for weeks. LLQ very tender on exam. CTAP noncontrast - acute diverticulitis. Diarrhea improved with treatment and pain resolved, significantly improved. Its probable that the acute diverticulitis and diarrhea precipitated the KALA. #KALA on CKD-4/5 with Acute Hyperkalemia - patient with CKD stage IV/V and solitary left kidney with declining creatinine - baseline appx 2.7-3.5 over the last two months. Also with proteinuria on Valsartan. She had an AV fistula placed in [facility] on 11/21/2024 and is waiting for maturity. Follows with Nephrology Dr. Freed. Reviewed her last clinic note and bumex dose, potassium dose increased 02/27, also has been having diarrhea for a month. Astrobiologist consulted Prerenal KALA with hyperkalemia - potassium improved after IVF, lokelma. Cr and UOP improved Losartan still held and bumex resumed at lower dose Na bicarb added for metabolic acidosis AV fistula ultrasound with no clot, poor velocities which are worsening got IV iron per dual rate dealer for anemia of CKD -K 3.9, Co2 19 improved, Cr 3.83 stable today -will follow up in clinic with Dr. Freed #Acute sigmoid diverticulitis - 1 cm air pocket not clearly contiguous to colon on noncontrast CT, could be small contained perforation or abscess. Subacute diarrhea and lower abdominal pain and tenderness -stool biofire and C. diff were negative -treated with pip-tazo, home on oral augmentin - total 10 days -needs short term follow up CT perhaps late this week or early next week - communicated with primary care clinic and PCP -clinically improved, tolerating diet #Hypercalcemia -has secondary hyperparathyroidism, vitamin D stopped, dehydration contributed -iCa remains elevated -follow up with nephrology #Gout -Continue Allopurinol 100mg po QOD #Hypertension #Chronic HFpEF - stable -Continue Amlodipine 5mg po qAM -Continue Labetalol 200mg po BID -Hold Valsartan, resumed bumex #Hyperlipidemia -Continue Atorvastatin #Diabetes A1c 7.1% -resumed home regimen #Depression/Anxiety -Continue Venlafaxine 150mg po daily #CARO -CPAP Notes For Next Care Provider Needs repeat CT abdomen/pelvis (noncontrast for CKD) within about a week to follow up diverticulitis - small air pocket can't tell whether diverticulum, contained perf and/or small abscess Medication Changes From Visit Held ARB Reduced bumex to 1 mg daily Started Na bicarb Held mag Ox - diarrhea, rec probiotic Augmentin po Admission HPI Per Admitting Provider Bertha Linares is an 84yo female with history of CKD IV-V, solitary kidney (s/p right nephrectomy performed for RCC), DM, HTN, HLP presenting with hyperkalemia. Patient is not on HD. She does have a LUE AV fistula which was placed on 11/21/2024 and has been slow to mature - follows with Dr. Farooq/Vascular Surgery at [facility]. She follows with Nephrology last seen on 02/27/25. Patient reports watery diarrhea ongoing for the last three weeks. She has 3-4 episodes of watery stool daily - non-bloody/non-mucoid. She did have low potassium on lab work from 02/27/25 - K=2.8 at that time. She was started on potassium supplementation and has been taking 40mEq BID for the last 3 weeks. She was seen in clinic today and had some stool studies performed as well as a chemistry panel. She was contacted and told to come to the ER due to hyperkalemia - K of 6.9. Patient reports that she has been feeling extremely fatigued progressive over the last several weeks. She denies fever but has occasional chills. Has occasional SOB and chest pain as well as abdominal pain and nausea. No recent travel or sick contacts. [place] No undercooked or questionable food intake. She was on antibiotics recently for sinusitis (Presume Doxycycline - prescribed in February). She reports NORMAL URINE OUTPUT with no dysuria, foam/bubbles or blood. In the ER she is afebrile, HD stable - sinus bradycardia which is typical for her per review of prior vital signs Initial EKG with some peaked T-waves present, improved on repeat ER Course: Calcium gluconate x 1 gm Albuterol 10mg neb Insulin 10u IV + Dextrose 50mL LoKelma 10gm NSS x 1L Sodium Bicarbonate gtt Repeat K 7.3 --> 6.2 Given additional Calcium gluconate x 1gm Insulin 10u IV + Dextrose 50mL Discharge Exam Last 24h vitals reviewed GEN: no acute distress, sitting in bed HEENT: pupils equal, sclerae anicteric, moist MM RESP: normal WOB, CTAB CV: reg no mrg ABD: soft, minimally tender to deep palpation LLQ towards SP area no rrg, NABS : no mendez SKIN: warm and dry, no generalized rashes NEURO: AOx person, place, and situation. Face symmetric, speech normal, moves 4 ext spontaneously and equally Discharge Plan Discharge Items Patient Disposition: Home - Self-Care Reason For Visit: HYPERKALEMIA Discharge Diagnosis: Acute diverticulitis, KALA on CKD, hyperkalemia Condition on Discharge: Serious Activity: Resume your previous activity Non-emergency contact: Primary Care Provider and Astrobiologist Call non-emergency contact if: you have any medication questions, your symptoms worsen and you have a fever Follow-up/Referrals: Michelle Magana DO [Primary Care Provider] - 03/28/25 10:20 am Komal Freed MD [Physician] - 03/29/25 3:00 pm Diet: Low Potassium (2gm) Addtl Attending Provider Instructions: You were treated for acute kidney injury with high potassium level -this has improved a lot -stay on low potassium diet -HOLD valsartan until/if Dr. Freed tells you to restart -REDUCE bumetanide to 1 mg daily for now -HOLD potassium supplements -the dual rate dealer recommended sodium bicarbonate 2 tabs twice a day - helps reduce the acidity of your blood, a common problem in late stage kidney disease -follow up with your vascular surgeon as soon as possible regarding your AV fistula, which is not working well enough yet -Dr. Freed's office should be contacting you to set up an office visit soon The kidney injury was triggered by acute diverticulitis and associated diarrhea -finish the course of antibiotics (augmentin) -follow up with primary care soon - you'll need a repeat CT scan of abdomen/pelvis. We will coordinate this with Dr. Magana -you can take imodium as needed for diarrhea -take a probiotic for 2-4 weeks to help resolve diarrhea, antibiotic could cause diarrhea as well -HOLD the magnesium supplement until diarrhea resolves. Oral magnesium is a laxative. You can try slo-mag (extended release) instead, less likely to cause diarrhea -seek medical attention if you have worsening abdominal pain, fever, severe diarrhea, nausea / vomiting It was a pleasure taking care of you in the hospital, Briseyda Soler MD Pending Studies at Discharge: No Stand-Alone Forms: My [facility] [email or web address], Smoking Cessation Medications and DC Order Prescriptions: New loperamide 2 mg Capsule 2 mg PO Q1H PRNQty: 0 0RF sodium bicarbonate 650 mg Tablet 1,300 mg PO BID Qty: 120 0RF Rx Instructions: buy over the counter bumetanide 1 mg Tablet 1 mg PO DAILY Qty: 0 0RF amoxicillin-pot clavulanate 250-125 mg tablet 1 tab PO Q12H Qty: 15 0RF Continued (DME) FreeStyle Santi 3 [place] Misc See Rx Instructions .Route Qty: 1 0RF Rx Instructions: As directed omeprazole 20 mg capsule,delayed release(DR/EC) 20 mg PO DAILY Qty: 90 3RF venlafaxine 150 mg capsule,extended release 24hr 150 mg PO DAILY Qty: 90 2RF (DME) FreeStyle Santi 3 Sensor Device See Rx Instructions .Route Qty: 3 0RF Rx Instructions: As directed amlodipine [Norvasc] 5 mg tablet 5 mg PO QAM Qty: 90 1RF cyanocobalamin (vitamin B-12) 3,000 mcg capsule 3,000 mcg PO DAILY cholecalciferol (vitamin D3) 50 mcg (2,000 unit) capsule 50 mcg PO DAILY albuterol sulfate 90 mcg/actuation HFA aerosol inhaler 1 inh inhalation Q6H PRN (Reason: Shortness Of Breath Or Wheezing) labetalol 200 mg tablet 200 mg PO BID tramadol 50 mg tablet 50 mg PO BID PRN (Reason: Pain) Qty: 60 1RF aspirin [Juan José Low Dose Aspirin] 81 mg Tablet,Delayed Release (Dr/Ec) 81 mg PO DAILY ferrous sulfate 325 mg (65 mg iron) tablet 325 mg PO Q OTHER DAY Qty: 14 0RF atorvastatin 40 mg tablet 40 mg PO DAILY allopurinol 100 mg tablet 100 mg PO Q OTHER DAY insulin glargine U-300 conc [Toujeo Max U-300 SoloStar] 300 unit/mL (3 mL) insulin pen 28 unit subcut BID Held magnesium oxide 400 mg magnesium tablet 400 mg PO DAILY Qty: 30 0RF Hold Instructions: Resume on 04/18/25. magnesium oxide can cause diarrhea - hold until diarrhea resolved valsartan 80 mg tablet 80 mg PO DAILY Qty: 30 2RF Hold Instructions: Resume on 04/18/25. hold until/if resumed by dual rate dealer Discontinued bumetanide 1 mg tablet 1 mg PO BID Qty: 180 0RF potassium chloride [Klor-Con M20] 20 mEq tablet,ER particles/crystals 40 meq PO BID Qty: 120 3RF Discharge Orders: Discharge Order (Routine); Ordered 03/21/25 Ordered By: Briseyda Soler Admission Data Admit Date/Time: 03/17/25 22:41 Attending Provider: Briseyda Soler Admit Provider: Faye Beard Primary Care Provider: Michelle Magana. Other Providers: Graham Byrd; Faye Beard Other Interventions: Discharge Summary Assessment (RN) Last Done: 03/21/25 17:57 Hospital Stay Data Consultations 03/17/25 22:41 Consult Nephrology Routine 03/17/25 22:50 ED Decision to Admit Stat Diagnostic Imagining Performed 03/18/25 09:47 US hemodialysis fistula Routine 03/18/25 14:58 CT Abdomen and Pelvis [CT abd pelvis wo con] Urgent Pending Results Patient Have Any Pending Studies at Discharge: No Discharge Instructions Given to Patient (Per Discharging Provider) You were treated for acute kidney injury with high potassium level -this has improved a lot -stay on low potassium diet -HOLD valsartan until/if Dr. Freed tells you to restart -REDUCE bumetanide to 1 mg daily for now -HOLD potassium supplements -the dual rate dealer recommended sodium bicarbonate 2 tabs twice a day - helps reduce the acidity of your blood, a common problem in late stage kidney disease -follow up with your vascular surgeon as soon as possible regarding your AV fistula, which is not working well enough yet -Dr. Freed's office should be contacting you to set up an office visit soon The kidney injury was triggered by acute diverticulitis and associated diarrhea -finish the course of antibiotics (augmentin) -follow up with primary care soon - you'll need a repeat CT scan of abdomen/pelvis. We will coordinate this with Dr. Magana -you can take imodium as needed for diarrhea -take a probiotic for 2-4 weeks to help resolve diarrhea, antibiotic could cause diarrhea as well -HOLD the magnesium supplement until diarrhea resolves. Oral magnesium is a laxative. You can try slo-mag (extended release) instead, less likely to cause diarrhea -seek medical attention if you have worsening abdominal pain, fever, severe diarrhea, nausea / vomiting It was a pleasure taking care of you in the hospital, Briseyda Soler MD Total Time Total Time Spent Total Time Spent (In Minutes): I personally spent: 40 minutes today on clinical care activities including: reviewing chart notes and vital signs reviewing labs discussion with vocational rehab consultant(s) - Dr. Byrd discussion with family day care worker, arranging follow up, communication with primary care examining and counseling the patient writing prescriptions, discharge instructions documentation Coding Level of Care Code 76043 INP/OBS DISCH >30 MIN Diagnoses Acute hyperkalemia E87.5 KALA (acute kidney injury) N17.9 Acute diverticulitis K57.92 Diarrhea R19.7 Diabetes E11.9
[2025-03-21 15:30] VITALS: BP 167/67; PULSE 65
--- NOTE | 2025-03-21 17:27 | Nephrology Progress Note ---
Date of Service March 21, 2025 Assessment & Plan (1) KALA (acute kidney injury): Plan: Improved. Clinical presentation consistent with hemodynamic/pre-renal physiology associated with intravascular volume depletion, RAASi, and diuretics. There is no emergent indication for dialysis. Electrolytes acceptable. BP and volume status are acceptable. Bumex was restarted yesterday at home dose of 1 mg twice daily with good response. Plan to continue 1 mg daily at discharge. Medications are appropriately dosed for kidney function. Continue to hold valsartan. Continue NaHCO3 1300 mg twice daily. Document strict I/O's. Repeat serum metabolic profile tomorrow AM. (2) Chronic kidney disease, stage IV (severe): Plan: Baseline creatinine ~3.0-3.5 mg/dL (CKD IV-V A3). CKD attributed to solitary kidney, DKD, and arterionephrosclerosis. Follows with Dr. Freed as outpatient. LUE AVF placed by Dr. Farooq. L BC AVF placed in December failed to mature and was ligated. A brachiobasilic AVF was placed on January 16 but very poor flow (velocities decreased since February). Close outpatient follow up with vascular will be required. Follow up with Dr. Freed next week. Continue Bumex 1 mg daily. (3) History of right nephrectomy: Plan: h/o R nephrectomy in 2010 for RCC. (4) Anemia, chronic disease: Plan: Chronic, stable. TYRESE therapy has not been required. Tsat 12 and ferritin 118 --> Venofer 300 mg IV yesterday and additional 300 mg IV this AM. (5) Hypertension: Plan: BP acceptable. Hold valsartan. Continue amlodipine and labetalol per home Rx. Admission and Anticipated Discharge Date Admission Date: March 17, 2025 Subjective No acute events overnight. Volume status controlled. Discharge plan reviewed. Review of Systems Review of Systems: All systems reviewed & are unremarkable except as noted in HPI & below Physical Exam Constitutional: well developed; no acute distress Eyes: + anicteric sclerae ENMT: Mouth: no oral mucosal abnormality and oral mucous membranes not dry Neck: normal visual inspection and trachea midline Respiratory: normal respiratory effort Auscultation: lungs clear to auscultation bilaterally Cardiovascular: Rate/Rhythm: regular rate Heart Sounds: normal S1 and normal S2 Vessels: no JVD Extremities: + AV fistula (thrill and bruit barely perceptible); no edema Musculoskeletal: Extremities: no cyanosis and no clubbing Skin: normal turgor; no lesions Neurologic: Motor/Sensory: no tremor and no asterixis Psychiatric: Orientation: alert and oriented x 3 Results & Data Vital Signs (Past 12 Hours) Vital Signs Temp Pulse Pulse Resp BP BP BP 03/21/25 15:26 36.6 C 65 57 L 16 156/69 H 167/67 H 158/74 H 03/21/25 14:47 36.6 C 57 L 16 156/69 H 03/21/25 07:18 36.7 C 68 16 158/74 H Pulse Ox O2 Del Method 03/21/25 15:26 97 03/21/25 14:47 97 Room Air 03/21/25 07:18 94 Room Air Laboratory Results Laboratory Results - last 24 hr 03/20/25 03/21/25 03/21/25 20:40 07:39 08:25 Sodium 140 Potassium 3.9 Chloride 112 H Carbon Dioxide 19 L Anion Gap 9 BUN 36 H Creatinine 3.83 H Est Cr Clr Drug Dosing 11.6 eGFR 11.23 BUN/Creatinine Ratio 9.4 L Glucose 106 H POC Glucose 124 H 88 Calcium 9.7 03/21/25 03/21/25 11:44 16:27 Sodium Potassium Chloride Carbon Dioxide Anion Gap BUN Creatinine Est Cr Clr Drug Dosing eGFR BUN/Creatinine Ratio Glucose POC Glucose 135 H 99 Calcium PG Care Time/CCT Total # of Minutes Spent Total Time Spent with Patient: Total time spent is greater than 50% in coordination of care (as documented) at patient's floor/unit and/or counseling patient: Coding Level of Care Code 30807 SUB INP/OBS CARE 3/50MIN Diagnoses KALA (acute kidney injury) N17.9 Chronic kidney disease, stage IV (severe) N18.4 History of right nephrectomy Z90.5 Anemia, chronic disease D63.8 Hypertension I10
[2025-03-22] MEDS ORDERED: BUMETANIDE 1 MG TAB PO SCH (09:00)
== END 2025-03-21 19:19 | disposition home or self-care (01) | DRG 683 ==
LOC: SUATTDRO → ED 19:12 → SUATTDRO 22:41 → 4W 22:41 → 3N 03-19 17:42

== ENCOUNTER 2025-05-02 23:57 | Inpatient (IN) ==
[2025-05-03] MEDS: ONDANSETRON INJ 2 MG/ML 2 ML VIAL IV STA (00:46)
[2025-05-03] MEDS: SODIUM CHLORIDE 0.9% 1,000 ML IV SCH (00:47)
[2025-05-03 01:04] LABS: Hematocrit (blood only) 32.8 % (37.0-47.0); Hemoglobin 10.7 g/dl (12.0-16.0); Immature Granulocytes # (auto) 0.04 K/uL (0.01-0.20); Immature Granulocytes % (auto) 0.4 %; Mean Corpuscular Hemoglobin 29.6 pg (25.0-34.0); Mean Corpuscular Volume 90.6 fL (80.0-100.0); Platelet Count 288 K/uL (130-400); RDW Standard Deviation 48.2 fL (36.4-46.3); Red Blood Count 3.62 M/uL (4.20-5.40); White Blood Count 10.33 K/ul (4.8-10.8)
--- NOTE | 2025-05-03 01:09 | Emergency Department Note ---
Impression & Plan Acute pyelonephritis, Hypokalemia, ESRD (end stage renal disease) admit to the [facility] ED Provider Note NAME: MONICA MCKOY AGE: 84 SEX: Female INFORMANT: Patient ED PROVIDER(S): Antoinette Clark DO CHIEF COMPLAINT: nausea vomiting and diarrhea PLAN: Disposition: admit to the [facility] MEDICAL DECISION MAKING: This is an 84-year-old female patient who developed increasing nausea, vomiting and diarrhea over the past 1 week. She has a history of frequent stooling and diverticulitis for which she took antibiotics sometime earlier this month. Patient has end-stage renal disease and had a fistula placed yesterday. laboratory studies revealed BUN of 58 and creatinine of 5.0 which is slightly worse than previous. There is no leukocytosis. H&H are stable. Glucose was 168. Chest x-ray was unremarkable. Urinalysis was concerning for infection. CT scan of the abdomen/pelvis to rule the possibility of recurrent diverticulitis. There was no evidence of diverticulitis but there was evidence of perinephric stranding around the left kidney. Patient was given IV Zofran and IV normal saline for symptoms. She then was given a dose of IV Zosyn. [facility] for further management. Triage Nursing notes: reviewed and agree With them. Vital Signs: reviewed and remarkable for bradycardia and hypoxia Additional History obtained from: patient's son is at the bedside Chronic Medical/Social Conditions affecting care: diverticulitis and end-stage renal disease Differential Diagnosis: recurrent diverticulitis, colitis, viral gastroenteritis Diagnostics, independently interpreted by me: ECG: sinus bradycardia at a rate of [address] segment elevation or signs of ischemia. QTc was 459 ms. Cardiac Monitoring: Sinus bradycardia at 58 Imaging studies: CT scan of the abdomen/pelvis: As per [facility] HPI: 84 year old Female arrives for evaluation of abdominal pain, nausea, vomiting and diarrhea. patient who developed increasing nausea, vomiting and diarrhea over the past 1 week.. She has a history of frequent stooling and diverticulitis for which she took antibiotics sometime earlier this month. Patient has end-stage renal disease and had a fistula placed yesterday. PAST MEDICAL HISTORY: See Below, PAST SURGICAL HISTORY: See Below, SOCIAL HISTORY: See Below, HOME MEDICATIONS: See list ALLERGIES: see list VITALS: See Below PHYSICAL EXAMINATION: HEENT: Head - normocephalic and atraumatic Pupils are equal, round, and reactive to light. Extraocular eye muscles are intact, and sclera are anicteric. Nose - moist nasal mucosa without discharge. Mouth - moist buccal mucosa. Oropharynx is nonerythematous and there is no tonsillar exudate or edema noted. Neck: Supple; no JVD, nuchal rigidity, cervical lymphadenopathy, or auscultated bruits. Heart: Regular rate and rhythm. There is a normal S1 and S2 with no murmurs, clicks, or gallops appreciated. Lungs: Clear to auscultation bilaterally with no wheezes, rales, or rhonchi. Abdomen: Soft, completely nontender, nondistended, with good bowel sounds. There are no palpable pulsatile masses or hepatosplenomegaly. There is no guarding, rigidity, or rebound noted. Extremities: No evidence of cyanosis, clubbing, or edema. There are easily palpable peripheral pulses. Skin: warm and dry with good turgor and no rashes. Back: Mild left-sided CVA tenderness and left flank pain with palpation. There were no skin lesions noted in that area. Emergency Department treatment: environmental monitoring specialist, IV normal saline bolus, IV Zofran, IV Zosyn emergency department course: The patient was evaluated in room A-3. A complete history and physical was performed. Previous electronic medical records were reviewed. IV lock was initiated and labs are drawn as above. Patient was bolused with IV normal saline solution and given a dose of IV Zofran for nausea. Portable chest x-ray was performed and was unremarkable. Patient went on to have a CT scan of the abdomen/pelvis to further evaluate for recurrent diverticulitis. There is no evidence of diverticulitis but the patient did have perinephric stranding around the left kidney. This conjunction with the urine which appears to be infected. patient was given a dose of IV Zosyn and the case was discussed with the hospitalist service Past Med/Surg History Problem List (Updated 05/03/25 @ 06:18 by Antoinette Clark DO) ESRD (end stage renal disease) (Acute) Hypokalemia (Acute) Acute pyelonephritis (Acute) Acute diverticulitis KALA (acute kidney injury) (Acute) Anemia, chronic disease Ascending aorta dilatation Aortic valve insufficiency (HFpEF) heart failure with preserved ejection fraction Tortuous aorta Hypercalcemia Proteinuria Thyroid nodule Secondary hyperparathyroidism of renal origin Vitamin D deficiency Mild cognitive impairment Urinary incontinence Obstructive sleep apnea on CPAP Peripheral vascular disease Iron deficiency anemia Diabetes mellitus with polyneuropathy Restless leg syndrome Osteoarthritis Hypertension Hyperlipemia Fatty liver Diabetes Depression Acid reflux History of renal cell cancer Diabetes mellitus with chronic kidney disease Degenerative cervical disc Chronic kidney disease, stage IV (severe) (Acute) History of right nephrectomy (09/30/10) Gout Medical History Congestive heart failure Hypertensive urgency Acute exacerbation of CHF (congestive heart failure) Hypertensive urgency Thyroiditis Thyromegaly Asthmatic bronchitis Acute hypoxemic respiratory failure Acute respiratory failure with hypoxia Dysphagia Fistula Surgical History S/P left cataract extraction (02/02/25) S/P thyroid biopsy (11/2024) H/O tubal ligation Family History Brother AA (alcohol abuse) Diabetes Hypertension Mother Diabetes Hypertension Stroke Dementia Father Heart disease Hypertension Kidney disease Myocardial infarction Sister Alzheimer disease Son Diabetes Sister Hypertension Stroke Sister Dementia Denies family history of Ovarian cancer Prostate cancer Breast cancer Colorectal cancer Social History Smoking Status: Never smoker Second Hand Exposure: No; Do You Dip or Chew Tobacco: No; Hx Alcohol Use: No Hx Substance Use: No Preferred Language: Kazakh Communication Ability: Effective Visual Impairment: Partially Limited Hearing Ability: Hard of Hearing Gerontological Nurse Practitioner Required: No Beliefs That Will Affect Care: None marital status: / Current Living Situation: Family Current Living Situation Comment: Lives with son current occupational status: retired current occupation: RETIRED How many Children do You have: 3 How many Children do You have Comment: 3 sons; 1 lives [place], 1 lives [place], 1 [facility] Feels Safe at Home: Yes Childhood Exposure to Second-Hand Smoke: No Diet: regular caffeine: Yes during the past year weight has: remained stable Dental Care, Regularly: Yes Physical Activity Frequency: Does not Exercise Seatbelt Use: always Sunscreen Use: No (does not really go in sun) Assistive Devices: Cane, CPAP, Hospital Bed and Walker Allergies Allergies Allergy/AdvReac Type Severity Reaction Status Date / Time NSAIDS (Non-Steroidal AdvReac Intermediate Cough Verified 04/20/25 09:48 Anti-Inflamma Home Meds Home Medications Medication Instructions Recorded Confirmed cholecalciferol (vitamin D3) 50 50 mcg PO DAILY 11/15/20 05/03/25 mcg (2,000 unit) capsule cyanocobalamin (vitamin B-12) 3,000 mcg PO DAILY 11/15/20 05/03/25 3,000 mcg capsule aspirin 81 mg tablet,delayed 81 mg PO DAILY 06/13/21 05/03/25 release (Juan José Low Dose Aspirin) labetalol 200 mg tablet 200 mg PO BID 12/09/24 05/03/25 allopurinol 100 mg tablet 100 mg PO Q OTHER DAY 01/24/25 05/03/25 atorvastatin 40 mg tablet 40 mg PO DAILY 01/24/25 05/03/25 insulin glargine U-300 conc 300 40 unit subcut DAILY 03/28/25 05/03/25 unit/mL (3 mL) subcutaneous pen ([facility] Max U-300 SoloStar) albuterol sulfate 90 mcg/actuation 2 puff inhalation Q4 PRN Shortness 05/03/25 05/03/25 aerosol inhaler Of Breath Or Wheezing loperamide 2 mg capsule 2 mg PO Q1H PRN Diarrhea 05/03/25 05/03/25 oxycodone-acetaminophen 5 mg-325 1 tab PO Q4 PRN Pain 05/03/25 05/03/25 mg tablet Previous Rx's Medication Instructions Recorded magnesium oxide 400 mg PO DAILY #30 tabs 09/03/23 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,dogman/woman,cont #1 ea 10/21/24 (FreeStyle Santi 3 [place]) omeprazole 20 mg capsule,delayed 20 mg PO DAILY #90 caps 11/08/24 release tramadol 50 mg tablet 50 mg PO BID PRN Pain #60 tabs 12/09/24 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 sensor (FreeStyle #3 ea 01/16/25 Santi 3 Sensor device) venlafaxine 150 mg 150 mg PO DAILY #90 caps 01/16/25 capsule,extended release 24 hr ferrous sulfate 325 mg (65 mg 325 mg PO Q OTHER DAY #14 tabs 01/19/25 iron) tablet amlodipine 5 mg tablet (Norvasc) 5 mg PO QAM #90 tabs 02/16/25 sodium bicarbonate 650 mg tablet 1,300 mg (2 x 650 mg) PO BID #120 03/21/25 tabs Wheeled Walker #1 ea 03/30/25 bumetanide 1 mg tablet 2 mg (2 x 1 mg) PO BID #120 tabs 04/20/25 Results & Data (ED) Vital Signs Vital Signs - 24 hr 05/03/25 00:03 05/03/25 00:30 05/03/25 00:31 Temperature 36.3 C L Temperature Source Temporal Artery Scan Pulse Rate 60 Pulse Rate [Finger] 61 Pulse Rhythm Pulse Rhythm [Finger] Regular Pulse Strength [Finger] Normal Respiratory Rate 17 20 Respiratory Effort / Characteristics Non-Labored Spontaneous Non-Labored Spontaneous Respiratory Depth Normal Normal Respiratory Pattern Regular Regular Blood Pressure 108/55 L Blood Pressure [Right Arm] 120/78 Blood Pressure Mean 72 Blood Pressure Mean [Right Arm] 92 Blood Pressure Position [Right Arm] Lying Pulse Oximetry 92 95 87 L Oxygen Delivery Method Room Air Nasal Cannula Room Air Oxygen Flow Rate 2 Sepsis Recent Fever Within 48 Hours No Sepsis New/Unexplained Change in Mental Status N/A Sepsis Action Taken by Nursing No Action Required Oxygen Flow Rate - Titration 2 Pulse Oximetry Post Tiitration 94 05/03/25 00:31 05/03/25 01:33 05/03/25 02:00 Temperature Temperature Source Pulse Rate 58 L 56 L Pulse Rate [Finger] 53 L Pulse Rhythm Regular Pulse Rhythm [Finger] Regular Pulse Strength [Finger] Normal Respiratory Rate 20 20 Respiratory Effort / Characteristics Non-Labored Spontaneous Respiratory Depth Normal Respiratory Pattern Regular Blood Pressure Blood Pressure [Right Arm] 115/53 L Blood Pressure Mean Blood Pressure Mean [Right Arm] 73 Blood Pressure Position [Right Arm] Lying Pulse Oximetry 95 Oxygen Delivery Method Room Air Oxygen Flow Rate Sepsis Recent Fever Within 48 Hours Sepsis New/Unexplained Change in Mental Status Sepsis Action Taken by Nursing Oxygen Flow Rate - Titration Pulse Oximetry Post Tiitration 05/03/25 04:00 05/03/25 05:42 05/03/25 06:00 Temperature Temperature Source Pulse Rate 50 L Pulse Rate [Finger] 58 L 53 L Pulse Rhythm Pulse Rhythm [Finger] Regular Regular Pulse Strength [Finger] Normal Normal Respiratory Rate 20 20 Respiratory Effort / Characteristics Non-Labored Spontaneous Non-Labored Spontaneous Respiratory Depth Normal Normal Respiratory Pattern Regular Regular Blood Pressure Blood Pressure [Right Arm] 115/49 L 130/56 L Blood Pressure Mean Blood Pressure Mean [Right Arm] 71 80 Blood Pressure Position [Right Arm] Lying Lying Pulse Oximetry 98 98 Oxygen Delivery Method Nasal Cannula Room Air Oxygen Flow Rate 2 Sepsis Recent Fever Within 48 Hours Sepsis New/Unexplained Change in Mental Status Sepsis Action Taken by Nursing Oxygen Flow Rate - Titration Pulse Oximetry Post Tiitration Laboratory Data 05/03/25 00:28 05/03/25 00:28 Lab Results 05/03/25 05/03/25 Range/Units 00:28 04:30 WBC 10.33 (4.8-10.8) K/ul RBC 3.62 L (4.20-5.40) M/uL Hgb 10.7 L (12.0-16.0) g/dl Hct 32.8 L (37.0-47.0) % MCV 90.6 (80.0-100.0) fL MCH 29.6 (25.0-34.0) pg MCHC 32.6 (32.0-36.0) g/dL RDW Std Deviation 48.2 H (36.4-46.3) fL RDW Coeff of Chyna 14.5 (11.5-14.5) % Plt Count 288 (130-400) K/uL MPV 9.9 (9.4-12.4) fL Immature Gran % (Auto) 0.4 % Neut % (Auto) 79.9 % Lymph % (Auto) 8.4 % [place] % (Auto) 6.9 % Eos % (Auto) 4.0 % Baso % (Auto) 0.4 % Neut # (Auto) 8.26 H (1.40-6.50) K/uL Lymph # (Auto) 0.87 L (1.20-3.40) K/uL [place] # (Auto) 0.71 H (0.11-0.59) K/uL Eos # (Auto) 0.41 (0.00-0.50) K/uL Baso # (Auto) 0.04 (0.00-0.20) K/uL Immature Gran # (Auto) 0.04 (0.01-0.20) K/uL Sodium 137 (136-145) mmol/L Potassium 3.2 L (3.5-5.1) mmol/L Chloride 100 (98-107) mmol/L Carbon Dioxide 25 (21-32) mmol/L Anion Gap 12 H (3-11) BUN 58 H (6-23) mg/dl Creatinine 5.08 H* (0.6-1.2) mg/dl Est Cr Clr Drug Dosing Not Reportable eGFR 8.00 BUN/Creatinine Ratio 11.4 (10-20) Glucose 168 H (70-99(Fasting)) mg/dl Calcium 9.7 (8.6-10.3) mg/dl Total Bilirubin 0.4 (0.2-1.0) mg/dl AST 13 (13-39) U/L ALT 4 L (7-52) U/L Alkaline Phosphatase 119 H (34-104) U/L Total Protein 6.8 (6.0-8.3) gm/dl Albumin 3.9 (3.4-5.0) gm/dl Globulin 2.9 (2.5-4.0) gm/dl Albumin/Globulin Ratio 1.3 (0.9-2) Urine Color Yellow Urine Appearance Cloudy A (Clear) Urine pH 5.5 (4.5-7.5) Ur Specific [place] 1.022 (1.000-1.030) Urine Protein 4+ H (Negative) Urine Glucose (UA) Trace H (Negative) Urine Ketones Trace H (Negative) Urine Blood Negative (Negative) Urine Nitrite Negative (Negative) Urine Bilirubin Negative (Negative) Urine Urobilinogen Negative (Negative) Ur Leukocyte Esterase 1+ H (Negative) Urine WBC (Auto) 21-50 H (0-5) /hpf Urine RBC (Auto) 3-5 H (0-2) /hpf U Hyaline Cast (Auto) >20 H (0-2) /lpf U Epithel Cells (Auto) 11-20 H (0-2) /hpf Urine Bacteria (Auto) 3+ H (None Seen) Urine Mucus Present A (None Prsent) Urine Comment Administered Medications Discontinued Medications Sodium Chloride (Nss) 1,000 mls @ 999 mls/hr IV .Q1H1M ARTUR Stop: 05/03/25 01:30 Last Infusion: 05/03/25 02:00 Dose: Infused Documented By: Admin: 05/03/25 00:47 Dose: 999 mls/hr Documented By: NAW Piperacillin Sod/Tazobactam Sod (Zosyn) 4.5 gm in 100 mls @ 200 mls/hr IV NOW ONE; Protocol Stop: 05/03/25 05:55 Last Admin: 05/03/25 06:11 Dose: 200 mls/hr Documented By: NAW Ondansetron HCl (Ondansetron Inj 2 Mg/Ml 2 Ml Vial) 4 mg IV NOW STA Stop: 05/03/25 00:31 Last Admin: 05/03/25 00:46 Dose: 4 mg Documented By: NAW Potassium Chloride (Potassium Chloride Crtab 20 Meq Tabcr) 40 meq PO NOW STA Stop: 05/03/25 04:33 Last Admin: 05/03/25 05:03 Dose: 40 meq Documented By: NAW Imaging Data Radiologist's Impression: Abdomen/Pelvis CT 05/03/25 00:31 EXAM: CT abd pelvis wo con CLINICAL HISTORY: Vomiting; r/o diverticulitis TECHNIQUE: Contiguous axial images were obtained from the level of the diaphragm to the pubic symphysis without intravenous or oral contrast. Coronal and sagittal reconstructions were likewise performed and were indicated to increase the sensitivity for detecting clinically relevant pathology. The CT scan was performed according to ALARA (as low as reasonably achievable). COMPARISON: CT, 03/27/2025 12:58:48 HOOKER MACHINE TENDER FINDINGS: The visualized lung bases show minimal bilateral pleural effusion and cardiomegaly. Evaluation of the abdominal and pelvic visceral organs is limited without intravenous contrast. The unenhanced liver, spleen, pancreas, and adrenal glands are grossly unremarkable. A fluid density cyst in right lobe of liver. The gallbladder is present. Right kidney not visualised. The left kidney is normal in size and attenuation without obvious calcification. There is no hydronephrosis. There is moderate left perinephric stranding. The left ureter is normal in caliber. The urinary bladder is partially distended with a single air focus within lumen. Instrumentation histry correlation advised. The pelvic viscera are grossly unremarkable. No adenopathy or fluid collections are seen. Fluid filled colon. No evidence of focal or diffuse bowel wall thickening or evidence of bowel obstruction is seen. A few small diverticuli measuring 3-4 mm are seen in the proximal sigmoid colon. No inflammatory changes are noted. The appendix is not visualized lcearly. No signs of right iliac fossa inflammation. The aorta is normal in caliber. No aggressive appearing osseous lesions are identified. There are significant degenerative changes in the visualized spine. There is a small right anterolateral abdominal wall hernia containing a small bowel loop as content in the right lower abdomen. IMPRESSION: 1. Moderate left perinephric stranding?suggest renal function test correlation. Stable. Right kidney not visualised-surgical history correlation. 2. Uncomplicated sigmoid colon diverticulosis. Stable. 3. Interval resolution of left lower quadrant omental infarct adjacent to sigmoid colon. 4. Uncomplicated small right anterolateral abdominal wall hernia containing small bowel loop as content in the right lower abdomen. Stable. 5. The visualized lung bases show minimal bilateral pleural effusion- new onset and cardiomegaly-stable. 6. A fluid density cyst in right lobe of liver-stable. Electronically signed by Karel Denson 05-03-2025 03:22 AM Chest X-Ray 05/03/25 02:54 EXAM: XR chest 1V portable CLINICAL HISTORY: hypoxia TECHNIQUE: An X-ray image of the chest was obtained in the AP projection. COMPARISON: 01/26/2025 CR and 09/22/2024 FINDINGS: Pulmonary Parenchyma: The left lower lung zone and costophrenic angle are obscured, which could be due to cardiomegaly, overlying breast shadow, or prominent pericardial fat. The right lung field and costophrenic recess appear normal. Heart and Mediastinum: The cardiac shadow is enlarged in size with bilateral hilar congestion. The descending aorta is stable and ectatic. There is no hilar or mediastinal lymphadenopathy. Stable bilateral paratracheal dense nodular opacities are attributable to thyroid nodules. Bony Thorax: The bony thorax appears intact without fractures or deformities. Soft Tissues: Soft tissues overlying the chest wall are unremarkable. IMPRESSION: No acute cardiopulmonary abnormalities are identified. Stable cardiomegaly and ectatic descending aorta. Redemonstration of an obscured left lower lung zone and costophrenic angle, which could be due to cardiomegaly, overlying breast shadow, or prominent pericardial fat. No significant interval changes. Electronically signed by Thong Rolon 05-03-2025 04:09 AM Discharge Plan Visit Data Chief Complaint: Hypotension Stated Complaint: VOMIT, Diarrhea, HYPOTENSION ED Provider: Antoinette Clark Discharge Problem: Acute pyelonephritis, Hypokalemia, ESRD (end stage renal disease) Condition: Serious Forms Stand Alone Forms: [facility] Prescriptions Prescriptions: No Action magnesium oxide 400 mg magnesium tablet 400 mg PO DAILY Qty: 30 0RF Hold Instructions: Resume on 04/18/25. magnesium oxide can cause diarrhea - hold until diarrhea resolved (DME) FreeStyle Santi 3 [place] Misc See Rx Instructions .Route Qty: 1 0RF Rx Instructions: As directed omeprazole 20 mg capsule,delayed release(DR/EC) 20 mg PO DAILY Qty: 90 3RF venlafaxine 150 mg capsule,extended release 24hr 150 mg PO DAILY Qty: 90 2RF (DME) FreeStyle Santi 3 Sensor Device See Rx Instructions .Route Qty: 3 0RF Rx Instructions: As directed amlodipine [Norvasc] 5 mg tablet 5 mg PO QAM Qty: 90 1RF (DME) Wheeled Walker Misc See Rx Instructions .Route Qty: 1 0RF Rx Instructions: please provide 1 rollator walker with handbrakes and seat cyanocobalamin (vitamin B-12) 3,000 mcg capsule 3,000 mcg PO DAILY cholecalciferol (vitamin D3) 50 mcg (2,000 unit) capsule 50 mcg PO DAILY bumetanide 1 mg tablet 2 mg PO BID Qty: 120 2RF labetalol 200 mg tablet 200 mg PO BID tramadol 50 mg tablet 50 mg PO BID PRN (Reason: Pain) Qty: 60 1RF insulin glargine U-300 conc [[employer] Max U-300 SoloStar] 300 unit/mL (3 mL) insulin pen 40 unit subcut DAILY aspirin [Juan José Low Dose Aspirin] 81 mg Tablet,Delayed Release (Dr/Ec) 81 mg PO DAILY sodium bicarbonate 650 mg Tablet 1,300 mg PO BID Qty: 120 0RF Rx Instructions: buy over the counter oxycodone-acetaminophen 5-325 mg tablet 1 tab PO Q4 PRN (Reason: Pain) albuterol sulfate 90 mcg/actuation HFA aerosol inhaler 2 puff INHALATION Q4 PRN (Reason: Shortness Of Breath Or Wheezing) loperamide 2 mg capsule 2 mg PO Q1H PRN (Reason: Diarrhea) ferrous sulfate 325 mg (65 mg iron) tablet 325 mg PO Q OTHER DAY Qty: 14 0RF atorvastatin 40 mg tablet 40 mg PO DAILY allopurinol 100 mg tablet 100 mg PO Q OTHER DAY Referrals Referrals: Ricotta,Michelle M., DO [Primary Care Provider] -
[2025-05-03 01:50] LABS: Alanine Aminotransferase 4 U/L (7-52); Albumin Globulin Ratio 1.3 (0.9-2); Albumin Level 3.9 gm/dl (3.4-5.0); Alkaline Phosphatase 119 U/L (34-104); Anion Gap 12 (3-11); Bilirubin,Total 0.4 mg/dl (0.2-1.0); Blood Urea Nitrogen 58 mg/dl (6-23); Calcium 9.7 mg/dl (8.6-10.3); Carbon Dioxide 25 mmol/L (21-32); Chloride 100 mmol/L (98-107); Globulin 2.9 gm/dl (2.5-4.0); Glucose 168 mg/dl (70-99(Fasting)); Potassium 3.2 mmol/L (3.5-5.1); Sodium 137 mmol/L (136-145); Total Protein 6.8 gm/dl (6.0-8.3)
--- NOTE | 2025-05-03 02:50 | History & Physical Report ---
Date of Service May 03, 2025 Assessment & Plan (1) Diarrhea: (2) KALA (acute kidney injury): (3) Anemia, chronic disease: (4) (HFpEF) heart failure with preserved ejection fraction: (5) Obstructive sleep apnea: (6) Diabetes mellitus with chronic kidney disease: (7) Hypertension: Plan Pt is an 84 yo female with a past med hx of CKD stage V nearly ESRD s/p recent AV fistula placement, DMT2, HFpEF, CARO, HTN, and hx gout who presents to the hospital on 05/03 for 1 week of nausea, vomiting, and diarrhea. #Diarrhea - March was dx with diverticulitis and treated then with pip-tazo and discharged with augmentin with improvement/resolution of her diarrhea - CT abd/pelvis this admission; diverticulosis no diverticulitis noted - multiple etiologies possible; worsening renal function induced, viral gastroenteritis, c diff, etc - will do stool PCR + c diff given recent AB use - urine pending - given 1L bolus in the ED - start with clear liquid diet #KALA on CKD stage V/ESRD - Baseline Cr has been 3.5-4.0 the last 1-2 months - on admission, Cr was 5.08, likely due to diarrhea/dehydration exac her severe CKD - nephrology consulted #Hypoxia - with ambulation in the ED to the high 80s - she has diastolic dysfunction and was given 1L bolus in the ED, so wonder if she is a bit volume overloaded from that - will hold off on further IV boluses, encourage po fluid intake, fluid restriction - CXR unrevealing, if this continues could do CT chest - if resp status worsens consider bumex dose #HFpEF - last echo January 2025; EF 55-60% with severe left atrial dilation and type II diastolic dysfunction - usually takes 1 mg bumex BID at home, hold this given kidney function #HTN - will hold some home BP meds given relative hypotension in the ED, can restart them as tolerated #Anemia, chronic - hemoglobin on admission 10.7, which is right about where it has been since Fall 2023 #DMT2 on insulin - home regime is glargine 40 units once daily - will do 20 units glargine here to start, may need to increase as po intake improves with tx of nausea #CARO - CPAP VTE: heparin History of Present Illness Chief Complaint: Diarrhea and vomiting Primary Care Provider: Michelle Magana DO Pt is an 84 yo female with a past med hx of CKD stage V nearly ESRD s/p recent AV fistula placement, DMT2, HFpEF, CARO, HTN, and hx gout who presents to the hospital on 05/03 for 1 week of nausea, vomiting, and diarrhea. Pt seen at bedside with son present. She states that she came in because she has been having nausea, vomiting, and diarrhea for the past week. She states that she normally takes iron so stools are normally a bit dark but no bright red blood noted in the stool. She denies blood in the vomit. She states that she has not been having abdominal pain but her abdomen just feels "uncomfortable". She states that her diarrhea is essentially just water and is not high volume but s he has an episode of it every few hours the last week. No mucus in the stool. No cough or rhinorrhea. No chest pain or SOB. No fevers or chills. No recent travel. She states that about 1 mo ago she had diverticulitis and was on antibiotics. She does have a hx of heart failure and her legs have looked more swollen the last 1 week. She states she usually has a bit of swelling but they are worse. S he states she does generally keep track of her weights at home and her weight has gone up by about 2 lbs but other than the swelling she has not had any chest symptoms. She was noted to be hypoxic to the high 80s when walking around in the ED but at rest maintains normal oxygen saturations. She denies SOB when ambulating even when hypoxic. 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,fundraising director,cont #1 ea 10/21/24 05/03/25 Rx (FreeStyle Santi 3 [place]) omeprazole 20 mg capsule,delayed 20 mg PO DAILY #90 caps 11/08/24 05/03/25 Rx release labetalol 200 mg tablet 200 mg PO BID 12/09/24 05/03/25 History tramadol 50 mg tablet 50 mg PO BID PRN Pain #60 tabs 12/09/24 05/03/25 Rx 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 sensor (FreeStyle #3 ea 01/16/25 05/03/25 Rx Santi 3 Sensor device) venlafaxine 150 mg 150 mg PO DAILY #90 caps 01/16/25 05/03/25 Rx capsule,extended release 24 hr ferrous sulfate 325 mg (65 mg 325 mg PO Q OTHER DAY #14 tabs 01/19/25 05/03/25 Rx iron) tablet allopurinol 100 mg tablet 100 mg PO Q OTHER DAY 01/24/25 05/03/25 History atorvastatin 40 mg tablet 40 mg PO DAILY 01/24/25 05/03/25 History amlodipine 5 mg tablet (Norvasc) 5 mg PO QAM #90 tabs 02/16/25 05/03/25 Rx sodium bicarbonate 650 mg tablet 1,300 mg (2 x 650 mg) PO BID #120 03/21/25 05/03/25 Rx tabs insulin glargine U-300 conc 300 40 unit subcut DAILY 03/28/25 05/03/25 History unit/mL (3 mL) subcutaneous pen (Toujeo Max U-300 SoloStar) Lopez Dahl #1 ea 03/30/25 05/03/25 Rx bumetanide 1 mg tablet 2 mg (2 x 1 mg) PO BID #120 tabs 04/20/25 05/03/25 Rx albuterol sulfate 90 mcg/actuation 2 puff inhalation Q4 PRN Shortness 05/03/25 05/03/25 History aerosol inhaler Of Breath Or Wheezing loperamide 2 mg capsule 2 mg PO Q1H PRN Diarrhea 05/03/25 05/03/25 History oxycodone-acetaminophen 5 mg-325 1 tab PO Q4 PRN Pain 05/03/25 05/03/25 History mg tablet Past Med/Surg History Problem List (Updated 05/03/25 @ 06:18 by Antoinette Clark DO) ESRD (end stage renal disease) (Acute) Hypokalemia (Acute) Acute pyelonephritis (Acute) Acute diverticulitis KALA (acute kidney injury) (Acute) Anemia, chronic disease Ascending aorta dilatation Aortic valve insufficiency (HFpEF) heart failure with preserved ejection fraction Tortuous aorta Hypercalcemia Proteinuria Thyroid nodule Secondary hyperparathyroidism of renal origin Vitamin D deficiency Mild cognitive impairment Urinary incontinence Obstructive sleep apnea on CPAP Peripheral vascular disease Iron deficiency anemia Diabetes mellitus with polyneuropathy Restless leg syndrome Osteoarthritis Hypertension Hyperlipemia Fatty liver Diabetes Depression Acid reflux History of renal cell cancer Diabetes mellitus with chronic kidney disease Degenerative cervical disc Chronic kidney disease, stage IV (severe) (Acute) History of right nephrectomy (09/30/10) Gout Medical History Congestive heart failure Hypertensive urgency Acute exacerbation of CHF (congestive heart failure) Hypertensive urgency Thyroiditis Thyromegaly Asthmatic bronchitis Acute hypoxemic respiratory failure Acute respiratory failure with hypoxia Dysphagia Fistula Surgical History S/P left cataract extraction (02/02/25) S/P thyroid biopsy (11/2024) H/O tubal ligation Family History Brother AA (alcohol abuse) Diabetes Hypertension Mother Diabetes Hypertension Stroke Dementia Father Heart disease Hypertension Kidney disease Myocardial infarction Sister Alzheimer disease Son Diabetes Sister Hypertension Stroke Sister Dementia Denies family history of Ovarian cancer Prostate cancer Breast cancer Colorectal cancer Social History Smoking Status: Never smoker Second Hand Exposure: No; Do You Dip or Chew Tobacco: No; Hx Alcohol Use: No Hx Substance Use: No Preferred Language: Kyrgyz Communication Ability: Effective Visual Impairment: Partially Limited Hearing Ability: Hard of Hearing Pattern Cleaner Required: No Beliefs That Will Affect Care: None marital status: / Current Living Situation: Family Current Living Situation Comment: with peter crespo current occupational status: retired current occupation: RETIRED How many Children do You have: 3 How many Children do You have Comment: 3 sons; 1 lives [place], 1 lives [place], [place], 1 [facility] Feels Safe at Home: Yes Childhood Exposure to Second-Hand Smoke: No Diet: regular caffeine: Yes during the past year weight has: remained stable Dental Care, Regularly: Yes Physical Activity Frequency: Does not Exercise Seatbelt Use: always Sunscreen Use: No (does not really go in sun) Assistive Devices: Apnea Monitor, Glasses and Walker Review of Systems Review of Systems: Per HPI. Physical Exam Physical Exam: General: Alert and oriented, no acute distress, pleasant HEENT: Normocephalic, moist oral mucosa, Cardio: Regular rate and rhythm, 2+ pitting edema of both lower extremities up to the level of just below knees Resp: Lungs clear to auscultation b/l, no wheezes or rhonchi, GI: Soft and nontender, nondistended, bowel sounds active Skin: Warm, pink, dry, Results & Data Results & Data Vital Signs (Past 12 Hours) Vital Signs Temp Pulse Pulse Resp BP BP Pulse Ox 05/03/25 02:00 53 L 20 115/53 L 95 05/03/25 01:33 56 L 05/03/25 00:31 58 L 20 05/03/25 00:31 87 L 05/03/25 00:30 61 20 120/78 95 05/03/25 00:03 36.3 C L 60 17 108/55 L 92 O2 Del Method O2 Flow Rate 05/03/25 02:00 Room Air 05/03/25 01:33 05/03/25 00:31 05/03/25 00:31 Room Air 05/03/25 00:30 Nasal Cannula 2 05/03/25 00:03 Room Air Supervising Physician Co-Signing Physician Notes Attending addendum: I have physically seen this patient, have supervised the medical residents activities, and agree with the H&P unless as otherwise noted. Assessment and Plan: The patient is an 84-year-old female past medical history including CKD stage V nearly ESRD status post recent AV fistula placement, diabetes mellitus type 2, HFpEF, CARO, hypertension, and gout. She presented to the emergency department with 1 week of nausea, vomiting and diarrhea. Intractable nausea/vomiting and diarrhea- In March she was diagnosed with diverticulitis, and underwent treatment with Zosyn. She was discharged on Augmentin, and reports that her diarrhea had resolved. In the emergency department today she had CT scan of abdomen pelvis which showed diverticulosis without diverticulitis. Ordering stool PCR and C. difficile testing Status post 1 L normal saline bolus from ED and Zofran 4 mg IV Patient will be started on clear liquid diet, advance as tolerated Acute kidney injury superimposed on CKD stage V/ESRD- Creatinine 5.08 on admission, with base 3.41 Likely secondary to dehydration associated with diarrhea Received normal saline 1 L bolus in the ED Gentle hydration and repeat laboratories in a.m. Consult nephrology Hypoxia/dyspnea on exertion- Pulse ox decreased to the high 80s when ambulating in the ED Holding on further IV fluid boluses due to concerns regarding possible exacerbation of present breathing issues Nasal cannula oxygen, titrate to keep pulse ox 92-94% HFpEF/hypertension- Echo 02/01 with a EF of 55-60%, severe left atrial dilatation and type II diastolic dysfunction Hold Bumex due to worsening of kidney function Holding amlodipine, labetalol, magnesium oxide due to relative hypotension Diabetes mellitus type 2, insulin requiring- Decreasing glargine from 40 to 20 units subcu daily as noted Placed Accu-Cheks with NovoLog SSI CARO- CPAP at bedtime Chronic anemia- Hemoglobin 10.7, near baseline, likely secondary to chronic kidney disease Resident Activity Tracking Resident Involvement: Resident Care Provided Care Provided: Adult Hospital Medicine
--- NOTE | 2025-05-03 03:22 | CT Scan Report ---
EXAM: CT abd pelvis wo con CLINICAL HISTORY: Vomiting; r/o diverticulitis TECHNIQUE: Contiguous axial images were obtained from the level of the diaphragm to the pubic symphysis without intravenous or oral contrast. Coronal and sagittal reconstructions were likewise performed and were indicated to increase the sensitivity for detecting clinically relevant pathology. The CT scan was performed according to ALARA (as low as reasonably achievable). 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 Evaluation of the abdominal and pelvic visceral organs is limited without intravenous contrast. The unenhanced liver, spleen, pancreas, and adrenal glands are grossly unremarkable. A fluid density cyst in right lobe of liver. The gallbladder is present. Right kidney not visualised. The left kidney is normal in size and attenuation without obvious calcification. There is no hydronephrosis. There is moderate left perinephric stranding. The left ureter is normal in caliber. The urinary bladder is partially distended with a single air focus within lumen. Instrumentation histry correlation advised. The pelvic viscera are grossly unremarkable. No adenopathy or fluid collections are seen. Fluid filled colon. No evidence of focal or diffuse bowel wall thickening or evidence of bowel obstruction is seen. A few small diverticuli measuring 3-4 mm are seen in the proximal sigmoid colon. No inflammatory changes are noted. The appendix is not visualized lcearly. No signs of right iliac fossa inflammation. The aorta is normal in caliber. No aggressive appearing osseous lesions are identified. There are significant degenerative changes in the visualized spine. There is a small right anterolateral abdominal wall hernia containing a small bowel loop as content in the right lower abdomen. IMPRESSION: 1. Moderate left perinephric stranding?suggest renal function test correlation. Stable. Right kidney not visualised-surgical history correlation. 2. Uncomplicated sigmoid colon diverticulosis. Stable. 3. Interval resolution of left lower quadrant omental infarct adjacent to sigmoid colon. 4. Uncomplicated small right anterolateral abdominal wall hernia containing small bowel loop as content in the right lower abdomen. Stable. 5. The visualized lung bases show minimal bilateral pleural effusion- new onset and cardiomegaly-stable. 6. A fluid density cyst in right lobe of liver-stable. Electronically signed by Karel Denson 05-03-2025 03:22 AM
--- NOTE | 2025-05-03 04:09 | XRay Report ---
EXAM: XR chest 1V portable CLINICAL HISTORY: hypoxia TECHNIQUE: An X-ray image of the chest was obtained in the AP projection. COMPARISON: 01/26/2025 CR and 09/22/2024 FINDINGS: Pulmonary Parenchyma: The left lower lung zone and costophrenic angle are obscured, which could be due to cardiomegaly, overlying breast shadow, or prominent pericardial fat. The right lung field and costophrenic recess appear normal. Heart and Mediastinum: The cardiac shadow is enlarged in size with bilateral hilar congestion. The descending aorta is stable and ectatic. There is no hilar or mediastinal lymphadenopathy. Stable bilateral paratracheal dense nodular opacities are attributable to thyroid nodules. Bony Thorax: The bony thorax appears intact without fractures or deformities. Soft Tissues: Soft tissues overlying the chest wall are unremarkable. IMPRESSION: No acute cardiopulmonary abnormalities are identified. Stable cardiomegaly and ectatic descending aorta. Redemonstration of an obscured left lower lung zone and costophrenic angle, which could be due to cardiomegaly, overlying breast shadow, or prominent pericardial fat. No significant interval changes. Electronically signed by Thong Rolon 05-03-2025 04:09 AM
[2025-05-03 04:50] LABS: Appearance Urine Cloudy (Clear); Bacteria Urine Automated 3+ (None Seen); Cast Urine Automated >20 /lpf (0-2); Glucose Urine UA Trace (Negative); WBC Urine Automated 21-50 /hpf (0-5)
[2025-05-03] MEDS: POTASSIUM CHLORIDE CRTAB 20 MEQ TABCR PO STA (05:03)
[2025-05-03] MEDS: PIPERACILLIN/TAZOBACTAM 4.5 GM/100 ML BAG IV ONE (06:11)
[2025-05-03 09:42] LABS: Magnesium 2.2 mg/dl (1.7-2.4)
[2025-05-03] MEDS ORDERED: DEXTROSE 50% 50 ML SYRINGE IV PRN (09:55)
[2025-05-03] MEDS ORDERED: GLUCOSE 10 TAB/TUBE PO PRN (09:55)
[2025-05-03] MEDS ORDERED: ONDANSETRON INJ 2 MG/ML 2 ML VIAL IV PRN (09:55)
[2025-05-03] MEDS ORDERED: GLUCOSE 40% GEL 15 GM TUBE PO PRN (09:55)
[2025-05-03] MEDS ORDERED: GLUCAGON FOR INJ 1 MG VIAL SQ PRN (09:55)
--- NOTE | 2025-05-03 12:15 | Nephrology Consultation ---
Date of Consultation May 03, 2025 Assessment & Plan (1) KALA (acute kidney injury): Non-oliguric. Urine microscopy notable for WBC + RBC, +4 protein on dipstick. Clinical presentation consistent with hemodynamic/pre-renal physiology associated with intravascular volume depletion, RAASi, and diuretics. Suspect underlying ATN. There is no emergent indication for dialysis. Electrolytes acceptable. BP and volume status are acceptable. CT does not demonstrate obstruction. Medications are appropriately dosed for kidney function. Continue to hold diuretics. LR requested to infuse at 125 ml/hr. KCl has been provided for potassium replacement. BMP will be repeated this afternoon. I have also requested a renal panel, magnesium, and CBC for tomorrow AM. Document strict I/O's. Continue oral NaHCO3 as Rx. (2) Chronic kidney disease, stage IV (severe): Baseline creatinine ~3.0-3.5 mg/dL (CKD IV-V A3). CKD attributed to solitary kidney, DKD, and arterionephrosclerosis. Follows with Dr. Freed as outpatient. LUE AVF placed by Dr. Farooq. L BC AVF placed in December failed to mature and was ligated. A brachiobasilic AVF was placed on January 16 but whas been slow to mature with small vessel size and poor flow. Intervention was performed by Dr. Farooq on Thursday. The vessel has a thrill and bruit. Records have been requested. Medications are appropriately dosed for kidney function. (3) History of right nephrectomy: h/o R nephrectomy in 2010 for RCC. (4) Anemia, chronic disease: Chronic, stable. TYRESE therapy has not been required. Iron profile and repeat H/H tomorrow with AM labs. (5) Hypertension: BP acceptable. Low on admission. Amlodipine and labetalol have been held. History of Present Illness Reason for Consultation: CKD stage 5/ESRD Requesting Physician: Zbigniew Frye MD Attending Physician: Zbigniew Frye MD History of Present Illness Bertha Linares is an 84 year-old female with CKD IV-V, solitary kidney (s/p right nephrectomy performed for RCC 2010), DM, HTN, hyperlipidemia who presented to [facility] ER with one week of nausea, vomiting, and diarrhea. Bertha was recently admitted to [facility] from March 17- with acute sigmoid diverticulitis complicated by KALA and hyperkalemia. Diarrhea has been somewhat chronic. She describes 3-4 watery bowel movements daily and more recently 5-6. She denies melena or hematochezia. She denies abdominal pain. She [place] [facility] [place]. Freed. A LUE AV fistula was placed by Dr. Farooq at [facility] L BC AVF placed in December failed to mature and was ligated. A b rachiobasilic fistula was placed on January 16 but this was also slow to mature and had developed areas of stenosis. Dr. Farooq performed a follow up intervention on Thursday. there are dressings over the proximal and distal portions of the AVF. Bertha tolerated the procedure well. Edema in the arm controlled with a compressive dressing. Bertha denies fluid retention or edema. During follow up with Dr. Freed on April 19, Bumex had been increased from Bumex 1 mg twice daily to 2 mg twice daily. She received a liter of IVF in the ER for volume depletion. BP acceptable this AM. Bertha was resting comfortably in bed. She is breathing comfortably on supplemental oxygen 1 L/min via nasal cannula. 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,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 10/21/24 05/03/25 Rx (FreeStyle Santi 3 [place]) omeprazole 20 mg capsule,delayed 20 mg PO DAILY #90 caps 11/08/24 05/03/25 Rx release labetalol 200 mg tablet 200 mg PO BID 12/09/24 05/03/25 History tramadol 50 mg tablet 50 mg PO BID PRN Pain #60 tabs 12/09/24 05/03/25 Rx 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 sensor (FreeStyle #3 ea 01/16/25 05/03/25 Rx Santi 3 Sensor device) venlafaxine 150 mg 150 mg PO DAILY #90 caps 01/16/25 05/03/25 Rx capsule,extended release 24 hr ferrous sulfate 325 mg (65 mg 325 mg PO Q OTHER DAY #14 tabs 01/19/25 05/03/25 Rx iron) tablet allopurinol 100 mg tablet 100 mg PO Q OTHER DAY 01/24/25 05/03/25 History atorvastatin 40 mg tablet 40 mg PO DAILY 01/24/25 05/03/25 History amlodipine 5 mg tablet (Norvasc) 5 mg PO QAM #90 tabs 02/16/25 05/03/25 Rx sodium bicarbonate 650 mg tablet 1,300 mg (2 x 650 mg) PO BID #120 03/21/25 05/03/25 Rx tabs insulin glargine U-300 conc 300 40 unit subcut DAILY 03/28/25 05/03/25 History unit/mL (3 mL) subcutaneous pen (Toujeo Max U-300 SoloStar) Lopez Dahl #1 ea 03/30/25 05/03/25 Rx bumetanide 1 mg tablet 2 mg (2 x 1 mg) PO BID #120 tabs 04/20/25 05/03/25 Rx albuterol sulfate 90 mcg/actuation 2 puff inhalation Q4 PRN Shortness 05/03/25 05/03/25 History aerosol inhaler Of Breath Or Wheezing loperamide 2 mg capsule 2 mg PO Q1H PRN Diarrhea 05/03/25 05/03/25 History oxycodone-acetaminophen 5 mg-325 1 tab PO Q4 PRN Pain 05/03/25 05/03/25 History mg tablet Patient History Medical History Congestive heart failure Hypertensive urgency Acute exacerbation of CHF (congestive heart failure) Hypertensive urgency Thyroiditis Thyromegaly Asthmatic bronchitis Acute hypoxemic respiratory failure Acute respiratory failure with hypoxia Dysphagia Fistula Surgical History S/P left cataract extraction (02/02/25) S/P thyroid biopsy (11/2024) H/O tubal ligation Family History Brother AA (alcohol abuse) Diabetes Hypertension Mother Diabetes Hypertension Stroke Dementia Father Heart disease Hypertension Kidney disease Myocardial infarction Sister Alzheimer disease Son Diabetes Sister Hypertension Stroke Sister Dementia Denies family history of Ovarian cancer Prostate cancer Breast cancer Colorectal cancer Social History Smoking Status: Never smoker Second Hand Exposure: No; Do You Dip or Chew Tobacco: No; Hx Alcohol Use: No Hx Substance Use: No Preferred Language: Chinese Communication Ability: Effective Visual Impairment: Partially Limited Hearing Ability: Hard of Hearing 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 Beliefs That Will Affect Care: None marital status: / Current Living Situation: Family Current Living Situation Comment: with peter crespo current occupational status: retired current occupation: RETIRED How many Children do You have: 3 How many Children do You have Comment: 3 sons; 1 lives [place], 1 lives [place], [place], 1 [facility] Feels Safe at Home: Yes Childhood Exposure to Second-Hand Smoke: No Diet: regular caffeine: Yes during the past year weight has: remained stable Dental Care, Regularly: Yes Physical Activity Frequency: Does not Exercise Seatbelt Use: always Sunscreen Use: No (does not really go in sun) Assistive Devices: Apnea Monitor, Glasses and Walker Review of Systems Review of Systems: All systems reviewed & are unremarkable except as noted in HPI & below Constitutional: + fatigue and + weight loss; no fever, n o chills and no anorexia Respiratory: no dyspnea Cardiovascular: no chest pain, no palpitations, no lightheadedness and no edema Gastrointestinal: + nausea and + diarrhea/loose stools; no abdominal pain, no vomiting, no blood in stools and no melena Genitourinary: no problem reported Physical Exam Constitutional: well developed; no acute distress Eyes: + anicteric sclerae ENMT: Mouth: no oral mucosal abnormality and oral mucous membranes not dry Neck: normal visual inspection and trachea midline Respiratory: normal respiratory effort Auscultation: lungs clear to auscultation bilaterally Cardiovascular: Rate/Rhythm: regular rate Heart Sounds: normal S1 and normal S2 Vessels: no JVD Extremities: + AV fistula (thrill and bruit, edema an bruising w dressing from recent intervention); no edema Musculoskeletal: Extremities: no cyanosis and no clubbing Skin: normal turgor; no lesions Neurologic: Motor/Sensory: no tremor and no asterixis Psychiatric: Orientation: alert and oriented x 3 Results & Data Vital Signs (Past 12 Hours) Vital Signs Temp Pulse Pulse Resp BP BP Pulse Ox 05/03/25 11:06 36.5 C 54 L 17 120/55 L 93 05/03/25 10:11 36.5 C 53 L 132/52 L 91 05/03/25 08:41 51 L 20 117/59 L 95 05/03/25 08:33 50 L 19 117/59 L 95 05/03/25 06:00 53 L 20 130/56 L 98 05/03/25 05:42 50 L 05/03/25 04:00 58 L 20 115/49 L 98 05/03/25 02:00 53 L 20 115/53 L 95 05/03/25 01:33 56 L 05/03/25 00:31 58 L 20 05/03/25 00:31 87 L 05/03/25 00:30 61 20 120/78 95 O2 Del Method O2 Flow Rate 05/03/25 11:06 Nasal Cannula 1 05/03/25 10:11 Nasal Cannula 2 05/03/25 08:41 Nasal Cannula 2 05/03/25 08:33 Nasal Cannula 2 05/03/25 06:00 Room Air 05/03/25 05:42 05/03/25 04:00 Nasal Cannula 2 05/03/25 02:00 Room Air 05/03/25 01:33 05/03/25 00:31 05/03/25 00:31 Room Air 05/03/25 00:30 Nasal Cannula 2 Laboratory Results Laboratory Results - last 24 hr 05/03/25 05/03/25 05/03/25 00:28 04:30 09:06 WBC 10.33 RBC 3.62 L Hgb 10.7 L Hct 32.8 L MCV 90.6 MCH 29.6 MCHC 32.6 RDW Std Deviation 48.2 H RDW Coeff of Chyna 14.5 Plt Count 288 MPV 9.9 Immature Gran % (Auto) 0.4 Neut % (Auto) 79.9 Lymph % (Auto) 8.4 [place] % (Auto) 6.9 Eos % (Auto) 4.0 Baso % (Auto) 0.4 Neut # (Auto) 8.26 H Lymph # (Auto) 0.87 L [place] # (Auto) 0.71 H Eos # (Auto) 0.41 Baso # (Auto) 0.04 Immature Gran # (Auto) 0.04 Sodium 137 Potassium 3.2 L Chloride 100 Carbon Dioxide 25 Anion Gap 12 H BUN 58 H Creatinine 5.08 H* Est Cr Clr Drug Dosing Not Reportable eGFR 8.00 BUN/Creatinine Ratio 11.4 Glucose 168 H POC Glucose 175 H Calcium 9.7 Magnesium 2.2 Total Bilirubin 0.4 AST 13 ALT 4 L Alkaline Phosphatase 119 H Total Protein 6.8 Albumin 3.9 Globulin 2.9 Albumin/Globulin Ratio 1.3 Urine Color Yellow Urine Appearance Cloudy A Urine pH 5.5 Ur Specific Atkinson 1.022 Urine Protein 4+ H Urine Glucose (UA) Trace H Urine Ketones Trace H Urine Blood Negative Urine Nitrite Negative Urine Bilirubin Negative Urine Urobilinogen Negative Ur Leukocyte Esterase 1+ H Urine WBC (Auto) 21-50 H Urine RBC (Auto) 3-5 H U Hyaline Cast (Auto) >20 H U Epithel Cells (Auto) 11-20 H Urine Bacteria (Auto) 3+ H Urine Mucus Present A Urine Comment Stl C. diff Tox B Gene Stl C. diff [id number] 05/03/25 05/03/25 10:47 11:55 WBC RBC Hgb Hct MCV MCH MCHC RDW Std Deviation RDW Coeff of Chyna Plt Count MPV Immature Gran % (Auto) Neut % (Auto) Lymph % (Auto) [place] % (Auto) Eos % (Auto) Baso % (Auto) Neut # (Auto) Lymph # (Auto) [place] # (Auto) Eos # (Auto) Baso # (Auto) Immature Gran # (Auto) Sodium Potassium Chloride Carbon Dioxide Anion Gap BUN Creatinine Est Cr Clr Drug Dosing eGFR BUN/Creatinine Ratio Glucose POC Glucose 175 H Calcium Magnesium Total Bilirubin AST ALT Alkaline Phosphatase Total Protein Albumin Globulin Albumin/Globulin Ratio Urine Color Urine Appearance Urine pH Ur Specific Atkinson Urine Protein Urine Glucose (UA) Urine Ketones Urine Blood Urine Nitrite Urine Bilirubin Urine Urobilinogen Ur Leukocyte Esterase Urine WBC (Auto) Urine RBC (Auto) U Hyaline Cast (Auto) U Epithel Cells (Auto) Urine Bacteria (Auto) Urine Mucus Urine Comment Stl C. diff Tox B Gene Pending Stl C. 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 Evaluation of the abdominal and pelvic visceral organs is limited without intravenous contrast. The unenhanced liver, spleen, pancreas, and adrenal glands are grossly unremarkable. A fluid density cyst in right lobe of liver. The gallbladder is present. Right kidney not visualised. The left kidney is normal in size and attenuation without obvious calcification. There is no hydronephrosis. There is moderate left perinephric stranding. The left ureter is normal in caliber. The urinary bladder is partially distended with a single air focus within lumen. Instrumentation histry correlation advised. The pelvic viscera are grossly unremarkable. No adenopathy or fluid collections are seen. Fluid filled colon. No evidence of focal or diffuse bowel wall thickening or evidence of bowel obstruction is seen. A few small diverticuli measuring 3-4 mm are seen in the proximal sigmoid colon. No inflammatory changes are noted. The appendix is not visualized lcearly. No signs of right iliac fossa inflammation. The aorta is normal in caliber. No aggressive appearing osseous lesions are identified. There are significant degenerative changes in the visualized spine. There is a small right anterolateral abdominal wall hernia containing a small bowel loop as content in the right lower abdomen. IMPRESSION: 1. Moderate left perinephric stranding?suggest renal function test correlation. Stable. Right kidney not visualised-surgical history correlation. 2. Uncomplicated sigmoid colon diverticulosis. Stable. 3. Interval resolution of left lower quadrant omental infarct adjacent to sigmoid colon. 4. Uncomplicated small right anterolateral abdominal wall hernia containing small bowel loop as content in the right lower abdomen. Stable. 5. The visualized lung bases show minimal bilateral pleural effusion- new onset and cardiomegaly-stable. 6. A fluid density cyst in right lobe of liver-stable. XR chest 1V portable TECHNIQUE: An X-ray image of the chest was obtained in the AP projection. COMPARISON: 01/26/2025 CR and 09/22/2024 FINDINGS: Pulmonary Parenchyma: The left lower lung zone and costophrenic angle are obscured, which could be due to cardiomegaly, overlying breast shadow, or prominent pericardial fat. The right lung field and costophrenic recess appear normal. Heart and Mediastinum: The cardiac shadow is enlarged in size with bilateral hilar congestion. The descending aorta is stable and ectatic. There is no hilar or mediastinal lymphadenopathy. Stable bilateral paratracheal dense nodular opacities are attributable to thyroid nodules. Bony Thorax: The bony thorax appears intact without fractures or deformities. Soft Tissues: Soft tissues overlying the chest wall are unremarkable. IMPRESSION: No acute cardiopulmonary abnormalities are identified. Stable cardiomegaly and ectatic descending aorta. Redemonstration of an obscured left lower lung zone and costophrenic angle, which could be due to cardiomegaly, overlying breast shadow, or prominent pericardial fat. No significant interval changes. PG Care Time/CCT Total # of Minutes Spent Total Time Spent with Patient: Total time spent is greater than 50% in coordination of care (as documented) at patient's floor/unit and/or counseling patient: Coding Level of Care Code 39623 IN/OBS CONSULT LVL 4,60M Diagnoses KALA (acute kidney injury) N17.9 Chronic kidney disease, stage IV (severe) N18.4 History of right nephrectomy Z90.5 Anemia, chronic disease D63.8 Hypertension I10
[2025-05-03 12:55] LABS: Cdiff Toxin B Gene (2yr or >) Negative Cdiff Gene (Neg)
[2025-05-03] MEDS: LACTATED RINGER'S 1,000 ML IV SCH (13:34)
[2025-05-03] MEDS: VENLAFAXINE HCL XR 150 MG CAPXR PO SCH (13:36)
[2025-05-03] MEDS: HEPARIN SOD 5,000 UNIT/0.5 ML VIAL SQ SCH (13:36)
[2025-05-03] MEDS: SODIUM BICARBONATE 650 MG TAB PO SCH (13:36)
[2025-05-03] MEDS: Patient's HEIGHT &/or WEIGHT Needed STA (13:57)
[2025-05-03 15:33] LABS: Adenovirus F 40/41 PCR Not Detected (NotDetected); Campylobacter PCR Not Detected (NotDetected); Enteroaggregative E.coli(EAEC) Not Detected (NotDetected); Shiga-like Toxin E.coli (STEC) Not Detected (NotDetected); Vibrio species PCR Not Detected (NotDetected)
[2025-05-03] MEDS: COLESTIPOL HCL 1 GM TAB PO ONE (16:55)
[2025-05-03 17:36] LABS: Anion Gap 11.0 (3-11); Blood Urea Nitrogen 60.0 mg/dl (6-23); Calcium 9.4 mg/dl (8.6-10.3); Carbon Dioxide 23.0 mmol/L (21-32); Chloride 104.0 mmol/L (98-107); Creatinine Clr Calc Pharmacy 8.9 ml/min; Glucose 155.0 mg/dl (70-99(Fasting)); Potassium 3.3 mmol/L (3.5-5.1); Sodium 138.0 mmol/L (136-145)
--- NOTE | 2025-05-03 19:12 | XRay Report ---
COMPARISON: 01/26/2025 FINDINGS: HEART: Normal in mildly enlarged. LUNGS: No focal consolidations. No pneumothorax. There is pulmonary scarring. MEEDIASTINUM: Mediastinal prominence. Torturous aorta. BONES: Intact. OTHER: Unremarkable. IMPRESSION: No acute pathology. Stable tortuous aorta. Electronically signed by Nohelia Jaramillo 05-03-2025 7:11 PM
[2025-05-03] MEDS: LANTUS PER UNIT CHARGE SQ SCH (20:47)
--- NOTE | 2025-05-04 05:49 | Electrocardiogram Report ---
Test Reason : Blood Pressure : */* mmHG Vent. Rate : 57 BPM Atrial Rate : 57 BPM P-R Int : 174 ms QRS Dur : 114 ms QT Int : 472 ms P-R-T Axes : * -51 66 degrees QTcB Int : 459 ms Sinus bradycardia with sinus arrhythmia Incomplete right bundle branch block Left anterior fascicular block Left ventricular hypertrophy with repolarization abnormality ( R in aVL , Blencoe product ) Poor R wave progression, consider anterior CO vs. lead placement vs. LVH Abnormal ECG When compared with ECG of 18-Mar-2025 06:15, No significant change Confirmed by Marvin Jacobs ([id number]) on 05/04/2025 5:49:09 AM Referred By: REFERRED SELF Confirmed By: Marvin Jacobs
--- NOTE | 2025-05-04 06:39 | Billing Data ---
Date of Service May 04, 2025 Coding Level of Care Code 12661 INT INP/OBS CARE
[2025-05-04 07:40] LABS: Hematocrit (blood only) 28.4 % (37.0-47.0); Hemoglobin 8.9 g/dl (12.0-16.0); Mean Corpuscular Hemoglobin 27.9 pg (25.0-34.0); Mean Corpuscular Volume 89.0 fL (80.0-100.0); Platelet Count 216 K/uL (130-400); RDW Standard Deviation 46.5 fL (36.4-46.3); Red Blood Count 3.19 M/uL (4.20-5.40); White Blood Count 8.52 K/ul (4.8-10.8)
[2025-05-04 08:21] LABS: Albumin Level 3.2 gm/dl (3.4-5.0); Anion Gap 8.0 (3-11); Blood Urea Nitrogen 58.0 mg/dl (6-23); Calcium 8.9 mg/dl (8.6-10.3); Carbon Dioxide 24.0 mmol/L (21-32); Chloride 107.0 mmol/L (98-107); Creatinine Clr Calc Pharmacy 9.3 ml/min; Glucose 94.0 mg/dl (70-99(Fasting)); Magnesium 2.0 mg/dl (1.7-2.4); Potassium 2.9 mmol/L (3.5-5.1); Sodium 139.0 mmol/L (136-145)
[2025-05-04] MEDS: MAGNESIUM OXIDE 400 MG TAB PO SCH (09:04)
[2025-05-04] MEDS: POTASSIUM CHLORIDE CRTAB 20 MEQ TABCR PO STA (09:06)
[2025-05-04] MEDS: POTASSIUM CHLORIDE 20 MEQ in LACTATED RINGER'S 1,000 ML IV SCH (09:35)
--- NOTE | 2025-05-04 09:53 | Nephrology Progress Note ---
Date of Service May 04, 2025 Assessment & Plan (1) KALA (acute kidney injury): Plan: Non-oliguric. Urine microscopy notable for WBC + RBC, +4 protein on dipstick. Clinical presentation consistent with hemodynamic/pre-renal physiology associated with intravascular volume depletion, RAASi, and diuretics. Liekly some underlying ATN. There is no emergent indication for dialysis. Electrolytes acceptable. BP and volume status are acceptable. CT does not demonstrate obstruction. Medications are appropriately dosed for kidney function. Continue to hold diuretics. IVF switched to LR + 20 KCl @ 100 ml/hr this AM. KCl has been provided for potassium replacement. Bertha remains hypokalemic, additional 40 mEq + IVm provided. Dietary restriction removed. Close monitoring will be provided. Document strict I/O's. Continue oral NaHCO3 as Rx. (2) Chronic kidney disease, stage IV (severe): Plan: Baseline creatinine ~3.0-3.5 mg/dL (CKD IV-V A3). CKD attributed to solitary kidney, DKD, and arterionephrosclerosis. Follows with Dr. Freed as outpatient. LUE AVF placed by Dr. Farooq. L BC AVF placed in December failed to mature and was ligated. A brachiobasilic AVF was placed on January 16 but slow to mature with small vessel size and poor flow. Intervention was performed by Dr. Farooq on Thursday. The vessel has a thrill and bruit. Records have been requested. No records available this AM. Medications are appropriately dosed for kidney function. (3) History of right nephrectomy: Plan: h/o R nephrectomy in 2010 for RCC. (4) Anemia, chronic disease: Plan: H/H dropped overnight. No melena or hematochezia reported. Iron levels slightly low in March. Bertha had received a single dose of venofer. I will provide an additional 200 mg IV venofer this AM. Iron profile will be rechecked tomorrow AM. TYRESE therapy has not been required in the past. A single dose of Epogen [id number] units will be provided this AM. (5) Hypertension: Plan: BP acceptable. Low on admission. Amlodipine and labetalol have been held. No stone indication to restart at this time. Admission and Anticipated Discharge Date Admission Date: May 03, 2025 Subjective No acute events overnight. Bertha is resting comfortably in bed this AM. No fevers or chills. She denies significant abdominal pain. Unfortunately, diarrhea persists - multiple loose watery stool. She denies melena or hematochezia. Appetite is fair. She is not experiencing fluid retention or edema. Review of Systems Review of Systems: All systems reviewed & are unremarkable except as noted in HPI & below Physical Exam Constitutional: well developed; no acute distress Eyes: + anicteric sclerae ENMT: Mouth: no oral mucosal abnormality and oral mucous membranes not dry Neck: normal visual inspection and trachea midline Respiratory: normal respiratory effort Auscultation: lungs clear to auscultation bilaterally Cardiovascular: Rate/Rhythm: regular rate Heart Sounds: normal S1 and normal S2 Vessels: no JVD Extremities: + AV fistula (thrill and bruit, edema an bruising w dressing from recent intervention); no edema Musculoskeletal: Extremities: no cyanosis and no clubbing Skin: normal turgor; no lesions Neurologic: Motor/Sensory: no tremor and no asterixis Psychiatric: Orientation: alert and oriented x 3 Results & Data Vital Signs (Past 12 Hours) Vital Signs Temp Pulse Pulse Resp BP Pulse Ox O2 Del Method 05/04/25 07:56 36.9 C 76 18 144/72 H 96 Nasal Cannula 05/04/25 07:24 75 05/04/25 03:38 37 C 62 16 142/67 H 96 Room Air 05/03/25 23:07 37.2 C 77 16 119/51 L 97 Nasal Cannula O2 Flow Rate 05/04/25 07:56 2 05/04/25 07:24 05/04/25 03:38 05/03/25 23:07 2 Laboratory Results Laboratory Results - last 24 hr 05/03/25 05/03/25 05/03/25 10:47 11:55 16:51 WBC RBC Hgb Hct MCV MCH MCHC RDW Std Deviation RDW Coeff of Chyna Plt Count MPV Sodium 138 Potassium 3.3 L Chloride 104 Carbon Dioxide 23 Anion Gap 11 BUN 60 H Creatinine 5.06 H* Est Cr Clr Drug Dosing 8.9 eGFR 8.04 BUN/Creatinine Ratio 11.9 Glucose 155 H POC Glucose 175 H Calcium 9.4 Phosphorus Magnesium Albumin Stl C. cayetanensis PCR Not Detected Stool Rotavirus A PCR Not Detected Stl Adenov F 40/41 PCR Not Detected Stool Astrovirus (PCR) Not Detected Stool Campylobacter PCR Not Detected Stl C. diff Tox B Gene Negative Cdiff Gene Stl C. diff [id number] NEGATIVE Stool Cryptosporidium PCR Not Detected Stl E.coli Shiga Tox PCR Not Detected Stl Enterotoxigenic E PCR Not Detected Stool EPEC (PCR) Not Detected Stool EAEC (PCR) Not Detected Stl E. histolytica PCR Not Detected Stool Giardia Lamblia PCR Not Detected Stool Salmonella PCR Not Detected Stool Sapovirus (PCR) Not Detected Stl P. shigelloides PCR Not Detected Stl Shigella/EIEC PCR Not Detected St Y.enterocolitica PCR Not Detected Stool Vibrio (PCR) Not Detected Stl Vibrio cholerae PCR Not Detected Stl Norovirus GI/GII PCR Not Detected 05/03/25 05/03/25 05/04/25 17:03 20:11 07:06 WBC 8.52 RBC 3.19 L Hgb 8.9 L Hct 28.4 L MCV 89.0 MCH 27.9 MCHC 31.3 L RDW Std Deviation 46.5 H RDW Coeff of Chyna 14.4 Plt Count 216 MPV 9.6 Sodium 139 Potassium 2.9 L Chloride 107 Carbon Dioxide 24 Anion Gap 8 BUN 58 H Creatinine 4.88 H* Est Cr Clr Drug Dosing 9.3 eGFR 8.39 BUN/Creatinine Ratio 11.9 Glucose 94 POC Glucose 185 H 159 H Calcium 8.9 Phosphorus 4.5 Magnesium 2.0 Albumin 3.2 L Stl C. cayetanensis PCR Stool Rotavirus A PCR Stl Adenov F 40/41 PCR Stool Astrovirus (PCR) Stool Campylobacter PCR Stl C. diff Tox B Gene Stl C. diff [id number] Stool Cryptosporidium PCR Stl E.coli Shiga Tox PCR Stl Enterotoxigenic E PCR Stool EPEC (PCR) Stool EAEC (PCR) Stl E. histolytica PCR Stool Giardia Lamblia PCR Stool Salmonella PCR Stool Sapovirus (PCR) Stl P. shigelloides PCR Stl Shigella/EIEC PCR St Y.enterocolitica PCR Stool Vibrio (PCR) Stl Vibrio cholerae PCR Stl Norovirus GI/GII PCR 05/04/25 08:29 WBC RBC Hgb Hct MCV MCH MCHC RDW Std Deviation RDW Coeff of Chyna Plt Count MPV Sodium Potassium Chloride Carbon Dioxide Anion Gap BUN Creatinine Est Cr Clr Drug Dosing eGFR BUN/Creatinine Ratio Glucose POC Glucose 92 Calcium Phosphorus Magnesium Albumin Stl C. cayetanensis PCR Stool Rotavirus A PCR Stl Adenov F 40/41 PCR Stool Astrovirus (PCR) Stool Campylobacter PCR Stl C. diff Tox B Gene Stl C. diff [id number] Stool Cryptosporidium PCR Stl E.coli Shiga Tox PCR Stl Enterotoxigenic E PCR Stool EPEC (PCR) Stool EAEC (PCR) Stl E. histolytica PCR Stool Giardia Lamblia PCR Stool Salmonella PCR Stool Sapovirus (PCR) Stl P. shigelloides PCR Stl Shigella/EIEC PCR St Y.enterocolitica PCR Stool Vibrio (PCR) Stl Vibrio cholerae PCR Stl Norovirus GI/GII PCR PG Care Time/CCT Total # of Minutes Spent Total Time Spent with Patient: Total time spent is greater than 50% in coordination of care (as documented) at patient's floor/unit and/or counseling patient: Coding Level of Care Code 97647 SUB INP/OBS CARE 3/50MIN Diagnoses KALA (acute kidney injury) N17.9 Chronic kidney disease, stage IV (severe) N18.4 History of right nephrectomy Z90.5 Anemia, chronic disease D63.8 Hypertension I10
[2025-05-04] MEDS: COLESTIPOL HCL 1 GM TAB PO SCH (10:28)
[2025-05-04] MEDS: EPOETIN ALFA 20,000 UNITS/ML VIAL SQ ONE (10:28)
[2025-05-04] MEDS: IRON SUCROSE 200 MG in SODIUM CHLORIDE 0.9% 100 ML IV ONE (10:28)
--- NOTE | 2025-05-04 19:43 | Hospitalist Progress Note ---
Date of Service May 04, 2025 Assessment & Plan (1) Diarrhea: (2) KALA (acute kidney injury): (3) Anemia, chronic disease: (4) (HFpEF) heart failure with preserved ejection fraction: (5) Obstructive sleep apnea: (6) Diabetes mellitus with chronic kidney disease: (7) Hypertension: (8) UTI (urinary tract infection): (9) Hypokalemia: (10) History of right nephrectomy: (11) ESRD (end stage renal disease): Plan Pt is an 84 yo female with a past med hx of CKD stage V - nearly ESRD s/p recent AV fistula placement, T2DM, HFpEF, CARO, HTN, and hx gout who presented to the hospital on 05/03 for 1 week of nausea, vomiting, and diarrhea. Was hospitalized in March and had diverticulitis then - treated with zosyn, then augmentin upon discharge home. #Diarrhea - - CT abd/pelvis without diverticulitis; diverticulitis from 03/2025 resolved radiographically - Stool BioFire negative - Stool c diff negative - at minimum probably has abx-associated diarrhea - added colestipol 1gm daily and this has helped the stools - if diarrhea persists or worsens then obtain GI consultation -last colonoscopy - 2016; sigmoid diverticulosis only; no polyps or other abnormalities then #KALA on CKD stage V/ESRD - - Baseline Cr has been 3.5-4.0 the last several months - 2023 - Cr was low to mid 2's - she has had clear progression of her CKD in the remaining left-sided kidney - admission Cr 5.08, likely due to diarrhea/dehydration - despite fluid challenge/re-hydration her Cr today is only 4.88 - unfortunately it appears she has developed pulmonary edema in the setting of re-hydration; thus, stopped IV Fluids this afternoon - appreciate [facility] [place] assistance - repeat BMP am - continue sod bicarb supplementation 1300mg BID #Hypoxia - - suspect development of pulmonary edema in the setting of her KALA/CKD stage 5 and IV fluids - stop fluids - diuretic therapy likely to be of limited benefit but could attempt such again? defer to nephrology #HFpEF - - last echo January 2025; EF 55-60% with severe left atrial dilation and type II diastolic dysfunction - usually takes 1 mg bumex BID at home; on hold in setting of KALA #klebsiella UTI - - cephalexin 250mg daily x 5-7 days #HTN - - labetalol, amlodipine, and bumex were placed on hold at time of admission - BPs starting to climb - would resume a beta ginny albeit at a lower dose #Anemia, chronic - 2nd to CKD/ESRD - - appreciate nephrology management of such - B12/folate in 11/2024 both wnl - defer epogen/Fe supplementation to nephrology #T2DM - - home regime is glargine 40 units once daily ; this has been lowered to 25 units daily while diet is restricted - novolog SSI - a1c 7.1% in November 2024 - recheck in am #CARO - - CPAP #hypokalemia - - replace IV/PO - 2nd diarrhea - sons expressed concern about taking supplementation; explained that the supplementation is temporary while trying to bring the level up; once levels have normalized the supplementation will be stopped -reassurance given to sons VTE: heparin 5000 BID updated pt's son by phone this evening, 05/04 Admission and Anticipated Discharge Date Admission Date: May 03, 2025 Subjective tele overnight wnl diarrhea improving only 2 stools since waking up this am no abd pain no nausea or vomiting tolerating liquid diet does note worsening dyspnea and dyspnea on exertion o2 sats checked during rounds - I removed the NC O2 for such - promptly dropped to <90% within a minute Review of Systems Review of Systems: gen - no fevers cv - no chest pain, mild edema of legs pulm - dyspnea with JUAREZ - worse as the day went on today GI - no vomiting Physical Exam Physical Exam: gen - awake, alert, NAD, pleasant mouth - MMM neck - JVD present heart - RRR, s1 s2, 1-2/6 systolic murmur LSB lungs - b/l basilar rales, no increased work of breathing abd - soft NT ND BS+ ext - <1+ edema b/l shins/feet, pulses b/l feet 2+ psych - a/o x 3 Results & Data Results & Data Vital Signs (Past 12 Hours) Vital Signs Temp Pulse Pulse Resp BP Pulse Ox Pulse Ox 05/04/25 19:35 36.3 C L 72 16 148/64 H 90 05/04/25 15:19 72 05/04/25 10:58 36.6 C 67 16 137/68 96 05/04/25 10:50 05/04/25 09:55 94 05/04/25 07:56 36.9 C 76 18 144/72 H 96 O2 Del Method O2 Del Method O2 Flow Rate O2 Flow Rate 05/04/25 19:35 Nasal Cannula 2 05/04/25 15:19 05/04/25 10:58 Nasal Cannula 2 05/04/25 10:50 Nasal Cannula 2 05/04/25 09:55 Nasal Cannula 2 05/04/25 07:56 Nasal Cannula 2 Laboratory Results Laboratory Results - last 24 hr 05/04/25 05/04/25 05/04/25 07:06 08:29 11:53 WBC 8.52 RBC 3.19 L Hgb 8.9 L Hct 28.4 L MCV 89.0 MCH 27.9 MCHC 31.3 L RDW Std Deviation 46.5 H RDW Coeff of Chyna 14.4 Plt Count 216 MPV 9.6 Sodium 139 Potassium 2.9 L Chloride 107 Carbon Dioxide 24 Anion Gap 8 BUN 58 H Creatinine 4.88 H* Est Cr Clr Drug Dosing 9.3 eGFR 8.39 BUN/Creatinine Ratio 11.9 Glucose 94 POC Glucose 92 104 H Calcium 8.9 Phosphorus 4.5 Magnesium 2.0 Albumin 3.2 L Microbiology 05/03/25 04:30 Urine,Clean Catch Urine Culture - Preliminary Klebsiella variicola PG Care Time/CCT Total # of Minutes Spent Total Time Spent with Patient: Total time spent is greater than 50% in coordination of care (as documented) at patient's floor/unit and/or counseling patient: Coding Level of Care Code 95079 SUB INP/OBS CARE 3/50MIN Diagnoses Diarrhea R19.7 KALA (acute kidney injury) N17.9 Anemia, chronic disease D63.8 (HFpEF) heart failure with preserved ejection fraction I50.30 Obstructive sleep apnea G47.33 Diabetes mellitus with chronic kidney disease E11.22 Hypertension I10 UTI (urinary tract infection) N39.0 Hypokalemia E87.6 History of right nephrectomy Z90.5 ESRD (end stage renal disease) N18.6
[2025-05-04] MEDS: ACETAMINOPHEN 325 MG TAB PO PRN (21:42)
[2025-05-04] MEDS: INSULIN ASPART PER UNIT CHARGE SC SCH (21:43)
[2025-05-05 08:12] LABS: Hematocrit (blood only) 28.1 % (37.0-47.0); Hemoglobin 9.0 g/dl (12.0-16.0); Mean Corpuscular Hemoglobin 28.2 pg (25.0-34.0); Mean Corpuscular Volume 88.1 fL (80.0-100.0); Platelet Count 214 K/uL (130-400); RDW Standard Deviation 46.5 fL (36.4-46.3); Red Blood Count 3.19 M/uL (4.20-5.40); White Blood Count 8.48 K/ul (4.8-10.8)
[2025-05-05 08:37] LABS: Albumin Level 3.2 gm/dl (3.4-5.0); Anion Gap 6.0 (3-11); Calcium 9.3 mg/dl (8.6-10.3); Carbon Dioxide 26.0 mmol/L (21-32); Chloride 107.0 mmol/L (98-107); Potassium 3.2 mmol/L (3.5-5.1); Sodium 139.0 mmol/L (136-145)
[2025-05-05 08:42] LABS: Hemoglobin A1C 7.0 % (4.5-5.6)
[2025-05-05 08:47] LABS: Blood Urea Nitrogen 53.0 mg/dl (6-23); Creatinine Clr Calc Pharmacy 10.0 ml/min; Glucose 77.0 mg/dl (70-99(Fasting)); Iron 24.0 mcg/dl (35-150); Total Iron Binding Cap Calc 234.0 mcg/dl (250-450); Transferrin 167.0 mg/dl (200-360); Transferrin (FE) Percent Satur 10.0 % (15-50)
[2025-05-05 09:01] LABS: Ferritin 231.2 ng/ml (8-388)
--- NOTE | 2025-05-05 09:25 | Nephrology Progress Note ---
Date of Service May 05, 2025 Assessment & Plan (1) KALA (acute kidney injury): Plan: Non-oliguric. Urine microscopy notable for WBC + RBC; +4 protein on dipstick. Clinical presentation consistent with hemodynamic/pre-renal physiology associated with intravascular volume depletion, RAASi, and diuretics. Likely some underlying ATN. There is no emergent indication for dialysis. Electrolytes notable for hypokalemia. BP and volume status are acceptable. Medications are appropriately dosed for kidney function. Continue to hold diuretics. IVF held due to increasing pulmonary edema. Diuretics held pending monitoring. Document strict I/Os. Goal is to maintain a relatively even or slightly negative fluid balance. Additional KCl 40 mEq provided this AM for hypokalemia. Recheck magnesium and potassium tomorrow.. Continue oral NaHCO3 as Rx. (2) Chronic kidney disease, stage IV (severe): Plan: Baseline creatinine ~3.0-3.5 mg/dL (CKD IV-V A3). CKD attributed to solitary kidney, DKD, and arterionephrosclerosis. Follows with Dr. Freed as outpatient. LUE AVF placed by Dr. Farooq. L BC AVF placed in December failed to mature and was ligated. A brachiobasilic AVF was placed on January 16 but slow to mature with small vessel size and poor flow. Intervention was performed by Dr. Farooq on Thursday. The vessel has a good thrill and bruit. Records have been requested. Records have been requested but are not yet available this AM. Medications are appropriately dosed for kidney function. (3) History of right nephrectomy: Plan: h/o R nephrectomy in 2010 for RCC. (4) Anemia, chronic disease: Plan: Bertha denies melena or hematochezia. However, H/H dropped on admission and iron stores have diminished despite recent inpatient treatment. Consider a non- emergent follow up GI evaluation. Venofer 200 mg IV provided yesterday and an additional 300 mg today. TYRESE therapy has not been required in the past. A single dose of Epogen 26200 units was provided yesterday. (5) Hypertension: Plan: BP acceptable. Low on admission. Amlodipine and labetalol have been held but may be restarted as needed. Admission and Anticipated Discharge Date Admission Date: May 03, 2025 Subjective No acute events overnight. No fevers or chills. Diarrhea improving -- no BM overnight. Semi-formed stool this AM. Denies abdominal pain. Denies melena or hematochezia. Bertha feels reasonably well overall. She denies dyspnea at rest but had developed some increase work of breathing yesterday with associated supplemental O2 requirement to maintain SaO2. Bertha remains on 3 L NC this AM. She is non-oliguric. Review of Systems Review of Systems: All systems reviewed & are unremarkable except as noted in HPI & below Physical Exam Constitutional: well developed; no acute distress Eyes: + anicteric sclerae ENMT: Mouth: oral mucous membranes not dry Neck: normal visual inspection and trachea midline Respiratory: normal respiratory effort Auscultation: lungs clear to auscultation bilaterally and + rales Cardiovascular: Rate/Rhythm: regular rate Heart Sounds: normal S1 and normal S2 Vessels: no JVD Extremities: + AV fistula (thrill and bruit, edema an bruising w dressing from recent intervention); no edema Musculoskeletal: Extremities: no cyanosis and no clubbing Skin: normal turgor; no lesions Neurologic: Motor/Sensory: no tremor and no asterixis Psychiatric: Orientation: alert and oriented x 3 Results & Data Vital Signs (Past 12 Hours) Vital Signs Temp Pulse Pulse Resp BP Pulse Ox O2 Del Method 05/05/25 07:46 36.7 C 80 18 155/79 H 95 Nasal Cannula 05/05/25 06:59 71 05/05/25 03:48 37.1 C 71 18 140/71 92 Nasal Cannula 05/04/25 23:23 37 C 78 16 153/63 H 94 Nasal Cannula 05/04/25 21:43 82 05/04/25 21:40 Nasal Cannula O2 Flow Rate 05/05/25 07:46 3 05/05/25 06:59 05/05/25 03:48 3 05/04/25 23:23 2 05/04/25 21:43 05/04/25 21:40 2 Laboratory Results Laboratory Results - last 24 hr 05/04/25 05/04/25 05/04/25 11:53 17:04 20:17 WBC RBC Hgb Hct MCV MCH MCHC RDW Std Deviation RDW Coeff of Chyna Plt Count MPV Sodium Potassium Chloride Carbon Dioxide Anion Gap BUN Creatinine Est Cr Clr Drug Dosing eGFR BUN/Creatinine Ratio Glucose POC Glucose 104 H 111 H 224 H Estimat Average Glucose Hemoglobin A1c Calcium Phosphorus Iron TIBC Transferrin Transferrin % Sat Ferritin Albumin 05/05/25 05/05/25 05/05/25 02:45 02:46 07:30 WBC 8.48 RBC 3.19 L Hgb 9.0 L Hct 28.1 L MCV 88.1 MCH 28.2 MCHC 32.0 RDW Std Deviation 46.5 H RDW Coeff of Chyna 14.6 H Plt Count 214 MPV 9.7 Sodium 139 Potassium 3.2 L Chloride 107 Carbon Dioxide 26 Anion Gap 6 BUN 53 H Creatinine 4.60 H* Est Cr Clr Drug Dosing 10.0 eGFR 9.01 BUN/Creatinine Ratio 11.5 Glucose 77 POC Glucose 76 83 Estimat Average Glucose 154 Hemoglobin A1c 7.0 H Calcium 9.3 Phosphorus 3.9 Iron 24 L TIBC 234 L Transferrin 167 L Transferrin % Sat 10 L Ferritin 231.2 Albumin 3.2 L 05/05/25 08:32 WBC RBC Hgb Hct MCV MCH MCHC RDW Std Deviation RDW Coeff of Chyna Plt Count MPV Sodium Potassium Chloride Carbon Dioxide Anion Gap BUN Creatinine Est Cr Clr Drug Dosing eGFR BUN/Creatinine Ratio Glucose POC Glucose 80 Estimat Average Glucose Hemoglobin A1c Calcium Phosphorus Iron TIBC Transferrin Transferrin % Sat Ferritin Albumin PG Care Time/CCT Total # of Minutes Spent Total Time Spent with Patient: Total time spent is greater than 50% in coordination of care (as documented) at patient's floor/unit and/or counseling patient: Coding Level of Care Code 71596 SUB INP/OBS CARE 3/50MIN Diagnoses KALA (acute kidney injury) N17.9 Chronic kidney disease, stage IV (severe) N18.4 History of right nephrectomy Z90.5 Anemia, chronic disease D63.8 Hypertension I10
[2025-05-05] MEDS: IRON SUCROSE 300 MG in SODIUM CHLORIDE 0.9% 250 ML IV ONE (09:40)
[2025-05-05] MEDS: POTASSIUM CHLORIDE CRTAB 20 MEQ TABCR PO STA (09:40)
[2025-05-05] MEDS: LABETALOL HCL 100 MG TAB PO SCH (10:43)
[2025-05-05] MEDS: SIMETHICONE 80 MG CHEW PO PRN (18:11)
[2025-05-05] MEDS: FAMOTIDINE 20MG IV PUSH 20 MG/5 ML SYR IV STA (18:33)
--- NOTE | 2025-05-05 20:18 | XRay Report ---
INDICATION: Abdominal pain TECHNIQUE: Portable supine view radiograph of the abdomen was obtained. COMPARISON: CT abdomen and pelvis 2 days previous. FINDINGS: The bowel gas pattern is nonobstructive. Evaluation for free air is limited due to supine technique. Right nephrectomy changes. IMPRESSION: Nonobstructive bowel gas pattern. Electronically signed by Steven Wade 05-05-2025 8:16 PM
--- NOTE | 2025-05-05 20:21 | Hospitalist Progress Note ---
Date of Service May 05, 2025 Assessment & Plan (1) Diarrhea: (2) KALA (acute kidney injury): (3) Anemia, chronic disease: (4) (HFpEF) heart failure with preserved ejection fraction: (5) Obstructive sleep apnea: (6) Diabetes mellitus with chronic kidney disease: (7) Hypertension: (8) UTI (urinary tract infection): (9) Hypokalemia: (10) History of right nephrectomy: (11) ESRD (end stage renal disease): Plan Pt is an 84 yo female with a past med hx of CKD stage V - nearly ESRD s/p recent AV fistula placement, T2DM, HFpEF, CARO, HTN, and hx gout who presented to the hospital on 05/03 for 1 week of nausea, vomiting, and diarrhea. Was hospitalized in March and had diverticulitis then - treated with zosyn, then augmentin upon discharge home. #Diarrhea - - CT abd/pelvis without diverticulitis; diverticulitis from 03/2025 resolved radiographically - Stool BioFire negative - Stool c diff negative - at minimum probably has abx-associated diarrhea - added colestipol 1gm daily and this has helped the stools; now semi-formed - if diarrhea persists or worsens then obtain GI consultation -last colonoscopy - 2016; sigmoid diverticulosis only; no polyps or other abnormalities then #KALA on CKD stage V/ESRD - - Baseline Cr has been 3.5-4.0 the last several months - 2023 - Cr was low to mid 2's - she has had clear progression of her CKD in the remaining left-sided kidney - admission Cr 5.08, likely due to diarrhea/dehydration - Cr today 4.6 this improving slowly - unfortunately it appears she developed some pulmonary edema in the setting of re-hydration; thus, stopped IV Fluids yesterday - remains stable on small amount of NC O2 and is not symptomatic - [place] [facility] [place] - repeat BMP am - continue sod bicarb supplementation 1300mg BID - no indication for acute HD at this time #Hypoxia - - suspect development of pulmonary edema in the setting of her KALA/CKD stage 5 and IV fluids - stopped fluids - diuretic therapy likely to be of limited benefit right now with her KALA and could potentially worsen the KALA - allow more renal recovery before resuming diuretics #HFpEF - - last echo January 2025; EF 55-60% with severe left atrial dilation and type II diastolic dysfunction - usually takes 1 mg bumex BID at home; on hold in setting of KALA #klebsiella UTI - - cephalexin 250mg daily x 5-7 days - day #2 today #HTN - - labetalol, amlodipine, and bumex were placed on hold at time of admission - BPs starting to climb - resume labetalol at 100mg BID #Anemia, chronic - 2nd to CKD/ESRD - - appreciate nephrology management of such - B12/folate in 11/2024 both wnl - defer epogen/Fe supplementation to nephrology #T2DM - - home regime is glargine 40 units once daily ; this has been lowered to 25 units daily while diet is restricted - novolog SSI - a1c 7.1% in November 2024 - a1c is 7% today #CARO - - CPAP #hypokalemia - - replace PO again - 2nd diarrhea - repeat BMP am VTE: heparin 5000 BID updated pt's son by phone 05/04 seen by PT/OT today -- cleared to return home at d/c Admission and Anticipated Discharge Date Admission Date: May 03, 2025 Subjective tele stable overnight resting comfortably in bed still remains on supplemental O2 diarrhea improved - semi-solid stool the last time she had a stool no vomiting eating/drinking states her dyspnea is improved today Review of Systems Review of Systems: gen - no fevers cv - no orthopnea, no chest pain pulm - no dyspnea or JUAREZ today GI - denies abd pain; some bloating; no vomiting Physical Exam Physical Exam: gen - awake, alert, NAD, pleasant; looks tired mouth - MMM neck - JVD present - mild/moderate heart - RRR, s1 s2, 1-2/6 systolic murmur LSB lungs - b/l basilar rales R>L, no increased work of breathing abd - soft NT ND BS+ ext - trace edema b/l shins/feet, pulses b/l feet 2+ psych - a/o x 3 Results & Data Results & Data Vital Signs (Past 12 Hours) Vital Signs Temp Pulse Pulse Resp BP Pulse Ox Pulse Ox 05/05/25 15:46 36.8 C 83 18 167/75 H 93 05/05/25 15:04 80 05/05/25 11:25 05/05/25 09:00 94 O2 Del Method O2 Del Method O2 Flow Rate O2 Flow Rate 05/05/25 15:46 Nasal Cannula 2 09/26/25 15:04 05/05/25 11:25 Nasal Cannula 2 05/05/25 09:00 Nasal Cannula 2 Laboratory Results Laboratory Results - last 24 hr 05/05/25 05/05/25 05/05/25 02:45 02:46 07:30 WBC 8.48 RBC 3.19 L Hgb 9.0 L Hct 28.1 L MCV 88.1 MCH 28.2 MCHC 32.0 RDW Std Deviation 46.5 H RDW Coeff of Chyna 14.6 H Plt Count 214 MPV 9.7 Sodium 139 Potassium 3.2 L Chloride 107 Carbon Dioxide 26 Anion Gap 6 BUN 53 H Creatinine 4.60 H* Est Cr Clr Drug Dosing 10.0 eGFR 9.01 BUN/Creatinine Ratio 11.5 Glucose 77 POC Glucose 76 83 Estimat Average Glucose 154 Hemoglobin A1c 7.0 H Calcium 9.3 Phosphorus 3.9 Iron 24 L TIBC 234 L Transferrin 167 L Transferrin % Sat 10 L Ferritin 231.2 Albumin 3.2 L 05/05/25 05/05/25 05/05/25 08:32 12:04 17:15 WBC RBC Hgb Hct MCV MCH MCHC RDW Std Deviation RDW Coeff of Chyna Plt Count MPV Sodium Potassium Chloride Carbon Dioxide Anion Gap BUN Creatinine Est Cr Clr Drug Dosing eGFR BUN/Creatinine Ratio Glucose POC Glucose 80 116 H 140 H Estimat Average Glucose Hemoglobin A1c Calcium Phosphorus Iron TIBC Transferrin Transferrin % Sat Ferritin Albumin PG Care Time/CCT Total # of Minutes Spent Total Time Spent with Patient: Total time spent is greater than 50% in coordination of care (as documented) at patient's floor/unit and/or counseling patient: Coding Level of Care Code 01194 SUB INP/OBS CARE 3/50MIN Diagnoses Diarrhea R19.7 KALA (acute kidney injury) N17.9 Anemia, chronic disease D63.8 (HFpEF) heart failure with preserved ejection fraction I50.30 Obstructive sleep apnea G47.33 Diabetes mellitus with chronic kidney disease E11.22 Hypertension I10 UTI (urinary tract infection) N39.0 Hypokalemia E87.6 History of right nephrectomy Z90.5 ESRD (end stage renal disease) N18.6
[2025-05-05] MEDS: MELATONIN 3 MG TAB PO PRN (20:54)
[2025-05-06 08:05] LABS: Anion Gap 8.0 (3-11); Blood Urea Nitrogen 49.0 mg/dl (6-23); Calcium 9.8 mg/dl (8.6-10.3); Carbon Dioxide 25.0 mmol/L (21-32); Chloride 109.0 mmol/L (98-107); Creatinine Clr Calc Pharmacy 11.1 ml/min; Glucose 110.0 mg/dl (70-99(Fasting)); Magnesium 2.0 mg/dl (1.7-2.4); Potassium 3.5 mmol/L (3.5-5.1); Sodium 142.0 mmol/L (136-145)
[2025-05-06] MEDS: LOPERAMIDE HCL 2 MG CAP PO PRN (09:32)
--- NOTE | 2025-05-06 09:38 | Nephrology Progress Note ---
Date of Service May 06, 2025 Assessment & Plan (1) KALA (acute kidney injury): Plan: * Recovery phase of ATN. Patient is non-oliguric. Cr has improved from 5.0 to 4.11. * KALA likely ATN due to dehydration in the setting of ARB, diuretics. * Volume status and electrolyte balance are acceptable. No acute indication for [employer] at this time. * Will reduce NaHCO3 to 650 mg daily * BMP in am (2) Chronic kidney disease, stage IV (severe): Plan: * h/o RCCA s/p R nephrectomy 2010. Baseline Cr 3.0-3.5. Follows with Dr. Freed as outpatient. * L brachiobasilic AVF created by Dr. Farooq 02/01 but slow to mature. Intervention was performed on Thursday. The vessel has a good thrill and bruit. Awaiting surgical records (3) Anemia, chronic disease: Plan: * Venofer 200 mg IV provided 05/04, venofer 300 mg provided 05/05. * Epogen 33691 units SQx1 provided 05/04 * Hgb is gradually improving. Will check H&H in am (4) Hypertension: Plan: * Mild hypertension. Labetalol resumed yesterday. If BP remains elevated, consider restarting low dose amlodipine Plan 50 min visit - review medical record, interview/examine patient, adjust bicarbonate dose, order laboratory testing, update medical record Admission and Anticipated Discharge Date Admission Date: May 03, 2025 Subjective Ms. Linares was evaluated in her hospital room this morning. She reports 4 liquid bowel movements over the last 24 hours. She has not been able to collect her urine to measure output. She reports that she is trying to maintain adequate oral hydration. Review of Systems Constitutional: + fatigue; no fever Eyes: no problem reported Ear, Nose, Mouth, Throat: no problem reported Respiratory: no cough and no dyspnea Cardiovascular: no chest pain, no palpitations, no lightheadedness and no edema Gastrointestinal: + diarrhea/loose stools; no abdominal pa in, no vomiting, no blood in stools and no melena Genitourinary: no problem reported Physical Exam Constitutional: not in distress Eyes: PERRL, conjunctivae normal, anicteric sclerae ENMT: external ear and nose normal, oropharynx normal Neck: trachea midline, no thyromegaly Respiratory: normal respiratory effort, lungs clear to auscultation Cardiovascular: RRR, no murmur, no edema Gastrointestinal (Abdomen): normal bowel sounds, soft, nontender, no hepatosplenomegaly Musculoskeletal: Extremities: no cyanosis and no clubbing Skin: no rashes, warm and dry Neurologic: no focal motor deficits Results & Data Vital Signs (Past 12 Hours) Vital Signs Temp Pulse Pulse Resp BP Pulse Ox Pulse Ox 05/06/25 09:00 94 05/06/25 08:47 73 05/06/25 08:04 36.9 C 72 16 169/77 H 93 05/06/25 04:22 36.7 C 72 15 148/68 H 93 05/06/25 03:19 86 29 H 93 05/06/25 00:07 37.1 C 82 16 155/77 H 95 05/05/25 23:05 78 20 90 05/05/25 21:58 78 O2 Del Method O2 Del Method O2 Flow Rate O2 Flow Rate 05/06/25 09:00 Nasal Cannula 2 05/06/25 08:47 05/06/25 08:04 Room Air 05/06/25 04:22 Room Air 05/06/25 03:19 4 05/06/25 00:07 Room Air 05/05/25 23:05 4 05/05/25 21:58 Laboratory Results Laboratory Results - last 24 hr 05/05/25 05/05/25 05/05/25 12:04 17:15 20:29 Sodium Potassium Chloride Carbon Dioxide Anion Gap BUN Creatinine Est Cr Clr Drug Dosing eGFR BUN/Creatinine Ratio Glucose POC Glucose 116 H 140 H 148 H Calcium Magnesium 05/06/25 05/06/25 07:23 08:31 Sodium 142 Potassium 3.5 Chloride 109 H Carbon Dioxide 25 Anion Gap 8 BUN 49 H Creatinine 4.11 H D Est Cr Clr Drug Dosing 11.1 eGFR 10.32 BUN/Creatinine Ratio 11.9 Glucose 110 H POC Glucose 106 H Calcium 9.8 Magnesium 2.0 PG Care Time/CCT Total # of Minutes Spent Total Time Spent with Patient: Total time spent is greater than 50% in coordination of care (as documented) at patient's floor/unit and/or counseling patient: Coding Level of Care Code 33171 SUB INP/OBS CARE 3/50MIN Diagnoses KALA (acute kidney injury) N17.9 Chronic kidney disease, stage IV (severe) N18.4 Anemia, chronic disease D63.8 Hypertension I10
[2025-05-06] MEDS: COLESTIPOL HCL 1 GM TAB PO SCH (11:15)
--- NOTE | 2025-05-06 11:15 | Gastrointestinal Consultation ---
Date of Consultation May 06, 2025 Assessment & Plan (1) ESRD (end stage renal disease): (2) Acute diverticulitis: (3) Anemia, chronic disease: (4) Fatty liver: (5) Acid reflux: (6) Change in bowel habits: Patient admitted with nausea, vomiting, and diarrhea. Her symptoms overall have improved with the addition of Colestid. Some of her symptoms certainly could be attributed to her urinary tract infection and she is on appropriate antibiotics for this. I suspect the majority of her symptoms are antibiotic associated. I am going to add Florastor twice daily. Stool studies have already been done and are negative. She could have microscopic colitis as well but I think this is probably less likely given her intermittent bouts of constipation that she seems to have as an outpatient. We are unable to proceed with any endoscopic workup at this time due to her recent diverticulitis episode as well as her mild pulmonary edema. I would favor doing a colonoscopy in 6 weeks. For now I will continue on her current medications. She is fine to have a diet as tolerated from my standpoint. History of Present Illness Reason for Consultation: Nausea, vomiting, diarrhea Attending Physician: Tre Pro MD History of Present Illness Patient is a pleasant 84-year-old female who was recently admitted with d iverticulitis. She was initially treated with Zosyn and then discharged home with Augmentin. Her diverticulitis resolved however over the past few weeks she has been complaining of nausea, vomiting, and diarrhea. In speaking with the patient, it sounds as if she may have chronic diarrhea. She states that occasionally she will have significant liquid stool however on other days she seems to be constipated. It is very difficult to get a clear history from her. On admission she underwent a CT scan of her abdomen and pelvis which showed resolution of her diverticulitis. She did undergo an abdominal x-ray which was negative. She was found to have a UTI and started on cephalexin. Stool studies have been negative. She was given colestipol and ordered loperamide which seemed to improve her symptoms. Currently she states she is hungry. She denies any issues with nausea or vomiting. Her diarrhea has improved as well. She was noted to have pulmonary edema most likely secondary to fluid overload. She does have a history of chronic kidney failure and recently had an AV fistula placed. Her last colonoscopy was in 2017. She is maintained on omeprazole 20 mg daily. 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,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 #1 ea 10/21/24 05/03/25 Rx (FreeStyle Santi 3 [place]) omeprazole 20 mg capsule,delayed 20 mg PO DAILY #90 caps 11/08/24 05/03/25 Rx release labetalol 200 mg tablet 200 mg PO BID 12/09/24 05/03/25 History tramadol 50 mg tablet 50 mg PO BID PRN Pain #60 tabs 12/09/24 05/03/25 Rx 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 sensor (FreeStyle #3 ea 01/16/25 05/03/25 Rx Santi 3 Sensor device) venlafaxine 150 mg 150 mg PO DAILY #90 caps 01/16/25 05/03/25 Rx capsule,extended release 24 hr ferrous sulfate 325 mg (65 mg 325 mg PO Q OTHER DAY #14 tabs 01/19/25 05/03/25 Rx iron) tablet allopurinol 100 mg tablet 100 mg PO Q OTHER DAY 01/24/25 05/03/25 History atorvastatin 40 mg tablet 40 mg PO DAILY 01/24/25 05/03/25 History amlodipine 5 mg tablet (Norvasc) 5 mg PO QAM #90 tabs 02/16/25 05/03/25 Rx sodium bicarbonate 650 mg tablet 1,300 mg (2 x 650 mg) PO BID #120 03/21/25 05/03/25 Rx tabs insulin glargine U-300 conc 300 40 unit subcut DAILY 03/28/25 05/03/25 History unit/mL (3 mL) subcutaneous pen (Toujeo Max U-300 SoloStar) Lopez Walker #1 ea 03/30/25 05/03/25 Rx bumetanide 1 mg tablet 2 mg (2 x 1 mg) PO BID #120 tabs 04/20/25 05/03/25 Rx albuterol sulfate 90 mcg/actuation 2 puff inhalation Q4 PRN Shortness 05/03/25 05/03/25 History aerosol inhaler Of Breath Or Wheezing loperamide 2 mg capsule 2 mg PO Q1H PRN Diarrhea 05/03/25 05/03/25 History oxycodone-acetaminophen 5 mg-325 1 tab PO Q4 PRN Pain 05/03/25 05/03/25 History mg tablet Patient History Medical History Congestive heart failure Hypertensive urgency Acute exacerbation of CHF (congestive heart failure) Hypertensive urgency Thyroiditis Thyromegaly Asthmatic bronchitis Acute hypoxemic respiratory failure Acute respiratory failure with hypoxia Dysphagia Fistula Surgical History S/P left cataract extraction (02/02/25) S/P thyroid biopsy (11/2024) H/O tubal ligation Family History Brother AA (alcohol abuse) Diabetes Hypertension Mother Diabetes Hypertension Stroke Dementia Father Heart disease Hypertension Kidney disease Myocardial infarction Sister Alzheimer disease Son Diabetes Sister Hypertension Stroke Sister Dementia Denies family history of Ovarian cancer Prostate cancer Breast cancer Colorectal cancer Social History Smoking Status: Never smoker Second Hand Exposure: No; Do You Dip or Chew Tobacco: No; Hx Alcohol Use: No Hx Substance Use: No Preferred Language: Persian Communication Ability: Effective Visual Impairment: Partially Limited Hearing Ability: Hard of Hearing Optical Manager Required: No Beliefs That Will Affect Care: None marital status: / Current Living Situation: Family Current Living Situation Comment: with peter crespo current occupational status: retired current occupation: RETIRED How many Children do You have: 3 How many Children do You have Comment: 3 sons; 1 lives [place], 1 lives [place], 1 [facility] Feels Safe at Home: Yes Childhood Exposure to Second-Hand Smoke: No Diet: regular caffeine: Yes during the past year weight has: remained stable Dental Care, Regularly: Yes Physical Activity Frequency: Does not Exercise Seatbelt Use: always Sunscreen Use: No (does not really go in sun) Assistive Devices: Cane, CPAP, Hospital Bed, Walker and Other Physical Exam Constitutional: WD/WN, vitals as above Eyes: PERRL, conjunctivae normal, anicteric sclerae Neck: trachea midline, no thyromegaly Respiratory: normal respiratory effort, lungs clear to auscultation Cardiovascular: RRR, no murmur, no edema Gastrointestinal (Abdomen): normal bowel sounds, soft, nontender, no hepatosplenomegaly Musculoskeletal: no cyanosis or clubbing, extremities motor strength 5/5 Skin: no rashes, warm and dry Results & Data Vital Signs (Past 12 Hours) Vital Signs Temp Pulse Pulse Resp BP Pulse Ox Pulse Ox 05/06/25 09:39 05/06/25 09:00 94 05/06/25 08:47 73 05/06/25 08:04 36.9 C 72 16 169/77 H 93 05/06/25 04:22 36.7 C 72 15 148/68 H 93 05/06/25 03:19 86 29 H 93 05/06/25 00:07 37.1 C 82 16 155/77 H 95 05/05/25 23:05 78 20 90 O2 Del Method O2 Del Method O2 Flow Rate O2 Flow Rate 05/06/25 09:39 Nasal Cannula 2 05/06/25 09:00 Nasal Cannula 2 05/06/25 08:47 05/06/25 08:04 Room Air 05/06/25 04:22 Room Air 05/06/25 03:19 4 05/06/25 00:07 Room Air 05/05/25 23:05 4 Laboratory Results 05/03/25 04:30 Urine Culture - Final Urine,Clean Catch Klebsiella variicola 05/06/25 05/06/25 05/05/25 08:31 07:23 20:29 Sodium 142 Potassium 3.5 Chloride 109 H Carbon Dioxide 25 Anion Gap 8 BUN 49 H Creatinine 4.11 H D Est Cr Clr Drug Dosing 11.1 eGFR 10.32 BUN/Creatinine Ratio 11.9 Glucose 110 H POC Glucose 106 H 148 H Calcium 9.8 Magnesium 2.0 05/05/25 05/05/25 17:15 12:04 Sodium Potassium Chloride Carbon Dioxide Anion Gap BUN Creatinine Est Cr Clr Drug Dosing eGFR BUN/Creatinine Ratio Glucose POC Glucose 140 H 116 H Calcium Magnesium Medications Administered Home Medications Medication Instructions Recorded Confirmed Last Taken cholecalciferol (vitamin D3) 50 50 mcg PO DAILY 11/15/20 05/03/25 03/17/25 mcg (2,000 unit) capsule cyanocobalamin (vitamin B-12) 3,000 mcg PO DAILY 11/15/20 05/03/25 03/17/25 3,000 mcg capsule aspirin 81 mg tablet,delayed 81 mg PO DAILY 06/13/21 05/03/25 03/17/25 release (Juan José Low Dose Aspirin) magnesium oxide 400 mg PO DAILY #30 tabs 09/03/23 05/03/25 03/17/25 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,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,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 #1 ea 10/21/24 05/03/25 Unknown (3V Transaction ServicesStyle Santi 3 [place]) omeprazole 20 mg capsule,delayed 20 mg PO DAILY #90 caps 11/08/24 05/03/25 03/17/25 release labetalol 200 mg tablet 200 mg PO BID 12/09/24 05/03/25 03/17/25 08:00 tramadol 50 mg tablet 50 mg PO BID PRN Pain #60 tabs 12/09/24 05/03/25 Unknown 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 sensor (FreeStyle #3 ea 01/16/25 05/03/25 Unknown Santi 3 Sensor device) venlafaxine 150 mg 150 mg PO DAILY #90 caps 01/16/25 05/03/25 03/17/25 capsule,extended release 24 hr ferrous sulfate 325 mg (65 mg 325 mg PO Q OTHER DAY #14 tabs 01/19/25 05/03/25 03/16/25 iron) tablet allopurinol 100 mg tablet 100 mg PO Q OTHER DAY 01/24/25 05/03/25 03/16/25 atorvastatin 40 mg tablet 40 mg PO DAILY 01/24/25 05/03/25 03/17/25 amlodipine 5 mg tablet (Norvasc) 5 mg PO QAM #90 tabs 02/16/25 05/03/25 03/17/25 sodium bicarbonate 650 mg tablet 1,300 mg (2 x 650 mg) PO BID #120 03/21/25 05/03/25 Unknown tabs insulin glargine U-300 conc 300 40 unit subcut DAILY 03/28/25 05/03/25 Unknown unit/mL (3 mL) subcutaneous pen (Toujeo Max U-300 SoloStar) Lopez Dahl #1 ea 03/30/25 05/03/25 Unknown bumetanide 1 mg tablet 2 mg (2 x 1 mg) PO BID #120 tabs 04/20/25 05/03/25 Unknown albuterol sulfate 90 mcg/actuation 2 puff inhalation Q4 PRN Shortness 05/03/25 05/03/25 Unknown aerosol inhaler Of Breath Or Wheezing loperamide 2 mg capsule 2 mg PO Q1H PRN Diarrhea 05/03/25 05/03/25 Unknown oxycodone-acetaminophen 5 mg-325 1 tab PO Q4 PRN Pain 05/03/25 05/03/25 Unknown mg tablet Active Medications Generic Name Dose Route Start Last Admin Trade Name Freq PRN Reason Stop Dose Admin Acetaminophen 650 mg 05/03/25 09:55 05/04/25 21:42 Acetaminophen 325 Mg Tab PO 06/02/25 09:54 650 mg Q4H PRN Administration Pain or Fever Cephalexin HCl 250 mg 05/04/25 14:30 05/06/25 08:55 Cephalexin 250 Mg Cap PO 05/09/25 14:29 250 mg DAILY ARTUR Administration Protocol Heparin Sodium (Porcine) 5,000 units 05/03/25 12:15 05/06/25 08:58 Heparin Sod 5,000 Unit/0.5 Ml Vial SQ 06/02/25 12:14 5,000 units Q12 ARTUR Administration Insulin Aspart 0 units 05/04/25 21:00 05/06/25 08:57 Insulin Aspart Per Unit Charge SC 06/03/25 20:59 Not Given ACHS ARTUR Insulin Glargine 25 units 05/03/25 21:00 05/05/25 20:54 Lantus Per Unit Charge SQ 06/02/25 20:59 25 units HS ARTUR Administration Labetalol HCl 100 mg 05/05/25 10:00 05/06/25 08:54 Labetalol Hcl 100 Mg Tab PO 06/04/25 09:59 100 mg BID ARTUR Administration Loperamide HCl 2 mg 05/06/25 08:50 05/06/25 09:32 Loperamide Hcl 2 Mg Cap PO 06/05/25 08:49 2 mg Q6H PRN Administration Diarrhea Magnesium Oxide 400 mg 05/04/25 09:00 05/06/25 08:55 Magnesium Oxide 400 Mg Tab PO 06/03/25 08:59 400 mg DAILY ARTUR Administration Melatonin 3 mg 05/03/25 09:55 05/05/25 20:54 Melatonin 3 Mg Tab PO 06/02/25 09:54 3 mg HS PRN Administration Sleep Pantoprazole Sodium 40 mg 05/03/25 12:15 05/06/25 08:55 Pantoprazole 40 Mg Tab PO 06/02/25 12:14 40 mg DAILY ARTUR Administration Simethicone 80 mg 05/05/25 18:04 05/05/25 18:11 Simethicone 80 Mg Chew PO 06/04/25 18:03 80 mg Q6H PRN Administration Flatulence/bloating Venlafaxine HCl 150 mg 05/03/25 12:15 05/06/25 08:55 Venlafaxine Hcl Xr 150 Mg Capxr PO 06/02/25 12:14 150 mg DAILY ARTUR Administration PG Care Time/CCT Total # of Minutes Spent Total Time Spent with Patient: Total time spent is greater than 50% in coordination of care (as documented) at patient's floor/unit and/or counseling patient: Coding Level of Care Code 36611 IN/OBS CONSULT LVL 4,60M Diagnoses ESRD (end stage renal disease) N18.6 Acute diverticulitis K57.92 Anemia, chronic disease D63.8 Fatty liver K76.0 Gastroesophageal reflux disease, unspecified whether esophagitis present K21.9 Esophagitis presence: esophagitis presence not specified Change in bowel habits R19.4 (5) Acid reflux Esophagitis presence: esophagitis presence not specified Qualified Code(s): K21.9 - Gastro-esophageal reflux disease without esophagitis
--- NOTE | 2025-05-06 20:36 | Hospitalist Progress Note ---
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 Was hospitalized in March and had diverticulitis then - treated with zosyn, then augmentin upon discharge home. #Diarrhea - - CT abd/pelvis without diverticulitis; diverticulitis from 03/2025 resolved radiographically - Stool BioFire negative - Stool c diff negative - at minimum probably has abx-associated diarrhea - added colestipol 1gm daily and this has helped the stools but still with frequent loose stools; will increase to 2gm/daily - last colonoscopy - 2016; sigmoid diverticulosis only; no polyps or other abnormalities then - since symptoms have been so severe will ask GI to see -microscopic colitis? other etiology to explain diarrhea? #KALA on CKD stage V/ESRD - KALA improving - - Baseline Cr has been 3.5-4.0 the last several months - 2023 - Cr was low to mid 2's - she has had clear progression of her CKD in the remaining left-sided kidney - admission Cr 5.08, likely due to diarrhea/dehydration - Cr today 4.1 - unfortunately it appears she developed some pulmonary edema in the setting of re-hydration; thus, stopped IV Fluids - remains stable on small amount of NC O2 and is only mildly symptomatic - appreciate [facility] [place] Nephrology assistance - repeat BMP am - continue sod bicarb supplementation 1300mg BID - no indication for acute HD at this time #Hypoxia - - suspect development of pulmonary edema in the setting of her KALA/CKD stage 5 and IV fluids - stopped fluids - diuretic therapy likely to be of limited benefit right now with her KALA and could potentially worsen the KALA - allow more renal recovery before resuming diuretics - perhaps tomorrow can resume some diuretic #HFpEF - - last echo January 2025; EF 55-60% with severe left atrial dilation and type II diastolic dysfunction - usually takes 1 mg bumex BID at home; on hold in setting of KALA #klebsiella UTI - - cephalexin 250mg daily x 5-7 days - day #3 today #HTN - - labetalol, amlodipine, and bumex were placed on hold at time of admission - resumed labetalol at 100mg BID - likely resume amlodipine tomorrow #Anemia, chronic - 2nd to CKD/ESRD - - appreciate nephrology management of such - B12/folate in 11/2024 both wnl - defer epogen/Fe supplementation to nephrology #T2DM - - home regime is glargine 40 units once daily ; this has been lowered to 25 units daily while diet is restricted - novolog SSI - a1c 7.1% in November 2024 - a1c is 7% this admission #CARO - - CPAP #hypokalemia - - replace as needed - K level wnl today VTE: heparin 5000 BID updated pt's son by phone 05/04 seen by PT/OT -- cleared to return home at d/c Admission and Anticipated Discharge Date Admission Date: May 03, 2025 Subjective patient lying in bed comfortably during the visit had "rough night" - multiple trips to bathroom due to loose stool no abd pain, however no vomiting no blood per rectum is having cough and ongoing mild JUAREZ tele overnight wnl Review of Systems Review of Systems: gen - weak; no fevers cv - no PND/orthponea pulm - no significant sputum Physical Exam Physical Exam: gen - awake, alert, NAD, pleasant; looks tired much like yesterday mouth - MMM neck - JVD remains heart - RRR, s1 s2, 1-2/6 systolic murmur LSB lungs - b/l basilar rales R>L, no increased work of breathing - exam unchanged abd - soft NT ND BS+ ext - trace-1+ edema b/l shins/feet, pulses b/l feet 2+ psych - a/o x 3 Results & Data Results & Data Vital Signs (Past 12 Hours) Vital Signs Temp Pulse Pulse Resp BP Pulse Ox Pulse Ox 05/06/25 19:34 36.8 C 64 18 159/69 H 96 05/06/25 16:24 36.5 C 63 16 162/70 H 93 05/06/25 14:42 72 05/06/25 11:51 36.9 C 70 16 155/61 H 94 05/06/25 09:39 05/06/25 09:00 94 05/06/25 08:47 73 O2 Del Method O2 Del Method O2 Flow Rate O2 Flow Rate 05/06/25 19:34 Nasal Cannula 3 05/06/25 16:24 Nasal Cannula 3 05/06/25 14:42 05/06/25 11:51 Nasal Cannula 3 05/06/25 09:39 Nasal Cannula 2 05/06/25 09:00 Nasal Cannula 2 05/06/25 08:47 Laboratory Results Laboratory Results - last 48 hr 05/05/25 05/05/25 05/05/25 12:04 17:15 20:29 WBC RBC Hgb Hct MCV MCH MCHC RDW Std Deviation RDW Coeff of Chyna Plt Count MPV Sodium Potassium Chloride Carbon Dioxide Anion Gap BUN Creatinine Est Cr Clr Drug Dosing eGFR BUN/Creatinine Ratio Glucose POC Glucose 116 H 140 H 148 H Calcium Magnesium 05/06/25 05/06/25 05/06/25 07:23 08:31 12:10 WBC RBC Hgb Hct MCV MCH MCHC RDW Std Deviation RDW Coeff of Chnya Plt Count MPV Sodium 142 Potassium 3.5 Chloride 109 H Carbon Dioxide 25 Anion Gap 8 BUN 49 H Creatinine 4.11 H D Est Cr Clr Drug Dosing 11.1 eGFR 10.32 BUN/Creatinine Ratio 11.9 Glucose 110 H POC Glucose 106 H 133 H Calcium 9.8 Magnesium 2.0 PG Care Time/CCT Total # of Minutes Spent Total Time Spent with Patient: Total time spent is greater than 50% in coordination of care (as documented) at patient's floor/unit and/or counseling patient: Coding Level of Care Code 09055 SUB INP/OBS CARE 3/50MIN Diagnoses Diarrhea R19.7 KALA (acute kidney injury) N17.9 Anemia, chronic disease D63.8 (HFpEF) heart failure with preserved ejection fraction I50.30 Obstructive sleep apnea G47.33 Diabetes mellitus with chronic kidney disease E11.22 Hypertension I10 UTI (urinary tract infection) N39.0 Hypokalemia E87.6 History of right nephrectomy Z90.5 ESRD (end stage renal disease) N18.6
--- NOTE | 2025-05-07 07:32 | Nephrology Progress Note ---
Date of Service May 07, 2025 Assessment & Plan (1) KALA (acute kidney injury): Plan: * Recovery phase of ATN. Patient is non-oliguric. Cr has improved from 5.0 to 3.81. * KALA likely ATN due to dehydration in the setting of ARB, diuretics. * Volume status and electrolyte balance are acceptable. No acute indication for RING STRIKER at this time. * Bicarbonate is acceptable. Continue NaHCO3 650 mg daily * BMP in am (2) Chronic kidney disease, stage IV (severe): Plan: * h/o RCCA s/p R nephrectomy 2010. Baseline Cr 3.0-3.5. Follows with Dr. Freed as outpatient. * L brachiobasilic AVF created by Dr. Farooq 02/01 but slow to mature. Intervention was performed on Thursday. The vessel has a good thrill and bruit. Awaiting surgical records (3) Anemia, chronic disease: Plan: * Venofer 200 mg IV provided 05/04, venofer 300 mg provided 05/05. * Epogen 96760 units SQx1 provided 05/04 * Hgb is unchanged. Will provide epogen 10,000 units SQx1 this am (4) Hypertension: Plan: * Mild hypertension. On labetalol. Low dose amlodipine started this morning Plan 50 min visit - review medical record, interview/examine patient, review laboratory results, order laboratory testing and epogen, update medical record Admission and Anticipated Discharge Date Admission Date: May 03, 2025 Subjective Ms. Linares was evaluated in her hospital room this morning. She reports 2 liquid BM yesterday. She denies fever, abdominal discomfort, dyspnea. She reports good UO. Review of Systems Constitutional: + fatigue; no fever Eyes: no problem reported Ear, Nose, Mouth, Throat: no problem reported Respiratory: no cough and no dyspnea Cardiovascular: no chest pain, no palpitations, no lightheadedness and no edema Gastrointestinal: + diarrhea/loose stools; no abdominal pa in, no vomiting, no blood in stools and no melena Genitourinary: no problem reported Physical Exam Constitutional: not in distress Eyes: PERRL, conjunctivae normal, anicteric sclerae ENMT: external ear and nose normal, oropharynx normal Neck: trachea midline, no thyromegaly Respiratory: normal respiratory effort, lungs clear to auscultation Cardiovascular: RRR, no murmur, no edema Gastrointestinal (Abdomen): normal bowel sounds, soft, nontender, no hepatosplenomegaly Musculoskeletal: Extremities: no cyanosis and no clubbing Skin: no rashes, warm and dry Neurologic: no focal motor deficits Results & Data Vital Signs (Past 12 Hours) Vital Signs Temp Pulse Pulse Resp BP Pulse Ox O2 Del Method 05/07/25 06:52 72 05/07/25 03:35 66 21 92 05/07/25 02:33 36.9 C 59 L 18 154/69 H 94 CPAP 05/06/25 23:11 68 20 90 05/06/25 22:31 36.7 C 69 18 159/73 H 93 Nasal Cannula 05/06/25 21:44 68 05/06/25 19:34 36.8 C 64 18 159/69 H 96 Nasal Cannula O2 Flow Rate 05/07/25 06:52 05/07/25 03:35 4 05/07/25 02:33 05/06/25 23:11 4 05/06/25 22:31 3 05/06/25 21:44 05/06/25 19:34 3 Laboratory Results Laboratory Results - last 24 hr 05/06/25 05/06/25 05/06/25 12:10 17:26 20:24 WBC RBC Hgb Hct MCV MCH MCHC RDW Std Deviation RDW Coeff of Chyna Plt Count MPV Sodium Potassium Chloride Carbon Dioxide Anion Gap BUN Creatinine Est Cr Clr Drug Dosing eGFR BUN/Creatinine Ratio Glucose POC Glucose 133 H 106 H 125 H Calcium 05/07/25 05/07/25 07:42 08:18 WBC 9.09 RBC 3.17 L Hgb 8.9 L Hct 28.5 L MCV 89.9 MCH 28.1 MCHC 31.2 L RDW Std Deviation 49.1 H RDW Coeff of Chyna 15.2 H Plt Count 255 MPV 9.5 Sodium 142 Potassium 3.2 L Chloride 109 H Carbon Dioxide 23 Anion Gap 10 BUN 48 H Creatinine 3.81 H D Est Cr Clr Drug Dosing 12.1 eGFR 11.30 BUN/Creatinine Ratio 12.6 Glucose 70 POC Glucose 74 Calcium 9.6 PG Care Time/CCT Total # of Minutes Spent Total Time Spent with Patient: Total time spent is greater than 50% in coordination of care (as documented) at patient's floor/unit and/or counseling patient: Coding Level of Care Code 19207 SUB INP/OBS CARE 50MIN Diagnoses KALA (acute kidney injury) N17.9 Chronic kidney disease, stage IV (severe) N18.4 Anemia, chronic disease D63.8 Hypertension I10
[2025-05-07 08:19] LABS: Hematocrit (blood only) 28.5 % (37.0-47.0); Hemoglobin 8.9 g/dl (12.0-16.0); Mean Corpuscular Hemoglobin 28.1 pg (25.0-34.0); Mean Corpuscular Volume 89.9 fL (80.0-100.0); Platelet Count 255 K/uL (130-400); RDW Standard Deviation 49.1 fL (36.4-46.3); Red Blood Count 3.17 M/uL (4.20-5.40); White Blood Count 9.09 K/ul (4.8-10.8)
[2025-05-07] MEDS: SODIUM BICARBONATE 650 MG TAB PO SCH (09:05)
[2025-05-07 09:12] LABS: Anion Gap 10.0 (3-11); Blood Urea Nitrogen 48.0 mg/dl (6-23); Calcium 9.6 mg/dl (8.6-10.3); Carbon Dioxide 23.0 mmol/L (21-32); Chloride 109.0 mmol/L (98-107); Creatinine Clr Calc Pharmacy 12.1 ml/min; Glucose 70.0 mg/dl (70-99(Fasting)); Potassium 3.2 mmol/L (3.5-5.1); Sodium 142.0 mmol/L (136-145)
[2025-05-07] MEDS: POTASSIUM CHLORIDE CRTAB 20 MEQ TABCR PO SCH (10:33)
--- NOTE | 2025-05-07 11:18 | Gastroenterology Progress Note ---
Date of Service May 07, 2025 Assessment & Plan (1) Change in bowel habits: (2) ESRD (end stage renal disease): (3) Anemia, chronic disease: (4) Diarrhea: (5) Nausea & vomiting: Plan: Patient continues to improve. I suspect her symptoms are all secondary to antibiotic use. She is improved on the Colestid and I would continue her on this. We could go up to twice daily if needed. She will need a colonoscopy in 6 weeks. Stable from a GI standpoint. Admission and Anticipated Discharge Date Admission Date: May 03, 2025 Subjective Patient overall feeling much better. She did have a loose bowel movement this morning but states it is becoming more formed and less frequent. She continues to have some mild nausea but states her appetite is overall improving. Physical Exam Constitutional: WD/WN, vitals as above Gastrointestinal (Abdomen): normal bowel sounds, soft, nontender, no hepatosplenomegaly Results & Data Results & Data Vital Signs (Past 12 Hours) Vital Signs Temp Pulse Pulse Resp BP Pulse Ox Pulse Ox 05/07/25 10:26 05/07/25 09:00 94 05/07/25 08:33 36.9 C 65 16 166/79 H 94 05/07/25 06:52 72 05/07/25 03:35 66 21 92 05/07/25 02:33 36.9 C 59 L 18 154/69 H 94 O2 Del Method O2 Del Method O2 Flow Rate O2 Flow Rate 05/07/25 10:26 Nasal Cannula 2 05/07/25 09:00 Nasal Cannula 2 05/07/25 08:33 Nasal Cannula 2 05/07/25 06:52 05/07/25 03:35 4 05/07/25 02:33 CPAP Laboratory Results 05/07/25 05/07/25 05/06/25 08:18 07:42 20:24 WBC 9.09 RBC 3.17 L Hgb 8.9 L Hct 28.5 L MCV 89.9 MCH 28.1 MCHC 31.2 L RDW Std Deviation 49.1 H RDW Coeff of Chyna 15.2 H Plt Count 255 MPV 9.5 Sodium 142 Potassium 3.2 L Chloride 109 H Carbon Dioxide 23 Anion Gap 10 BUN 48 H Creatinine 3.81 H D Est Cr Clr Drug Dosing 12.1 eGFR 11.30 BUN/Creatinine Ratio 12.6 Glucose 70 POC Glucose 74 125 H Calcium 9.6 05/06/25 05/06/25 17:26 12:10 WBC RBC Hgb Hct MCV MCH MCHC RDW Std Deviation RDW Coeff of Chyna Plt Count MPV Sodium Potassium Chloride Carbon Dioxide Anion Gap BUN Creatinine Est Cr Clr Drug Dosing eGFR BUN/Creatinine Ratio Glucose POC Glucose 106 H 133 H Calcium Medications Administered Home Medications Medication Instructions Recorded Confirmed Last Taken cholecalciferol (vitamin D3) 50 50 mcg PO DAILY 11/15/20 05/03/25 03/17/25 mcg (2,000 unit) capsule cyanocobalamin (vitamin B-12) 3,000 mcg PO DAILY 11/15/20 05/03/25 03/17/25 3,000 mcg capsule aspirin 81 mg tablet,delayed 81 mg PO DAILY 06/13/21 05/03/25 03/17/25 release (Juan José Low Dose Aspirin) magnesium oxide 400 mg PO DAILY #30 tabs 09/03/23 05/03/25 03/17/25 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,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,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 #1 ea 10/21/24 05/03/25 Unknown ([employer] Santi 3 [place]) omeprazole 20 mg capsule,delayed 20 mg PO DAILY #90 caps 11/08/24 05/03/25 03/17/25 release labetalol 200 mg tablet 200 mg PO BID 12/09/24 05/03/25 03/17/25 08:00 tramadol 50 mg tablet 50 mg PO BID PRN Pain #60 tabs 12/09/24 05/03/25 Unknown 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 sensor (FreeStyle #3 ea 01/16/25 05/03/25 Unknown Santi 3 Sensor device) venlafaxine 150 mg 150 mg PO DAILY #90 caps 01/16/25 05/03/25 03/17/25 capsule,extended release 24 hr ferrous sulfate 325 mg (65 mg 325 mg PO Q OTHER DAY #14 tabs 01/19/25 05/03/25 03/16/25 iron) tablet allopurinol 100 mg tablet 100 mg PO Q OTHER DAY 01/24/25 05/03/25 03/16/25 atorvastatin 40 mg tablet 40 mg PO DAILY 01/24/25 05/03/25 03/17/25 amlodipine 5 mg tablet (Norvasc) 5 mg PO QAM #90 tabs 02/16/25 05/03/2525 sodium bicarbonate 650 mg tablet 1,300 mg (2 x 650 mg) PO BID #120 03/21/25 05/03/25 Unknown tabs insulin glargine U-300 conc 300 40 unit subcut DAILY 03/28/25 05/03/25 Unknown unit/mL (3 mL) subcutaneous pen (Toujeo Max U-300 SoloStar) Lopez Walker #1 ea 03/30/25 05/03/25 Unknown bumetanide 1 mg tablet 2 mg (2 x 1 mg) PO BID #120 tabs 04/20/25 05/03/25 Unknown albuterol sulfate 90 mcg/actuation 2 puff inhalation Q4 PRN Shortness 05/03/25 05/03/25 Unknown aerosol inhaler Of Breath Or Wheezing loperamide 2 mg capsule 2 mg PO Q1H PRN Diarrhea 05/03/25 05/03/25 Unknown oxycodone-acetaminophen 5 mg-325 1 tab PO Q4 PRN Pain 05/03/25 05/03/25 Unknown mg tablet Active Medications Generic Name Dose Route Start Last Admin Trade Name Freq PRN Reason Stop Dose Admin Acetaminophen 650 mg 05/03/25 09:55 05/04/25 21:42 Acetaminophen 325 Mg Tab PO 06/02/25 09:54 650 mg Q4H PRN Administration Pain or Fever Amlodipine Besylate 5 mg 05/07/25 10:00 05/07/25 10:33 Amlodipine Besylate 5 Mg Tab PO 06/06/25 09:59 5 mg QAM ARTUR Administration Cephalexin HCl 250 mg 05/04/25 14:30 05/07/25 09:05 Cephalexin 250 Mg Cap PO 05/09/25 14:29 250 mg DAILY ARTUR Administration Protocol Colestipol HCl 2 gm 05/06/25 10:00 05/07/25 10:33 Colestipol Hcl 1 Gm Tab PO 06/05/25 09:59 2 gm DAILY@1000 ARTUR Administration Heparin Sodium (Porcine) 5,000 units 05/03/25 12:15 05/07/25 09:10 Heparin Sod 5,000 Unit/0.5 Ml Vial SQ 06/02/25 12:14 5,000 units Q12 ARTUR Administration Insulin Aspart 0 units 05/04/25 21:00 05/07/25 09:04 Insulin Aspart Per Unit Charge SC 06/03/25 20:59 Not Given ACHS ARTUR Insulin Glargine 25 units 05/03/25 21:00 05/06/25 20:59 Lantus Per Unit Charge SQ 06/02/25 20:59 25 units HS ARTUR Administration Labetalol HCl 100 mg 05/05/25 10:00 05/07/25 09:05 Labetalol Hcl 100 Mg Tab PO 06/04/25 09:59 100 mg BID ARTUR Administration Loperamide HCl 2 mg 05/06/25 08:50 05/06/25 20:59 Loperamide Hcl 2 Mg Cap PO 06/05/25 08:49 2 mg Q6H PRN Administration Diarrhea Magnesium Oxide 400 mg 05/04/25 09:00 05/07/25 09:05 Magnesium Oxide 400 Mg Tab PO 06/03/25 08:59 400 mg DAILY ARTUR Administration Melatonin 3 mg 05/03/25 09:55 05/06/25 20:59 Melatonin 3 Mg Tab PO 06/02/25 09:54 3 mg HS PRN Administration Sleep Pantoprazole Sodium 40 mg 05/03/25 12:15 05/07/25 09:05 Pantoprazole 40 Mg Tab PO 06/02/25 12:14 40 mg DAILY ARTUR Administration Potassium Chloride 20 meq 05/07/25 09:45 05/07/25 10:33 Potassium Chloride Crtab 20 Meq Tabcr PO 05/07/25 21:01 20 meq TID ARTUR Administration Simethicone 80 mg 05/05/25 18:04 05/05/25 18:11 Simethicone 80 Mg Chew PO 06/04/25 18:03 80 mg Q6H PRN Administration Flatulence/bloating Sodium Bicarbonate 650 mg 05/07/25 09:00 05/07/25 09:05 Sodium Bicarbonate 650 Mg Tab PO 06/06/25 08:59 650 mg DAILY ARTUR Administration Venlafaxine HCl 150 mg 05/03/25 12:15 05/07/25 09:04 Venlafaxine Hcl Xr 150 Mg Capxr PO 06/02/25 12:14 150 mg DAILY ARTUR Administration PG Care Time/CCT Total # of Minutes Spent Total Time Spent with Patient: Total time spent is greater than 50% in coordination of care (as documented) at patient's floor/unit and/or counseling patient: Coding Level of Care Code 89744 SUB INP/OBS CARE 09/03MIN Diagnoses Change in bowel habits R19.4 ESRD (end stage renal disease) N18.6 Anemia, chronic disease D63.8 Diarrhea R19.7 Nausea & vomiting R11.2
[2025-05-07] MEDS: EPOETIN ALFA 10,000 UNITS/ML VIAL SQ ONE (12:26)
[2025-05-07] MEDS: LABETALOL HCL 100 MG TAB PO SCH (21:21)
--- NOTE | 2025-05-08 01:23 | Hospitalist Progress Note ---
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 Was hospitalized in March and had diverticulitis then - treated with zosyn, then augmentin upon discharge home. #Diarrhea - improved - - CT abd/pelvis without diverticulitis; diverticulitis from 03/2025 resolved radiographically - Stool BioFire negative - Stool c diff negative - at minimum probably has abx-associated diarrhea - added colestipol 1gm daily and this has helped the stools but still with fr equent loose stools thus increased to 2gm/daily - last colonoscopy - 2016; sigmoid diverticulosis only; no polyps or other abnormalities then - asked GI to see in consult; no plans for repeat colonoscopy due to suspected pulm edema/o2 requirement; they, too, feel she has abx-associated diarrhea - probiotics added #KALA on CKD stage V/ESRD - KALA improving - - Baseline Cr has been 3.5-4.0 the last several months - 2023 - Cr was low to mid 2's - she has had clear progression of her CKD in the remaining left-sided kidney - admission Cr 5.08, likely due to diarrhea/dehydration - Cr today 3.8 - unfortunately it appears she developed some pulmonary edema in the setting of IVF - fluids stopped several days ago - remains stable on small amount of NC O2 and is only mildly symptomatic - [place] [facility] [place] - repeat BMP am - continue sod bicarb supplementation - dose reduced to 650mg daily - no indication for acute HD at this time #Hypoxia - - suspect development of pulmonary edema in the setting of her KALA/CKD stage 5 and IV fluids - stopped fluids - diuretic therapy likely to be of limited benefit right now with her KALA and could potentially worsen the KALA - allow more renal recovery before resuming diuretics - perhaps tomorrow can resume some diuretic if creatinine near her baseline (3 to 3.5)? #HFpEF - - last echo January 2025; EF 55-60% with severe left atrial dilation and type II diastolic dysfunction - usually takes 1 mg bumex BID at home; on hold in setting of KALA #klebsiella UTI - - cephalexin 250mg daily x 5-7 days - day #4 today #HTN - - labetalol, amlodipine, and bumex were placed on hold at time of admission - resumed labetalol at 100mg BID; will titrate to 150mg BID today - resumed amlodipine 5mg daily #Anemia, chronic - 2nd to CKD/ESRD - - appreciate nephrology management of such - B12/folate in 11/2024 both wnl - defer epogen/Fe supplementation to nephrology #T2DM - - home regime is glargine 40 units once daily ; this has been lowered to 25 units daily while diet is restricted -BSGs remain controlled - novolog SSI - a1c 7.1% in November 2024 - a1c is 7% this admission #CARO - - CPAP #hypokalemia - - replace with KCL again today - repeat BMP am VTE: heparin 5000 BID updated pt's son by phone 05/04 seen by PT/OT -- cleared to return home at d/c date of discharge uncertain Admission and Anticipated Discharge Date Admission Date: May 03, 2025 Subjective no events overnight only 2 stools today - soft but not liquid no abd pain tolerating diet no nausea/emesis ongoing cough ongoing dyspnea on exertion still requiring 1-2 L NC O2 Review of Systems Review of Systems: cv - no chest pain pulm - no sputum GI - no blood in stool Physical Exam Physical Exam: gen - awake, alert, NAD; looks similar to prior exams mouth - MMM neck - JVD+, 1/3 way up right neck heart - RRR, s1 s2, 1-2/6 systolic murmur LSB lungs - b/l basilar rales R>L, no increased work of breathing; no wheezes abd - soft NT ND BS+ ext - <1+ edema b/l shins/feet, pulses b/l feet 2+ psych - a/o x 3 Results & Data Results & Data Vital Signs (Past 12 Hours) Vital Signs Temp Pulse Pulse Resp BP Pulse Ox Pulse Ox 05/07/25 12:03 36.9 C 63 16 160/65 H 93 05/07/25 10:26 05/07/25 09:00 94 05/07/25 08:33 36.9 C 65 16 166/79 H 94 05/07/25 06:52 72 05/07/25 03:35 66 21 92 05/07/25 02:33 36.9 C 59 L 18 154/69 H 94 Laboratory Results Laboratory Results - last 24 hr 05/07/25 05/07/25 05/07/25 07:42 08:18 12:20 WBC 9.09 RBC 3.17 L Hgb 8.9 L Hct 28.5 L MCV 89.9 MCH 28.1 MCHC 31.2 L RDW Std Deviation 49.1 H RDW Coeff of Chyna 15.2 H Plt Count 255 MPV 9.5 Sodium 142 Potassium 3.2 L Chloride 109 H Carbon Dioxide 23 Anion Gap 10 BUN 48 H Creatinine 3.81 H D Est Cr Clr Drug Dosing 12.1 eGFR 11.30 BUN/Creatinine Ratio 12.6 Glucose 70 POC Glucose 74 112 H Calcium 9.6 PG Care Time/CCT Total # of Minutes Spent Total Time Spent with Patient: Total time spent is greater than 50% in coordination of care (as documented) at patient's floor/unit and/or counseling patient: Coding Level of Care Code 57177 SUB INP/OBS CARE 2/35MIN Diagnoses Diarrhea R19.7 KALA (acute kidney injury) N17.9 Anemia, chronic disease D63.8 (HFpEF) heart failure with preserved ejection fraction I50.30 Obstructive sleep apnea G47.33 Diabetes mellitus with chronic kidney disease E11.22 Hypertension I10 UTI (urinary tract infection) N39.0 Hypokalemia E87.6 History of right nephrectomy Z90.5 ESRD (end stage renal disease) N18.6
[2025-05-08] MEDS: ALBUTEROL HFA 8 GM INHALER INH PRN (06:32)
[2025-05-08 06:41] LABS: Hematocrit (blood only) 26.2 % (37.0-47.0); Hemoglobin 8.5 g/dl (12.0-16.0); Mean Corpuscular Hemoglobin 29.1 pg (25.0-34.0); Mean Corpuscular Volume 89.7 fL (80.0-100.0); Platelet Count 242 K/uL (130-400); RDW Standard Deviation 49.1 fL (36.4-46.3); Red Blood Count 2.92 M/uL (4.20-5.40); White Blood Count 8.26 K/ul (4.8-10.8)
[2025-05-08 07:15] LABS: Anion Gap 8.0 (3-11); Blood Urea Nitrogen 47.0 mg/dl (6-23); Calcium 9.5 mg/dl (8.6-10.3); Carbon Dioxide 25.0 mmol/L (21-32); Chloride 109.0 mmol/L (98-107); Creatinine Clr Calc Pharmacy 11.9 ml/min; Glucose 79.0 mg/dl (70-99(Fasting)); Iron 27.0 mcg/dl (35-150); Magnesium 2.0 mg/dl (1.7-2.4); Potassium 3.5 mmol/L (3.5-5.1); Sodium 142.0 mmol/L (136-145); Total Iron Binding Cap Calc 197.0 mcg/dl (250-450); Transferrin 141.0 mg/dl (200-360); Transferrin (FE) Percent Satur 14.0 % (15-50)
[2025-05-08 07:36] LABS: Ferritin 416.2 ng/ml (8-388)
--- NOTE | 2025-05-08 08:59 | Nephrology Progress Note ---
Date of Service May 08, 2025 Assessment & Plan (1) KALA (acute kidney injury): Plan: * Recovery phase of ATN. Patient is non-oliguric. Cr has improved from 5.0 to 3.81. * KALA likely ATN due to dehydration in the setting of ARB, diuretics. * Patient has fluid retention/edema and still requires O2 at 2L/min NC * Patient has not been saving urine for daily I&O. I have spoken w/ staff nurse icu resource team and advised measuring all UO and obtain daily weight * Advised reducing O2 to 1L/min NC keeping SaO2> or = 93% * Will provide furosemide 40 mg IV x1 and supplement serum potassium * Will order CXR in am to evaluate for CHF * Continue NaHCO3 650 mg daily * BMP ordered for am (2) Chronic kidney disease, stage IV (severe): Plan: * h/o RCCA s/p R nephrectomy 2010. Baseline Cr 3.0-3.5. Follows with Dr. Sonido gomez as outpatient. * L brachiobasilic AVF created by Dr. Farooq 02/01 but slow to mature. The vessel has a good thrill and bruit but patient has developed L arm swelling. She is scheduled for vascular surgery follow up in early May (3) Anemia, chronic disease: Plan: * Hgb is unchanged * 05/08 iron sat 14%, ferritin 416. Will order venofer 300 mg IV daily x3 days (4) Hypertension: Plan: * Mild hypertension. On labetalol. Amlodipine added back yesterday Admission and Anticipated Discharge Date Admission Date: May 03, 2025 Subjective Ms. Linares was evaluated in her hospital room this morning. She reports that her stool is more formed. She denies abdominal pain, dyspnea. Ms. Linares remains on O2 at 2L/min NC. She reports L arm swelling related to recent vascular access surgery Review of Systems Constitutional: + fatigue; no fever Eyes: no problem reported Ear, Nose, Mouth, Throat: no problem reported Respiratory: no cough and no dyspnea Cardiovascular: no chest pain, no palpitations, no lightheadedness and no edema Gastrointestinal: + diarrhea/loose stools; no abdominal pa in, no vomiting, no blood in stools and no melena Genitourinary: no problem reported Physical Exam Constitutional: not in distress Eyes: PERRL, conjunctivae normal, anicteric sclerae ENMT: external ear and nose normal, oropharynx normal Neck: trachea midline, no thyromegaly Respiratory: normal respiratory effort, lungs clear to auscultation Cardiovascular: Rate/Rhythm: regular rate and regular rhythm Extremities: + edema (2+ pretibial pitting edema) and + AV fistula (L arm + bruit. L arm w/ 1+ edema) Gastrointestinal (Abdomen): normal bowel sounds, soft, nontender, no hepatosplenomegaly Musculoskeletal: Extremities: no cyanosis and no clubbing Skin: no rashes, warm and dry Neurologic: no focal motor deficits Results & Data Vital Signs (Past 12 Hours) Vital Signs Temp Pulse Pulse Resp BP Pulse Ox O2 Del Method 05/08/25 08:01 36.4 C L 69 18 167/72 H 94 Nasal Cannula 05/08/25 03:34 36.7 C 65 18 146/75 H 93 Nasal Cannula 05/08/25 00:50 36.8 C 60 18 152/69 H 91 Nasal Cannula 05/07/25 21:46 71 05/07/25 21:30 Nasal Cannula O2 Flow Rate 05/08/25 08:01 2 05/08/25 03:34 2 05/08/25 00:50 2 05/07/25 21:46 05/07/25 21:30 2 Laboratory Results Laboratory Results - last 24 hr 05/07/25 05/07/25 05/07/25 07:42 12:20 17:09 WBC RBC Hgb Hct MCV MCH MCHC RDW Std Deviation RDW Coeff of Chyna Plt Count MPV Sodium 142 Potassium 3.2 L Chloride 109 H Carbon Dioxide 23 Anion Gap 10 BUN 48 H Creatinine 3.81 H D Est Cr Clr Drug Dosing 12.1 eGFR 11.30 BUN/Creatinine Ratio 12.6 Glucose 70 POC Glucose 112 H 128 H Calcium 9.6 Magnesium Iron TIBC Transferrin Transferrin % Sat Ferritin 05/07/25 05/08/25 05/08/25 20:11 05:37 08:32 WBC 8.26 RBC 2.92 L Hgb 8.5 L Hct 26.2 L MCV 89.7 MCH 29.1 MCHC 32.4 RDW Std Deviation 49.1 H RDW Coeff of Chyna 15.1 H Plt Count 242 MPV 9.6 Sodium 142 Potassium 3.5 Chloride 109 H Carbon Dioxide 25 Anion Gap 8 BUN 47 H Creatinine 3.82 H Est Cr Clr Drug Dosing 11.9 eGFR 11.26 BUN/Creatinine Ratio 12.3 Glucose 79 POC Glucose 169 H 72 Calcium 9.5 Magnesium 2.0 Iron 27 L TIBC 197 L Transferrin 141 L Transferrin % Sat 14 L Ferritin 416.2 H PG Care Time/CCT Total # of Minutes Spent Total Time Spent with Patient: 50 min visit - review medical record, interview/examine patient, review laboratory results, order laboratory testing/diuretic/CXR/venofer, discuss POC w/ patient and primary service, update medical record Coding Level of Care Code 85055 SUB INP/OBS CARE 3/50MIN Diagnoses KALA (acute kidney injury) N17.9 Chronic kidney disease, stage IV (severe) N18.4 Anemia, chronic disease D63.8 Hypertension I10
[2025-05-08] MEDS: FUROSEMIDE 40 MG/4 ML VIAL IV ONE (10:18)
[2025-05-08] MEDS: POTASSIUM CHLORIDE CRTAB 20 MEQ TABCR PO SCH (10:18)
[2025-05-08] MEDS: IRON SUCROSE 300 MG in SODIUM CHLORIDE 0.9% 250 ML IV SCH (10:19)
--- NOTE | 2025-05-08 18:49 | Hospitalist Progress Note ---
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 Was hospitalized in March and had diverticulitis then - treated with zosyn, then augmentin upon discharge home. Upon admission had evidence of KALA. #Diarrhea - improved - - CT abd/pelvis without diverticulitis; diverticulitis from 03/2025 resolved - Stool BioFire negative - Stool c diff negative - at minimum likely with abx-associated diarrhea - added colestipol 1gm daily and this helped; ultimately increased to 2gm/daily -stools much better on colestipol - last colonoscopy - 2016; sigmoid diverticulosis only; no polyps or other abnormalities then - asked GI to see in consult; no plans for repeat colonoscopy due to pulm edema/o2 requirement; they, too, feel she has abx-associated diarrhea #KALA on CKD stage V/ESRD - KALA improving albeit slowly - - Baseline Cr has been 3.5-4.0 the last several months - 2023 - Cr was low to mid 2's - she has had clear progression of her CKD in the remaining left-sided kidney - admission Cr 5.08, likely due to diarrhea/dehydration - Cr today 3.8 - unfortunately it appears she developed some pulmonary edema in the setting of her KALA & IVF; fluids stopped several days ago - remains stable on small amount of NC O2 - appreciate [facility] Nephrology assistance - repeat BMP am - continue sod bicarb supplementation - dose reduced to 650mg daily - no indication for acute HD at this time #Hypoxia - - suspect pulmonary edema in the setting of her KALA/CKD stage 5 and IV fluids - stopped fluids - since creatinine has improved to near baseline Dr Talley did order lasix 40mg IV x 1 #HFpEF - - last echo January 2025; EF 55-60% with severe left atrial dilation and type II diastolic dysfunction - usually takes 1 mg bumex BID at home; has been on hold in setting of KALA - lasix IV ordered today by Dr Talley #klebsiella UTI - - cephalexin 250mg daily x 7 days - day #5 today #HTN - - labetalol, amlodipine, and bumex were placed on hold at time of admission - resumed labetalol at 100mg BID; titrated to 150mg BID; will resume 200mg BID (home dosing) - resumed amlodipine 5mg daily #Anemia, chronic - 2nd to CKD/ESRD - - appreciate nephrology management of such - B12/folate in 11/2024 both wnl - defer epogen/Fe supplementation to nephrology #T2DM - - home regime is glargine 40 units once daily ; this has been lowered to 25 units daily while diet is restricted - novolog SSI - a1c 7.1% in November 2024 - a1c is 7% this admission #CARO - - CPAP #hypokalemia - - replaced/resolved VTE: heparin 5000 BID updated pt's son by phone 05/04 and again this pm, 05/08 seen by PT/OT -- cleared to return home at d/c date of discharge uncertain Admission and Anticipated Discharge Date Admission Date: May 03, 2025 Subjective no events or new complaints today diarrhea - under control, only 2 BMs today no abd pain or N/V eating ok still with dyspnea on exertion staff report with walking to the bathroom her O2 sats drop into the 80s asks when she can go home Review of Systems Review of Systems: gen - no fevers cv - no chest pain; some LE edema pulm - ongoing cough, ongoing dyspnea on exertion; no dyspnea at rest GI - no abd pain Physical Exam Physical Exam: gen - awake, alert, NAD, lying in bed mouth - MMM neck - JVD+, 1/3-1/2 way up right neck heart - RRR, s1 s2, 1-2/6 systolic murmur LSB lungs - b/l basilar rales, no increased work of breathing; no wheezes abd - soft NT ND BS+ ext - 1+ edema b/l shins/feet, pulses b/l feet 2+ psych - a/o x 3 Results & Data Results & Data Vital Signs (Past 12 Hours) Vital Signs Temp Pulse Pulse Resp BP Pulse Ox Pulse Ox 05/08/25 15:47 36.5 C 62 16 160/68 H 93 05/08/25 11:52 36.5 C 60 18 157/75 H 91 05/08/25 09:43 05/08/25 09:00 96 05/08/25 09:00 63 05/08/25 09:00 95 05/08/25 08:01 36.4 C L 69 18 167/72 H 94 O2 Del Method O2 Del Method O2 Flow Rate O2 Flow Rate 05/08/25 15:47 Nasal Cannula 1 05/08/25 11:52 Nasal Cannula 1 05/08/25 09:43 Nasal Cannula 1 05/08/25 09:00 Nasal Cannula 1 05/08/25 09:00 05/08/25 09:00 Room Air 05/08/25 08:01 Nasal Cannula 2 Laboratory Results Laboratory Results 05/07/25 05/08/25 05/08/25 20:11 05:37 08:32 WBC 8.26 RBC 2.92 L Hgb 8.5 L Hct 26.2 L MCV 89.7 MCH 29.1 MCHC 32.4 RDW Std Deviation 49.1 H RDW Coeff of Chyna 15.1 H Plt Count 242 MPV 9.6 Sodium 142 Potassium 3.5 Chloride 109 H Carbon Dioxide 25 Anion Gap 8 BUN 47 H Creatinine 3.82 H Est Cr Clr Drug Dosing 11.9 eGFR 11.26 BUN/Creatinine Ratio 12.3 Glucose 79 POC Glucose 169 H 72 Calcium 9.5 Magnesium 2.0 Iron 27 L TIBC 197 L Transferrin 141 L Transferrin % Sat 14 L Ferritin 416.2 H PG Care Time/CCT Total # of Minutes Spent Total Time Spent with Patient: Total time spent is greater than 50% in coordination of care (as documented) at patient's floor/unit and/or counseling patient: Coding Level of Care Code 29439 SUB INP/OBS CARE 2/35MIN Diagnoses Diarrhea R19.7 KALA (acute kidney injury) N17.9 Anemia, chronic disease D63.8 (HFpEF) heart failure with preserved ejection fraction I50.30 Obstructive sleep apnea G47.33 Diabetes mellitus with chronic kidney disease E11.22 Hypertension I10 UTI (urinary tract infection) N39.0 Hypokalemia E87.6 History of right nephrectomy Z90.5 ESRD (end stage renal disease) N18.6
--- NOTE | 2025-05-09 07:16 | XRay Report ---
EXAM: XR chest 1V portable CLINICAL HISTORY: CHF TECHNIQUE: An X-ray image of the chest is obtained in AP projection. COMPARISON: 15:42:00 SOFT SHOE D[employer]ER. FINDINGS: Cardiomegaly. Diffuse primary bronchovascular marking with prominent franchesca; predominantly on the right side - suggest possibility of pulmonary congestion. Marginally blunted bilateral costophrenic angle- possibility of mild pleural effusion. No acute osseous abnormality. IMPRESSION: Cardiomegaly- stable. Diffuse primary bronchovascular marking with prominent franchesca; predominantly on the right side - suggest possibility of pulmonary congestion.-new finding. Marginally blunted bilateral costophrenic angle- possibility of mild pleural effusion.-new finding. Electronically signed by Karel Denson 05-09-2025 07:16 AM
[2025-05-09 08:32] LABS: Hematocrit (blood only) 31.0 % (37.0-47.0); Hemoglobin 10.1 g/dl (12.0-16.0); Mean Corpuscular Hemoglobin 29.5 pg (25.0-34.0); Mean Corpuscular Volume 90.6 fL (80.0-100.0); Platelet Count 290 K/uL (130-400); RDW Standard Deviation 49.5 fL (36.4-46.3); Red Blood Count 3.42 M/uL (4.20-5.40); White Blood Count 8.31 K/ul (4.8-10.8)
--- NOTE | 2025-05-09 08:53 | Nephrology Progress Note ---
Date of Service May 09, 2025 Assessment & Plan (1) KALA (acute kidney injury): Plan: * Recovery phase of ATN. Patient is non-oliguric. Cr has improved from 5.0 to 3.7. * KALA likely ATN due to dehydration in the setting of ARB, diuretics. * Patient has fluid retention/edema and still requires O2 due to JUAREZ * Patient has been incontinent of urine. I&O are not available. Weight dropped 3kg overnight? * 05/09/25 CXR film reviewed - mild R sided pulmonary edema * staff cytotechnologist to wean O2 as tolerated * Will provide furosemide 40 mg IV BID x2 doses today and supplement serum potassium * Serum bicarbonate has corrected. Will stop NaHCO3 supplement * BMP ordered for am (2) Chronic kidney disease, stage IV (severe): Plan: * h/o RCCA s/p R nephrectomy 2010. Baseline Cr 3.0-3.5. Follows with Dr. Freed as outpatient. * L brachiobasilic AVF created by Dr. Farooq 02/01 but slow to mature. The vessel has a good thrill and bruit but patient has developed L arm swelling. She is scheduled for vascular surgery follow up in early May (3) Anemia, chronic disease: Plan: * Hgb improved to 10.1 * Day #2 of 3 venofer 300 mg * Hold TYRESE as Hgb now within target 10-11 (4) Hypertension: Plan: * Mild hypertension. On labetalol, amlodipine * Will provide ongoing diuresis today Admission and Anticipated Discharge Date Admission Date: May 03, 2025 Subjective Ms. Linares was evaluated in her hospital room this morning. She reports that her diarrhea has resolved. She was off O2 for a brief amount of time yesterday but required reapplication due to JUAREZ. Unfortunately Ms. Linares is incontinent of urine and I&O's could not be obtained Review of Systems Constitutional: + fatigue; no fever Eyes: no problem reported Ear, Nose, Mouth, Throat: no problem reported Respiratory: no cough and no dyspnea Cardiovascular: no chest pain, no palpitations, no lightheadedness and no edema Gastrointestinal: no abdominal pain, no vomiting and no diarrhea/loose stools Genitourinary: no problem reported Physical Exam Constitutional: not in distress Eyes: PERRL, conjunctivae normal, anicteric sclerae ENMT: external ear and nose normal, oropharynx normal Neck: trachea midline, no thyromegaly Respiratory: normal respiratory effort, lungs clear to auscultation Cardiovascular: RRR, no murmur, no edema Rate/Rhythm: regular rate and regular rhythm Extremities: + edema (2+ pretibial pitting edema) and + AV fistula (L arm + bruit. L arm w/ 1+ edema) Gastrointestinal (Abdomen): normal bowel sounds, soft, nontender, no hepatosplenomegaly Musculoskeletal: Extremities: no cyanosis and no clubbing Skin: no rashes, warm and dry Neurologic: no focal motor deficits Results & Data Vital Signs (Past 12 Hours) Vital Signs Temp Pulse Pulse Resp BP Pulse Ox O2 Del Method 05/09/25 08:25 36.7 C 67 36 H 171/70 H 96 Room Air 05/09/25 08:07 66 05/09/25 04:07 36.7 C 61 18 162/74 H 96 Nasal Cannula 05/08/25 23:45 36.8 C 75 20 172/67 H 94 Nasal Cannula 05/08/25 22:01 76 05/08/25 21:15 Nasal Cannula O2 Flow Rate 05/09/25 08:25 05/09/25 08:07 05/09/25 04:07 2 05/08/25 23:45 2 05/08/25 22:01 05/08/25 21:15 Laboratory Results Laboratory Results - last 24 hr 05/08/25 05/08/25 05/08/25 12:23 17:07 20:22 WBC RBC Hgb Hct MCV MCH MCHC RDW Std Deviation RDW Coeff of Chyna Plt Count MPV Sodium Potassium Chloride Carbon Dioxide Anion Gap BUN Creatinine Est Cr Clr Drug Dosing eGFR BUN/Creatinine Ratio Glucose POC Glucose 107 H 143 H 133 H Calcium 05/09/25 05/09/25 07:57 08:18 WBC 8.31 RBC 3.42 L Hgb 10.1 L Hct 31.0 L MCV 90.6 MCH 29.5 MCHC 32.6 RDW Std Deviation 49.5 H RDW Coeff of Chyna 15.6 H Plt Count 290 MPV 9.1 L Sodium 142 Potassium 3.7 Chloride 109 H Carbon Dioxide 26 Anion Gap 7 BUN 45 H Creatinine 3.75 H Est Cr Clr Drug Dosing 12.1 eGFR 11.52 BUN/Creatinine Ratio 12.0 Glucose 76 POC Glucose 77 Calcium 9.8 PG Care Time/CCT Total # of Minutes Spent Total Time Spent with Patient: 50 min visit - review medical record, interview/examine patient, review laboratory results, order laboratory testing/diuretic, stop NaHCO3, review TYRESE/BP management, discuss POC w/ patient and primary service, update medical record Coding Level of Care Code 84586 SUB INP/OBS CARE 3/50MIN Diagnoses KALA (acute kidney injury) N17.9 Chronic kidney disease, stage IV (severe) N18.4 Anemia, chronic disease D63.8 Hypertension I10
[2025-05-09 08:56] LABS: Anion Gap 7.0 (3-11); Blood Urea Nitrogen 45.0 mg/dl (6-23); Calcium 9.8 mg/dl (8.6-10.3); Carbon Dioxide 26.0 mmol/L (21-32); Chloride 109.0 mmol/L (98-107); Creatinine Clr Calc Pharmacy 12.1 ml/min; Glucose 76.0 mg/dl (70-99(Fasting)); Potassium 3.7 mmol/L (3.5-5.1); Sodium 142.0 mmol/L (136-145)
[2025-05-09] MEDS: FUROSEMIDE 40 MG/4 ML VIAL IV SCH (12:20)
--- NOTE | 2025-05-09 18:22 | Hospitalist Progress Note ---
Date of Service May 09, 2025 Assessment & Plan (1) Diarrhea: (2) KALA (acute kidney injury): (3) Anemia, chronic disease: (4) (HFpEF) heart failure with preserved ejection fraction: (5) Obstructive sleep apnea: (6) Diabetes mellitus with chronic kidney disease: (7) Hypertension: (8) UTI (urinary tract infection): (9) Hypokalemia: (10) History of right nephrectomy: (11) ESRD (end stage renal disease): Plan Pt is an 84 yo female with a past med hx of CKD stage V/nearly ESRD - s/p recent AV fistula placement, T2DM, HFpEF, CARO, HTN, and hx gout who presented to the hospital on 05/03 for 1 week of nausea, vomiting, and diarrhea. Was hospitalized in March and had diverticulitis then - treated with zosyn, then augmentin upon discharge home. Upon admission had evidence of KALA. #Diarrhea - improved/resolving - - CT abd/pelvis without diverticulitis; diverticulitis from 03/2025 resolved - Stool BioFire negative - Stool c diff negative - at minimum likely with abx-associated diarrhea - added colestipol 1gm daily and this helped; ultimately increased to 2gm/daily -stools much better on colestipol -could always titrate colestipol further if necessary - last colonoscopy - 2016; sigmoid diverticulosis only; no polyps or other abno rmalities then - asked GI to see in consult; no plans for repeat colonoscopy due to pulm edema/o2 requirement; they, too, feel she has abx-associated diarrhea; advised ongoing supportive care #KALA on CKD stage V/ESRD - KALA improving - - Baseline Cr has been 3.5-4.0 the last several months - 2023 - Cr was low to mid 2's - she has had clear progression of her CKD in the remaining left-sided kidney - admission Cr 5.08, likely due to diarrhea/dehydration - Cr today 3.75 - unfortunately she developed pulmonary edema in the setting of her KALA & IVF; fluids stopped several days ago - remains stable on small amount of NC O2 - CXR findings from today noted (CHF) - appreciate [facility] Nephrology assistance - repeat BMP am - continue sod bicarb supplementation - dose reduced to 650mg daily - no indication for acute HD at this time #Hypoxia/pulmonary edema/volume overload - - pulmonary edema 2nd to KALA/CKD stage 5 and IV fluids (as opposed to HFpEF) - s/p IV lasix on 05/08 - lasix 40mg IV BID ordered by Dr Talley for today and ongoing - if effective diuresis is not achieved consider changing IV lasix to IV bumex - daily weights, etc. #HFpEF - - last echo January 2025; EF 55-60% with severe left atrial dilation and type II diastolic dysfunction - usually takes 1 mg bumex BID at home; PO bumex on hold while receiving IV lasix #klebsiella UTI - - cephalexin 250mg daily x 7 days - day #6 today #HTN - - labetalol, amlodipine, and bumex were placed on hold at time of admission - resumed labetalol at 100mg BID; titrated to 150mg BID; will resume 200mg BID (home dosing) today - cont amlodipine 5mg daily #Anemia, chronic - 2nd to CKD/ESRD - - appreciate nephrology management of such - B12/folate in 11/2024 both wnl - defer epogen/Fe supplementation to nephrology #T2DM - - home regime is glargine 40 units once daily ; this had been lowered to 25 units daily - AM BSGs borderline low despite the lantus dose reduction -will reduce further to 20 units HS - will adjust novolog SSI parameters as well - a1c 7.1% in November 2024 - a1c is 7% this admission #CARO - - CPAP #hypokalemia - - replaced/resolved VTE: heparin 5000 BID updated pt's son by phone 05/04 and again 05/08 seen by PT/OT -- cleared to return home at d/c date of discharge uncertain Admission and Anticipated Discharge Date Admission Date: May 03, 2025 Subjective tele overnight wnl patient resting in bed during the visit still with o2 requirement unfortunately accurate urine output measurements have been impossible due to urinary incontinence she continues with cough and dyspnea on exertion diarrhea much improved; stools bulking up and only about 2x's/day no new complaints Review of Systems Review of Systems: CV - no chest pain, no chest tightness pulm - no wheezing GI - no N/V or pain Physical Exam Physical Exam: gen - awake, alert, NAD, lying in bed - looks a little short of breath today; coughing mouth - MMM neck - JVD+, 1/3-1/2 way up right neck - unchanged heart - RRR, s1 s2, 1-2/6 systolic murmur LSB lungs - b/l basilar rales, no increased work of breathing; no wheezes abd - soft NT ND BS+ ext - 1+ edema b/l shins/feet, pulses b/l feet 2+ psych - a/o x 3 Results & Data Results & Data Vital Signs (Past 12 Hours) Vital Signs Temp Pulse Pulse Resp BP Pulse Ox O2 Del Method 05/09/25 15:27 68 05/09/25 15:04 36.5 C 67 16 160/82 H 96 Nasal Cannula 05/09/25 12:08 36.5 C 58 L 26 H 165/73 H 94 Room Air 05/09/25 09:15 36.9 C 70 20 167/71 H 96 Nasal Cannula 05/09/25 08:30 Nasal Cannula 05/09/25 08:25 36.7 C 67 36 H 171/70 H 96 Room Air 05/09/25 08:07 66 O2 Flow Rate 05/09/25 15:27 05/09/25 15:04 4 05/09/25 12:08 05/09/25 09:15 4 05/09/25 08:30 05/09/25 08:25 05/09/25 08:07 Laboratory Results Laboratory Results - last 24 hr 05/08/25 05/09/25 05/09/25 20:22 07:57 08:18 WBC 8.31 RBC 3.42 L Hgb 10.1 L Hct 31.0 L MCV 90.6 MCH 29.5 MCHC 32.6 RDW Std Deviation 49.5 H RDW Coeff of Chyna 15.6 H Plt Count 290 MPV 9.1 L Sodium 142 Potassium 3.7 Chloride 109 H Carbon Dioxide 26 Anion Gap 7 BUN 45 H Creatinine 3.75 H Est Cr Clr Drug Dosing 12.1 eGFR 11.52 BUN/Creatinine Ratio 12.0 Glucose 76 POC Glucose 133 H 77 Calcium 9.8 05/09/25 05/09/25 11:55 17:20 WBC RBC Hgb Hct MCV MCH MCHC RDW Std Deviation RDW Coeff of Chyna Plt Count MPV Sodium Potassium Chloride Carbon Dioxide Anion Gap BUN Creatinine Est Cr Clr Drug Dosing eGFR BUN/Creatinine Ratio Glucose POC Glucose 104 H 86 Calcium Diagnostic Findings Chest X-Ray 05/09/25 06:00 EXAM: XR chest 1V portable CLINICAL HISTORY: CHF TECHNIQUE: An X-ray image of the chest is obtained in AP projection. COMPARISON: 15:42:00 DAIRY TECHNOLOGIST. FINDINGS: Cardiomegaly. Diffuse primary bronchovascular marking with prominent franchesca; predominantly on the right side - suggest possibility of pulmonary congestion. Marginally blunted bilateral costophrenic angle- possibility of mild pleural effusion. No acute osseous abnormality. IMPRESSION: Cardiomegaly- stable. Diffuse primary bronchovascular marking with prominent franchesca; predominantly on the right side - suggest possibility of pulmonary congestion.-new finding. Marginally blunted bilateral costophrenic angle- possibility of mild pleural effusion.-new finding. Electronically signed by Karel Denson 05-09-2025 07:16 AM PG Care Time/CCT Total # of Minutes Spent Total Time Spent with Patient: Total time spent is greater than 50% in coordination of care (as documented) at patient's floor/unit and/or counseling patient: Coding Level of Care Code 82495 SUB INP/OBS CARE 3/50MIN Diagnoses Diarrhea R19.7 KALA (acute kidney injury) N17.9 Anemia, chronic disease D63.8 (HFpEF) heart failure with preserved ejection fraction I50.30 Obstructive sleep apnea G47.33 Diabetes mellitus with chronic kidney disease E11.22 Hypertension I10 UTI (urinary tract infection) N39.0 Hypokalemia E87.6 History of right nephrectomy Z90.5 ESRD (end stage renal disease) N18.6
[2025-05-09] MEDS: LABETALOL HCL 200 MG TAB PO SCH (21:23)
[2025-05-09] MEDS: LANTUS PER UNIT CHARGE SQ SCH (21:23)
[2025-05-10 06:51] LABS: Hematocrit (blood only) 29.6 % (37.0-47.0); Hemoglobin 9.7 g/dl (12.0-16.0); Mean Corpuscular Hemoglobin 29.7 pg (25.0-34.0); Mean Corpuscular Volume 90.5 fL (80.0-100.0); Platelet Count 290 K/uL (130-400); RDW Standard Deviation 49.9 fL (36.4-46.3); Red Blood Count 3.27 M/uL (4.20-5.40); White Blood Count 9.16 K/ul (4.8-10.8)
[2025-05-10 07:18] LABS: Anion Gap 8.0 (3-11); Blood Urea Nitrogen 43.0 mg/dl (6-23); Calcium 9.7 mg/dl (8.6-10.3); Carbon Dioxide 26.0 mmol/L (21-32); Chloride 108.0 mmol/L (98-107); Creatinine Clr Calc Pharmacy 11.9 ml/min; Glucose 66.0 mg/dl (70-99(Fasting)); Magnesium 1.8 mg/dl (1.7-2.4); Potassium 3.4 mmol/L (3.5-5.1); Sodium 142.0 mmol/L (136-145)
[2025-05-10] MEDS: CARBOHYDRATES FOR HYPOGLYCEMIA PO PRN (08:16)
--- NOTE | 2025-05-10 08:50 | Nephrology Progress Note ---
Date of Service May 10, 2025 Assessment & Plan (1) KALA (acute kidney injury): Plan: * Recovery phase of ATN. Patient is non-oliguric. Cr has improved from 5.0 to 3.7. * KALA likely ATN due to dehydration in the setting of ARB, diuretics. * Patient has fluid retention/edema and still requires O2 due to JUAREZ * Patient has been incontinent of urine. I&O are not available. Weight does not appear reliable * 05/09/25 CXR film reviewed - mild R sided pulmonary edema * staffing specialist to wean O2 as tolerated * Will provide furosemide 40 mg IV x1 dose today and supplement serum potassium * BMP ordered for am (2) Chronic kidney disease, stage IV (severe): Plan: * h/o RCCA s/p R nephrectomy 2010. Baseline Cr 3.0-3.5. Follows with Dr. Freed as outpatient. * L brachiobasilic AVF created by Dr. Farooq 02/01 but slow to mature. The vessel has a good thrill and bruit but patient has developed L arm swelling. She is scheduled for vascular surgery follow up in early May (3) Anemia, chronic disease: Plan: * Hgb 9.7 this am * Day #3 of 3 venofer 300 mg * Will order epogen 10,000 units SQ x1 this am (4) Hypertension: Plan: * Mild hypertension. On labetalol, amlodipine * Will provide ongoing diuresis today Admission and Anticipated Discharge Date Admission Date: May 03, 2025 Subjective Ms. Linares was evaluated in her hospital room this morning. Diarrhea has resolved. Patient continues to have JUAREZ. Unfortunately Ms. Linares is incontinent of urine and I&O's could not be obtained Review of Systems Constitutional: + fatigue; no fever Eyes: no problem reported Ear, Nose, Mouth, Throat: no problem reported Respiratory: no cough and no dyspnea Cardiovascular: no chest pain, no palpitations, no lightheadedness and no jami a Gastrointestinal: no abdominal pain, no vomiting and no diarrhea/loose stools Genitourinary: no problem reported Physical Exam Constitutional: not in distress Eyes: PERRL, conjunctivae normal, anicteric sclerae ENMT: external ear and nose normal, oropharynx normal Neck: trachea midline, no thyromegaly Respiratory: normal respiratory effort, lungs clear to auscultation Cardiovascular: RRR, no murmur, no edema Rate/Rhythm: regular rate and regular rhythm Extremities: + edema (2+ pretibial pitting edema) and + AV fistula (L arm + bruit. L arm w/ 1+ edema) Gastrointestinal (Abdomen): normal bowel sounds, soft, nontender, no hepa tosplenomegaly Musculoskeletal: Extremities: no cyanosis and no clubbing Skin: no rashes, warm and dry Neurologic: no focal motor deficits Results & Data Vital Signs (Past 12 Hours) Vital Signs Temp Pulse Pulse Resp BP Pulse Ox O2 Del Method 05/10/25 08:25 36.9 C 68 18 162/53 H 96 Room Air 05/10/25 03:23 36.6 C 62 18 145/79 H 94 Nasal Cannula 05/10/25 00:17 95 Nasal Cannula 05/10/25 00:00 36.5 C 72 18 163/73 H 91 Nasal Cannula 05/09/25 21:57 83 O2 Flow Rate 05/10/25 08:25 05/10/25 03:23 4 05/10/25 00:17 4 05/10/25 00:00 5 05/09/25 21:57 Laboratory Results Laboratory Results - last 24 hr 05/09/25 05/09/25 05/09/25 08:18 11:55 17:20 WBC RBC Hgb Hct MCV MCH MCHC RDW Std Deviation RDW Coeff of Chyna Plt Count MPV Absolute Nucleated RBC Nucleated RBC % (auto) Sodium 142 Potassium 3.7 Chloride 109 H Carbon Dioxide 26 Anion Gap 7 BUN 45 H Creatinine 3.75 H Est Cr Clr Drug Dosing 12.1 eGFR 11.52 BUN/Creatinine Ratio 12.0 Glucose 76 POC Glucose 104 H 86 Calcium 9.8 Magnesium 05/09/25 05/10/25 05/10/25 20:24 05:59 08:13 WBC 9.16 RBC 3.27 L Hgb 9.7 L Hct 29.6 L MCV 90.5 MCH 29.7 MCHC 32.8 RDW Std Deviation 49.9 H RDW Coeff of Chyna 15.9 H Plt Count 290 MPV 9.3 L Absolute Nucleated RBC 0.02 Nucleated RBC % (auto) 0.2 Sodium 142 Potassium 3.4 L Chloride 108 H Carbon Dioxide 26 Anion Gap 8 BUN 43 H Creatinine 3.80 H Est Cr Clr Drug Dosing 11.9 eGFR 11.33 BUN/Creatinine Ratio 11.3 Glucose 66 L POC Glucose 135 H 69 L* Calcium 9.7 Magnesium 1.8 05/10/25 05/10/25 08:14 08:43 WBC RBC Hgb Hct MCV MCH MCHC RDW Std Deviation RDW Coeff of Chyna Plt Count MPV Absolute Nucleated RBC Nucleated RBC % (auto) Sodium Potassium Chloride Carbon Dioxide Anion Gap BUN Creatinine Est Cr Clr Drug Dosing eGFR BUN/Creatinine Ratio Glucose POC Glucose 69 L* 82 Calcium Magnesium PG Care Time/CCT Total # of Minutes Spent Total Time Spent with Patient: 50 min visit - review medical record, interview/examine patient, review laboratory results, order diuretic, order epogen, review BP management, order laboratory testing for am, discuss POC w/ patient and primary service, update medical record Coding Level of Care Code 61962 SUB INP/OBS CARE 3/50MIN Diagnoses KALA (acute kidney injury) N17.9 Chronic kidney disease, stage IV (severe) N18.4 Anemia, chronic disease D63.8 Hypertension I10
[2025-05-10] MEDS: POTASSIUM CHLORIDE CRTAB 20 MEQ TABCR PO ONE (10:18)
[2025-05-10] MEDS: FUROSEMIDE 40 MG/4 ML VIAL IV ONE (10:18)
[2025-05-10] MEDS: EPOETIN ALFA 10,000 UNITS/ML VIAL SQ ONE (10:22)
--- NOTE | 2025-05-10 11:34 | Hospitalist Progress Note ---
Date of Service May 10, 2025 Assessment & Plan (1) Diarrhea: (2) KALA (acute kidney injury): (3) Anemia, chronic disease: (4) (HFpEF) heart failure with preserved ejection fraction: (5) Obstructive sleep apnea: (6) Diabetes mellitus with chronic kidney disease: (7) Hypertension: (8) UTI (urinary tract infection): (9) Hypokalemia: (10) History of right nephrectomy: (11) ESRD (end stage renal disease): Plan Pt is an 84 yo female with a past med hx of CKD stage V/nearly ESRD - s/p recent AV fistula placement, T2DM, HFpEF, CARO, HTN, and hx gout who presented to the hospital on 05/03 for 1 week of nausea, vomiting, and diarrhea. Was hospitalized in March and had diverticulitis then - treated with zosyn, then augmentin upon discharge home. Upon admission had evidence of KALA. #Diarrhea - improved/resolving - - CT abd/pelvis without diverticulitis; diverticulitis from 03/2025 resolved - Stool BioFire negative - Stool c diff negative - at minimum likely with abx-associated diarrhea - added colestipol 1gm daily and this helped; ultimately increased to 2gm/daily -stools much better on colestipol -could always titrate colestipol further if necessary - last colonoscopy - 2016; sigmoid diverticulosis only; no polyps or other abnormalities then - asked GI to see in consult; no plans for repeat colonoscopy due to pulm edema/o2 requirement; they, too, feel she has abx-associated diarrhea; advised ongoing supportive care #KALA on CKD stage V/ESRD - KALA improving - - Baseline Cr has been 3.5-4.0 the last several months - 2023 - Cr was low to mid 2's - she has had clear progression of her CKD in the remaining left-sided kidney - admission Cr 5.08, likely due to diarrhea/dehydration - Cr today 3.75 - unfortunately she developed pulmonary edema in the setting of her KALA & IVF; fluids stopped several days ago - remains stable on small amount of NC O2 - CXR findings from today noted (CHF) - [facility] - Monitor BMP daily - continue sod bicarb supplementation - dose reduced to 650mg daily - no indication for acute HD at this time - Limited net diuresis on lasix, monitor net output #Hypoxia/pulmonary edema/volume overload - - pulmonary edema 2nd to KALA/CKD stage 5 and IV fluids (as opposed to HFpEF) - s/p IV lasix on 05/08 - lasix 40mg IV BID ordered by Dr Talley for today and ongoing - Less than 200cc net diursis over last 24 h, monitor and will consider changing IV lasix to IV bumex - daily weights, etc. #HFpEF - - last echo January 2025; EF 55-60% with severe left atrial dilation and type II diastolic dysfunction - usually takes 1 mg bumex BID at home; PO bumex on hold while receiving IV lasix #klebsiella UTI - - cephalexin 250mg daily x 7 days - day #7 today #HTN - - labetalol, amlodipine, and bumex were placed on hold at time of admission - resumed labetalol at 100mg BID; titrated to 150mg BID; will resume 200mg BID (home dosing) today - cont amlodipine 5mg daily #Anemia, chronic - 2nd to CKD/ESRD - - appreciate nephrology management of such - B12/folate in 11/2024 both wnl - defer epogen/Fe supplementation to nephrology - 3rd venofer infusion pending #T2DM - - home regime is glargine 40 units once daily ; this had been lowered to 25 units daily - AM BSGs borderline low despite the lantus dose reduction -will reduce further to 20 units HS - will adjust novolog SSI parameters as well - a1c 7.1% in November 2024 - a1c is 7% this admission - within goal range #CARO - - CPAP #hypokalemia - - replaced/resolved VTE: heparin 5000 BID updated pt's son by phone 05/04 and again 05/08 seen by PT/OT -- cleared to return home at d/c date of discharge uncertain Admission and Anticipated Discharge Date Admission Date: May 03, 2025 Subjective doing well this morning. Eating breakfast uneventfully. Having 2-3 loose stools per day but otherwise no recurrent diarrhea. Notes increased urine output but PureWick has been helpful for that. No new complaints or concerns. No events per nursing staff. Physical Exam Physical Exam: gen - awake, alert, NAD, lying in bed - minimal cough, pleaseant mouth - MMM neck - JVD present+3cm heart - RRR, s1 s2, 2/6 systolic murmur LUSB lungs - b/l basilar rales, no increased work of breathing; no wheezes abd - soft NT ND BS+ ext - 1+ edema b/l shins/feet R>L, pulses b/l feet 2+ psych - a/o x 3 Results & Data Results & Data Vital Signs (Past 12 Hours) Vital Signs Temp Pulse Pulse Resp BP Pulse Ox O2 Del Method 05/10/25 11:28 36.7 C 57 L 18 148/75 H 96 Nasal Cannula 05/10/25 09:11 36.7 C 63 20 158/70 H 97 Nasal Cannula 05/10/25 08:55 64 05/10/25 08:25 36.9 C 68 18 162/53 H 96 Room Air 05/10/25 03:23 36.6 C 62 18 145/79 H 94 Nasal Cannula 05/10/25 00:17 95 Nasal Cannula 05/10/25 00:00 36.5 C 72 18 163/73 H 91 Nasal Cannula O2 Flow Rate 05/10/25 11:28 05/10/25 09:11 4 05/10/25 08:55 05/10/25 08:25 05/10/25 03:23 4 05/10/25 00:17 4 05/10/25 00:00 5 Laboratory Results 05/10/25 05/10/25 05/10/25 08:43 08:14 08:13 WBC RBC Hgb Hct MCV MCH MCHC RDW Std Deviation RDW Coeff of Chyna Plt Count MPV Absolute Nucleated RBC Nucleated RBC % (auto) Sodium Potassium Chloride Carbon Dioxide Anion Gap BUN Creatinine Est Cr Clr Drug Dosing eGFR BUN/Creatinine Ratio Glucose POC Glucose 82 69 L* 69 L* Calcium Magnesium 05/10/25 05/09/25 05/09/25 05:59 20:24 17:20 WBC 9.16 RBC 3.27 L Hgb 9.7 L Hct 29.6 L MCV 90.5 MCH 29.7 MCHC 32.8 RDW Std Deviation 49.9 H RDW Coeff of Chyna 15.9 H Plt Count 290 MPV 9.3 L Absolute Nucleated RBC 0.02 Nucleated RBC % (auto) 0.2 Sodium 142 Potassium 3.4 L Chloride 108 H Carbon Dioxide 26 Anion Gap 8 BUN 43 H Creatinine 3.80 H Est Cr Clr Drug Dosing 11.9 eGFR 11.33 BUN/Creatinine Ratio 11.3 Glucose 66 L POC Glucose 135 H 86 Calcium 9.7 Magnesium 1.8 05/09/25 11:55 WBC RBC Hgb Hct MCV MCH MCHC RDW Std Deviation RDW Coeff of Chyna Plt Count MPV Absolute Nucleated RBC Nucleated RBC % (auto) Sodium Potassium Chloride Carbon Dioxide Anion Gap BUN Creatinine Est Cr Clr Drug Dosing eGFR BUN/Creatinine Ratio Glucose POC Glucose 104 H Calcium Magnesium PG Care Time/CCT Total # of Minutes Spent Total Time Spent with Patient: Total time spent is greater than 50% in coordination of care (as documented) at patient's floor/unit and/or counseling patient: Coding Level of Care Code 26907 SUB INP/OBS CARE 2/35MIN Diagnoses Diarrhea R19.7 KALA (acute kidney injury) N17.9 Anemia, chronic disease D63.8 (HFpEF) heart failure with preserved ejection fraction I50.30 Obstructive sleep apnea G47.33 Diabetes mellitus with chronic kidney disease E11.22 Hypertension I10 UTI (urinary tract infection) N39.0 Hypokalemia E87.6 History of right nephrectomy Z90.5 ESRD (end stage renal disease) N18.6
[2025-05-11 07:04] LABS: Hematocrit (blood only) 29.6 % (37.0-47.0); Hemoglobin 9.0 g/dl (12.0-16.0); Immature Granulocytes # (auto) 0.19 K/uL (0.01-0.20); Immature Granulocytes % (auto) 2.1 %; Mean Corpuscular Hemoglobin 28.0 pg (25.0-34.0); Mean Corpuscular Volume 91.9 fL (80.0-100.0); Platelet Count 263 K/uL (130-400); RDW Standard Deviation 52.3 fL (36.4-46.3); Red Blood Count 3.22 M/uL (4.20-5.40); White Blood Count 8.98 K/ul (4.8-10.8)
[2025-05-11 07:24] LABS: Anion Gap 9.0 (3-11); Blood Urea Nitrogen 43.0 mg/dl (6-23); Calcium 9.5 mg/dl (8.6-10.3); Carbon Dioxide 24.0 mmol/L (21-32); Chloride 109.0 mmol/L (98-107); Creatinine Clr Calc Pharmacy 11.2 ml/min; Glucose 79.0 mg/dl (70-99(Fasting)); Magnesium 1.7 mg/dl (1.7-2.4); Potassium 3.6 mmol/L (3.5-5.1); Sodium 142.0 mmol/L (136-145)
[2025-05-11] MEDS: INFLUENZA VACC TS2025-26(65y+)/PF (IIV3) 0.5mL Syr IM ONE (08:45)
--- NOTE | 2025-05-11 08:56 | Nephrology Progress Note ---
Date of Service May 11, 2025 Assessment & Plan (1) KALA (acute kidney injury): Plan: * Recovery phase of ATN. Patient is non-oliguric. Cr has improved from 5.0 to 4.0. * KALA likely ATN due to dehydration in the setting of ARB, diuretics. * Patient has fluid retention/edema and still requires O2 due to JUAREZ * Patient has been incontinent of urine. Weight does not appear reliable * 05/09/25 CXR film reviewed - mild R sided pulmonary edema * Order placed in EMR this am for nurse staff industrial to wean O2 as tolerated * Will provide furosemide 40 mg IV BID x 2 doses today and supplement serum potassium * BMP ordered for am (2) Chronic kidney disease, stage IV (severe): Plan: * h/o RCCA s/p R nephrectomy 2010. Baseline Cr 3.0-3.5. Follows with Dr. Freed as outpatient. * L brachiobasilic AVF created by Dr. Farooq 02/01 but slow to mature. The vessel has a good thrill and bruit but patient has developed L arm swelling. She is scheduled for vascular surgery follow up in early May (3) Anemia, chronic disease: Plan: * Hgb 9.7 this am * Patient completed 900 mg venofer 05/10/25 * Will provide additional epogen 10,000 units SQ x1 this am (4) Hypertension: Plan: * Mild hypertension. On labetalol, amlodipine * BP may improve w/ ongoing diuresis today Admission and Anticipated Discharge Date Admission Date: May 03, 2025 Subjective Ms. Linares was evaluated in her hospital room this morning. Diarrhea has resolved. She continues to have JUAREZ and remains on O2 at 4L/min NC this am Review of Systems Constitutional: + fatigue; no fever Eyes: no problem reported Ear, Nose, Mouth, Throat: no problem reported Respiratory: no cough and no dyspnea Cardiovascular: no chest pain, no palpitations, no lightheadedness and no edema Gastrointestinal: no abdominal pain, no vomiting and no diarrhea/loose stools Genitourinary: no problem reported Physical Exam Constitutional: not in distress Eyes: PERRL, conjunctivae normal, anicteric sclerae ENMT: external ear and nose normal, oropharynx normal Neck: trachea midline, no thyromegaly Respiratory: normal respiratory effort, lungs clear to auscultation Cardiovascular: RRR, no murmur, no edema Rate/Rhythm: regular rate and regular rhythm Extremities: + edema (2+ pretibial pitting edema) and + AV fistula (L arm + bruit. L arm w/ 1+ edema) Gastrointestinal (Abdomen): normal bowel sounds, soft, nontender, no hepato splenomegaly Musculoskeletal: Extremities: no cyanosis and no clubbing Skin: no rashes, warm and dry Neurologic: no focal motor deficits Results & Data Vital Signs (Past 12 Hours) Vital Signs Temp Pulse Pulse Resp BP BP Pulse Ox 05/11/25 07:43 36.8 C 65 18 162/61 H 96 05/11/25 05:51 60 05/11/25 04:00 37.0 C 61 18 151/63 H 94 05/10/25 23:39 36.8 C 67 18 158/67 H 93 05/10/25 22:10 80 O2 Del Method O2 Flow Rate 05/11/25 07:43 Nasal Cannula 4 05/11/25 05:51 05/11/25 04:00 Nasal Cannula 4 05/10/25 23:39 Nasal Cannula 4 05/10/25 22:10 Laboratory Results Laboratory Results - last 24 hr 05/10/25 05/10/25 05/10/25 11:58 17:02 20:05 WBC RBC Hgb Hct MCV MCH MCHC RDW Std Deviation RDW Coeff of Chyna Plt Count MPV Immature Gran % (Auto) Neut % (Auto) Lymph % (Auto) [place] % (Auto) Eos % (Auto) Baso % (Auto) Neut # (Auto) Lymph # (Auto) [place] # (Auto) Eos # (Auto) Baso # (Auto) Immature Gran # (Auto) Absolute Nucleated RBC Nucleated RBC % (auto) Sodium Potassium Chloride Carbon Dioxide Anion Gap BUN Creatinine Est Cr Clr Drug Dosing eGFR BUN/Creatinine Ratio Glucose POC Glucose 140 H 107 H 113 H Calcium Magnesium C-Reactive Protein 05/11/25 05/11/25 06:37 08:03 WBC 8.98 RBC 3.22 L Hgb 9.0 L Hct 29.6 L MCV 91.9 MCH 28.0 MCHC 30.4 L RDW Std Deviation 52.3 H RDW Coeff of Chyna 16.7 H Plt Count 263 MPV 8.9 L Immature Gran % (Auto) 2.1 Neut % (Auto) 64.1 Lymph % (Auto) 20.0 [place] % (Auto) 8.4 Eos % (Auto) 4.3 Baso % (Auto) 1.1 Neut # (Auto) 5.75 Lymph # (Auto) 1.80 [place] # (Auto) 0.75 H Eos # (Auto) 0.39 Baso # (Auto) 0.10 Immature Gran # (Auto) 0.19 Absolute Nucleated RBC 0.02 Nucleated RBC % (auto) 0.2 Sodium 142 Potassium 3.6 Chloride 109 H Carbon Dioxide 24 Anion Gap 9 BUN 43 H Creatinine 4.04 H Est Cr Clr Drug Dosing 11.2 eGFR 10.53 BUN/Creatinine Ratio 10.6 Glucose 79 POC Glucose 87 Calcium 9.5 Magnesium 1.7 C-Reactive Protein 2.17 H PG Care Time/CCT Total # of Minutes Spent Total Time Spent with Patient: 50 min visit - review medical record, interview/examine patient, review laboratory results, order diuretic, order epogen, review BP management, order laboratory testing for am, discuss POC w/ patient and primary service, update medical record Coding Level of Care Code 98931 SUB INP/OBS CARE 3/50MIN Diagnoses KALA (acute kidney injury) N17.9 Chronic kidney disease, stage IV (severe) N18.4 Anemia, chronic disease D63.8 Hypertension I10
[2025-05-11] MEDS: FUROSEMIDE 40 MG/4 ML VIAL IV SCH (10:16)
[2025-05-11] MEDS: POTASSIUM CHLORIDE CRTAB 20 MEQ TABCR PO ONE (10:16)
--- NOTE | 2025-05-11 13:11 | Hospitalist Progress Note ---
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 Was hospitalized in March and had diverticulitis then - treated with zosyn, then augmentin upon discharge home. Upon admission had evidence of AKLA. #Diarrhea - improved/resolving - - CT abd/pelvis without diverticulitis; diverticulitis from 03/2025 resolved - Stool BioFire negative - Stool c diff negative - at minimum likely with abx-associated diarrhea - added colestipol 1gm daily and this helped; ultimately increased to 2gm/daily -stools much better on colestipol - last colonoscopy - 2016; sigmoid diverticulosis only; no polyps or other abnormalities then - asked GI to see in consult; no plans for repeat colonoscopy due to pulm edema/o2 requirement; they, too, feel she has abx-associated diarrhea; advised ongoing supportive care - stable to resolve at this time #KALA on CKD stage V/ESRD - KALA improving - - Baseline Cr has been 3.5-4.0 the last several months - 2023 - Cr was low to mid 2's - she has had clear progression of her CKD in the remaining left-sided kidney - admission Cr 5.08, likely due to diarrhea/dehydration - Cr today 4.0 - recovery phase of ATN - unfortunately she developed pulmonary edema in the setting of her KALA & IVF; fluids stopped several days ago - remains stable on small amount of NC O2 - CXR findings from today noted (CHF) - [facility] - repeat BMP am - continue sod bicarb supplementation - dose reduced to 650mg daily - no indication for acute HD at this time #Hypoxia/pulmonary edema/volume overload - - pulmonary edema 2nd to KALA/CKD stage 5 and IV fluids (as opposed to HFpEF) - s/p IV lasix on 05/08 - lasix 40mg IV BIDD ordered by Dr Talley for today and ongoing, and slight interval improvement in net diuresis, given concern for triggering her current KALA will continue with current dosing. Gentle diuresis as she tolerate - continue daily weights, ideally 3-5 kg removed with diuretic, then will reassess #HFpEF - - last echo January 2025; EF 55-60% with severe left atrial dilation and type II diastolic dysfunction - usually takes 1 mg bumex BID at home; PO bumex on hold while receiving IV lasix #klebsiella UTI - - cephalexin 250mg daily x 7 days - day #7 today, DC after this afternoon's to #HTN - - labetalol, amlodipine, and bumex were placed on hold at time of admission - resumed labetalol at 100mg BID; titrated to 150mg BID; will resume 200mg BID (home dosing) today - cont amlodipine 5mg daily #Anemia, chronic - 2nd to CKD/ESRD - - appreciate nephrology management of such - B12/folate in 11/2024 both wnl - defer epogen/Fe supplementation to nephrology #T2DM - - home regime is glargine 40 units once daily ; this had been lowered to 25 units daily - AM BSGs borderline low despite the lantus dose reduction -will reduce further to 20 units HS - will adjust novolog SSI parameters as well - a1c 7.1% in November 2024 - a1c is 7% this admission #CARO - - CPAP #hypokalemia - - replaced/resolved VTE: heparin 5000 BID updated pt's son by phone 05/04 and again 05/08 seen by PT/OT -- cleared to return home at d/c date of discharge uncertain Admission and Anticipated Discharge Date Admission Date: May 03, 2025 Subjective resting comfortably in hospital bed this morning. No recurrence of the loose stools or diarrhea. Still making adequate urine. No abdominal pain discomfort or bloating. No new events or concerns per patient. Oral intake is good no other concerns per patient and nursing Physical Exam Physical Exam: gen - awake, alert, NAD, lying in bed - minimal cough, pleaseant mouth - MMM neck - JVD present+1cm heart - RRR, s1 s2, 2/6 systolic murmur LUSB lungs - b/l basilar rales, no increased work of breathing; no wheezes abd - soft NT ND BS+ ext - 1+ edema b/l shins/feet R>L, pulses b/l feet 2+ psych - a/o x 3 Results & Data Results & Data Vital Signs (Past 12 Hours) Vital Signs Temp Pulse Pulse Resp BP Pulse Ox O2 Del Method 05/11/25 11:18 36.4 C L 53 L 18 124/56 L 90 Nasal Cannula 05/11/25 09:26 Nasal Cannula 05/11/25 07:43 36.8 C 65 18 162/61 H 96 Nasal Cannula 05/11/25 05:51 60 05/11/25 04:00 37.0 C 61 18 151/63 H 94 Nasal Cannula O2 Flow Rate 05/11/25 11:18 4 05/11/25 09:26 4 05/11/25 07:43 4 05/11/25 05:51 05/11/25 04:00 4 Laboratory Results 05/11/25 05/11/25 05/11/25 12:02 08:03 06:37 WBC 8.98 RBC 3.22 L Hgb 9.0 L Hct 29.6 L MCV 91.9 MCH 28.0 MCHC 30.4 L RDW Std Deviation 52.3 H RDW Coeff of Chyna 16.7 H Plt Count 263 MPV 8.9 L Immature Gran % (Auto) 2.1 Neut % (Auto) 64.1 Lymph % (Auto) 20.0 [place] % (Auto) 8.4 Eos % (Auto) 4.3 Baso % (Auto) 1.1 Neut # (Auto) 5.75 Lymph # (Auto) 1.80 [place] # (Auto) 0.75 H Eos # (Auto) 0.39 Baso # (Auto) 0.10 Immature Gran # (Auto) 0.19 Absolute Nucleated RBC 0.02 Nucleated RBC % (auto) 0.2 Sodium 142 Potassium 3.6 Chloride 109 H Carbon Dioxide 24 Anion Gap 9 BUN 43 H Creatinine 4.04 H Est Cr Clr Drug Dosing 11.2 eGFR 10.53 BUN/Creatinine Ratio 10.6 Glucose 79 POC Glucose 132 H 87 Calcium 9.5 Magnesium 1.7 C-Reactive Protein 2.17 H 05/10/25 05/10/25 20:05 17:02 WBC RBC Hgb Hct MCV MCH MCHC RDW Std Deviation RDW Coeff of Chyna Plt Count MPV Immature Gran % (Auto) Neut % (Auto) Lymph % (Auto) [place] % (Auto) Eos % (Auto) Baso % (Auto) Neut # (Auto) Lymph # (Auto) [place] # (Auto) Eos # (Auto) Baso # (Auto) Immature Gran # (Auto) Absolute Nucleated RBC Nucleated RBC % (auto) Sodium Potassium Chloride Carbon Dioxide Anion Gap BUN Creatinine Est Cr Clr Drug Dosing eGFR BUN/Creatinine Ratio Glucose POC Glucose 113 H 107 H Calcium Magnesium C-Reactive Protein PG Care Time/CCT Total # of Minutes Spent Total Time Spent with Patient: Total time spent is greater than 50% in coordination of care (as documented) at patient's floor/unit and/or counseling patient: Coding Level of Care Code 61890 SUB INP/OBS CARE 2/35MIN Diagnoses Diarrhea R19.7 KALA (acute kidney injury) N17.9 Anemia, chronic disease D63.8 (HFpEF) heart failure with preserved ejection fraction I50.30 Obstructive sleep apnea G47.33 Diabetes mellitus with chronic kidney disease E11.22 Hypertension I10 UTI (urinary tract infection) N39.0 Hypokalemia E87.6 History of right nephrectomy Z90.5 ESRD (end stage renal disease) N18.6
[2025-05-12 06:01] LABS: Hematocrit (blood only) 29.2 % (37.0-47.0); Hemoglobin 9.2 g/dl (12.0-16.0); Mean Corpuscular Hemoglobin 29.2 pg (25.0-34.0); Mean Corpuscular Volume 92.7 fL (80.0-100.0); Platelet Count 253 K/uL (130-400); RDW Standard Deviation 53.4 fL (36.4-46.3); Red Blood Count 3.15 M/uL (4.20-5.40); White Blood Count 9.10 K/ul (4.8-10.8)
[2025-05-12 06:17] LABS: Anion Gap 7.0 (3-11); Blood Urea Nitrogen 45.0 mg/dl (6-23); Calcium 9.4 mg/dl (8.6-10.3); Carbon Dioxide 25.0 mmol/L (21-32); Chloride 109.0 mmol/L (98-107); Creatinine Clr Calc Pharmacy 11.0 ml/min; Glucose 75.0 mg/dl (70-99(Fasting)); Potassium 3.6 mmol/L (3.5-5.1); Sodium 141.0 mmol/L (136-145)
--- NOTE | 2025-05-12 08:57 | Nephrology Progress Note ---
Date of Service May 12, 2025 Assessment & Plan (1) KALA (acute kidney injury): Plan: * Recovery phase of ATN. Patient is non-oliguric. Cr has improved from 5.0 to 4.0. * KALA likely ATN due to dehydration in the setting of ARB, diuretics. * Patient has fluid retention/edema and still requires O2 due to JUAREZ * 05/09/25 CXR film reviewed - mild R sided pulmonary edema * Patient has been incontinent of urine. Weight does not appear reliable (net 1.8 L net negative last 72 hrs, wt unchanged at 86 kg) * Bilateral LE and L arm edema are significantly improved over last 72 hours * Order placed in EMR for nursing staffing coordinator to wean O2 as tolerated * Will provide furosemide 40 mg IV BID x 2 doses today and supplement serum potassium * BMP ordered for am (2) Chronic kidney disease, stage IV (severe): Plan: * h/o RCCA s/p R nephrectomy 2010. Baseline Cr 3.0-3.5. Follows with Dr. Freed as outpatient. * L brachiobasilic AVF created by Dr. Farooq 02/01 but slow to mature. The vessel has a good thrill and bruit but patient has developed L arm swelling. She is scheduled for vascular surgery follow up in early May (3) Anemia, chronic disease: Plan: * Hgb 9.2 this am * Patient completed 900 mg venofer 05/10/25 * Epogen 10,000 units SQ provided 05/11/25 (4) Hypertension: Plan: * Mild hypertension. On labetalol, amlodipine * BP may improve w/ ongoing diuresis today Admission and Anticipated Discharge Date Admission Date: May 03, 2025 Subjective Ms. Linares was evaluated in her hospital room this morning. Diarrhea has resolved. She continues to have JUAREZ and remains on O2 at 3.5 L/min NC this am Review of Systems Constitutional: + fatigue; no fever Eyes: no problem reported Ear, Nose, Mouth, Throat: no problem reported Respiratory: no cough and no dyspnea Cardiovascular: no chest pain, no palpitations, no lightheadedness and no edema Gastrointestinal: no abdominal pain, no vomiting and no diarrhea/loose stools Genitourinary: no problem reported Physical Exam Constitutional: not in distress Eyes: PERRL, conjunctivae normal, anicteric sclerae ENMT: external ear and nose normal, oropharynx normal Neck: trachea midline, no thyromegaly Respiratory: normal respiratory effort Auscultation: + crackles (R base) Cardiovascular: Rate/Rhythm: regular rate and regular rhythm Extremities: + edema (1+ pretibial pitting edema) and + AV fistula (L arm + bruit. L arm w/ trace edema) Gastrointestinal (Abdomen): normal bowel sounds, soft, nontender, no hepatosplenomegaly Musculoskeletal: Extremities: no cyanosis and no clubbing Skin: no rashes, warm and dry Neurologic: no focal motor deficits Results & Data Vital Signs (Past 12 Hours) Vital Signs Temp Pulse Pulse Resp BP Pulse Ox O2 Del Method 05/12/25 08:24 36.8 C 63 16 147/63 H 91 Nasal Cannula 05/12/25 07:32 92 Nasal Cannula 05/12/25 07:25 85 L Room Air 05/12/25 07:04 57 L 05/12/25 04:00 36.7 C 60 18 141/60 H 95 Nasal Cannula 05/12/25 00:22 65 05/11/25 23:48 36.9 C 60 18 147/67 H 97 Nasal Cannula 05/11/25 21:14 Nasal Cannula O2 Flow Rate 05/12/25 08:24 3.5 05/12/25 07:32 3 05/12/25 07:25 05/12/25 07:04 05/12/25 04:00 3 05/12/25 00:22 05/11/25 23:48 3 05/11/25 21:14 4 Laboratory Results Laboratory Results - last 24 hr 05/11/25 05/11/25 05/11/25 12:02 16:55 20:16 WBC RBC Hgb Hct MCV MCH MCHC RDW Std Deviation RDW Coeff of Chyna Plt Count MPV Sodium Potassium Chloride Carbon Dioxide Anion Gap BUN Creatinine Est Cr Clr Drug Dosing eGFR BUN/Creatinine Ratio Glucose POC Glucose 132 H 116 H 138 H Calcium 05/12/25 05/12/25 05:22 08:12 WBC 9.10 RBC 3.15 L Hgb 9.2 L Hct 29.2 L MCV 92.7 MCH 29.2 MCHC 31.5 L RDW Std Deviation 53.4 H RDW Coeff of Chyna 16.9 H Plt Count 253 MPV 9.0 L Sodium 141 Potassium 3.6 Chloride 109 H Carbon Dioxide 25 Anion Gap 7 BUN 45 H Creatinine 4.10 H Est Cr Clr Drug Dosing 11.0 eGFR 10.35 BUN/Creatinine Ratio 11.0 Glucose 75 POC Glucose 75 Calcium 9.4 PG Care Time/CCT Total # of Minutes Spent Total Time Spent with Patient: 50 min visit - review progress notes/laboratory results, interview/examine patient, order diuretic, order potassium replacement, review BP management, order laboratory testing for am, discuss POC w/ patient and primary service, update medical record Coding Level of Care Code 54966 SUB INP/OBS CARE 3/50MIN Diagnoses KALA (acute kidney injury) N17.9 Chronic kidney disease, stage IV (severe) N18.4 Anemia, chronic disease D63.8 Hypertension I10
[2025-05-12] MEDS: FUROSEMIDE 40 MG/4 ML VIAL IV SCH (11:05)
[2025-05-12] MEDS: POTASSIUM CHLORIDE CRTAB 20 MEQ TABCR PO ONE (11:05)
--- NOTE | 2025-05-12 14:14 | Hospitalist Progress Note ---
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 Was hospitalized in March and had diverticulitis then - treated with zosyn, then augmentin upon discharge home. Upon admission had evidence of KALA. #Diarrhea - improved/resolving - - CT abd/pelvis without diverticulitis; diverticulitis from 03/2025 resolved - Stool BioFire negative - Stool c diff negative - at minimum likely with abx-associated diarrhea - added colestipol 1gm daily and this helped; ultimately increased to 2gm/daily -stools much better on colestipol - last colonoscopy - 2016; sigmoid diverticulosis only; no polyps or other abnormalities then - asked GI to see in consult; no plans for repeat colonoscopy due to pulm edema/o2 requirement; they, too, feel she has abx-associated diarrhea; advised ongoing supportive care - Resolved #KALA on CKD stage V/ESRD - KLAA improving - - Baseline Cr has been 3.5-4.0 the last several months - 2023 - Cr was low to mid 2's - she has had clear progression of her CKD in the remaining left-sided kidney - admission Cr 5.08, likely due to diarrhea/dehydration - Cr 3 day trend 3.8-> 4.04 -> 4.10 - recovery phase of ATN - unfortunately she developed pulmonary edema in the setting of her KALA & IVF; fluids stopped several days ago - remains stable on small amount of NC O2 - CXR findings from today noted (CHF) - appreciate [facility] Nephrology assistance - repeat BMP daily - continue sod bicarb supplementation - dose reduced to 650mg daily - no indication for acute HD at this time #Hypoxia/pulmonary edema/volume overload - - pulmonary edema 2nd to KALA/CKD stage 5 and IV fluids (as opposed to HFpEF) - s/p IV lasix on 05/08 - lasix 40mg IV BIDD ordered by Dr Talley for today and ongoing, and slight interval improvement in net diuresis, given concern for triggering her current KALA will continue with current dosing. Gentle diuresis as she tolerate - continue daily weights, ideally 3-5 kg removed with diuretic, then will reassess - Monitor renal function as above. at maximum tolerated diuresis rate with current 40mg BID dose #HFpEF - - last echo January 2025; EF 55-60% with severe left atrial dilation and type II diastolic dysfunction - usually takes 1 mg bumex BID at home; PO bumex on hold while receiving IV lasix #klebsiella UTI - - cephalexin 250mg daily x 7 days - Completed 05/12 #HTN - - labetalol, amlodipine, and bumex were placed on hold at time of admission - resumed labetalol at 100mg BID; titrated to 150mg BID; will resume 200mg BID (home dosing) today - cont amlodipine 5mg daily #Anemia, chronic - 2nd to CKD/ESRD - - appreciate nephrology management of such - B12/folate in 11/2024 both wnl - defer epogen/Fe supplementation to nephrology #T2DM - - home regime is glargine 40 units once daily ; this had been lowered to 25 units daily - AM BSGs borderline low despite the lantus dose reduction -will reduce further to 20 units HS - will adjust novolog SSI parameters as well - a1c 7.1% in November 2024 - a1c is 7% this admission #CARO - - CPAP #hypokalemia - - replaced/resolved VTE: heparin 5000 BID updated pt's son by phone 05/04 and again 05/08 seen by PT/OT -- cleared to return home at d/c date of discharge uncertain Admission and Anticipated Discharge Date Admission Date: May 03, 2025 Subjective Doing okay this morning. able to eat and drink but on a limited basis. Sleep has not been going well but it is more related to the environment than anything. No new abdominal pain or discomfort. She continues to urinate more. Appreciates the use of pure wick. No new complaints or concerns. No events per nursing staff. Discussed the overall timeframe of gentle diuresis. Her weight has not yet started to decline but reviewed with her that her pulmonary exam does seem to be improving Physical Exam Physical Exam: gen - awake, alert, NAD, lying in bed - minimal cough, pleaseant mouth - MMM neck - JVD present+1cm heart - RRR, s1 s2, 2/6 systolic murmur LUSB lungs - trace b/l basilar rales, no increased work of breathing; no wheezes abd - soft NT ND BS+ ext - 1+ edema b/l shins/feet R>L, pulses b/l feet 2+ psych - a/o x 3 Results & Data Results & Data Vital Signs (Past 12 Hours) Vital Signs Temp Pulse Pulse Resp BP Pulse Ox O2 Del Method 05/12/25 11:17 37.0 C 57 L 16 148/72 H 95 Nasal Cannula 05/12/25 10:13 Nasal Cannula 05/12/25 08:24 36.8 C 63 16 147/63 H 91 Nasal Cannula 05/12/25 07:32 92 Nasal Cannula 05/12/25 07:25 85 L Room Air 05/12/25 07:04 57 L 05/12/25 04:00 36.7 C 60 18 141/60 H 95 Nasal Cannula O2 Flow Rate 05/12/25 11:17 3 05/12/25 10:13 3 05/12/25 08:24 3.5 05/12/25 07:32 3 05/12/25 07:25 05/12/25 07:04 05/12/25 04:00 3 Laboratory Results 05/12/25 05/12/25 05/12/25 12:14 08:12 05:22 WBC 9.10 RBC 3.15 L Hgb 9.2 L Hct 29.2 L MCV 92.7 MCH 29.2 MCHC 31.5 L RDW Std Deviation 53.4 H RDW Coeff of Chyna 16.9 H Plt Count 253 MPV 9.0 L Sodium 141 Potassium 3.6 Chloride 109 H Carbon Dioxide 25 Anion Gap 7 BUN 45 H Creatinine 4.10 H Est Cr Clr Drug Dosing 11.0 eGFR 10.35 BUN/Creatinine Ratio 11.0 Glucose 75 POC Glucose 106 H 75 Calcium 9.4 05/11/25 05/11/25 20:16 16:55 WBC RBC Hgb Hct MCV MCH MCHC RDW Std Deviation RDW Coeff of Chyna Plt Count MPV Sodium Potassium Chloride Carbon Dioxide Anion Gap BUN Creatinine Est Cr Clr Drug Dosing eGFR BUN/Creatinine Ratio Glucose POC Glucose 138 H 116 H Calcium PG Care Time/CCT Total # of Minutes Spent Total Time Spent with Patient: Total time spent is greater than 50% in coordination of care (as documented) at patient's floor/unit and/or counseling patient: Coding Level of Care Code 62216 SUB INP/OBS CARE 2/35MIN Diagnoses Diarrhea R19.7 KALA (acute kidney injury) N17.9 Anemia, chronic disease D63.8 (HFpEF) heart failure with preserved ejection fraction I50.30 Obstructive sleep apnea G47.33 Diabetes mellitus with chronic kidney disease E11.22 Hypertension I10 UTI (urinary tract infection) N39.0 Hypokalemia E87.6 History of right nephrectomy Z90.5 ESRD (end stage renal disease) N18.6
[2025-05-13 06:19] LABS: Hematocrit (blood only) 31.3 % (37.0-47.0); Hemoglobin 9.6 g/dl (12.0-16.0); Mean Corpuscular Hemoglobin 28.6 pg (25.0-34.0); Mean Corpuscular Volume 93.2 fL (80.0-100.0); Platelet Count 245 K/uL (130-400); RDW Standard Deviation 56.0 fL (36.4-46.3); Red Blood Count 3.36 M/uL (4.20-5.40); White Blood Count 7.37 K/ul (4.8-10.8)
[2025-05-13 06:42] LABS: Anion Gap 9.0 (3-11); Blood Urea Nitrogen 46.0 mg/dl (6-23); Calcium 9.6 mg/dl (8.6-10.3); Carbon Dioxide 24.0 mmol/L (21-32); Chloride 107.0 mmol/L (98-107); Creatinine Clr Calc Pharmacy 10.8 ml/min; Glucose 89.0 mg/dl (70-99(Fasting)); Potassium 3.7 mmol/L (3.5-5.1); Sodium 140.0 mmol/L (136-145)
--- NOTE | 2025-05-13 10:32 | Nephrology Progress Note ---
Date of Service May 13, 2025 Assessment & Plan (1) KALA (acute kidney injury): (2) Sepsis: (3) Chronic kidney disease, stage IV (severe): (4) History of right nephrectomy: (5) Anemia, chronic disease: (6) Acute diverticulitis: (7) Secondary hyperparathyroidism of renal origin: Plan 84-year-old female with stage IV/V CKD with history of right nephrectomy for renal cell carcinoma in 2010, baseline creatinine lately around 3.45 to 4.0 mg/dl , admitted with acute diverticulitis and diarrhea as well as KALA thought to be secondary to volume depletion, creatinine was above 5 mg/dl, improved down close to baseline with IV hydration. Initially Bumex was on hold and slowly she became volume overloaded. Chronically she needs high dose of diuretic for significant volume overload and lower extremity edema. Diuretic was restarted and kidney function again slowly worsening, creatinine up to 4.2 this morning. She received 2 doses of Lasix 40 mg IV yesterday with slight improvement in volume status however clinically she continues to be volume overloaded with lowe r extremity edema, pulmonary congestion and conversational dyspnea. Hemoglobin has been low with iron deficiency, hemoglobin 9.6. Had left brachiocephalic AV fistula in December which failed and then had L Brachiobasilic AVF placed on 01/16/2025, at follow-up for fistula was noted to be slow to mature and fistulogram was recommended but she differed for now. Planning to consider PD when needed, will get PD catheter close to needing dialysis. Renal function has been slowly declining after being started on IV diuretic although she is not that far from her baseline and clinically she continues to have significant volume overload. Hemoglobin low at 9.6 with iron deficiency. --Resume Bumex, started 20 mg IV twice a day, first dose now, strict intake and output, aim for net negative. --Started on Venofer 20 mg IV daily x 5 doses, Epogen 20,000 units x 1 dose today. --No acute indication for dialysis at this time, continue to monitor kidney function and electrolyte as well as volume status closely. will follow. Admission and Anticipated Discharge Date Admission Date: May 03, 2025 Reginaldo Stone was seen and evaluated this morning. She denied any symptom but she started having conversational dyspnea with minimal talking while she was resting in bed. Denied chest pain. Blood pressure has been elevated. Slow increase in creatinine noted but electrolyte acceptable. Has lower extremity edema, relatively stable. Review of Systems Review of Systems: Detailed review of system was done and pertinent positives and negatives are mentioned above. Physical Exam Constitutional: WD/WN, vitals as above + acute distress Eyes: + anicteric sclerae Neck: normal visual inspection Respiratory: Auscultation: + crackles; no wheezes Conversational dyspnea. Cardiovascular: Rate/Rhythm: regular rate and regular rhythm Heart Sounds: normal S1 and normal S2 Extremities: + edema and + AV fistula (L BC AVF) Skin: no rashes, warm and dry Neurologic: no focal motor deficits and not confused Psychiatric: Orientation: alert and oriented x 3 Results & Data Vital Signs (Past 12 Hours) Vital Signs Temp Pulse Pulse Resp BP Pulse Ox O2 Del Method 05/13/25 09:05 36.8 C 83 160/64 H 99 Nasal Cannula 05/13/25 03:59 36.7 C 57 L 20 163/72 H 97 Nasal Cannula 05/12/25 23:44 36.6 C 57 L 20 151/68 H 94 Nasal Cannula 05/12/25 22:59 58 L O2 Flow Rate 05/13/25 09:05 05/13/25 03:59 2 05/12/25 23:44 4 05/12/25 22:59 PG Care Time/CCT Total # of Minutes Spent Total Time Spent with Patient: Total time spent is greater than 50% in coordination of care (as documented) at patient's floor/unit and/or counseling patient: Coding Level of Care Code 58037 SUB INP/OBS CARE 3/50MIN Diagnoses KALA (acute kidney injury) N17.9 Sepsis A41.9; R65.20; N17.9 Acute renal failure type: unspecified Sepsis acute organ dysfunction status: with acute organ dysfunction Sepsis type: sepsis due to unspecified organism Severe sepsis acute organ dysfunction type: acute renal failure Severe sepsis shock status: unspecified Chronic kidney disease, stage IV (severe) N18.4 History of right nephrectomy Z90.5 Anemia, chronic disease D63.8 Acute diverticulitis K57.92 Secondary hyperparathyroidism of renal origin N25.81 (2) Sepsis Acute renal failure type: unspecified Sepsis acute organ dysfunction status: with acute organ dysfunction Sepsis type: sepsis due to unspecified organism Severe sepsis acute organ dysfunction type: acute renal failure Severe sepsis shock status: unspecified Qualified Code(s): A41.9 - Sepsis, unspecified organism; R65.20 - Severe sepsis without septic shock; N17.9 - Acute kidney failure, unspecified
[2025-05-13] MEDS: BUMETANIDE 2 MG in SYRINGE 0 ML IV ONE (11:42)
[2025-05-13] MEDS: IRON SUCROSE 200 MG in SODIUM CHLORIDE 0.9% 100 ML IV SCH (11:51)
--- NOTE | 2025-05-13 13:47 | Hospitalist Progress Note ---
Date of Service May 13, 2025 Assessment & Plan (1) Diarrhea: (2) KALA (acute kidney injury): (3) Anemia, chronic disease: (4) (HFpEF) heart failure with preserved ejection fraction: (5) Obstructive sleep apnea: (6) Diabetes mellitus with chronic kidney disease: (7) Hypertension: (8) UTI (urinary tract infection): (9) Hypokalemia: (10) History of right nephrectomy: (11) ESRD (end stage renal disease): Plan Pt is an 84 yo female with a past med hx of CKD stage V/nearly ESRD - s/p recent AV fistula placement, T2DM, HFpEF, CARO, HTN, and hx gout who presented to the hospital on 05/03 for 1 week of nausea, vomiting, and diarrhea. Was hospitalized in March and had diverticulitis then - treated with zosyn, then augmentin upon discharge home. Upon admission had evidence of KALA. #Diarrhea - improved/resolving - - CT abd/pelvis without diverticulitis; diverticulitis from 03/2025 resolved - Stool BioFire negative - Stool c diff negative - at minimum likely with abx-associated diarrhea - added colestipol 1gm daily and this helped; ultimately increased to 2gm/daily -stools much better on colestipol - last colonoscopy - 2016; sigmoid diverticulosis only; no polyps or other abnormalities then - asked GI to see in consult; no plans for repeat colonoscopy due to pulm edema/o2 requirement; they, too, feel she has abx-associated diarrhea; advised ongoing supportive care - Resolved #KALA on CKD stage V/ESRD - KALA improving - - Baseline Cr has been 3.5-4.0 the last several months - 2023 - Cr was low to mid 2's - she has had clear progression of her CKD in the remaining left-sided kidney - admission Cr 5.08, likely due to diarrhea/dehydration - Cr 4 day trend 3.8-> 4.04 -> 4.10 -> 4.19 - recovery phase of ATN - unfortunately she developed pulmonary edema in the setting of her KALA & IVF; fluids stopped several days ago - CXR findings from today noted (CHF) - appreciate [facility] assistance - repeat BMP daily - continue sod bicarb supplementation - dose reduced to 650mg daily - Transition to IV bumex for diuresis, minimal net diuresis, may require gtt if renal function is labile #Hypoxia/pulmonary edema/volume overload - - pulmonary edema 2nd to KALA/CKD stage 5 and IV fluids (as opposed to HFpEF) - s/p IV lasix on 05/08 - lasix 40mg IV BIDD ordered by Dr Talley for today and ongoing, and slight interval improvement in net diuresis, given concern for triggering her current KALA will continue with current dosing. Gentle diuresis as she tolerate - continue daily weights, ideally 3-5 kg removed with diuretic, then will reassess - See bumex dose above, may need gtt if renal function labile #HFpEF - - last echo January 2025; EF 55-60% with severe left atrial dilation and type II diastolic dysfunction - usually takes 1 mg bumex BID at home; PO bumex on hold while receiving IV diuretics #klebsiella UTI - - cephalexin 250mg daily x 7 days - Completed 05/12 #HTN - - labetalol, amlodipine, and bumex were placed on hold at time of admission - resumed labetalol at 100mg BID; titrated to 150mg BID; will resume 200mg BID (home dosing) today - cont amlodipine 5mg daily #Anemia, chronic - 2nd to CKD/ESRD - - appreciate nephrology management of such - B12/folate in 11/2024 both wnl - defer epogen/Fe supplementation to nephrology 0 Starting IV venofer 05/13 #T2DM - - home regime is glargine 40 units once daily ; this had been lowered to 25 units daily - AM BSGs borderline low despite the lantus dose reduction -will reduce further to 20 units HS - will adjust novolog SSI parameters as well - a1c 7.1% in November 2024 - a1c is 7% this admission #CARO - - CPAP #hypokalemia - - replaced/resolved VTE: heparin 5000 BID updated pt's son by phone 05/04 and again 05/08 seen by PT/OT -- cleared to return home at d/c date of discharge uncertain Admission and Anticipated Discharge Date Admission Date: May 03, 2025 Subjective Doing okay this morning. No significant change in her breathing overall though she does feel like she notices it is a little bit easier specifically when she sits up. She has been up at the bedside chair quite a bit. Discussed diuretics and nephrology notes. Patient is amenable. Overall no new complaints or concerns good oral intake. Physical Exam Physical Exam: gen - awake, alert, NAD, lying in bed - minimal cough, pleaseant mouth - MMM neck - JVD present+1cm heart - RRR, s1 s2, 2/6 systolic murmur LUSB lungs - trace b/l basilar crackles R>L, no increased work of breathing; no wheezes abd - soft NT ND BS+ ext - 1+ edema b/l shins/feet R>L, pulses b/l feet 2+ psych - a/o x 3 Results & Data Results & Data Vital Signs (Past 12 Hours) Vital Signs Temp Pulse Pulse Resp BP Pulse Ox O2 Del Method 05/13/25 12:59 37.1 C 58 L 20 144/66 H 95 Nasal Cannula 05/13/25 12:12 36.9 C 57 L 20 167/71 H 96 Nasal Cannula 05/13/25 11:41 36.9 C 57 L 20 165/76 H 95 Nasal Cannula 05/13/25 09:05 36.8 C 83 160/64 H 99 Nasal Cannula 05/13/25 08:00 Nasal Cannula 05/13/25 08:00 57 L 05/13/25 03:59 36.7 C 57 L 20 163/72 H 97 Nasal Cannula O2 Flow Rate 05/13/25 12:59 3 05/13/25 12:12 3 05/13/25 11:41 3 05/13/25 09:05 05/13/25 08:00 3 05/13/25 08:00 05/13/25 03:59 2 Laboratory Results 05/13/25 05/13/25 05/13/25 11:38 08:37 05:33 WBC 7.37 RBC 3.36 L Hgb 9.6 L Hct 31.3 L MCV 93.2 MCH 28.6 MCHC 30.7 L RDW Std Deviation 56.0 H RDW Coeff of Chyna 17.6 H Plt Count 245 MPV 9.5 Sodium 140 Potassium 3.7 Chloride 107 Carbon Dioxide 24 Anion Gap 9 BUN 46 H Creatinine 4.19 H Est Cr Clr Drug Dosing 10.8 eGFR 10.08 BUN/Creatinine Ratio 11.0 Glucose 89 POC Glucose 132 H 96 Calcium 9.6 05/12/25 05/12/25 20:10 17:09 WBC RBC Hgb Hct MCV MCH MCHC RDW Std Deviation RDW Coeff of Chyna Plt Count MPV Sodium Potassium Chloride Carbon Dioxide Anion Gap BUN Creatinine Est Cr Clr Drug Dosing eGFR BUN/Creatinine Ratio Glucose POC Glucose 162 H 105 H Calcium PG Care Time/CCT Total # of Minutes Spent Total Time Spent with Patient: Total time spent is greater than 50% in coordination of care (as documented) at patient's floor/unit and/or counseling patient: Coding Level of Care Code 35804 SUB INP/OBS CARE 2/35MIN Diagnoses Diarrhea R19.7 KALA (acute kidney injury) N17.9 Anemia, chronic disease D63.8 (HFpEF) heart failure with preserved ejection fraction I50.30 Obstructive sleep apnea G47.33 Diabetes mellitus with chronic kidney disease E11.22 Hypertension I10 UTI (urinary tract infection) N39.0 Hypokalemia E87.6 History of right nephrectomy Z90.5 ESRD (end stage renal disease) N18.6
[2025-05-13] MEDS: EPOETIN ALFA 20,000 UNITS/ML VIAL SQ ONE (14:39)
[2025-05-13] MEDS: BUMETANIDE 2 MG in SYRINGE 0 ML IV SCH (17:00)
[2025-05-14 09:20] LABS: Hematocrit (blood only) 33.9 % (37.0-47.0); Hemoglobin 10.5 g/dl (12.0-16.0); Immature Granulocytes # (auto) 0.09 K/uL (0.01-0.20); Immature Granulocytes % (auto) 1.3 %; Mean Corpuscular Hemoglobin 28.8 pg (25.0-34.0); Mean Corpuscular Volume 93.1 fL (80.0-100.0); Platelet Count 231 K/uL (130-400); RDW Standard Deviation 56.2 fL (36.4-46.3); Red Blood Count 3.64 M/uL (4.20-5.40); White Blood Count 6.74 K/ul (4.8-10.8)
[2025-05-14 09:35] LABS: Anion Gap 9.0 (3-11); Blood Urea Nitrogen 46.0 mg/dl (6-23); Calcium 9.9 mg/dl (8.6-10.3); Carbon Dioxide 26.0 mmol/L (21-32); Chloride 106.0 mmol/L (98-107); Creatinine Clr Calc Pharmacy 10.9 ml/min; Glucose 115.0 mg/dl (70-99(Fasting)); Magnesium 1.7 mg/dl (1.7-2.4); Potassium 3.6 mmol/L (3.5-5.1); Sodium 141.0 mmol/L (136-145)
--- NOTE | 2025-05-14 10:14 | Nephrology Progress Note ---
Date of Service May 14, 2025 Assessment & Plan (1) KALA (acute kidney injury): (2) Sepsis: (3) Chronic kidney disease, stage IV (severe): (4) History of right nephrectomy: (5) Anemia, chronic disease: (6) Acute diverticulitis: (7) Secondary hyperparathyroidism of renal origin: Plan 84-year-old female with stage IV/V CKD with history of right nephrectomy for renal cell carcinoma in 2010, baseline creatinine lately around 3.45 to 4.0 mg/dl , admitted with acute diverticulitis and diarrhea as well as KALA thought to be secondary to volume depletion, creatinine was above 5 mg/dl, improved down close to baseline with IV hydration. Initially Bumex was on hold and slowly she became volume overloaded. Chronically she needs high dose of diuretic for significant volume overload and lower extremity edema. Diuretic was restarted and kidney function again slowly worsening, creatinine up to 4.2 this morning. She received 2 doses of Lasix 40 mg IV yesterday with slight improvement in volume status however clinically she continues to be volume overloaded with lowe r extremity edema, pulmonary congestion and conversational dyspnea. Hemoglobin has been low with iron deficiency, hemoglobin 9.6. Had left brachiocephalic AV fistula in December which failed and then had L Brachiobasilic AVF placed on 01/16/2025, at follow-up for fistula was noted to be slow to mature and fistulogram was recommended but she differed for now. Planning to consider PD when needed, will get PD catheter close to needing dialysis. Renal function has been slowly declining after being started on IV diuretic although she is not that far from her baseline and clinically she continues to have significant volume overload.. Hemoglobin low at 9.6 with iron deficiency. Labs from this morning pending. Received Epogen and getting IV iron. --continue Bumex, 2 mg IV twice a day, strict intake and output, aim for net negative. -- on Venofer 20 mg IV daily x 5 doses, Epogen 20,000 units x 1 dose given on 05/13/25 --No acute indication for dialysis at this time, continue to monitor kidney function and electrolyte as well as volume status closely. will follow. Admission and Anticipated Discharge Date Admission Date: May 03, 2025 Reginaldo Stone was seen and evaluated this morning. She reports overall feeling better, shortness of breath improved. Appetite has been decent. Denied chest pain. Blood pressure has been elevated. Slow increase in creatinine noted but lab from this morning currently pending. Has lower extremity edema, relatively stable. Review of Systems Review of Systems: Detailed review of system was done and pertinent positives and negatives are mentioned above. Physical Exam Constitutional: WD/WN, vitals as above + acute distress Eyes: + anicteric sclerae Respiratory: Auscultation: + crackles; no wheezes Cardiovascular: Rate/Rhythm: regular rate and regular rhythm Heart Sounds: normal S1 and normal S2 Extremities: + edema and + AV fistula (L BC AVF with thrill and bruit, swelling) Skin: no rashes, warm and dry Neurologic: no focal motor deficits and not confused Psychiatric: Orientation: alert and oriented x 3 Results & Data Vital Signs (Past 12 Hours) Vital Signs Temp Pulse Pulse Resp BP Pulse Ox O2 Del Method 05/14/25 07:38 57 L 05/14/25 07:35 36.4 C L 60 16 152/65 H 96 Nasal Cannula 05/14/25 03:41 36.6 C 66 20 169/69 H 96 Nasal Cannula 05/13/25 23:18 36.8 C 64 20 173/75 H 95 Nasal Cannula O2 Flow Rate 05/14/25 07:38 05/14/25 07:35 3 05/14/25 03:41 2 05/13/25 23:18 2 PG Care Time/CCT Total # of Minutes Spent Total Time Spent with Patient: Total time spent is greater than 50% in coordination of care (as documented) at patient's floor/unit and/or counseling patient: Coding Level of Care Code 78123 SUB INP/OBS CARE 235MIN Diagnoses KALA (acute kidney injury) N17.9 Sepsis A41.9; R65.20; N17.9 Acute renal failure type: unspecified Sepsis acute organ dysfunction status: with acute organ dysfunction Sepsis type: sepsis due to unspecified organism Severe sepsis acute organ dysfunction type: acute renal failure Severe sepsis shock status: unspecified Chronic kidney disease, stage IV (severe) N18.4 History of right nephrectomy Z90.5 Anemia, chronic disease D63.8 Acute diverticulitis K57.92 Secondary hyperparathyroidism of renal origin N25.81 (2) Sepsis Acute renal failure type: unspecified Sepsis acute organ dysfunction status: with acute organ dysfunction Sepsis type: sepsis due to unspecified organism Severe sepsis acute organ dysfunction type: acute renal failure Severe sepsis shock status: unspecified Qualified Code(s): A41.9 - Sepsis, unspecified organism; R65.20 - Severe sepsis without septic shock; N17.9 - Acute kidney failure, unspecified
--- NOTE | 2025-05-14 13:28 | Hospitalist Progress Note ---
Date of Service May 14, 2025 Assessment & Plan (1) Diarrhea: (2) KALA (acute kidney injury): (3) Anemia, chronic disease: (4) (HFpEF) heart failure with preserved ejection fraction: (5) Obstructive sleep apnea: (6) Diabetes mellitus with chronic kidney disease: (7) Hypertension: (8) UTI (urinary tract infection): (9) Hypokalemia: (10) History of right nephrectomy: (11) ESRD (end stage renal disease): Plan Pt is an 84 yo female with a past med hx of CKD stage V/nearly ESRD - s/p recent AV fistula placement, T2DM, HFpEF, CARO, HTN, and hx gout who presented to the hospital on 05/03 for 1 week of nausea, vomiting, and diarrhea. Was hospitalized in March and had diverticulitis then - treated with zosyn, then augmentin upon discharge home. Upon admission had evidence of KALA. #Diarrhea - improved/resolving - - CT abd/pelvis without diverticulitis; diverticulitis from 03/2025 resolved - Stool BioFire negative - Stool c diff negative - at minimum likely with abx-associated diarrhea - added colestipol 1gm daily and this helped; ultimately increased to 2gm/daily -stools much better on colestipol - last colonoscopy - 2016; sigmoid diverticulosis only; no polyps or other abnormalities then - asked GI to see in consult; no plans for repeat colonoscopy due to pulm edema/o2 requirement; they, too, feel she has abx-associated diarrhea; advised ongoing supportive care - Resolved #KALA on CKD stage V/ESRD - KALA improving - - Baseline Cr has been 3.5-4.0 the last several months - 2023 - Cr was low to mid 2's - she has had clear progression of her CKD in the remaining left-sided kidney - admission Cr 5.08, likely due to diarrhea/dehydration - Cr 4 day trend 3.8-> 4.04 -> 4.10 -> 4.19 (bumex started) -> 4.10 - recovery phase of ATN - unfortunately she developed pulmonary edema in the setting of her KALA & IVF; fluids stopped several days ago - CXR findings from today noted (CHF) - appreciate [facility] assistance - repeat BMP daily - continue sod bicarb supplementation - dose reduced to 650mg daily - Much more consistent diuresis with Bumex, may require gtt if renal function is labile #Difficult Vascular Access - IV team was able to establish a midline on the right side. Discussed with nephrology. Functioning well. This will provide much better access given the iron infusions and Bumex needs #Hypoxia/pulmonary edema/volume overload - - pulmonary edema 2nd to KALA/CKD stage 5 and IV fluids (as opposed to HFpEF) - s/p IV lasix on 05/08 now on IV Bumex - continue daily weights, ideally 3-5 kg removed with diuretic, down 1.5kg as of today - See bumex dose above, may need gtt if renal function labile #HFpEF - - last echo January 2025; EF 55-60% with severe left atrial dilation and type II diastolic dysfunction - usually takes 1 mg bumex BID at home; PO bumex on hold while receiving IV diuretics #klebsiella UTI - - cephalexin 250mg daily x 7 days - Completed 05/12 #HTN - - labetalol, amlodipine, and bumex were placed on hold at time of admission - resumed labetalol at 100mg BID; titrated to 150mg BID; will resume 200mg BID (home dosing) today - cont amlodipine 5mg daily #Anemia, chronic - 2nd to CKD/ESRD - - appreciate nephrology management of such - B12/folate in 11/2024 both wnl - defer epogen/Fe supplementation to nephrology 0 Starting IV venofer 05/13 #T2DM - - home regime is glargine 40 units once daily ; this had been lowered to 25 units daily - AM BSGs borderline low despite the lantus dose reduction -will reduce further to 20 units HS - will adjust novolog SSI parameters as well - a1c 7.1% in November 2024 - a1c is 7% this admission #CARO - - CPAP #hypokalemia - - replaced/resolved VTE: heparin 5000 BID updated pt's son by phone 05/04 and again 05/08 seen by PT/OT -- cleared to return home at d/c date of discharge uncertain Admission and Anticipated Discharge Date Admission Date: May 03, 2025 Subjective doing okay at this morning. Nursing staff has been working to place another IV as the iron infusions have been a challenge and she keeps blowing the IV. They look with ultrasound very little in terms of options. Not even a reasonable option for PICC or midline although there may be 1 option that we will explore again. Otherwise patient is doing well noting quite a bit more urine output with the Bumex. No dizziness or orthostasis. No other new concerns or complaints. Physical Exam Physical Exam: gen - awake, alert, NAD, lying in bed - minimal cough, pleaseant mouth - MMM neck - JVD present+1cm heart - RRR, s1 s2, 2/6 systolic murmur LUSB lungs - trace b/l basilar crackles R>L, no increased work of breathing; no wheezes abd - soft NT ND BS+ ext - 1+ edema b/l shins/feet R>L, pulses b/l feet 2+ psych - a/o x 3 Results & Data Results & Data Vital Signs (Past 12 Hours) Vital Signs Temp Pulse Pulse Resp BP Pulse Ox O2 Del Method 05/14/25 10:20 36.4 C L 53 L 16 150/69 H 97 Nasal Cannula 05/14/25 07:38 57 L 05/14/25 07:35 36.4 C L 60 16 152/65 H 96 Nasal Cannula 05/14/25 03:41 36.6 C 66 20 169/69 H 96 Nasal Cannula O2 Flow Rate 05/14/25 10:20 3 05/14/25 07:38 05/14/25 07:35 3 05/14/25 03:41 2 Laboratory Results 05/14/25 05/14/25 05/14/25 12:25 09:02 08:16 WBC 6.74 RBC 3.64 L Hgb 10.5 L Hct 33.9 L MCV 93.1 MCH 28.8 MCHC 31.0 L RDW Std Deviation 56.2 H RDW Coeff of Chyna 17.9 H Plt Count 231 MPV 8.7 L Immature Gran % (Auto) 1.3 Neut % (Auto) 67.9 Lymph % (Auto) 16.5 [place] % (Auto) 8.0 Eos % (Auto) 5.0 Baso % (Auto) 1.3 Neut # (Auto) 4.57 Lymph # (Auto) 1.11 L [place] # (Auto) 0.54 Eos # (Auto) 0.34 Baso # (Auto) 0.09 Immature Gran # (Auto) 0.09 Sodium 141 Potassium 3.6 Chloride 106 Carbon Dioxide 26 Anion Gap 9 BUN 46 H Creatinine 4.10 H Est Cr Clr Drug Dosing 10.9 eGFR 10.35 BUN/Creatinine Ratio 11.2 Glucose 115 H POC Glucose 96 88 Calcium 9.9 Magnesium 1.7 05/13/25 05/13/25 20:08 17:01 WBC RBC Hgb Hct MCV MCH MCHC RDW Std Deviation RDW Coeff of Chyna Plt Count MPV Immature Gran % (Auto) Neut % (Auto) Lymph % (Auto) [place] % (Auto) Eos % (Auto) Baso % (Auto) Neut # (Auto) Lymph # (Auto) [place] # (Auto) Eos # (Auto) Baso # (Auto) Immature Gran # (Auto) Sodium Potassium Chloride Carbon Dioxide Anion Gap BUN Creatinine Est Cr Clr Drug Dosing eGFR BUN/Creatinine Ratio Glucose POC Glucose 146 H 137 H Calcium Magnesium PG Care Time/CCT Total # of Minutes Spent Total Time Spent with Patient: Total time spent is greater than 50% in coordination of care (as documented) at patient's floor/unit and/or counseling patient: Coding Level of Care Code 20449 SUB INP/OBS CARE 2/35MIN Diagnoses Diarrhea R19.7 KALA (acute kidney injury) N17.9 Anemia, chronic disease D63.8 (HFpEF) heart failure with preserved ejection fraction I50.30 Obstructive sleep apnea G47.33 Diabetes mellitus with chronic kidney disease E11.22 Hypertension I10 UTI (urinary tract infection) N39.0 Hypokalemia E87.6 History of right nephrectomy Z90.5 ESRD (end stage renal disease) N18.6
[2025-05-14] MEDS: FAMOTIDINE 20 MG TAB PO STA (23:45)
[2025-05-15 06:34] LABS: Hematocrit (blood only) 32.3 % (37.0-47.0); Hemoglobin 10.2 g/dl (12.0-16.0); Immature Granulocytes # (auto) 0.11 K/uL (0.01-0.20); Immature Granulocytes % (auto) 1.1 %; Mean Corpuscular Hemoglobin 29.5 pg (25.0-34.0); Mean Corpuscular Volume 93.4 fL (80.0-100.0); Platelet Count 258 K/uL (130-400); RDW Standard Deviation 57.7 fL (36.4-46.3); Red Blood Count 3.46 M/uL (4.20-5.40); White Blood Count 9.75 K/ul (4.8-10.8)
[2025-05-15 06:49] LABS: Albumin Level 3.5 gm/dl (3.4-5.0); Anion Gap 8.0 (3-11); Blood Urea Nitrogen 46.0 mg/dl (6-23); Calcium 9.7 mg/dl (8.6-10.3); Carbon Dioxide 27.0 mmol/L (21-32); Chloride 107.0 mmol/L (98-107); Creatinine Clr Calc Pharmacy 11.5 ml/min; Glucose 95.0 mg/dl (70-99(Fasting)); Magnesium 1.7 mg/dl (1.7-2.4); Potassium 3.3 mmol/L (3.5-5.1); Sodium 142.0 mmol/L (136-145)
--- NOTE | 2025-05-15 09:42 | Nephrology Progress Note ---
Date of Service May 15, 2025 Assessment & Plan (1) KALA (acute kidney injury): (2) Sepsis: (3) Chronic kidney disease, stage IV (severe): (4) History of right nephrectomy: (5) Anemia, chronic disease: (6) Acute diverticulitis: (7) Secondary hyperparathyroidism of renal origin: Plan 84-year-old female with stage IV/V CKD with history of right nephrectomy for renal cell carcinoma in 2010, baseline creatinine lately around 3.45 to 4.0 mg/dl , admitted with acute diverticulitis and diarrhea as well as KALA thought to be secondary to volume depletion, creatinine was above 5 mg/dl, improved down close to baseline with IV hydration. Initially Bumex was on hold and slowly she became volume overloaded. Chronically she needs high dose of diuretic for significant volume overload and lower extremity edema. Diuretic was restarted and kidney function again slowly worsening, creatinine up to 4.2 this morning. She received 2 doses of Lasix 40 mg IV yesterday with slight improvement in volume status however clinically she continues to be volume overloaded with lowe r extremity edema, pulmonary congestion and conversational dyspnea. Hemoglobin has been low with iron deficiency, hemoglobin 9.6. Had left brachiocephalic AV fistula in December which failed and then had L Brachiobasilic AVF placed on 01/16/2025, at follow-up for fistula was noted to be slow to mature and fistulogram was recommended but she differed for now. Planning to consider PD when needed, will get PD catheter close to needing dialysis. Had to get a mid line yesterday as no other IV access, Renal function relatively stable, cr slightly improved. Phos, Bicarb normal. Hb improved, Received Epogen and getting IV iron. --continue Bumex, 2 mg IV twice a day, strict intake and output, aim for net negative. --on Venofer 20 mg IV daily x 5 doses, Epogen 20,000 units x 1 dose given on 05/13/25 --No acute indication for dialysis at this time, continue to monitor kidney function and electrolyte as well as volume status closely, has high risk for worsening kidney function and needing HD in near future. Has L BC AVF, recently had transposition, will remove stitches before DC ( had outpt f/u today to remove) will follow. Admission and Anticipated Discharge Date Admission Date: May 03, 2025 Reginaldo Stone was seen and evaluated this morning. She reports overall feeling much better, shortness of breath improved, just feels tired. Appetite has been decent. Denied chest pain. Blood pressure has been elevated. Kidney function relatively stable, creatinine slightly improved, K 3.3. Lower extremity edema improving. Review of Systems Review of Systems: Detailed review of system was done and pertinent positives and negatives are mentioned above. Physical Exam Constitutional: WD/WN, vitals as above + acute distress Eyes: + anicteric sclerae Respiratory: Auscultation: + crackles; no wheezes Cardiovascular: Rate/Rhythm: regular rate and regular rhythm Heart Sounds: normal S1 and normal S2 Extremities: + edema and + AV fistula (L BC AVF with thrill and bruit, swelling. stitch in place) Skin: no rashes, warm and dry Neurologic: no focal motor deficits and not confused Psychiatric: Orientation: alert and oriented x 3 Results & Data Vital Signs (Past 12 Hours) Vital Signs Temp Pulse Pulse Resp BP Pulse Ox O2 Del Method 05/15/25 08:18 36.7 C 66 18 170/70 H 97 Nasal Cannula 05/15/25 07:46 68 05/15/25 03:49 36.9 C 60 20 148/60 H 94 Nasal Cannula 05/14/25 23:42 36.7 C 64 20 163/70 H 93 Nasal Cannula 05/14/25 21:45 65 O2 Flow Rate 05/15/25 08:18 2 05/15/25 07:46 05/15/25 03:49 2 05/14/25 23:42 2 05/14/25 21:45 PG Care Time/CCT Total # of Minutes Spent Total Time Spent with Patient: Total time spent is greater than 50% in coordination of care (as documented) at patient's floor/unit and/or counseling patient: Coding Level of Care Code 80164 SUB INP/OBS CARE 235MIN Diagnoses KALA (acute kidney injury) N17.9 Sepsis A41.9; R65.20; N17.9 Acute renal failure type: unspecified Sepsis acute organ dysfunction status: with acute organ dysfunction Sepsis type: sepsis due to unspecified organism Severe sepsis acute organ dysfunction type: acute renal failure Severe sepsis shock status: unspecified Chronic kidney disease, stage IV (severe) N18.4 History of right nephrectomy Z90.5 Anemia, chronic disease D63.8 Acute diverticulitis K57.92 Secondary hyperparathyroidism of renal origin N25.81 (2) Sepsis Acute renal failure type: unspecified Sepsis acute organ dysfunction status: with acute organ dysfunction Sepsis type: sepsis due to unspecified organism Severe sepsis acute organ dysfunction type: acute renal failure Severe sepsis shock status: unspecified Qualified Code(s): A41.9 - Sepsis, unspecified organism; R65.20 - Severe sepsis without septic shock; N17.9 - Acute kidney failure, unspecified
[2025-05-15] MEDS: POTASSIUM CHLORIDE 10 MEQ TABCR PO STA (12:18)
[2025-05-15] MEDS: FAMOTIDINE 20 MG TAB PO SCH (13:39)
--- NOTE | 2025-05-15 20:21 | Hospitalist Progress Note ---
Date of Service May 15, 2025 Assessment & Plan (1) Diarrhea: (2) KALA (acute kidney injury): (3) Hypokalemia: (4) Anemia, chronic disease: Plan Pt is an 84 yo female with a past med hx of CKD stage V/nearly ESRD - s/p recent AV fistula placement, T2DM, chronic HFpEF, CARO, HTN, and hx gout who presented to the hospital on 05/03 for 1 week of nausea, vomiting, and diarrhea with KALA. #Diarrhea - improved/resolving - CT abd/pelvis without diverticulitis; diverticulitis from 03/2025 resolved- Stool BioFire negative- Stool c diff negative - at minimum likely with abx-associated diarrhea - added colestipol 2gm daily and this helped - last colonoscopy - 2016; sigmoid diverticulosis only; no polyps or other abnormalities then - asked GI to see in consult; no plans for repeat colonoscopy due to pulm edema/o2 requirement; they, too, feel she has abx-associated diarrhea; advised ongoing supportive care and recommends colonoscopy in 6 weeks -For mild hypokalemia and hypomagnesemia-replace with low-dose of oral potassium and oral magnesium and follow BMP, magnesium in the morning #KALA on CKD stage V/ESRD - KALA improving -- Baseline Cr has been 3.5-4.0 the last several months- she has had clear progression of her CKD in the remaining left-sided kidney - admission Cr 5.08, likely due to diarrhea/dehydration. She was initially given IV fluids but then had volume overload and now is being diuresed. She is in recovery phase of ATN. Creatinine is now improving daily now at 3.8 - [place] [facility] [place] - repeat BMP daily - She is not receiving sodium bicarbonate supplementation now and serum bicarbonate is normal-it is on her home medication list-discussed with nephrology if needs to continue this - Continue IV Bumex - Continue BP control - Follow I's and O's - Will need to have sutures removed from left brachiocephalic region before discharge #Difficult Vascular Access - IV team was able to establish a midline on the right side. Discussed with nephrology. Functioning well. This will provide much better access given the iron infusions and Bumex needs #Hypoxia/pulmonary edema/volume overload -- pulmonary edema 2nd to KALA/CKD stage 5 and IV fluids (as opposed to HFpEF). Now improving on IV Bumex. Weaned to 1.5 L NC O2. CXR with evidence of pulmonary edema and pleural effusions - Continue to wean supplemental O2 off to keep pulse ox greater than 90% - Continue IV Bumex # Chronic HFpEF - - last echo January 2025; EF 55-60% with severe left atrial dilation and type II diastolic dysfunction - usually takes 1 mg bumex BID at home; PO bumex on hold while receiving IV diuretics\ -Daily weights #klebsiella UTI - - Completed course of cephalexin 250mg daily x 7 days #HTN -BPs are controlled - Continue labetalol, amlodipine, and bumex #Anemia, chronic - 2nd to CKD/ESRD - - appreciate nephrology management of such- B12/folate in 11/2024 both wnl - defer epogen/Fe supplementation to nephrology -Started IV Venofer 05/13 #T2DM - home regimen is glargine 40 units once daily ; this had been lowered to 20 units daily due to lower blood sugars - a1c 7.1% in November 2024 - a1c is 7% this admission - Continue basal bolus insulin and lower doses on discharge #CARO - - CPAP VTE: heparin 5000 BID Disposition-seen by PT/OT -- cleared to return home at d/c-hopeful for discharge in the next 1-2 days if renal function continues to improve Admission and Anticipated Discharge Date Admission Date: May 03, 2025 Subjective Patient feels well. Denies shortness of breath. She is ambulating independently and feels generally strong. She is making urine. Having to loose bowel movements per day but much improved from previous. Telemetry with sinus bradycardia with rates in the 50s to 60s and some PACs. Physical Exam Constitutional: WD/WN, vitals as above Respiratory: normal respiratory effort, lungs clear to auscultation Cardiovascular: Rate/Rhythm: regular rate and regular rhythm Heart Sounds: no murmur Extremities: + edema (2+ pitting edema of the legs to the knees bilaterally) Gastrointestinal (Abdomen): normal bowel sounds, soft, nontender, no hepatosplenomegaly Skin: + lesion (Left biceps region with suture s in place over surgical wound) Psychiatric: A+Ox3, euthymic affect Results & Data Results & Data Vital Signs (Past 12 Hours) Vital Signs Temp Pulse Pulse Resp BP Pulse Ox O2 Del Method 05/15/25 19:10 Nasal Cannula 05/15/25 16:38 93 Nasal Cannula 05/15/25 13:52 66 05/15/25 11:56 Nasal Cannula 05/15/25 11:27 36.5 C 55 L 18 134/53 L 96 Room Air O2 Flow Rate 05/15/25 19:10 1.5 05/15/25 16:38 1.5 05/15/25 13:52 05/15/25 11:56 2 05/15/25 11:27 Laboratory Results CBC, BMP, magnesium reviewed PG Care Time/CCT Total # of Minutes Spent Total Time Spent with Patient: Total time spent is greater than 50% in coordination of care (as documented) at patient's floor/unit and/or counseling patient: Coding Level of Care Code 42922 SUB INP/OBS CARE 2/35MIN Diagnoses Diarrhea R19.7 KALA (acute kidney injury) N17.9 Hypokalemia E87.6 Anemia, chronic disease D63.8
[2025-05-16] MEDS: POLYETHYLENE (MIRALAX) 17 GM PACK PO PRN (08:36)
[2025-05-16 09:17] LABS: Albumin Level 3.3 gm/dl (3.4-5.0); Anion Gap 7.0 (3-11); Blood Urea Nitrogen 44.0 mg/dl (6-23); Calcium 9.6 mg/dl (8.6-10.3); Carbon Dioxide 27.0 mmol/L (21-32); Chloride 108.0 mmol/L (98-107); Creatinine Clr Calc Pharmacy 10.8 ml/min; Glucose 73.0 mg/dl (70-99(Fasting)); Magnesium 1.7 mg/dl (1.7-2.4); Potassium 3.4 mmol/L (3.5-5.1); Sodium 142.0 mmol/L (136-145)
--- NOTE | 2025-05-16 09:56 | Nephrology Progress Note ---
Date of Service May 16, 2025 Assessment & Plan (1) KALA (acute kidney injury): (2) Sepsis: (3) Chronic kidney disease, stage IV (severe): (4) History of right nephrectomy: (5) Anemia, chronic disease: (6) Acute diverticulitis: (7) Secondary hyperparathyroidism of renal origin: Plan 84-year-old female with stage IV/V CKD with history of right nephrectomy for renal cell carcinoma in 2010, baseline creatinine lately around 3.45 to 4.0 mg/dl , admitted with acute diverticulitis and diarrhea as well as KALA thought to be secondary to volume depletion, creatinine was above 5 mg/dl, improved down close to baseline with IV hydration. Initially Bumex was on hold and slowly she became volume overloaded. Chronically she needs high dose of diuretic for significant volume overload and lower extremity edema. Diuretic was restarted and kidney function again slowly worsening, creatinine up to 4.2 this morning. She received 2 doses of Lasix 40 mg IV yesterday with slight improvement in volume status however clinically she continues to be volume overloaded with lowe r extremity edema, pulmonary congestion and conversational dyspnea. Hemoglobin has been low with iron deficiency, hemoglobin 9.6. Had left brachiocephalic AV fistula in December which failed and then had L Brachiobasilic AVF placed on 01/16/2025, at follow-up for fistula was noted to be slow to mature and fistulogram was recommended but she differed for now. Planning to consider PD when needed, will get PD catheter close to needing dialysis. Had to get a mid line as no other IV access Renal function has been staying quite low. Variability in creatinine, 4.1 mg/dl this am. K 3.4 Phos, Bicarb normal. Hb improved, Received Epogen and getting IV iron. --Change Bumex to 2 mg orally twice a day, strict intake and output, aim for net negative. If volume status continue to improve and kidney function stay relatively stable with acceptable electrolyte, we will aim to discharge home in the next few days. --on Venofer 20 mg IV daily x 5 doses, Epogen 20,000 units x 1 dose given on 05/13/25 --No acute indication for dialysis at this time, continue to monitor kidney function and electrolyte as well as volume status closely, has high risk for worsening kidney function and needing HD in near future. Has L BC AVF, recently had transposition, will remove stitches before DC ( had outpt f/u today to remove) will follow. Admission and Anticipated Discharge Date Admission Date: May 03, 2025 Reginaldo Stone was seen and evaluated this morning. She reports overall feeling well, shortness of breath improved. Appetite has been decent. Denied chest pain. Blood pressure has been elevated. Kidney function relatively stable with some variability in creatinine last few days, creatinine 4.1mg/dl this morning, K 3.4. Lower extremity edema improving. Decent urine output, net negative. Review of Systems 2 Review of Systems: Detailed review of system was done and pertinent positives and negatives are mentioned above. Physical Exam Constitutional: WD/WN, vitals as above + acute distress Eyes: + anicteric sclerae Respiratory: Auscultation: + crackles; no wheezes Cardiovascular: Rate/Rhythm: regular rate and regular rhythm Heart Sounds: normal S1 and normal S2 Extremities: + edema and + AV fistula (L BC AVF with thrill and bruit, swelling. stitch in place) Skin: no rashes, warm and dry Neurologic: no focal motor deficits and not confused Psychiatric: Orientation: alert and oriented x 3 Results & Data Vital Signs (Past 12 Hours) Vital Signs Temp Pulse Pulse Resp BP Pulse Ox O2 Del Method 05/16/25 07:46 61 05/16/25 07:11 36.5 C 61 18 159/78 H 94 Nasal Cannula 05/16/25 02:52 36.6 C 62 14 144/73 H 94 Nasal Cannula 05/15/25 23:23 36.7 C 64 14 145/71 H 93 Nasal Cannula 05/15/25 22:33 63 O2 Flow Rate 05/16/25 07:46 05/16/25 07:11 2 05/16/25 02:52 1 05/15/25 23:23 1 05/15/25 22:33 PG Care Time/CCT Total # of Minutes Spent Total Time Spent with Patient: Total time spent is greater than 50% in coordination of care (as documented) at patient's floor/unit and/or counseling patient: Coding Level of Care Code 43709 SUB INP/OBS CARE 3/50MIN Diagnoses KALA (acute kidney injury) N17.9 Sepsis A41.9; R65.20; N17.9 Acute renal failure type: unspecified Sepsis acute organ dysfunction status: with acute organ dysfunction Sepsis type: sepsis due to unspecified organism Severe sepsis acute organ dysfunction type: acute renal failure Severe sepsis shock status: unspecified Chronic kidney disease, stage IV (severe) N18.4 History of right nephrectomy Z90.5 Anemia, chronic disease D63.8 Acute diverticulitis K57.92 Secondary hyperparathyroidism of renal origin N25.81 (2) Sepsis Acute renal failure type: unspecified Sepsis acute organ dysfunction status: with acute organ dysfunction Sepsis type: sepsis due to unspecified organism Severe sepsis acute organ dysfunction type: acute renal failure Severe sepsis shock status: unspecified Qualified Code(s): A41.9 - Sepsis, unspecified organism; R65.20 - Severe sepsis without septic shock; N17.9 - Acute kidney failure, unspecified
--- NOTE | 2025-05-16 13:17 | Hospitalist Progress Note ---
Date of Service May 16, 2025 Assessment & Plan (1) Diarrhea: (2) KALA (acute kidney injury): (3) Hypokalemia: (4) Anemia, chronic disease: Plan Pt is an 84 yo female with a past med hx of CKD stage V/nearly ESRD - s/p recent AV fistula placement, T2DM, chronic HFpEF, CARO, HTN, and hx gout who presented to the hospital on 05/03 for 1 week of nausea, vomiting, and diarrhea with KALA. #Diarrhea - improved/resolving - CT abd/pelvis without diverticulitis; diverticulitis from 03/2025 resolved- Stool BioFire negative- Stool c diff negative - at minimum likely with abx-associated diarrhea. Also could be poor absorption of water from the gut due to gut wall edema. - added colestipol 2gm daily and this helped but continues to have at least 3 loose bowel movements daily-increase colestipol to 2 g twice daily at 10 AM and 2200 - last colonoscopy - 2016; sigmoid diverticulosis only; no polyps or other abnormalities then - asked GI to see in consult; no plans for repeat colonoscopy due to pulm edema/o2 requirement; they feel she has abx-associated diarrhea; advised ongoing supportive care and recommends colonoscopy in 6 weeks -For mild hypokalemia and hypomagnesemia-replace with low-dose of oral potassium and IV magnesium-DC oral magnesium as this can worsen diarrhea - Follow BMP, magnesium in the morning #KALA on CKD stage V/ESRD - KALA improving -- Baseline Cr has been 3.5-4.0 the last several months- she has had clear progression of her CKD in the remaining left-sided kidney - admission Cr 5.08, likely due to diarrhea/dehydration. She was initially given IV fluids but then had volume overload and now is being diuresed. She is in recovery phase of ATN. Creatinine was improving daily down to 3.8 but now back up to 4.1-variable - appreciate [facility] [place] Nephrology assistance - repeat BMP daily - She is not receiving sodium bicarbonate supplementation now and serum bicarbonate is normal-it is on her home medication list-discussed with nephrology if needs to continue this - Nephrology recommends changing IV Bumex to Bumex 2 mg p.o. twice daily and follow-up for 1-2 more days to see if volume status and renal function remains acceptable - Continue BP control - Follow I's and O's - Will need to have sutures removed from left brachiocephalic region before discharge #Difficult Vascular Access - IV team was able to establish a midline on the right side. Discussed with nephrology. Functioning well. This will provide much better access given the iron infusions and Bumex needs #Hypoxia/pulmonary edema/volume overload -- pulmonary edema 2nd to KALA/CKD stage 5 and IV fluids (as opposed to HFpEF). Now improving on IV Bumex. Weaned to room air at rest but still with dyspnea on exertion. CXR with evidence of pulmonary edema and pleural effusions - Two-step walk test prior to discharge will be needed - Continue diuresis per changing to p.o. Bumex # Chronic HFpEF - - last echo January 2025; EF 55-60% with severe left atrial dilation and type II diastolic dysfunction - usually takes 1 mg bumex BID at home; was given IV Bumex here and now convert to Bumex 2 mg p.o. twice daily -Daily weights, fluid restriction to 1500 mL/day, low-sodium diet encouraged #klebsiella UTI - - Completed course of cephalexin 250mg daily x 7 days #HTN -BPs are fairly Will controlled - Continue labetalol, amlodipine, and bumex #Anemia, chronic - 2nd to CKD/ESRD - - appreciate nephrology management of such- B12/folate in 11/2024 both wnl - defer epogen/Fe supplementation to nephrology -Started IV Venofer 200 mg daily on 05/13 x 5 doses #T2DM - home regimen is glargine 40 units once daily ; this had been lowered to 20 units daily due to lower blood sugars - a1c 7.1% in November 2024 - a1c is 7% this admission - Continue basal bolus insulin and lower doses on discharge #CARO - - CPAP VTE: heparin 5000 BID Disposition-seen by PT/OT -- cleared to return home at d/c-hopeful for discharge in the next 1-2 days if renal function continues to improve and volume status remains acceptable once converting to oral diuretics Admission and Anticipated Discharge Date Admission Date: May 03, 2025 Subjective Patient has some dyspnea with walking to the bathroom and back but otherwise feeling better, feels her leg swelling is improved. Moved her bowels 3 times already this morning. Telemetry with normal sinus rhythm, PACs, rates in the 60s Physical Exam Constitutional: WD/WN, vitals as above Respiratory: normal respiratory effort; no cough Auscultation: + crackles (Bibasilar); no rhonchi and no wheezes Cardiovascular: Rate/Rhythm: regular rate and regular rhythm Extremities: + edema (2+ pitting edema of the legs to the knees bilaterally) Gastrointestinal (Abdomen): normal bowel sounds, soft, nontender, no hepatosplenomegaly Skin: + lesion (Left biceps region with suture s in place over surgical wound) Psychiatric: A+Ox3, euthymic affect Results & Data Results & Data Vital Signs (Past 12 Hours) Vital Signs Temp Pulse Pulse Resp BP Pulse Ox O2 Del Method 05/16/25 10:56 36.6 C 66 20 144/70 H 90 Room Air 05/16/25 07:46 61 05/16/25 07:11 36.5 C 61 18 159/78 H 94 Nasal Cannula 05/16/25 02:52 36.6 C 62 14 144/73 H 94 Nasal Cannula O2 Flow Rate 05/16/25 10:56 05/16/25 07:46 05/16/25 07:11 2 05/16/25 02:52 1 Laboratory Results BMP, magnesium, phosphorus reviewed PG Care Time/CCT Total # of Minutes Spent Total Time Spent with Patient: Total time spent is greater than 50% in coordination of care (as documented) at patient's floor/unit and/or counseling patient: Coding Level of Care Code 17631 SUB INP/OBS CARE 2/35MIN Diagnoses Diarrhea R19.7 KALA (acute kidney injury) N17.9 Hypokalemia E87.6 Anemia, chronic disease D63.8
[2025-05-16] MEDS: POTASSIUM CHLORIDE 10 MEQ TABCR PO STA (14:48)
[2025-05-16] MEDS: MAGNESIUM SULFATE / D5W 1 GM/100 ML BAG IV ONE (14:49)
[2025-05-16] MEDS: BUMETANIDE 1 MG TAB PO SCH (18:03)
[2025-05-16] MEDS: COLESTIPOL HCL 1 GM TAB PO SCH (22:01)
[2025-05-17 07:29] VITALS: RESP 16; TEMP 98.1
[2025-05-17 08:22] LABS: Hematocrit (blood only) 31.9 % (37.0-47.0); Hemoglobin 9.8 g/dl (12.0-16.0); Mean Corpuscular Hemoglobin 28.8 pg (25.0-34.0); Mean Corpuscular Volume 93.8 fL (80.0-100.0); Platelet Count 231 K/uL (130-400); RDW Standard Deviation 61.0 fL (36.4-46.3); Red Blood Count 3.40 M/uL (4.20-5.40); White Blood Count 8.40 K/ul (4.8-10.8)
[2025-05-17 08:46] LABS: Albumin Level 3.4 gm/dl (3.4-5.0); Anion Gap 9.0 (3-11); Blood Urea Nitrogen 42.0 mg/dl (6-23); Calcium 9.5 mg/dl (8.6-10.3); Carbon Dioxide 25.0 mmol/L (21-32); Chloride 108.0 mmol/L (98-107); Creatinine Clr Calc Pharmacy 10.7 ml/min; Glucose 81.0 mg/dl (70-99(Fasting)); Magnesium 1.9 mg/dl (1.7-2.4); Potassium 3.1 mmol/L (3.5-5.1); Sodium 142.0 mmol/L (136-145)
[2025-05-17] MEDS: POTASSIUM CHLORIDE CRTAB 20 MEQ TABCR PO STA (09:54)
--- NOTE | 2025-05-17 10:36 | Nephrology Progress Note ---
Date of Service May 17, 2025 Assessment & Plan (1) KALA (acute kidney injury): (2) Sepsis: (3) Chronic kidney disease, stage IV (severe): (4) History of right nephrectomy: (5) Anemia, chronic disease: (6) Acute diverticulitis: (7) Secondary hyperparathyroidism of renal origin: Plan 84-year-old female with stage IV/V CKD with history of right nephrectomy for renal cell carcinoma in 2010, baseline creatinine lately around 3.45 to 4.0 mg/dl , admitted with acute diverticulitis and diarrhea as well as KALA thought to be secondary to volume depletion, creatinine was above 5 mg/dl, improved down close to baseline with IV hydration. Initially Bumex was on hold and slowly she became volume overloaded. Chronically she needs high dose of diuretic for significant volume overload and lower extremity edema. Diuretic was restarted and kidney function again slowly worsening, creatinine up to 4.2 this morning. She received 2 doses of Lasix 40 mg IV yesterday with slight improvement in volume status however clinically she continues to be volume overloaded with lowe r extremity edema, pulmonary congestion and conversational dyspnea. Hemoglobin has been low with iron deficiency, hemoglobin 9.6. Had left brachiocephalic AV fistula in December which failed and then had L Brachiobasilic AVF placed on 01/16/2025, at follow-up for fistula was noted to be slow to mature and fistulogram was recommended but she differed for now. Planning to consider PD when needed, will get PD catheter close to needing dialysis. Renal function has been staying quite low with some variability in creatinine but creatinine staying around 4.1-4.2 mg/dl over last few days without any signi ficant changes. Hb low but stable. Received Epogen and 1 IV iron. --Okay to be discharged with close outpatient lab monitoring, increase Bumex to 3 mg twice a day on discharge and advised her to increase to 4 mg twice a day if progressive worsening of lower extremity edema, shortness of breath or further weight gain. If progressive worsening of kidney function noted as an outpatient, we will set up for dialysis as an outpatient. Has AV fistula ready to be used. --Lab in 2 days after discharge and then in a week. --high risk for worsening kidney function and needing HD in near future. Has L BC AVF, recently had transposition, will remove stitches before DC ( had outpt f/u today to remove). PICC line will be removed prior to discharge today. Admission and Anticipated Discharge Date Admission Date: May 03, 2025 Reginalod Stone was seen and evaluated this morning. She reports overall feeling well, shortness of breath improved and feels she is back to her baseline and eager to go home. Appetite has been decent. Blood pressure has been elevated. Kidney function relatively stable with some variability in creatinine last few days, creatinine 4.1 to 4.2mg/dl. Lower extremity edema improving. Decent urine output. Review of Systems Review of Systems: Detailed review of system was done and pertinent positives and negatives are mentioned above. Physical Exam Constitutional: WD/WN, vitals as above + acute distress Eyes: + anicteric sclerae Neck: normal visual inspection Respiratory: Auscultation: + crackles; no wheezes Cardiovascular: Rate/Rhythm: regular rate and regular rhythm Heart Sounds: normal S1 and normal S2 Extremities: + edema and + AV fistula (L BC AVF with thrill and bruit, swelling. stitch in place) Skin: no rashes, warm and dry Neurologic: no focal motor deficits Psychiatric: Orientation: alert and oriented x 3 Results & Data Vital Signs (Past 12 Hours) Vital Signs Temp Pulse Resp BP Pulse Ox O2 Del Method 05/17/25 07:29 36.7 C 91 H 16 158/68 H 92 Room Air 05/17/25 03:21 36.8 C 70 20 153/80 H 92 Room Air PG Care Time/CCT Total # of Minutes Spent Total Time Spent with Patient: Total time spent is greater than 50% in coordination of care (as documented) at patient's floor/unit and/or counseling patient: Coding Level of Care Code 06567 SUB INP/OBS CARE 3/50MIN Diagnoses KALA (acute kidney injury) N17.9 Sepsis A41.9; R65.20; N17.9 Acute renal failure type: unspecified Sepsis acute organ dysfunction status: with acute organ dysfunction Sepsis type: sepsis due to unspecified organism Severe sepsis acute organ dysfunction type: acute renal failure Severe sepsis shock status: unspecified Chronic kidney disease, stage IV (severe) N18.4 History of right nephrectomy Z90.5 Anemia, chronic disease D63.8 Acute diverticulitis K57.92 Secondary hyperparathyroidism of renal origin N25.81 (2) Sepsis Acute renal failure type: unspecified Sepsis acute organ dysfunction status: with acute organ dysfunction Sepsis type: sepsis due to unspecified organism Severe sepsis acute organ dysfunction type: acute renal failure Severe sepsis shock status: unspecified Qualified Code(s): A41.9 - Sepsis, unspecified organism; R65.20 - Severe sepsis without septic shock; N17.9 - Acute kidney failure, unspecified
[2025-05-17 10:43] VITALS: BP 153/60; O2SAT 93
[2025-05-17 12:14] VITALS: PULSE 65
--- NOTE | 2025-05-17 12:31 | Discharge Summary ---
Discharge Summary Date of Service May 17, 2025 Principal Dx & Hospital Course #1 = Principal Diagnosis (1) Diarrhea: (2) KALA (acute kidney injury): (3) Hypokalemia: (4) Anemia, chronic disease: Plan Pt is an 84 yo female with a past med hx of CKD stage V/nearly ESRD - s/p recent AV fistula placement, T2DM, chronic HFpEF, CARO, HTN, and hx gout who presented to the hospital on 05/03 for 1 week of nausea, vomiting, and diarrhea with KALA. #Diarrhea - improved/resolving - CT abd/pelvis without diverticulitis; diverticulitis from 03/2025 resolved- Stool BioFire negative- Stool c diff negative - at minimum likely with abx-associated diarrhea. Also could be poor absorption of water from the gut due to gut wall edema. - added colestipol 2gm twice daily and this helped but continues to have at le ast 3-4 loose bowel movements daily - Continue Imodium as needed - last colonoscopy - 2016; sigmoid diverticulosis only; no polyps or other abnormalities then - asked GI to see in consult; no plans for repeat colonoscopy as an inpatient due to pulm edema/o2 requirement; they feel she has abx-associated diarrhea; advised ongoing supportive care and recommends colonoscopy in 6 weeks -For mild hypokalemia and hypomagnesemia-replaced with low-dose of oral potassium and IV magnesium-DC oral magnesium as this can worsen diarrhea - Follow BMP as an outpatient #KALA on CKD stage V/ESRD - KALA improving -- Baseline Cr has been 3.5-4.0 the last several months- she has had clear progression of her CKD in the remaining left-sided kidney - admission Cr 5.08, likely due to diarrhea/dehydration. She was initially given IV fluids but then had volume overload and now is being diuresed. She is in recovery phase of ATN. Creatinine was improving daily down to 3.8 but now back up to 4.1 and remained stable - appreciate [facility] [place] assistance - repeat BMP 1 day after discharge and then again in 1 week with results to nephrology - sodium bicarbonate supplementation discontinued - She was diuresed with IV Bumex successfully and was transitioned to Bumex 3 mg p.o. twice daily on discharge-can increase to 4 mg as needed for worsening swelling or weight gain - Continue BP control - Removed sutures from left brachiocephalic region prior to discharge - She will likely need to start dialysis in the near future #Difficult Vascular Access - IV team was able to establish a midline on the right side which was removed prior to discharge. #Hypoxia/pulmonary edema/volume overload -- pulmonary edema 2nd to KALA/CKD stage 5 and IV fluids (as opposed to HFpEF). Now improved on IV Bumex. Weaned to room air at rest and passed a two-step walk test prior to discharge. CXR with evidence of pulmonary edema and pleural effusions -Continue Bumex on discharge # Chronic HFpEF - - last echo January 2025; EF 55-60% with severe left atrial dilation and type II diastolic dysfunction - usually takes 1 mg bumex BID at home; was given IV Bumex here and now convert to Bumex 3 mg p.o. twice daily -Daily weights, fluid restriction to 1500 mL/day, low-sodium diet encouraged #klebsiella UTI - - Completed course of cephalexin 250mg daily x 7 days #HTN -BPs are fairly Will controlled - Continue labetalol, amlodipine, and bumex #Anemia, chronic - 2nd to CKD/ESRD - - appreciate nephrology management of such- B12/folate in 11/2024 both wnl - defer epogen/Fe supplementation to nephrology -Started IV Venofer 200 mg daily on 05/13 x 5 doses #T2DM - home regimen is glargine 40 units once daily ; this had been lowered to 20 units daily due to lower blood sugars - a1c 7.1% in November 2024 - a1c is 7% this admission - Continue basal bolus insulin and lower doses on discharge #ACRO - - CPAP VTE: heparin 5000 BID Disposition-seen by PT/OT -- cleared to return home at d/c-stable for discharge to home on 05/17 Notes For Next Care Provider Has planned follow-up BMP on 05/18 and again on 05/25 Needs colonoscopy in 6 weeks for ongoing diarrhea Medication Changes From Visit See medication list Admission HPI Per Admitting Provider Pt is an 84 yo female with a past med hx of CKD stage V nearly ESRD s/p recent AV fistula placement, DMT2, HFpEF, CARO, HTN, and hx gout who presents to the hospital on 05/03 for 1 week of nausea, vomiting, and diarrhea. Pt seen at bedside with son present. She states that she came in because she has been having nausea, vomiting, and diarrhea for the past week. She states that she normally takes iron so stools are normally a bit dark but no bright red blood noted in the stool. She denies blood in the vomit. She states that she has not been having abdominal pain but her abdomen just feels "uncomfortable". She states that her diarrhea is essentially just water and is not high volume but she has an episode of it every few hours the last week. No mucus in the stool. No cough or rhinorrhea. No chest pain or SOB. No fevers or chills. No recent travel. She states that about 1 mo ago she had diverticulitis and was on antibiotics. She does have a hx of heart failure and her legs have looked more swollen the last 1 week. She states she usually has a bit of swelling but they are worse. She states she does generally keep track of her weights at home and her weight has gone up by about 2 lbs but other than the swelling she has not had any chest symptoms. She was noted to be hypoxic to the high 80s when walking around in the ED but at rest maintains normal oxygen saturations. She denies SOB when ambulating even when hypoxic. Discharge Exam Constitutional WD/WN, vitals as above Respiratory normal respiratory effort, lungs clear to auscultation Cardiovascular Rate/Rhythm: regular rate and regular rhythm Heart Sounds: + murmur (2/6 holosystolic ejection murmur at the left lower sternal border) Extremities: + edema (2+ pitting edema of the legs to the knees bilaterally) Gastrointestinal (Abdomen) normal bowel sounds, soft, nontender, no hepatosplenomegaly Skin + lesion (Left biceps region with sutures in place over surgical wound-removed 8) Psychiatric A+Ox3, euthymic affect Discharge Plan Discharge Items Patient Disposition: Home - Self-Care Reason For Visit: DIARRHEA Discharge Diagnosis: Diarrhea Acute kidney injury Acute respiratory failure with hypoxemia-resolved UTI Anemia Condition on Discharge: Fair Activity: Resume your previous activity Non-emergency contact: Primary Care Provider and Cheese Supervisor Call non-emergency contact if: you have any medication questions and your symptoms worsen Follow-up/Referrals: Michelle Magana DO [Primary Care Provider] - 05/24/25 11:00 am Komal Freed MD [Physician] - (Follow-up within 2 weeks after discharge) Diet: Dialysis Renal and Low Sodium (2gm) Fluids: 1500ml (6 cups) Ambulatory Orders: Renal Function Panel (Routine) Timeframe: 1 Day Location: Determined by Patient Ordered By: Cecy Jacobsen Attending Provider Instructions: You were admitted with diarrhea which caused worsening of your kidney function. You were started on a medication called colestipol to help with the diarrhea. You do not have an infection in your stool. GI is recommending that you have a colonoscopy in about 6 weeks. Your PCP can help refer you for this. Your kidney failure is progressing but has stabilized at this point. Your Bumex dose was increased to 3 mg twice a day and you will have to take a potassium supplement with this. Please have blood work done on , 05/18, and again on 05/25 with the results sent to nephrology for review. Your sutures were removed from your AV fistula site and you should reschedule your follow-up with your vascular surgeon. You did not need any oxygen supplementally at the time of discharge. Your insulin dose was reduced to only 25 units/day. With your worsening kidney function, you do not require as much insulin as you used to. It was a pleasure taking care of you! Cecy Stanley MD Pending Studies at Discharge: No Stand-Alone Forms: My [facility], Smoking Cessation Medications and DC Order Prescriptions: New bumetanide 1 mg Tablet 3 mg PO BID17 Qty: 180 0RF colestipol [Colestid] 1 gram Tablet 2 g PO BID@1000,2200 Qty: 120 0RF potassium chloride 20 mEq tablet extended release 20 meq PO DAILY Qty: 30 0RF Continued (DME) FreeStyle Santi 3 [place] Misc See Rx Instructions .Route Qty: 1 0RF Rx Instructions: As directed omeprazole 20 mg capsule,delayed release(DR/EC) 20 mg PO DAILY Qty: 90 3RF venlafaxine 150 mg capsule,extended release 24hr 150 mg PO DAILY Qty: 90 2RF (DME) FreeStyle Santi 3 Sensor Device See Rx Instructions .Route Qty: 3 0RF Rx Instructions: As directed amlodipine [Norvasc] 5 mg tablet 5 mg PO QAM Qty: 90 1RF (DME) Wheeled Walker Misc See Rx Instructions .Route Qty: 1 0RF Rx Instructions: please provide 1 rollator walker with handbrakes and seat cyanocobalamin (vitamin B-12) 3,000 mcg capsule 3,000 mcg PO DAILY cholecalciferol (vitamin D3) 50 mcg (2,000 unit) capsule 50 mcg PO DAILY labetalol 200 mg tablet 200 mg PO BID aspirin [Juan José Low Dose Aspirin] 81 mg Tablet,Delayed Release (Dr/Ec) 81 mg PO DAILY albuterol sulfate 90 mcg/actuation HFA aerosol inhaler 2 puff INHALATION Q4 PRN (Reason: Shortness Of Breath Or Wheezing) ferrous sulfate 325 mg (65 mg iron) tablet 325 mg PO Q OTHER DAY Qty: 14 0RF atorvastatin 40 mg tablet 40 mg PO DAILY allopurinol 100 mg tablet 100 mg PO Q OTHER DAY Changed insulin glargine U-300 conc [Toujeo Max U-300 SoloStar] 300 unit/mL (3 mL) insulin pen 25 unit subcut DAILY Qty: 6 0RF loperamide 2 mg capsule 2 mg PO QID PRN (Reason: Diarrhea) Qty: 30 0RF Discontinued magnesium oxide 400 mg magnesium tablet 400 mg PO DAILY Qty: 30 0RF Hold Instructions: Resume on 04/18/25. magnesium oxide can cause diarrhea - hold until diarrhea resolved bumetanide 1 mg tablet 2 mg PO BID Qty: 120 2RF tramadol 50 mg tablet 50 mg PO BID PRN (Reason: Pain) Qty: 60 1RF sodium bicarbonate 650 mg Tablet 1,300 mg PO BID Qty: 120 0RF Rx Instructions: buy over the counter oxycodone-acetaminophen 5-325 mg tablet 1 tab PO Q4 PRN (Reason: Pain) Discharge Orders: Discharge Order (Routine); Ordered 05/17/25 Ordered By: Cecy Parada/Other Patient Handouts: Managing Type 2 Diabetes Admission Data Admit Date/Time: 05/03/25 05:09 Attending Provider: Cecy Stanley Admit Provider: Isela Cole Primary Care Provider: Michelle Magana Other Providers: Zbigniew Frye; Graham Byrd; Ramila Cali [facility] Hospital Stay Data Consultations 05/03/25 05:29 ED Decision to Admit Stat 05/03/25 09:55 Consult Nephrology Routine 05/06/25 08:50 Consult Gastroenterology Routine Diagnostic Imagining Performed 05/03/25 00:31 CT abd pelvis wo con Stat Pending Results Patient Have Any Pending Studies at Discharge: No Discharge Instructions Given to Patient (Per Discharging Provider) You were admitted with diarrhea which caused worsening of your kidney function. You were started on a medication called colestipol to help with the diarrhea. You do not have an infection in your stool. GI is recommending that you have a colonoscopy in about 6 weeks. Your PCP can help refer you for this. Your kidney failure is progressing but has stabilized at this point. Your Bumex dose was increased to 3 mg twice a day and you will have to take a potassium supplement with this. Please have blood work done on , 05/18, and again on 05/25 with the results sent to nephrology for review. Your sutures were removed from your AV fistula site and you should reschedule your follow-up with your vascular surgeon. You did not need any oxygen supplementally at the time of discharge. Your insulin dose was reduced to only 25 units/day. With your worsening kidney function, you do not require as much insulin as you used to. It was a pleasure taking care of you! Cecy Stanley MD Total Time Total Time Spent Total Time Spent (In Minutes): 35 minutes Total Time Includes: Examination of the Patient, Discharge Planning, Medication Reconciliation and Communication With Other Providers (Nephrology) Coding Level of Care Code 76809 INP/OBS DISCH >30 MIN Diagnoses Diarrhea R19.7 KALA (acute kidney injury) N17.9 Hypokalemia E87.6 Anemia, chronic disease D63.8
== END 2025-05-17 14:05 | disposition home health service (06) | DRG 682 ==
LOC: SUATTDRO → ED 23:57 → SUATTDRO 05-03 05:09 → 2N 05-03 05:09